=== PATIENT | male | born 1950 | race Caucasian/White ===

== ENCOUNTER 2016-07-18 16:32 | Emergency (ER) | payer OTHER ==
[2016-07-18 16:37] VITALS: TEMP 97.9; BMI 30.8
--- NOTE | 2016-07-18 18:26 | PDOC ---
History of Present Illness - General History Source: Patient Exam Limitations: No Limitations - History of Present Illness Initial Comments: 07/18/16 18:30 The patient is a 66 year old male with a significant PMHx of hypertension, paroxysmal a-fib, hypothyroidism, and anxiety who presents to the ED with intermittent, vague shaky sensation and lightheadedness today. He states that he experienced these symptoms when he was in crowded places, such as the [employer]und[employer] and [employer]. He reports associated feeling of a stuffy head. He reports that while driving to the ED, symptoms resolved and he calmed down. He denies having similar symptoms before. He denies chest pain, palpitations, SOB, URI symptoms, nausea, vomiting, diarrhea. <Ivette Benson - Last Filed: 07/18/16 18:30> <Mario Alberto Salinas - Last Filed: 07/18/16 20:15> - General Chief Complaint: Blood Pressure Problem Stated Complaint: SHACKY/ BLOODPRESSURE Time Seen by Provider: 07/18/16 17:02 Past History <Ivette Benson - Last Filed: 07/18/16 18:30> - Past Medical History Cardiac Disorders: Yes (a-fib) HTN: Yes Kidney Stones: Yes Psychiatric Problems: Yes (ANXIETY.) Thyroid Disease: Yes (HYPO.) - Surgical History Abdominal Surgery: Yes (HERNIA REPAIR, LITHOTRIPSY X5) - Immunization History Immunization Up to Date: Yes - Psycho/Social/Smoking Cessation Hx Anxiety: Yes Suicidal Ideation: No Smoking Status: Yes Smoking History: Never smoked Have you smoked in the past 12 months: No Number of Cigarettes Smoked Daily: 0 Cigars Per Day: 0 Hx Alcohol Use: No Drug/Substance Use Hx: No Substance Use Type: None Hx Substance Use Treatment: No <Mario Alberto Salinas - Last Filed: 07/18/16 20:15> - Past Medical History Allergies/Adverse Reactions: Allergies Allergy/AdvReac Type Severity Reaction Status Date / Time ampicillin Allergy Verified 07/18/16 16:34 Penicillins Allergy Verified 07/18/16 16:34 Home Medications: Ambulatory Orders Aspirin [Aspirin EC] 81 mg PO DAILY 06/05/15 Amlodipine Besylate [Norvasc -] 5 mg PO DAILY 04/19/16 Levothyroxine [Synthroid -] 100 mcg PO DAILY@0700 #60 tablet 04/19/16 Mirtazapine [Remeron -] 7.5 mg PO HS 04/19/16 Quinapril HCl [Accupril] 20 mg PO ONCE 05/06/16 Diltiazem [Cardizem -] 30 mg PO PRN 07/18/16 Review of Systems - Review of Systems Able to Perform ROS?: Yes Comments:: 07/18/16 18:30 CONSTITUTIONAL: Absent: Fever, Chills, Generalized Weakness, Malaise, Loss of Appetite HEENT: Absent: Rhinorrhea, Nasal Congestion, Throat Pain, Throat Swelling, Difficulty Swallowing, Mouth Swelling, Ear Pain, Eye Pain, Visual Changes CARDIOVASCULAR: Present: lightheadedness Absent: Chest Pain, Syncope, Palpitations, Irregular Heart Rate, Peripheral Edema RESPIRATORY: Absent: Cough, Shortness of Breath, SOB with Exertion, Orthopnea, Wheezing, Stridor, Hemoptysis GASTROINTESTINAL: Absent: Abdominal pain, Abdominal Distension, Nausea, Vomiting, Diarrhea, Constipation, Melena, Hematochezia GENITOURINARY: Absent: Dysuria, Frequency, Urgency, Hesitancy, Flank Pain, Genital Pain MUSCULOSKELETAL: Absent: Myalgia, Arthralgia, Joint Swelling, Back pain, Neck Pain SKIN: Absent: Rash, Itching, Pallor HEMATOLOGIC/IMMUNOLOGIC: Absent: Easy Bleeding, Easy Bruising, Lymphadenopathy, Frequent infections ENDOCRINE: Present: change in thyroid dose from 88 mcg to 100 mcg 2 months ago, states repeat labs were good Absent: Unexplained Weight Gain, Unexplained Weight Loss, Heat Intolerance, Cold Intolerance NEUROLOGIC: Present: shaky sensation, lightheadedness Absent: Headache, Focal Weakness, Paresthesias, Vertigo, Unsteady Gait, Seizure, Mental Status Changes, Incontinence PSYCHIATRIC: Present: nervous Absent: Depression <Ivette Benson - Last Filed: 07/18/16 18:30> *Physical Exam - Vital Signs Last Vital Signs Temp Pulse Resp BP Pulse Ox 97.9 F 85 22 136/87 96 07/18/16 16:34 07/18/16 17:17 07/18/16 17:17 07/18/16 17:17 07/18/16 17:17 - Physical Exam Comments: 07/18/16 18:30 GENERAL: The patient is awake, alert, and fully oriented, in no acute distress. Anxious, but overall looks well. HEAD: Normal with no signs of trauma. EYES: Pupils equal, round and reactive to light, extraocular movements intact, sclera anicteric, conjunctiva clear. ENT: Ears normal, nares patent, oropharynx clear without exudates. Moist mucous membranes. NECK: Normal range of motion, supple without lymphadenopathy, JVD, or masses. LUNGS: Breath sounds equal, clear to auscultation bilaterally. No wheezes, and no crackles. HEART: Regular rate and rhythm, normal S1 and S2 without murmur, rub or gallop. ABDOMEN: Soft, appears bloated, normoactive bowel sounds. No guarding, no rebound. No masses. BACK: no CVA tenderness EXTREMITIES: Normal range of motion, no edema. No clubbing or cyanosis. No cords , erythema, or tenderness. NEUROLOGICAL: Cranial nerves II through XII grossly intact. Normal speech, normal gait. Normal strength, normal sensation. PSYCH: Normal mood, normal affect. SKIN: Warm, Dry, normal turgor, no rashes or lesions noted. <Ivette Benson A - Last Filed: 07/18/16 18:30> - Vital Signs Last Vital Signs Temp Pulse Resp BP Pulse Ox 97.9 F 85 22 136/87 96 07/18/16 16:34 07/18/16 17:17 07/18/16 17:17 07/18/16 17:17 07/18/16 17:17 <Mario Alberto Salinas S - Last Filed: 07/18/16 20:15> ED Treatment Course - LABORATORY CBC & Chemistry Diagram: 07/18/16 18:16 07/18/16 18:23 <Ivette Benson - Last Filed: 07/18/16 18:30> - LABORATORY CBC & Chemistry Diagram: 07/18/16 18:16 07/18/16 18:23 <Mario Alberto Salinas - Last Filed: 07/18/16 20:15> Medical Decision Making - Medical Decision Making 07/18/16 20:12 Patient with history of thyroid disease, hypertension, paroxysmal atrial fibrillation complains of feeling a little shaky, little foggy, no palpitations , no chest pain. His 12-lead EKG shows normal sinus rhythm with no acute changes. The axis is normal. The intervals are normal. There are no acute ST or T-wave changes. His laboratory workup and examination are also normal. His TSH is normal, and the free T4 is pending. Advised to call his primary care physician to go over his ending thyroid results on Wednesday. Impression: No acute pathology identified. Patient is stable for discharge. Laboratory Results - last 24 hr 07/18/16 07/18/16 07/18/16 18:16 18:23 19:00 WBC 7.6 RBC 4.98 Hgb 16.0 Hct 46.6 MCV 93.7 MCHC 34.2 RDW 12.9 Plt Count 228 MPV 10.1 Neutrophils % 73.2 D Lymphocytes % 15.5 D Monocytes % 8.5 Eosinophils % 1.5 Basophils % 1.3 Sodium 141 Potassium 4.0 Chloride 103 Carbon Dioxide 28 Anion Gap 10 BUN 17 Creatinine 1.3 Creat Clearance w eGFR 54.90 Random Glucose 102 Calcium 9.3 Total Bilirubin 0.5 D AST 27 ALT 47 Alkaline Phosphatase 75 Total Protein 8.1 Albumin 4.4 TSH 1.68 D Urine Color Ltyellow Urine Appearance Clear Urine pH 7.0 Ur Specific [place] 1.017 Urine Protein Negative Urine Glucose (UA) Negative Urine Ketones Negative Urine Blood Negative Urine Nitrite Negative Urine Bilirubin Negative Urine Urobilinogen Negative Ur Leukocyte Esterase Negative <Mario Alberto Salinas - Last Filed: 07/18/16 20:15> *DC/Admit/Observation/Transfer - Attestations Scribe Attestion: 07/18/16 18:31 Documentation prepared by Ivette Benson, acting as medical service technician for Mario Alberto Salinas MD. <Ivette Benson - Last Filed: 07/18/16 18:30> - Discharge Dispostion Admit: No <Mario Alberto Salinas - Last Filed: 07/18/16 20:15> Diagnosis at time of Disposition: Weakness - Discharge Dispostion Disposition: HOME Condition at time of disposition: Stable - Referrals Referrals: Abraham Patel MD [Primary Care Provider] - 2 Days - Patient Instructions Additional Instructions: You were evaluated today for feeling a little bit shaky. The blood work and examination are normal. The thyroid stimulating hormone level is normal. The free thyroxine test for your thyroid is still pending. Follow-up with your doctor on Wednesday to review your thyroid results. Return to the emergency department for any severe or progressive symptoms.
[2016-07-18 18:37] LABS: MCH 32.1 pg (25.7-33.7)
[2016-07-18 18:40] LABS: BASOPHIL 1.3 % (0-2.0); EOSINOPHIL 1.5 % (0-4.5); MCHC 34.2 g/dl (32.0-35.9); MEAN CELL VOLUME 93.7 fl (80-96); MEAN PLT VOLUME 10.1 fl (7.5-11.1); NEUTROPHILS 73.2 % (42.8-82.8); PLATELET COUNT 228 K/MM3 (134-434); RDW 12.9 % (11.9-15.9); WHITE BLOOD COUNT 7.6 K/mm3 (4.0-10.0)
[2016-07-18 18:59] LABS: ALBUMIN 4.4 g/dl (3.4-5.0); BILIRUBIN,TOTAL 0.5 mg/dL (0.2-1.0); CALCIUM 9.3 mg/dL (8.5-10.1); CREATININE 1.3 mg/dL (0.7-1.3); TOT PROT 8.1 g/dl (6.4-8.2)
[2016-07-18 19:08] LABS: THYROID STIMULATING HORMONE 1.68 uIU/ml (0.358-3.74)
[2016-07-18 19:19] LABS: URINE APPEARANCE CLEAR; URINE BILIRUBIN NEGATIVE (NEGATIVE); URINE BLOOD NEGATIVE (NEGATIVE); URINE COLOR LTYELLOW; URINE GLUCOSE (UA) NEGATIVE (NEGATIVE); URINE KETONE NEGATIVE (NEGATIVE); URINE LEUK ESTERASE NEGATIVE (NEGATIVE); URINE NITRITE NEGATIVE (NEGATIVE); URINE PROTEIN NEGATIVE (NEGATIVE); URINE UROBILINOGEN NEGATIVE E.U./dl (0.2-1.0)
[2016-07-18 20:25] VITALS: BP 101/59; PULSE 78
--- NOTE | 2016-07-20 16:18 | EKG ---
Test Reason : Blood Pressure : / mmHG Vent. Rate : 099 BPM Atrial Rate : 099 BPM P-R Int : 144 ms QRS Dur : 082 ms QT Int : 342 ms P-R-T Axes : 061 050 068 degrees QTc Int : 438 ms NORMAL SINUS RHYTHM NORMAL ECG WHEN COMPARED WITH ECG OF 05-JUN-2016 03:24, SINUS RHYTHM HAS REPLACED ATRIAL FIBRILLATION VENT. RATE HAS DECREASED T WAVE VARIATION Confirmed by JAZLYN ALLRED MD ([id number]) on 07/20/2016 4:18:38 PM Referred By: Confirmed By:JAZLYN ALLRED MD
== END 2016-07-18 20:26 | disposition home or self-care (01) ==
LOC: SUPCPDRO 16:32 → JER 16:32
DX: R53.1 Weakness (principal); I48.0 Paroxysmal atrial fibrillation; I10 Essential (primary) hypertension; E03.9 Hypothyroidism, unspecified; F41.9 Anxiety disorder, unspecified
CPT/HCPCS: 36415; 80053; 81003; 84439; 84443; 85025; 93005; 93010; 99284-25

== ENCOUNTER 2017-01-15 00:46 | Inpatient (IN) | payer OTHER ==
--- NOTE | 2017-01-15 01:10 | PDOC ---
History of Present Illness - General Chief Complaint: Irregular Heart Beat Stated Complaint: IRREGULAR HEARTBEAT Time Seen by Provider: 01/15/17 01:08 History Source: Patient, Family - History of Present Illness Initial Comments: 01/15/17 01:09 Patient is a 66 year old male with history of hypertension, anxiety, hypothyroidism and paroxysmal atrial fibrillation presenting with an irregular heart beat for 1 hour. Patient had returned home from a concert when he started feeling like he was having gas that would not go away. Patient has a history of two previous incidents of paroxysmal atrial fibrillation that spontaneously converted while in the ED. He states that this time it felt different and he started feeling anxious and his heart started racing. Patient took diltiazem 30 mg 30 minutes before presenting to the ED and was irregularly regular at 143 BPM when presenting. Patient denies fever, chills, chest pain, shortness of breath, abdominal pain, nausea, vomiting, constipation and diarrhea. Past History - Past Medical History Allergies/Adverse Reactions: Allergies Allergy/AdvReac Type Severity Reaction Status Date / Time ampicillin Allergy Verified 01/15/17 00:59 Penicillins Allergy Verified 01/15/17 00:59 Home Medications: Ambulatory Orders Aspirin [Aspirin EC] 81 mg PO DAILY 06/05/15 Mirtazapine [Remeron -] 7.5 mg PO HS 04/19/16 Quinapril HCl [Accupril -] 30 mg PO ONCE 05/06/16 Diltiazem Cd [Cardizem Cd -] 120 mg PO DAILY #30 cap.cd.24h 01/15/17 Levothyroxine [Synthroid -] 88 mcg PO DAILY@0700 #30 tablet 01/15/17 Cardiac Disorders: Yes (A-fib) HTN: Yes Kidney Stones: Yes Psychiatric Problems: Yes (Anxiety) Thyroid Disease: Yes (Hypothyroid) - Surgical History Abdominal Surgery: Yes (Inguinal hernia repair, lithotripsy X 5) - Immunization History Immunization Up to Date: Yes - Psycho/Social/Smoking Cessation Hx Anxiety: Yes Suicidal Ideation: No Smoking Status: Yes Smoking History: Never smoked Have you smoked in the past 12 months: No Number of Cigarettes Smoked Daily: 0 Cigars Per Day: 0 Information on smoking cessation initiated: No Hx Alcohol Use: No Drug/Substance Use Hx: No Substance Use Type: None Hx Substance Use Treatment: No Review of Systems - Review of Systems Able to Perform ROS?: Yes Is the patient limited Telugu proficient: No Constitutional: No: Chills, Fever Respiratory: No: Shortness of Breath Cardiac (ROS): Yes: Irregular Heart Rate, Palpitations. No: Chest Pain, Lightheadedness ABD/GI: Yes: Indigestion. No: Constipated, Diarrhea, Nausea, Vomiting, Abdominal cramping Psychiatric: Yes: Anxiety *Physical Exam - Vital Signs Last Vital Signs Temp Pulse Resp BP Pulse Ox 98.2 F 143 H 20 167/123 98 01/15/17 00:59 01/15/17 00:59 01/15/17 00:59 01/15/17 00:59 01/15/17 00:59 - Physical Exam General Appearance: Yes: Nourished, Appropriately Dressed, Mild Distress HEENT: positive: EOMI, Other (flushed face and diaphoretic) Respiratory/Chest: positive: Lungs Clear, Normal Breath Sounds. negative: Respiratory Distress Cardiovascular: positive: Tachycardia, Irregularly Irregular. negative: Regular Rhythm, Regular Rate, Edema, JVD Vascular Pulses: Carotid (L): 3+ Gastrointestinal/Abdominal: positive: Soft. negative: Tender, Distended, Guarding, Rebound Extremity: positive: Normal Capillary Refill. negative: Cyanosis, Pedal Edema Integumentary: positive: Diaphoresis. 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 negative: Normal Mood/Affect (Anxious) ED Treatment Course - LABORATORY CBC & Chemistry Diagram: 01/15/17 01:40 01/15/17 01:40 Medical Decision Making - Medical Decision Making 01/15/17 01:40 66 yo male with history of paroxysmal afib presenting in afib Ddx includes but is not limited to parox afib with RVR, ACS, infection, metabolic imbalance, elevated thyroid hormone, toxins Rate control with Diltiazem Monitor and reassess 01/15/17 02:48 Patient is very anxious and remains in afib 100 to 120. CBC WBC 6.2 K/mm3 (4.0-10.0) 01/15/17 01:40 RBC 4.95 M/mm3 (4.00-5.60) 01/15/17 01:40 Hgb 15.6 GM/dL (11.7-16.9) 01/15/17 01:40 Hct 46.2 % (35.4-49) 01/15/17 01:40 MCV 93.3 fl (80-96) 01/15/17 01:40 MCH 31.5 pg (25.7-33.7) 01/15/17 01:40 MCHC 33.7 g/dl (32.0-35.9) 01/15/17 01:40 RDW 12.8 % (11.9-15.9) 01/15/17 01:40 Plt Count 181 K/MM3 (134-434) D 01/15/17 01:40 MPV 8.8 fl (7.5-11.1) D 01/15/17 01:40 Neutrophils % 51.9 % (42.8-82.8) D 01/15/17 01:40 Lymphocytes % 31.5 % (8-40) D 01/15/17 01:40 Monocytes % 12.1 % (3.8-10.2) H 01/15/17 01:40 Eosinophils % 3.8 % (0-4.5) D 01/15/17 01:40 Basophils % 0.7 % (0-2.0) 01/15/17 01:40 CBC: within normal limits CMP Sodium 142 mmol/L (136-145) 01/15/17 01:40 Potassium 3.9 mmol/L (3.5-5.1) 01/15/17 01:40 Chloride 106 mmol/L (98-107) 01/15/17 01:40 Carbon Dioxide 26 mmol/L (21-32) 01/15/17 01:40 Anion Gap 10 (8-16) 01/15/17 01:40 BUN 20 mg/dL (7-18) H 01/15/17 01:40 Creatinine 1.2 mg/dL (0.7-1.3) 01/15/17 01:40 Creat Clearance w eGFR > 60 (>60) 01/15/17 01:40 Random Glucose 150 mg/dL (74-106) H D 01/15/17 01:40 Calcium 9.2 mg/dL (8.5-10.1) 01/15/17 01:40 Magnesium 2.4 mg/dL (1.8-2.4) 01/15/17 01:40 Total Bilirubin 0.4 mg/dL (0.2-1.0) 01/15/17 01:40 AST 21 U/L (15-37) D 01/15/17 01:40 ALT 38 U/L (12-78) 01/15/17 01:40 Alkaline Phosphatase 87 U/L (45-117) 01/15/17 01:40 Creatine Kinase 74 IU/L (39-308) 01/15/17 16:00 Troponin I < 0.02 ng/ml (0.00-0.05) 01/15/17 16:00 B-Natriuretic Peptide 15.81 pg/ml (5-125) 01/15/17 01:40 Total Protein 7.7 g/dl (6.4-8.2) 01/15/17 01:40 Albumin 4.1 g/dl (3.4-5.0) 01/15/17 01:40 TSH 3.38 01/15/17 01:40 Free T4 1.27 H 01/15/17 01:40 Metabolites, cardiac enzymes, BNP non concerning; mildly elevated free T4 Urine Test Results Urine Color Straw 01/15/17 01:46 Urine Appearance Clear 01/15/17 01:46 Urine pH 6.0 (5.0-8.0) 01/15/17 01:46 Ur Specific [place] 1.020 (1.005-1.025) 01/15/17 01:46 Urine Protein Negative (NEGATIVE) 01/15/17 01:46 Urine Glucose (UA) Negative (NEGATIVE) 01/15/17 01:46 Urine Ketones Negative (NEGATIVE) 01/15/17 01:46 Urine Blood Negative (NEGATIVE) 01/15/17 01:46 Urine Nitrite Negative (NEGATIVE) 01/15/17 01:46 Urine Bilirubin Negative (NEGATIVE) 01/15/17 01:46 Ur Leukocyte Esterase Negative (NEGATIVE) 01/15/17 01:46 UA and toxicology negative 01/15/17 03:47 Patient became tachycardic to the low 200s after standing up to urinate 20 diltiazem IV PUSH [id number] score of 2 (Age and HTN), Consider anticoagulation Patient was admitted to cardiac obs by Dr. Terry *DC/Admit/Observation/Transfer Diagnosis at time of Disposition: Palpitations, Atrial fibrillation with RVR - Discharge Dispostion Condition at time of disposition: Good - Prescriptions - Referrals - Attestations Physician Attestion: I, Dr. Angel Jameson, attest that this document has been prepared under my direction and personally reviewed by me in its entirety. I further attest, that it accurately reflects all work, treatment, procedures and medical decision -making performed by me.
--- NOTE | 2017-01-15 01:15 | PDOC ---
Attending Attestation - Resident Resident Name: Angel Jameson - ED Attending Attestation I have performed the following: I have examined & evaluated the patient, The case was reviewed & discussed with the resident, I agree w/resident's findings & plan, Exceptions are as noted - HPI HPI: The patient is a 66 yo M with a past medical history significant for HTN, AFIB, hypothyroidism and anxiety who presents today complaining of an irregular heartbeat. The patient states he was at a concert tonight and he began to feel the palpitations. He thought the discomfort was from gas but decided to come in to be safe. The patient denies chest pain and lightheadedness. The patient denies nausea, vomiting, diarrhea and abdominal pain. - Physicial Exam PE: GENERAL: Well developed, well nourished. Awake and alert. The patient appears anxious. Diaphoretic. HEENT: Normocephalic, atraumatic. PERRLA, EOMI. No conjunctival pallor. Sclera are non- icteric. Moist mucous membranes. Oropharynx is clear. NECK: Supple. Full ROM. No JVD. Carotid pulses 2+ and symmetric, without bruits. No thyromegaly. No lymphadenopathy. CARDIOVASCULAR: Irregularly irregular. No murmurs, rubs, or gallops. Distal pulses are 2+ and symmetric. PULMONARY: No evidence of respiratory distress. Lungs clear to auscultation bilaterally. No wheezing, rales or rhonchi. ABDOMINAL: Soft. Non-tender. Non-distended. No rebound or guarding. No organomegaly. Normoactive bowel sounds. MUSCULOSKELETAL Normal range of motion at all joints. No bony deformities or tenderness. No CVA tenderness. EXTREMITIES: No cyanosis. No clubbing. No edema. No calf tenderness. SKIN: Warm and dry. Normal capillary refill. No rashes. No jaundice. NEUROLOGICAL: No gross focal neurological deficits. PSYCHIATRIC: Cooperative. Good eye contact. Appropriate mood and affect. - Medical Decision Making Dr. Mary paged @ 3:11. Awaiting call back. Dr. Mary paged @ 3:43. Awaiting call back. Dr. Mary was connected @3:45 and case was discussed. Documentation prepared by Cheryl Cole, acting as durable medical equipment technician for Cali Terry MD/. <Cheryl Cole - Last Filed: 01/15/17 03:45> - Resident Resident Name: Angel Jameson - ED Attending Attestation I have performed the following: I have examined & evaluated the patient, The case was reviewed & discussed with the resident, I agree w/resident's findings & plan, Exceptions are as noted - Physicial Exam PE: 01/15/17 04:04 *Physical Exam General Appearance: Yes: Appropriately Dressed. No: Apparent Distress, Intoxicated HEENT: positive: EOMI, QUINTEN, Normal ENT Inspection, Normal Voice, TMs Normal, Pharynx Normal. negative: Pale Conjunctivae, Photophobia, Scleral Icterus (R), Scleral Icterus (L) Neck: positive: Trachea midline, Normal Thyroid, Supple. negative: Tender, Rigid, Carotid bruit, Stridor, Lymphadenopathy (R), Lymphadenopathy (L), Thyromegaly Respiratory/Chest: positive: Lungs Clear, Normal Breath Sounds. negative: Chest Tender, Respiratory Distress, Accessory Muscle Use, Labored Respiration, RES, Crackles, Rales, Rhonchi, Stridor, Wheezing, Dullness Cardiovascular: positive: irregularly irregular HR and rhythm S1, S2. negative : Edema, JVD, Murmur, Bradycardia, Tachycardia Vascular Pulses: Dorsalis-Pedis (R): 2+, Doralis-Pedis (L): 2+ Gastrointestinal/Abdominal: positive: Normal Bowel Sounds, Flat, Soft. negative : Tender, Organomegaly, Pulsatile Mass, Increased Bowel Sounds, Decreased BS, Distended, Guarding, Rebound, Hernia, Hepatomegaly, Spleenomegaly Lymphatic: negative: Adenopathy, Tenderness Musculoskeletal: positive: Normal Inspection. negative: CVA Tenderness, Decreased Range of Motion Extremity: positive: Normal Capillary Refill, Normal Inspection, Normal Range of Motion, Pelvis Stable. negative: Tender, Pedal Edema, Swelling, Erythema Integumentary: positive: Normal Color, Dry, Warm. 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 negative: EOM Palsy, Facial Droop, Sensory Deficit - Medical Decision Making 01/15/17 04:[address] Mary covering Dr. Patel. made aware of admission to Tele. Pt refused portable chest xray. <Cali Terry - Last Filed: 01/15/17 04:07> Discharge Disposition <Cheryl Cole - Last Filed: 01/15/17 03:45> - Discharge Dispostion Last Admission D/C Date: 04/19/16 Admit: Yes <Cali Terry - Last Filed: 01/15/17 04:07> - Diagnosis Palpitations, Atrial fibrillation with RVR - Referrals Heart Score/ECG Review #1 Atrial fibrillation with rapid ventricular response @ 130bpm. Nonspecific T wave abnormality. #2 Atrial fibrillation @87bpm. Nonspecific T wave abnormality. <KelseyCheryl - Last Filed: 01/15/17 03:45>
[2017-01-15] MEDS ORDERED: dilTIAZem HCL 50 MG/10 ML - 10 ML VIAL IVPUSH ONE ×2 (01:27→03:37)
[2017-01-15 01:45] LABS: BASOPHIL 0.7 % (0-2.0); EOSINOPHIL 3.8 % (0-4.5); MCH 31.5 pg (25.7-33.7); MCHC 33.7 g/dl (32.0-35.9); MEAN CELL VOLUME 93.3 fl (80-96); MEAN PLT VOLUME 8.8 fl (7.5-11.1); NEUTROPHILS 51.9 % (42.8-82.8); PLATELET COUNT 181 K/MM3 (134-434); RDW 12.8 % (11.9-15.9); WHITE BLOOD COUNT 6.2 K/mm3 (4.0-10.0)
[2017-01-15] MEDS ORDERED: dilTIAZem HCL 125 MG/25 ML - 25 ML VIAL ONE (01:49)
[2017-01-15 01:58] LABS: URINE APPEARANCE CLEAR; URINE BILIRUBIN NEGATIVE (NEGATIVE); URINE BLOOD NEGATIVE (NEGATIVE); URINE COLOR STRAW; URINE GLUCOSE (UA) NEGATIVE (NEGATIVE); URINE KETONE NEGATIVE (NEGATIVE); URINE LEUK ESTERASE NEGATIVE (NEGATIVE); URINE NITRITE NEGATIVE (NEGATIVE); URINE PROTEIN NEGATIVE (NEGATIVE); URINE UROBILINOGEN NEGATIVE mg/dL (0.2-1.0)
[2017-01-15 02:04] LABS: URINE MARIJUANA THC NEGATIVE ng/ml (CUTOFF=50)
[2017-01-15 02:11] LABS: INR 0.98 (0.82-1.09); PROTHROMBIN TIME (PATIENT) 10.8 SEC (9.98-11.88)
[2017-01-15 02:20] LABS: ALBUMIN 4.1 g/dl (3.4-5.0); ANION GAP 10 (8-16); BILIRUBIN,TOTAL 0.4 mg/dL (0.2-1.0); CALCIUM 9.2 mg/dL (8.5-10.1); CO2 26 mmol/L (21-32); CREATININE 1.2 mg/dL (0.7-1.3); GLUCOSE,RANDOM 150 mg/dL (74-106); MAGNESIUM 2.4 mg/dL (1.8-2.4); SGOT/AST 21 U/L (15-37); SGPT/ALT 38 U/L (12-78); TOT PROT 7.7 g/dl (6.4-8.2)
[2017-01-15 02:23] LABS: ALK PHOS 87 U/L (45-117); TROPONIN I < 0.02 ng/ml (0.00-0.05)
[2017-01-15] MEDS ORDERED: ENOXAPARIN NA (PORCINE) 100 MG/1 ML DISP.SYRIN SQ ONE ×2 (04:21→04:29)
[2017-01-15 07:08] VITALS: BMI 31.6
[2017-01-15] MEDS ORDERED: ASPIRIN COATED 81 MG TABLET.EC PO SCH (10:00)
[2017-01-15] MEDS ORDERED: dilTIAZem HCL 30 MG TABLET (FP) PO SCH (10:00)
--- NOTE | 2017-01-15 10:15 | EKG ---
Test Reason : Blood Pressure : / mmHG Vent. Rate : 087 BPM Atrial Rate : 075 BPM P-R Int : 000 ms QRS Dur : 092 ms QT Int : 336 ms P-R-T Axes : 000 031 063 degrees QTc Int : 404 ms ATRIAL FIBRILLATION NONSPECIFIC T WAVE ABNORMALITY ABNORMAL ECG WHEN COMPARED WITH ECG OF 15-JAN-2017 01:11, VENT. RATE HAS DECREASED BY 43 BPM Confirmed by MD ALLI, JOCE ([id number]) on 01/15/2017 10:15:22 AM Referred By: Confirmed By:JOCE CARSON MD
--- NOTE | 2017-01-15 10:16 | EKG ---
Test Reason : Blood Pressure : / mmHG Vent. Rate : 130 BPM Atrial Rate : 125 BPM P-R Int : 000 ms QRS Dur : 086 ms QT Int : 276 ms P-R-T Axes : 000 041 072 degrees QTc Int : 406 ms ATRIAL FIBRILLATION WITH RAPID VENTRICULAR RESPONSE NONSPECIFIC T WAVE ABNORMALITY ABNORMAL ECG WHEN COMPARED WITH ECG OF 18-JUL-2016 16:44, ATRIAL FIBRILLATION HAS REPLACED SINUS RHYTHM Confirmed by MD ALLI, JOCE ([id number]) on 01/15/2017 10:16:09 AM Referred By: Confirmed By:JOCE CARSON MD
[2017-01-15 10:21] LABS: FREE T4 1.27 ng/dl (0.76-1.16); THYROID STIMULATING HORMONE 3.38 uIU/ml (0.358-3.74)
--- NOTE | 2017-01-15 11:08 | HP ---
Admitting History and Physical - Primary Care Physician PCP: Abraham Patel - Admission Chief Complaint: I was having a fib History of Present Illness: Mr Hugo is a 66 year old man who comes in with an episode of atrial fibrillation. He says he was watching television last night around midnight when he began to feel discomfort. He says that he was having a heartburn like feeling that he attributed to eating pizza. He was also having palpitations but they were slight. He denies lightheadedness, dizziness, passing out, chest pressure, fluttering, shortness of breath, nausea, vomiting, diarrhea, constipation, or swelling. He came in to have it checked out and was found to have afib with rvr. Currently he is in sinus rhythm and is without complaint. History Source: Patient Limitations to Obtaining History: No Limitations - Past Medical History Cardiovascular: Yes: AFIB, HTN - Past Surgical History Past Surgical History: Yes: Hernia Repair - Smoking History Smoking history: Never smoked Have you smoked in the past 12 months: No Aproximately how many cigarettes per day: 0 - Alcohol/Substance Use Hx Alcohol Use: No History of Substance Use: reports: None - Social History Usual Living Arrangement: Yes: With Spouse ADL: Independent History of Recent Travel: No Home Medications - Allergies Allergies/Adverse Reactions: Allergies Allergy/AdvReac Type Severity Reaction Status Date / Time ampicillin Allergy Verified 01/15/17 00:59 Penicillins Allergy Verified 01/15/17 00:59 - Home Medications Home Medications: Ambulatory Orders Aspirin [Aspirin EC] 81 mg PO DAILY 06/05/15 Amlodipine Besylate [Norvasc -] 5 mg PO DAILY 04/19/16 Levothyroxine [Synthroid -] 100 mcg PO DAILY@0700 #60 tablet 04/19/16 Mirtazapine [Remeron -] 7.5 mg PO HS 04/19/16 Quinapril HCl [Accupril] 30 mg PO ONCE 05/06/16 Diltiazem [Cardizem -] 30 mg PO PRN 07/18/16 Family Disease History - Family Disease History Family Disease History: Heart Disease: Sister (a fib) Review of Systems Findings/Remarks: full review of systems obtained, as per HPI and otherwise negative. Physical Examination Vital Signs: Vital Signs Temperature 98 F 01/15/17 04:45 Pulse Rate 88 01/15/17 04:45 Respiratory Rate 18 01/15/17 04:45 Blood Pressure 128/87 01/15/17 04:45 O2 Sat by Pulse Oximetry (%) 96 01/15/17 04:02 Constitutional: Yes: Well Nourished, No Distress, Calm Eyes: Yes: Conjunctiva Clear, EOM Intact, PERRL HENT: Yes: Atraumatic, Normocephalic Cardiovascular: Yes: Regular Rate and Rhythm. No: Gallop, Murmur, Rub Respiratory: Yes: Regular, CTA Bilaterally. No: Rales, Rhonchi, Wheezes Gastrointestinal: Yes: Normal Bowel Sounds, Soft. No: Distention, Tenderness Extremities: Yes: WNL Edema: No Labs: Laboratory Results - last 24 hr 01/15/17 01/15/17 01/15/17 01:40 01:40 01:40 WBC 6.2 RBC 4.95 Hgb 15.6 Hct 46.2 MCV 93.3 MCH 31.5 MCHC 33.7 RDW 12.8 Plt Count 181 D MPV 8.8 D Neutrophils % 51.9 D Lymphocytes % 31.5 D Monocytes % 12.1 H Eosinophils % 3.8 D Basophils % 0.7 INR 0.98 Sodium 142 Potassium 3.9 Chloride 106 Carbon Dioxide 26 Anion Gap 10 BUN 20 H Creatinine 1.2 Creat Clearance w eGFR > 60 Random Glucose 150 H D Calcium 9.2 Magnesium 2.4 Total Bilirubin 0.4 AST 21 D ALT 38 Alkaline Phosphatase 87 Creatine Kinase 126 Troponin I < 0.02 B-Natriuretic Peptide 15.81 Total Protein 7.7 Albumin 4.1 TSH 3.38 D Free T4 1.27 H Urine Color Urine Appearance Urine pH Urine Protein Urine Glucose (UA) Urine Ketones Urine Blood Urine Nitrite Urine Bilirubin Urine Urobilinogen Ur Leukocyte Esterase Opiates Screen Methadone Screen Barbiturate Screen Phencyclidine Screen Ur Amphetamines Screen MDMA (Ecstasy) Screen Benzodiazepines Screen Cocaine Screen U Marijuana (THC) Screen 01/15/17 01/15/17 01/15/17 01:46 01:46 09:50 WBC RBC Hgb Hct MCV MCH MCHC RDW Plt Count MPV Neutrophils % Lymphocytes % Monocytes % Eosinophils % Basophils % INR Sodium Potassium Chloride Carbon Dioxide Anion Gap BUN Creatinine Creat Clearance w eGFR Random Glucose Calcium Magnesium Total Bilirubin AST ALT Alkaline Phosphatase Creatine Kinase Troponin I B-Natriuretic Peptide Total Protein Albumin TSH Cancelled Free T4 Cancelled Urine Color Straw Urine Appearance Clear Urine pH 6.0 Urine Protein Negative Urine Glucose (UA) Negative Urine Ketones Negative Urine Blood Negative Urine Nitrite Negative Urine Bilirubin Negative Urine Urobilinogen Negative Ur Leukocyte Esterase Negative Opiates Screen Negative Methadone Screen Negative Barbiturate Screen Negative Phencyclidine Screen Negative Ur Amphetamines Screen Negative MDMA (Ecstasy) Screen Negative Benzodiazepines Screen Negative Cocaine Screen Negative U Marijuana (THC) Screen Negative Imaging - Results EKG: Image Reviewed Problem List - Problems (1) Atrial fibrillation with RVR Assessment/Plan: -converted back to sinus rhythm -cardiology consulted and will see -possible discharge if ok with cardiology Code(s): I48.91 - UNSPECIFIED ATRIAL FIBRILLATION (2) Anxiety Assessment/Plan: -continue remeron Code(s): F41.9 - ANXIETY DISORDER, UNSPECIFIED (3) Hypertension Assessment/Plan: -holding amlodipine and quinapril currently -? if will need scheduled louis agents -will await cardiology recommendations Code(s): I10 - ESSENTIAL (PRIMARY) HYPERTENSION Qualifiers: Hypertension type: essential hypertension Qualified Code(s): I10 - Essential (primary) hypertension (4) Hypothyroidism Assessment/Plan: -normal TSH but elevated FT4 -may be cause of episode -will decrease to 88mcg daily -may benefit from outpatient endocrinology if does not see Code(s): E03.9 - HYPOTHYROIDISM, UNSPECIFIED
--- NOTE | 2017-01-15 15:52 | CON.CARD ---
Consult Consult Specialty:: cardio Referred by:: manohar Reason for Consultation:: afib - History of Present Illness Chief Complaint: palp, cp History of Present Illness: 66 year old man came in with an episode of atrial fibrillation. He says he was watching television last night around midnight when he began to feel discomfort. He says that he was having a heartburn like feeling that he attributed to eating pizza. He was also having palpitations but they were slight. describes the cp sx as gas/bloating discomfort +/- indigestion, not a new sx and he has had this exact sx off and on rarely over the years. no sob, presyncope converted to sinus in hospital. was hemodynamically stable per VSs in [facility], given mult doses IV and po diltiazem pt sees anthony in office for known PAF. says intolerant of metoprolol in past. so now taking diltiazem 30mg only as needed prn palpitations. says he had echo which was benign, as outpt. says he takes only ASA b/c refuses AC ("i couldn't tolerate it) PMH: HTN PAF anxiety no CAD/CHF - Past Medical History Cardio/Vascular: Yes: AFIB, HTN - Past Surgical History Past Surgical History: Yes: Hernia Repair - Alcohol/Substance Use Hx Alcohol Use: No History of Substance Use: reports: None - Smoking History Smoking history: Never smoked Have you smoked in the past 12 months: No Aproximately how many cigarettes per day: 0 - Social History ADL: Independent History of Recent Travel: No Home Medications - Allergies Allergies/Adverse Reactions: Allergies Allergy/AdvReac Type Severity Reaction Status Date / Time ampicillin Allergy Verified 01/15/17 00:59 Penicillins Allergy Verified 01/15/17 00:59 - Home Medications Home Medications: Ambulatory Orders Aspirin [Aspirin EC] 81 mg PO DAILY 06/05/15 Amlodipine Besylate [Norvasc -] 5 mg PO DAILY 04/19/16 Levothyroxine [Synthroid -] 100 mcg PO DAILY@0700 #60 tablet 04/19/16 Mirtazapine [Remeron -] 7.5 mg PO HS 04/19/16 Quinapril HCl [Accupril] 30 mg PO ONCE 05/06/16 Diltiazem [Cardizem -] 30 mg PO PRN 07/18/16 Family Disease History - Family Disease History Family Disease History: Heart Disease: Sister (a fib) Review of Systems - Review of Systems Constitutional: denies: Chills, Fever Eyes: denies: Eye Pain HENT: denies: Nasal Congestion Neck: denies: Stiffness Cardiovascular: denies: Palpitations Respiratory: denies: Orthopnea, PND Gastrointestinal: denies: Diarrhea, Rectal Bleeding Genitourinary: denies: Burning, Hematuria Musculoskeletal: denies: Muscle Pain Integumentary: denies: Rash Neurological: denies: Numbness, Seizure, Syncope Endocrine: denies: Excessive Sweating Hematology/Lymphatic: denies: Excessive Bleeding Vital Signs: Vital Signs Temperature 98.2 F 01/15/17 08:00 Pulse Rate 77 01/15/17 12:00 Respiratory Rate 14 01/15/17 12:00 Blood Pressure 111/74 01/15/17 12:00 O2 Sat by Pulse Oximetry (%) 96 01/15/17 04:02 Constitutional: Yes: Well Nourished, No Distress Eyes: No: Sclera Icterus HENT: No: Nasal Congestion Neck: No: Decreased ROM Respiratory: Yes: CTA Bilaterally. No: Accessory Muscle Use, Rales, Wheezes Gastrointestinal: Yes: Normal Bowel Sounds. No: Distention, Hepatomegaly, Palpable Mass, Tenderness Cardiovascular: Yes: Regular Rate and Rhythm JVD: No Carotid Bruit: No PMI: Non-Displaced Heart Sounds: Yes: S1, S2. No: Gallop Murmur: No: Systolic Murmur, Diastolic Murmur Musculoskeletal: Yes: Other (No kyphosis) Extremities: No: Cool, Cyanosis Edema: No Peripheral Pulses: 2+ Left Carotid, 2+ Right Carotid, 2+ Left Doralis Pedis, 2+ Right Dorsalis Pedis Integumentary: No: Jaundice Neurological: Yes: Alert, Oriented (x3) Psychiatric: No: Agitated - Other Data Labs, Other Data: INR, PTT INR 0.98 (0.82-1.09) 01/15/17 01:40 Laboratory Tests 01/15/17 01/15/17 01:40 01:40 WBC 6.2 Hgb 15.6 Plt Count 181 D Sodium 142 Potassium 3.9 BUN 20 H Creatinine 1.2 AST 21 D ALT 38 Creatine Kinase 126 Troponin I < 0.02 B-Natriuretic Peptide 15.81 TSH 3.38 D tele: NSR Assessment/Plan EKG #1: AF 130 bpm, normal axis/intervals. no path q's. nonsp ST-T inferolateral leads (no old) #2: AF 87bpm, no ST change vs prior rapid AF: -known h/o PAF (this is 3rd episode). -intolerant of BB, was using short-acting diltiazem 30mg at home prn basis only -HR controlled here with IV diltiazem pushes--converted overnight -TSH normal (isolated elevated T4 not etiologic in rapid AF--i.e. not "reversible" etiology) -CHADS VASC = 2--merits AC for stroke prevention but he declines--on ASA only at home (dr cruz has d/w'd him previously) -rec start cardizem CD 120mg qd -explained to pt and if he can't control PAF to acceptable frequency of hospitalizations for tachycardia, he will need escalation of therapy to anti- arrhythmics vs ablation -prior echo unremarkable in past per pt; no s/sx of isch or structural heart dz atyp CP: -pt reports gas/bloating and acid reflux sx identical to prior episodes he's had over the years -highly doubt ACS presentation in light of this history, plus no isch ecg changes and trop x 2 normal HTN: -on YOUSUF and amlodipine previously -starting cardizem here--rec d/c amlodipine but continue prior YOUSUF regimen OK FOR D/C HOME WITH OUTPT F/U DR CRUZ
[2017-01-15 17:09] LABS: TROPONIN I < 0.02 ng/ml (0.00-0.05)
[2017-01-15 17:46] VITALS: BP 140/85; PULSE 74; TEMP 98
--- NOTE | 2017-01-15 18:31 | DS ---
Physical Examination Vital Signs: Vital Signs Temperature 98 F 01/15/17 17:45 Pulse Rate 74 01/15/17 17:45 Respiratory Rate 18 01/15/17 17:45 Blood Pressure 140/85 01/15/17 17:45 O2 Sat by Pulse Oximetry (%) 96 01/15/17 04:02 Discharge Summary Reason For Visit: PALPITATIONS ATRIAL FABRILLATION Current Active Problems Atrial fibrillation with RVR (Acute) Palpitations (Acute) Hospital Course: Patient presented to the hospital in afib with rvr. He received IV diltiazem and spontaneously converted. He was admitted to telemetry. His TFTs were checked , his TSH was normal but his free T4 was elevated. Will decrease his levothyroxine to 88mcg, he should follow up with Dr Patel and have this rechecked. He was seen by Dr Guerrero and placed on diltiazem. His norvasc will be stopped. He is safe for discharge home, patient refuses AC so will be sent on aspirin Condition: Good - Instructions Diet, Activity, Other Instructions: resume previous diet and activity. Referrals: Abraham Patel MD [Primary Care Provider] - Lev Guerrero MD [Staff Physician] - Disposition: HOME - Home Medications Comprehensive Discharge Medication List: Ambulatory Orders Aspirin [Aspirin EC] 81 mg PO DAILY 06/05/15 Mirtazapine [Remeron -] 7.5 mg PO HS 04/19/16 Quinapril HCl [Accupril -] 30 mg PO ONCE 05/06/16 Diltiazem Cd [Cardizem Cd -] 120 mg PO DAILY #30 cap.cd.24h 01/15/17 Levothyroxine [Synthroid -] 88 mcg PO DAILY@0700 #30 tablet 01/15/17
[2017-01-15] MEDS ORDERED: MIRTAZAPINE 15 MG TABLET (FP) PO SCH (22:00)
[2017-01-16] MEDS ORDERED: LEVOTHYROXINE NA 100 MCG TABLET (FP) PO SCH (07:00)
[2017-01-16] MEDS ORDERED: LEVOTHYROXINE NA 88 MCG TABLET (FP) PO SCH (07:00)
== END 2017-01-15 19:11 | disposition home or self-care (01) | DRG 310 ==
LOC: JER 00:46 → JERBED 02:38 → UNDOADMIN 02:48 → JICU 07:25
PROVIDERS: ADMIT Internal Medicine; ATTEND Internal Medicine
DX: I48.91 Unspecified atrial fibrillation (principal); I10 Essential (primary) hypertension; E03.9 Hypothyroidism, unspecified; F41.8 Other specified anxiety disorders; N20.0 Calculus of kidney; R07.89 Other chest pain
CPT/HCPCS: 36415; 80053; 80307; 81003; 82550; 83735; 83880; 84439; 84443; 84484; 85025; 85610; 93005; 93010; 99283-25

== ENCOUNTER 2017-02-17 13:21 | Emergency (ER) | payer OTHER ==
[2017-02-17 13:25] VITALS: TEMP 98
--- NOTE | 2017-02-17 13:54 | PDOC ---
History of Present Illness - General Chief Complaint: Blood Pressure Problem Stated Complaint: ELEVATED BP Time Seen by Provider: 02/17/17 13:50 - History of Present Illness Initial Comments: 02/17/17 14:25 66 with pmh of afib presents to the ED after finding a difference in BP from one arm to the other "88/65 on the left, 195/100 on the right". General fatigue , vague, chronic. No headaches, chest/back pain, sob, edema. 02/17/17 15:41 Past History - Past Medical History Allergies/Adverse Reactions: Allergies Allergy/AdvReac Type Severity Reaction Status Date / Time ampicillin Allergy Verified 02/17/17 13:26 Penicillins Allergy Verified 02/17/17 13:26 Home Medications: Ambulatory Orders Mirtazapine [Remeron -] 7.5 mg PO HS 04/19/16 Quinapril HCl [Accupril -] 20 mg PO DAILY 05/06/16 Diltiazem Cd [Cardizem Cd -] 120 mg PO DAILY #30 cap.cd.24h 01/15/17 Levothyroxine [Synthroid -] 88 mcg PO DAILY@0700 #30 tablet 01/15/17 Aspirin [ASA -] 81 mg PO DAILY 02/17/17 Cardiac Disorders: Yes (a-fib) HTN: Yes Kidney Stones: Yes Psychiatric Problems: Yes (ANXIETY.) Thyroid Disease: Yes (HYPO.) - Surgical History Abdominal Surgery: Yes (HERNIA REPAIR, LITHOTRIPSY X5) - Immunization History Immunization Up to Date: Yes - Psycho/Social/Smoking Cessation Hx Anxiety: Yes Suicidal Ideation: No Smoking Status: Yes Smoking History: Never smoked Have you smoked in the past 12 months: No Number of Cigarettes Smoked Daily: 0 Cigars Per Day: 0 Hx Alcohol Use: No Drug/Substance Use Hx: No Substance Use Type: None Hx Substance Use Treatment: No Review of Systems - Review of Systems Constitutional: No: Symptoms Reported HEENTM: No: Symptoms Reported Respiratory: No: Symptoms reported Cardiac (ROS): No: Symptoms Reported ABD/GI: No: Symptoms Reported : No: Symptoms Reported Musculoskeletal: No: Symptoms Reported Integumentary: No: Symptoms Reported *Physical Exam - Vital Signs Last Vital Signs Temp Pulse Resp BP Pulse Ox 98.0 F 104 H 20 157/104 97 02/17/17 13:22 02/17/17 13:22 02/17/17 13:22 02/17/17 13:22 02/17/17 13:22 - Physical Exam General Appearance: Yes: Nourished, Appropriately Dressed. No: Apparent Distress HEENT: positive: EOMI, QUINTEN Neck: positive: Trachea midline. negative: Tender Respiratory/Chest: positive: Lungs Clear, Normal Breath Sounds. negative: Chest Tender Cardiovascular: positive: Regular Rhythm, Regular Rate, S1, S2 Gastrointestinal/Abdominal: positive: Normal Bowel Sounds, Protuberent. negative: Tender ED Treatment Course - LABORATORY CBC & Chemistry Diagram: 02/17/17 14:30 02/17/17 14:30 Medical Decision Making - Medical Decision Making 02/17/17 15:43 66M with h/o afib, htn and hypothyroidism presents after finding significant BP difference using home bp machine. in the Ed, Left arm: 139/88, right arm: 147/99. EKG: sinus rythm CXR: negative. labs: neg Repeat Blood Pressure: L: 138/70 R:140/75 D/c *DC/Admit/Observation/Transfer Diagnosis at time of Disposition: Hypertension - Discharge Dispostion Disposition: HOME Admit: No - Referrals Referrals: Abraham Patel MD [Primary Care Provider] - - Patient Instructions Printed Discharge Instructions: DI for High Blood Pressure
[2017-02-17 14:51] LABS: BASOPHIL 0.7 % (0-2.0); EOSINOPHIL 3.5 % (0-4.5); MCH 31.8 pg (25.7-33.7); MCHC 33.6 g/dl (32.0-35.9); MEAN CELL VOLUME 94.4 fl (80-96); MEAN PLT VOLUME 8.9 fl (7.5-11.1); NEUTROPHILS 67.1 % (42.8-82.8); PLATELET COUNT 184 K/MM3 (134-434); RDW 12.9 % (11.9-15.9); WHITE BLOOD COUNT 5.4 K/mm3 (4.0-10.0)
--- NOTE | 2017-02-17 15:03 | PDOC ---
Attending Attestation - Resident Resident Name: PatelBraden - ED Attending Attestation I have performed the following: I have examined & evaluated the patient, The case was reviewed & discussed with the resident, I agree w/resident's findings & plan, Exceptions are as noted - HPI HPI: 02/17/17 17:40 66y F hx of pafib on asa, htn, hypothyroidism presents with bp problem. Pt states he was feeling a bit fatigued this morning, he checked his BP in one arm , ntoticied it was low, and checked the other arm and was very elevated so came to the ED. The pt states he currently feels well w/o any weakness/fatigue. He denies any chest pain, back pain, numnbess/tingling/weakness, cough, back pain, abd pain, n/v, dizziness, palpitations. On exam the pt appears well, in no distress, symmetric BPs b/l, symmetric pulses in b/l upper/lowe extermities. no clinical signs of dissection, without any pain, highly unlikely Pts ekg is unremarkable cxr unremarkable labs normal repeat bp normal will dc with pMD fu return precautions were dsicussed I discussed the physical exam findings, ancillary test results and final diagnoses with the patient. I answered all of the patient's questions. The patient was satisfied with the care received and felt comfortable with the discharge plan and treatment plan. The patient will call their primary care physician within 24 hours to arrange follow-up and will return to the Emergency Department with any new, persistent or worsening symptoms. - Physicial Exam PE: 02/17/17 17:44 GENERAL: The patient is awake, alert, and fully oriented, Nontoxic - in no acute distress. HEAD: Normocephalic, atraumatic. EYES: extraocular movements intact, sclera anicteric, conjunctiva clear. ENT: Normal voice, Moist mucous membranes. NECK: Normal range of motion, supple, no bruits noted LUNGS: Breath sounds equal, clear to auscultation bilaterally. No wheezes, no rhonchi, no rales. HEART: Regular rate and rhythm, normal S1 and S2 without murmur, rub or gallop. ABDOMEN: Soft, nontender, normoactive bowel sounds. No guarding, no rebound. EXTREMITIES: Normal range of motion, no edema. pulses symmetric in radials bilaterally NEUROLOGICAL: No facial assymetry, Normal speech, PSYCH: Normal mood, normal affect. SKIN: Warm, Dry, normal turgor, - Medical Decision Making 02/17/17 17:45 see above Heart Score/ECG Review - ECG Impressions Comment:: 02/17/17 17:44 Twelve-lead EKG was performed and reviewed by me. There is normal sinus rhythm with a normal rate. Rate of 77 The axis is normal. The intervals are normal. There is normal R wave progression There are no ST or T wave abnormalities. Impression: Normal twelve-lead EKG
[2017-02-17 15:13] LABS: ALK PHOS 72 U/L (45-117); ANION GAP 3 (8-16); BILIRUBIN,TOTAL 0.4 mg/dL (0.2-1.0); CO2 32 mmol/L (21-32); CREATININE 1.2 mg/dL (0.7-1.3); GLUCOSE,RANDOM 110 mg/dL (74-106); SGOT/AST 19 U/L (15-37); SGPT/ALT 37 U/L (12-78); TOT PROT 7.5 g/dl (6.4-8.2)
[2017-02-17 17:55] VITALS: BP 132/85; PULSE 69
--- NOTE | 2017-02-18 10:54 | EKG ---
Test Reason : Blood Pressure : / mmHG Vent. Rate : 077 BPM Atrial Rate : 077 BPM P-R Int : 174 ms QRS Dur : 084 ms QT Int : 364 ms P-R-T Axes : 038 041 055 degrees QTc Int : 411 ms NORMAL SINUS RHYTHM WITH SINUS ARRHYTHMIA NORMAL ECG WHEN COMPARED WITH ECG OF 15-JAN-2017 02:33, SINUS RHYTHM HAS REPLACED ATRIAL FIBRILLATION Confirmed by SHAHID ROMANO MD ([id number]) on 02/18/2017 10:54:21 AM Referred By: Confirmed By:SHAHID ROMANO MD
== END 2017-02-17 17:55 | disposition home or self-care (01) ==
LOC: JER 13:21
DX: I10 Essential (primary) hypertension (principal); I48.91 Unspecified atrial fibrillation; Z79.82 Long term (current) use of aspirin; E03.9 Hypothyroidism, unspecified; F41.9 Anxiety disorder, unspecified
CPT/HCPCS: 36415; 71020-TC; 80053; 84443; 85025; 93005; 93010; 99283-25

== ENCOUNTER 2017-07-18 20:00 | Inpatient (IN) | payer OTHER ==
[2017-07-18] MEDS ORDERED: dilTIAZem HCL 125 MG/25 ML - 25 ML VIAL ONE ×2 (20:22→20:46)
--- NOTE | 2017-07-18 20:26 | PDOC ---
History of Present Illness - General Stated Complaint: CHEST PAIN Time Seen by Provider: 07/18/17 20:17 Past History - Past Medical History Allergies/Adverse Reactions: Allergies Allergy/AdvReac Type Severity Reaction Status Date / Time ampicillin Allergy Verified 07/18/17 20:10 Penicillins Allergy Verified 07/18/17 20:10 Home Medications: Ambulatory Orders Mirtazapine [Remeron -] 7.5 mg PO HS 04/19/16 Diltiazem Cd [Cardizem Cd -] 120 mg PO DAILY #30 cap.cd.24h 01/15/17 Levothyroxine [Synthroid -] 88 mcg PO DAILY@0700 #30 tablet 01/15/17 Aspirin [ASA -] 81 mg PO DAILY 02/17/17 Nebivolol [Bystolic -] 5 mg PO DAILY #30 tab 07/19/17 Cardiac Disorders: Yes (a-fib) COPD: No HTN: Yes Kidney Stones: Yes Psychiatric Problems: Yes (ANXIETY.) Thyroid Disease: Yes (HYPO.) - Surgical History Abdominal Surgery: Yes (HERNIA REPAIR, LITHOTRIPSY X5) - Immunization History Immunization Up to Date: Yes - Suicide/Smoking/Psychosocial Hx Smoking Status: Yes Smoking History: Unknown if ever smoked Have you smoked in the past 12 months: No Number of Cigarettes Smoked Daily: 0 Cigars Per Day: 0 Hx Alcohol Use: No Drug/Substance Use Hx: No Substance Use Type: None Hx Substance Use Treatment: No *Physical Exam - Vital Signs Last Vital Signs Temp Pulse Resp BP Pulse Ox 98.2 F 74 18 151/73 98 07/19/17 09:15 07/19/17 12:15 07/19/17 12:15 07/19/17 12:15 07/19/17 12:15 ED Treatment Course - LABORATORY CBC & Chemistry Diagram: 07/19/17 06:40 07/18/17 20:29 - ADDITIONAL ORDERS Additional order review: 07/18/17 20:29 Influenza Types A,B Antigen (GILBERT) - Final Nasopharyngeal Swab - Final 07/18/17 20:29 RBC 5.30 MCV 94.0 MCHC 33.6 RDW 13.1 MPV 9.8 D Neutrophils % 68.8 Lymphocytes % 20.1 Monocytes % 9.1 Eosinophils % 1.5 Basophils % 0.5 - RADIOLOGY Radiology Studies Ordered: Category Date Time Status CHEST X-RAY PORTABLE* [RAD] Stat Radiology 07/18/17 20:29 Completed - Medications Given in the ED: ED Medications Discontinued Medications Generic Name Dose Route Start Last Admin Trade Name Yan PRN Reason Stop Dose Admin Aspirin 81 mg 07/19/17 10:00 07/19/17 11:20 Asa - PO 81 mg DAILY CRISTHIAN Administration Diltiazem HCl 20 mg 07/18/17 20:35 07/18/17 20:36 Cardizem Injection - IVPUSH 07/18/17 20:36 20 mg ONCE ONE Administration Diltiazem HCl 20 mg 07/18/17 20:43 07/18/17 20:52 Cardizem Injection - IVPUSH 07/18/17 20:44 20 mg ONCE ONE Administration Diltiazem HCl 120 mg 07/19/17 10:00 07/19/17 11:20 Cardizem Cd - PO 120 mg DAILY CRISTHIAN Administration Enoxaparin Sodium 100 mg 07/18/17 23:33 07/19/17 00:40 Lovenox - SQ 07/18/17 23:34 100 mg ONCE ONE Administration Levothyroxine Sodium 88 mcg 07/19/17 07:00 07/19/17 11:20 Synthroid - PO 88 mcg DAILY@0700 CRISTHIAN Administration Lorazepam 0.5 mg 07/18/17 21:44 07/18/17 21:53 Ativan Injection - IVPUSH 07/18/17 21:45 0.5 mg ONCE ONE Administration Metoprolol Tartrate 5 mg 07/18/17 22:24 07/18/17 22:45 Lopressor Injection - IVPUSH 07/18/17 22:25 5 mg ONCE ONE Administration Quinapril HCl 20 mg 07/19/17 10:00 07/19/17 11:20 Accupril - PO 20 mg DAILY CRISTHIAN Administration *DC/Admit/Observation/Transfer Diagnosis at time of Disposition: Afib Qualifiers: Atrial fibrillation type: paroxysmal Qualified Code(s): I48.0 - Paroxysmal atrial fibrillation - Discharge Dispostion Condition at time of disposition: Stable - Prescriptions - Referrals - Patient Instructions - Post Discharge Activity
[2017-07-18] MEDS ORDERED: dilTIAZem HCL 50 MG/10 ML - 10 ML VIAL IVPUSH ONE ×2 (20:35→20:43)
[2017-07-18 20:46] LABS: BASO % 0.5 % (0-2.0); EOS % 1.5 % (0-4.5); HEMATOCRIT 49.8 % (35.4-49); HEMOGLOBIN 16.8 GM/dL (11.7-16.9); LYMPH % 20.1 % (8-40); MCH 31.6 pg (25.7-33.7); MCHC 33.6 g/dl (32.0-35.9); MEAN PLT VOLUME 9.8 fl (7.5-11.1); MONO % 9.1 % (3.8-10.2); NEUT % 68.8 % (42.8-82.8); PLATELET COUNT 218 K/MM3 (134-434); RDW 13.1 % (11.9-15.9); WHITE BLOOD COUNT 10.5 K/mm3 (4.0-10.0)
[2017-07-18 20:58] LABS: INR 1.04 (0.82-1.09); PROTHROMBIN TIME (PATIENT) 11.8 SEC (9.98-11.88)
--- NOTE | 2017-07-18 21:01 | PDOC ---
History of Present Illness - General Chief Complaint: Chest Pain Stated Complaint: CHEST PAIN Time Seen by Provider: 07/18/17 20:17 - History of Present Illness Initial Comments: 66y F with PMH of pafib on asa, htn, hypothyroidism BIBEMS with one day of cough and congestion with acute onset (30 minutes prior to arrival) of palpitations and anxiety. States that he has had one day of cough and was at home sitting in a chair when he all of a suddne experienced severe anxiety and palpitations. He has many visits for anxiety, afib with RVR, and other anxiety related complaints. He is not on AC because of questionable reaction to Coumadin in the past with inability to afford other AC regimens. His HR was in the 140s-150s with BP in the 190s on presentation to the ED. He had just taken his diltiazem prior to arrival of EMS to his home. Denies fevers, chills, nausea , vomiting, diarrhea, constipation, chest pain, or other symptoms. He did admit to "feeling funny". 07/18/17 21:20 Past History - Past Medical History Allergies/Adverse Reactions: Allergies Allergy/AdvReac Type Severity Reaction Status Date / Time ampicillin Allergy Verified 07/18/17 20:10 Penicillins Allergy Verified 07/18/17 20:10 Home Medications: Ambulatory Orders Mirtazapine [Remeron -] 7.5 mg PO HS 04/19/16 Quinapril HCl [Accupril -] 20 mg PO DAILY 05/06/16 Diltiazem Cd [Cardizem Cd -] 120 mg PO DAILY #30 cap.cd.24h 01/15/17 Levothyroxine [Synthroid -] 88 mcg PO DAILY@0700 #30 tablet 01/15/17 Aspirin [ASA -] 81 mg PO DAILY 02/17/17 Cardiac Disorders: Yes (a-fib) COPD: No HTN: Yes Kidney Stones: Yes Psychiatric Problems: Yes (ANXIETY.) Thyroid Disease: Yes (HYPO.) - Surgical History Abdominal Surgery: Yes (HERNIA REPAIR, LITHOTRIPSY X5) - Immunization History Immunization Up to Date: Yes - Suicide/Smoking/Psychosocial Hx Smoking Status: Yes Smoking History: Unknown if ever smoked Have you smoked in the past 12 months: No Number of Cigarettes Smoked Daily: 0 Cigars Per Day: 0 Hx Alcohol Use: No Drug/Substance Use Hx: No Substance Use Type: None Hx Substance Use Treatment: No Review of Systems - Review of Systems Is the patient limited Italian proficient: No Constitutional: No: Chills, Diaphoresis, Fever, Loss of Appetite, Night Sweats HEENTM: No: Blurred Vision, Recent change in vision Respiratory: No: Cough, Shortness of Breath, SOB at Rest, Stridor Cardiac (ROS): Yes: Irregular Heart Rate, Palpitations. No: Chest Pain, Lightheadedness, Syncope ABD/GI: No: Constipated, Diarrhea, Nausea : No: Burning, Dysuria, Discharge Integumentary: No: Pruritus, Sweating Neurological: No: Headache, Numbness, Paresthesia *Physical Exam - Vital Signs Last Vital Signs Temp Pulse Resp BP Pulse Ox 98.3 F 132 H 20 165/108 98 07/18/17 20:38 07/18/17 20:48 07/18/17 20:48 07/18/17 20:48 07/18/17 20:48 - Physical Exam General Appearance: Yes: Nourished, Appropriately Dressed, Apparent Distress, Mild Distress HEENT: positive: EOMI, QUINTEN, Normal ENT Inspection Neck: positive: Trachea midline, Normal Thyroid, Supple. negative: Tender, Rigid Respiratory/Chest: positive: Lungs Clear, Normal Breath Sounds. negative: Chest Tender, Respiratory Distress, Accessory Muscle Use Cardiovascular: positive: Tachycardia, Irregularly Irregular. negative: Regular Rhythm, Regular Rate Gastrointestinal/Abdominal: positive: Normal Bowel Sounds, Flat, Soft. negative : Tender Musculoskeletal: positive: Normal Inspection Extremity: positive: Normal Capillary Refill, Normal Inspection, Normal Range of Motion. 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 negative: Normal Mood/Affect (Extremely anxious and occasionally jumps for no apparent reason to one side of the bed. ), Normal Response (Very easily excitable. Admits he is very anxious at baseline but today moreso than usual.) ED Treatment Course - LABORATORY CBC & Chemistry Diagram: 07/18/17 20:29 07/18/17 20:29 - ADDITIONAL ORDERS Additional order review: Laboratory Results 07/18/17 20:29 PT with INR 11.80 INR 1.04 07/18/17 20:29 RBC 5.30 MCV 94.0 MCHC 33.6 RDW 13.1 MPV 9.8 D Neutrophils % 68.8 Lymphocytes % 20.1 Monocytes % 9.1 Eosinophils % 1.5 Basophils % 0.5 - Medications Given in the ED: ED Medications Discontinued Medications Generic Name Dose Route Start Last Admin Trade Name Yan PRN Reason Stop Dose Admin Diltiazem HCl 20 mg 07/18/17 20:35 07/18/17 20:36 Cardizem Injection - IVPUSH 07/18/17 20:36 20 mg ONCE ONE Administration Diltiazem HCl 20 mg 07/18/17 20:43 07/18/17 20:52 Cardizem Injection - IVPUSH 07/18/17 20:44 20 mg ONCE ONE Administration Medical Decision Making - Medical Decision Making Patient presented in afib with RVR after taking his morning 120 diltiazem ad an additional 30 directly prior to presentation. He was given 20 x 2 while in the ED and 0.5 ativan for apparent anxiety with minimal response. Case was discussed with cardiology, (covering for [facility]) and he recommended admission. We decided to try lopressor 5 IV given patient's rates and pressures were both elevated. 07/18/17 21:45 Lopresser 5 IV brought him down to HR of 80s and EKG demonstrated rate controlled Afib. Given Lovenox 100 sq for acute AC given base rate is afib.. Will admit to Dr. Greenberg for medsurg tele and cards follow up tomorrow. 07/18/17 23:35 Dr. Greenberg will accept care of the patient and will admit under medsurg tele. Patient flu negative and labs evdiencing slightly elevated WBC with CKD. 07/18/17 23:53 *DC/Admit/Observation/Transfer Diagnosis at time of Disposition: Afib Qualifiers: Atrial fibrillation type: paroxysmal Qualified Code(s): I48.0 - Paroxysmal atrial fibrillation - Discharge Dispostion Condition at time of disposition: Stable Admit: Yes - Referrals Referrals: Abraham Patel MD [Primary Care Provider] - - Patient Instructions - Post Discharge Activity
[2017-07-18 21:20] LABS: ALBUMIN 4.6 g/dl (3.4-5.0); ALK PHOS 87 U/L (45-117); ANION GAP 11 (8-16); BILIRUBIN,TOTAL 0.7 mg/dL (0.2-1.0); BLOOD UREA NITROGEN 13 mg/dL (7-18); CHLORIDE 103 mmol/L (98-107); CO2 26 mmol/L (21-32); CREATININE 1.3 mg/dL (0.7-1.3); GLUCOSE,RANDOM 156 mg/dL (74-106); SGOT/AST 24 U/L (15-37); SGPT/ALT 38 U/L (12-78); SODIUM 140 mmol/L (136-145); TOT PROT 8.5 g/dl (6.4-8.2)
[2017-07-18] MEDS ORDERED: LORazepam 2 MG/ML SDV VIAL ONE (21:48)
--- NOTE | 2017-07-18 22:04 | PDOC ---
Attending Attestation - Resident Resident Name: Mary AnneEvertrick - ED Attending Attestation I have performed the following: I have examined & evaluated the patient, The case was reviewed & discussed with the resident, I agree w/resident's findings & plan, Exceptions are as noted - HPI HPI: 07/18/17 22:02 67 yo male BIBA for paraosymal afib @ 144 bpm. Pt has history of the same. He does not take anticoagulation PCP Dr Patel director of home care hospice Dr Mckeon - Physicial Exam PE: 07/18/17 22:04 very anxious 67 yo male with tachycardia in 140's head ncat eyes eomi throat no exudates neck supple lungs cta b/l cvs ireg irreg tachycardia abd protuberant,soft ext no edema neuro axox3,no gross focal deficits psych anxious 07/18/17 22:07 - Medical Decision Making 07/18/17 22:07 cse discussed w DrGinelli pt will be placed omn comfort brower ,anticoag, admit to tele
[2017-07-18] MEDS ORDERED: LABETALOL HCL 5 MG/1 ML (100MG/20 ML VIAL) IVPUSH ONE (22:23)
[2017-07-18] MEDS ORDERED: METOPROLOL TARTRATE 5 MG/5 ML VIAL IVPUSH ONE (22:24)
[2017-07-18] MEDS ORDERED: METOPROLOL TARTRATE 5 MG/5 ML VIAL ONE (22:26)
[2017-07-18] MEDS ORDERED: ENOXAPARIN NA (PORCINE) 100 MG/1 ML DISP.SYRIN SQ ONE (23:33)
[2017-07-19] MEDS ORDERED: ENOXAPARIN NA (PORCINE) 100 MG/1 ML DISP.SYRIN SQ ONE (00:30)
[2017-07-19] MEDS ORDERED: LEVOTHYROXINE NA 88 MCG TABLET (FP) PO SCH (07:00)
[2017-07-19 07:32] LABS: BASO % 0.5 % (0-2.0); HEMATOCRIT 46.5 % (35.4-49); HEMOGLOBIN 15.7 GM/dL (11.7-16.9); LYMPH % 30.5 % (8-40); MCH 31.8 pg (25.7-33.7); MCHC 33.7 g/dl (32.0-35.9); MEAN CELL VOLUME 94.2 fl (80-96); MEAN PLT VOLUME 9.8 fl (7.5-11.1); MONO % 12.7 % (3.8-10.2); NEUT % 52.3 % (42.8-82.8); PLATELET COUNT 186 K/MM3 (134-434); RBC 4.94 M/mm3 (4.00-5.60); WHITE BLOOD COUNT 7.1 K/mm3 (4.0-10.0)
--- NOTE | 2017-07-19 08:48 | EKG ---
Test Reason : Blood Pressure : / mmHG Vent. Rate : 077 BPM Atrial Rate : 133 BPM P-R Int : 000 ms QRS Dur : 088 ms QT Int : 368 ms P-R-T Axes : 000 044 057 degrees QTc Int : 416 ms ATRIAL FIBRILLATION ABNORMAL ECG WHEN COMPARED WITH ECG OF 18-JUL-2017 22:05, ATRIAL FIBRILLATION HAS REPLACED SINUS RHYTHM Confirmed by Satish Briseno ([id number]) on 07/19/2017 8:47:35 AM Referred By: Confirmed By:Satish Briseno
--- NOTE | 2017-07-19 08:49 | EKG ---
Test Reason : Blood Pressure : / mmHG Vent. Rate : 112 BPM Atrial Rate : 112 BPM P-R Int : 194 ms QRS Dur : 082 ms QT Int : 328 ms P-R-T Axes : 038 019 054 degrees QTc Int : 447 ms SINUS TACHYCARDIA WITH PREMATURE ATRIAL COMPLEXES WITH ABERRANT CONDUCTION NONSPECIFIC ST ABNORMALITY ABNORMAL ECG WHEN COMPARED WITH ECG OF 17-FEB-2017 14:10, ABERRANT CONDUCTION IS NOW PRESENT Confirmed by Satish Briseno ([id number]) on 07/19/2017 8:48:39 AM Referred By: Confirmed By:Satish Briseno
[2017-07-19 09:26] LABS: MAGNESIUM 2.1 mg/dL (1.8-2.4)
--- NOTE | 2017-07-19 09:56 | CON.CARD ---
Consult Consult Specialty:: cardio Referred by:: hospitalist Reason for Consultation:: afib - History of Present Illness Chief Complaint: palpitations History of Present Illness: 67 yo male admitted for palpitations and anxiety feeling. pt reportes one day of cough and congestion, then on DOA noted acute onset of palpitations and anxiety. took his home diltiazem dose shortly prior to coming to ER. noted to be in rapid AF in ER, HR to 150s, stable (high) bp. extra prn diltiazem IV did not slow him down, given labetalol with good effect. feeling much better now. still a bit anxious, ? mild palpitations. no cp, sob PMH: PAFib HTN hypothyroid anxiety - Past Medical History Cardio/Vascular: Yes: AFIB, HTN - Past Surgical History Past Surgical History: Yes: Hernia Repair - Alcohol/Substance Use Hx Alcohol Use: No History of Substance Use: reports: None - Smoking History Smoking history: Unknown if ever smoked Have you smoked in the past 12 months: No Aproximately how many cigarettes per day: 0 - Social History ADL: Independent History of Recent Travel: No Home Medications - Allergies Allergies/Adverse Reactions: Allergies Allergy/AdvReac Type Severity Reaction Status Date / Time ampicillin Allergy Verified 07/18/17 20:10 Penicillins Allergy Verified 07/18/17 20:10 - Home Medications Home Medications: Ambulatory Orders Mirtazapine [Remeron -] 7.5 mg PO HS 04/19/16 Diltiazem Cd [Cardizem Cd -] 120 mg PO DAILY #30 cap.cd.24h 01/15/17 Levothyroxine [Synthroid -] 88 mcg PO DAILY@0700 #30 tablet 01/15/17 Aspirin [ASA -] 81 mg PO DAILY 02/17/17 Nebivolol [Bystolic -] 5 mg PO DAILY #30 tab 07/19/17 Family Disease History - Family Disease History Family Disease History: Heart Disease: Sister (a fib) Review of Systems - Review of Systems Constitutional: denies: Chills, Fever Eyes: denies: Eye Pain HENT: denies: Nasal Congestion Neck: denies: Stiffness Cardiovascular: denies: Edema Respiratory: denies: Orthopnea, PND Gastrointestinal: denies: Diarrhea, Rectal Bleeding Genitourinary: denies: Burning, Hematuria Musculoskeletal: denies: Muscle Pain Integumentary: denies: Rash Neurological: denies: Numbness, Seizure, Syncope Endocrine: denies: Excessive Sweating Hematology/Lymphatic: denies: Excessive Bleeding Vital Signs: Vital Signs Temperature 98.3 F 07/18/17 20:38 Pulse Rate 75 07/19/17 06:31 Respiratory Rate 18 07/19/17 06:31 Blood Pressure 147/98 07/19/17 06:31 O2 Sat by Pulse Oximetry (%) 95 07/19/17 06:31 Constitutional: Yes: Well Nourished, No Distress Eyes: No: Sclera Icterus HENT: No: Nasal Congestion Neck: No: Decreased ROM Respiratory: Yes: CTA Bilaterally. No: Accessory Muscle Use, Rales, Wheezes Gastrointestinal: Yes: Normal Bowel Sounds. No: Distention, Hepatomegaly, Palpable Mass, Tenderness Cardiovascular: Yes: Regular Rate and Rhythm JVD: No Carotid Bruit: No PMI: Non-Displaced Heart Sounds: Yes: S1, S2. No: Gallop Murmur: No: Systolic Murmur, Diastolic Murmur Musculoskeletal: Yes: Other (No kyphosis) Extremities: No: Cold, Cyanosis Edema: No Peripheral Pulses: 2+ Left Carotid, 2+ Right Carotid, 2+ Left Doralis Pedis, 2+ Right Dorsalis Pedis Integumentary: No: Jaundice Neurological: Yes: Alert, Oriented (x3) Psychiatric: No: Agitated - Other Data Labs, Other Data: CBC, BMP 07/19/17 06:40 07/18/17 20:29 INR, PTT INR 1.04 (0.82-1.09) 07/18/17 20:29 Troponin, BNP 07/18/17 20:29 Troponin I < 0.02 Troponin, BNP 07/18/17 20:29 Troponin I < 0.02 Laboratory Tests 07/18/17 07/18/17 07/19/17 20:29 20:29 06:40 WBC 7.1 D Hgb 15.7 Plt Count 186 Sodium 140 Potassium 4.0 Carbon Dioxide 26 BUN 13 Creatinine 1.3 Hemoglobin A1c % AST 24 D ALT 38 Creatine Kinase 149 Troponin I < 0.02 Albumin 4.6 TSH 07/19/17 07/19/17 06:40 06:40 WBC Hgb Plt Count Sodium Potassium Carbon Dioxide BUN Creatinine Hemoglobin A1c % 6.1 H D AST ALT Creatine Kinase Troponin I Albumin TSH 2.95 D Assessment/Plan CXR: clear lungs/pleura ECG #1: AFL variable conduction. normal axis/intervals. no path q's. no ST-T abn #2: NSR with APCs/PVCs #3: Afib, HR controlled, no ST-T changes tele: presently NSR with HR 80s Echo 2015: nl LV/RV; valves WNL ETT 2016: 3:02 min, 93% MPHR. no chest pain. no ST changes. paroxysmal Afib and atrial flutter: -ECGs here showing both flutter and fib -on diltiazem at home, did not respond to IVP's of dilt in ER. HR responded to iv lopressor. -however pt intolerant of BB in past, per dr cruz notes. -will try alternate bb (bystolic) to try minimize fatigue s.e.; continue diltiazem in case helping maintain sinus somewhat, though unlikely (standing daily dilt 120 started after 01/11 afib episode--this is first time of recurrent sx's). -if sx's breakthru or he cannot tolerate this regimen, will need EP consult for anti-arrhythmic (flecainide) vs ablation -pt and advised to make f/u with dr cruz in 2 wks to assess bp and hr on above regimen, ok for d/c home todoay -CHADS VASC 2 (vs 3, given borderline DM). per dr cruz notes he had side effects to xarelto and eliquis, subsequently repeatedly declined trial of alternate NOAC or coumadin, only agreeable to aspirin. -disc'd with pt and again today who reiterate above preferences--cont ASA 81 -1st trop negative, rpt second HTN: -bp currently controlled -rec stop quinapril, cont diltiazem and bystolic alone (for afib) IFG: -A1c 6.1, not on meds. -routine pmd f/u as outpt
[2017-07-19] MEDS ORDERED: ASPIRIN 81 MG CHEWABLE TABLETS PO SCH (10:00)
[2017-07-19] MEDS ORDERED: QUINAPRIL HCL 20 MG TABLET (FP) PO SCH (10:00)
--- NOTE | 2017-07-19 10:24 | HP ---
Admitting History and Physical - Primary Care Physician PCP: Abraham Patel - Admission Chief Complaint: I had palpitations History of Present Illness: Mr Hugo is a 67 year old male who comes in with complaint of palpitations. He says he has a cold and has been sneezing a lot. Yesterday he ate late in the day and developed heartburn, after this he noticed palpitations. He checked his heart rate and noted it was elevated. He has a history of anxiety and felt anxious with this. Aside from this he was without complaints. He denies fevers, chills, lightheadedness, dizziness, passing out, chest pain or pressure, shortness of breath, nausea, vomiting, diarrhea, constipation, difficulty or pain on urination, or swelling. He came in and received IV diltiazem with no effect, then given IV labetalol and converted to sinus rhythm. He is currently feeling well and is without complaint. History Source: Patient Limitations to Obtaining History: No Limitations - Past Medical History Cardiovascular: Yes: AFIB, HTN - Past Surgical History Past Surgical History: Yes: Hernia Repair - Smoking History Smoking history: Unknown if ever smoked Have you smoked in the past 12 months: No Aproximately how many cigarettes per day: 0 - Alcohol/Substance Use Hx Alcohol Use: No History of Substance Use: reports: None - Social History Usual Living Arrangement: Yes: With Spouse ADL: Independent History of Recent Travel: No Home Medications - Allergies Allergies/Adverse Reactions: Allergies Allergy/AdvReac Type Severity Reaction Status Date / Time ampicillin Allergy Verified 07/18/17 20:10 Penicillins Allergy Verified 07/18/17 20:10 - Home Medications Home Medications: Ambulatory Orders Mirtazapine [Remeron -] 7.5 mg PO HS 04/19/16 Diltiazem Cd [Cardizem Cd -] 120 mg PO DAILY #30 cap.cd.24h 01/15/17 Levothyroxine [Synthroid -] 88 mcg PO DAILY@0700 #30 tablet 01/15/17 Aspirin [ASA -] 81 mg PO DAILY 02/17/17 Nebivolol [Bystolic -] 5 mg PO DAILY #30 tab 07/19/17 Family Disease History - Family Disease History Family Disease History: Heart Disease: Sister (a fib) Review of Systems Findings/Remarks: Full review of systems obtained, as per HPI and otherwise negative. Physical Examination Vital Signs: Vital Signs Temperature 36.8 C 07/18/17 20:38 Pulse Rate 75 07/19/17 06:31 Respiratory Rate 18 07/19/17 06:31 Blood Pressure 147/98 07/19/17 06:31 O2 Sat by Pulse Oximetry (%) 95 07/19/17 06:31 Constitutional: Yes: Well Nourished, No Distress, Calm Eyes: Yes: Conjunctiva Clear, EOM Intact HENT: Yes: Atraumatic, Normocephalic Cardiovascular: Yes: Regular Rate and Rhythm. No: Gallop, Murmur, Rub Respiratory: Yes: Regular, CTA Bilaterally. No: Rales, Rhonchi, Wheezes Gastrointestinal: Yes: Normal Bowel Sounds, Soft. No: Distention, Tenderness Extremities: Yes: WNL Edema: No Labs: CBC, BMP 07/19/17 06:40 07/18/17 20:29 Imaging - Results Chest X-ray: Report Reviewed, Image Reviewed EKG: Report Reviewed, Image Reviewed Problem List - Problems (1) Atrial fibrillation with RVR Assessment/Plan: -now in sinus rhythm -patient evaluated in tandem with Dr Guerrero -continue cardizem -add bystolic 5mg daily -anticoagulation again addressed, patient desires only aspirin -safe for discharge Code(s): I48.91 - UNSPECIFIED ATRIAL FIBRILLATION (2) Hypertension Assessment/Plan: -stop quinapril since starting bystolic Code(s): I10 - ESSENTIAL (PRIMARY) HYPERTENSION (3) Hypothyroidism Assessment/Plan: -TSH reviewed -continue synthroid at current dose Code(s): E03.9 - HYPOTHYROIDISM, UNSPECIFIED (4) Anxiety disorder Assessment/Plan: -continue remeron Code(s): F41.9 - ANXIETY DISORDER, UNSPECIFIED Qualifiers: Anxiety disorder type: unspecified anxiety disorder Qualified Code(s): F41.9 - Anxiety disorder, unspecified
--- NOTE | 2017-07-19 10:56 | DS ---
Physical Examination Vital Signs: Vital Signs Temperature 36.8 C 07/18/17 20:38 Pulse Rate 75 07/19/17 06:31 Respiratory Rate 18 07/19/17 06:31 Blood Pressure 147/98 07/19/17 06:31 O2 Sat by Pulse Oximetry (%) 95 07/19/17 06:31 Labs: CBC, BMP 07/19/17 06:40 07/18/17 20:29 Discharge Summary Reason For Visit: ATRIAL FIBRILATION WITH RAPID VENTRICULAR RESPONSE Current Active Problems Afib (Acute) Hospital Course: Please refer to H&P from today. Patient admitted under observation for atrial fibrillation with RVR. Given IV diltiazem with minimal effect, given IV lopressor and RVR resolved. Cardiology evaluated and recommended starting bystolic 5mg daily and continuing diltiazem. Will stop quinapril secondary to starting bystolic. Anticoagulation addressed, patient continues to want only aspirin. Two sets of cardiac enzymes checked and negative. Safe for discharge home. Condition: Stable - Instructions Diet, Activity, Other Instructions: resume previous diet and activity Referrals: Abraham Patel MD [Primary Care Provider] - Luis Mckeon MD [Staff Physician] - Disposition: HOME - Home Medications Comprehensive Discharge Medication List: Ambulatory Orders Mirtazapine [Remeron -] 7.5 mg PO HS 04/19/16 Diltiazem Cd [Cardizem Cd -] 120 mg PO DAILY #30 cap.cd.24h 01/15/17 Levothyroxine [Synthroid -] 88 mcg PO DAILY@0700 #30 tablet 01/15/17 Aspirin [ASA -] 81 mg PO DAILY 02/17/17 Nebivolol [Bystolic -] 5 mg PO DAILY #30 tab 07/19/17
[2017-07-19 12:38] VITALS: BMI 31.1
[2017-07-19 13:23] VITALS: TEMP 98.2
[2017-07-19 13:24] VITALS: BP 151/73; PULSE 74
--- NOTE | 2017-07-19 15:11 | EKG ---
Test Reason : Blood Pressure : / mmHG Vent. Rate : 144 BPM Atrial Rate : 144 BPM P-R Int : 160 ms QRS Dur : 082 ms QT Int : 280 ms P-R-T Axes : 056 052 086 degrees QTc Int : 433 ms SINUS TACHYCARDIA WITH PREMATURE SUPRAVENTRICULAR COMPLEXES NONSPECIFIC ST AND T WAVE ABNORMALITY ABNORMAL ECG WHEN COMPARED WITH ECG OF 17-FEB-2017 14:10, PREMATURE SUPRAVENTRICULAR COMPLEXES ARE NOW PRESENT VENT. RATE HAS INCREASED BY 67 BPM NON-SPECIFIC CHANGE IN ST SEGMENT IN LATERAL LEADS NONSPECIFIC T WAVE ABNORMALITY NOW EVIDENT IN INFERIOR LEADS NONSPECIFIC T WAVE ABNORMALITY NOW EVIDENT IN LATERAL LEADS Confirmed by Satish Briseno ([id number]) on 07/19/2017 3:10:35 PM Referred By: Confirmed By:Satish Briseno
[2017-07-19] MEDS ORDERED: MIRTAZAPINE 15 MG TABLET (FP) PO SCH (22:00)
== END 2017-07-19 12:40 | disposition home or self-care (01) | DRG 310 ==
LOC: JER 20:00 → JERBED 23:54
PROVIDERS: ADMIT Internal Medicine; ATTEND Internal Medicine
DX: I48.91 Unspecified atrial fibrillation (principal); I10 Essential (primary) hypertension; E03.9 Hypothyroidism, unspecified; F41.9 Anxiety disorder, unspecified
CPT/HCPCS: 36415; 71045-TC; 80053; 80061; 82550; 83036; 83721; 83735; 84443; 84484; 85025; 85610; 87804; 93005; 93010; 99284-25

== ENCOUNTER 2017-12-09 20:50 | Observation (INO) | payer OTHER ==
--- NOTE | 2017-12-09 21:01 | PDOC ---
Rapid Medical Evaluation Chief Complaint: Irregular Heart Beat Time Seen by Provider: 12/09/17 20:54 Medical Evaluation: Allergies Allergy/AdvReac Type Severity Reaction Status Date / Time ampicillin Allergy Severe Hives Verified 12/09/17 20:54 Penicillins Allergy Severe Hives Verified 12/09/17 20:54 12/09/17 20:55 You I have performed a brief in-person evaluation of this patient. The patient presents with a chief complaint of: epigastric "burning", palpitations and thinks may be in AFib again over past 30mins. Pertinent physical exam findings: mild diaphiretic and appears anxious I have ordered the following: EKG- + tachycardic/ AFIB rates ~ 125-135 The patient will proceed to the ED for further evaluation.Room 9B 12/09/17 20:57
[2017-12-09 21:30] LABS: BASO % 0.9 % (0-2.0); EOS % 1.9 % (0-4.5); HEMATOCRIT 50.3 % (35.4-49); HEMOGLOBIN 17.1 GM/dL (11.7-16.9); LYMPH % 19.7 % (8-40); MCH 31.9 pg (25.7-33.7); MCHC 34.1 g/dl (32.0-35.9); MEAN CELL VOLUME 93.6 fl (80-96); MEAN PLT VOLUME 9.8 fl (7.5-11.1); MONO % 9.1 % (3.8-10.2); NEUT % 68.4 % (42.8-82.8); PLATELET COUNT 200 K/MM3 (134-434); RBC 5.37 M/mm3 (4.00-5.60); WHITE BLOOD COUNT 8.7 K/mm3 (4.0-10.0)
--- NOTE | 2017-12-09 21:51 | PDOC ---
Attending Attestation - HPI HPI: 12/09/17 23:02 Patient is a 67 year old male with a significant past medical history of HTN, AFIB, who presents to the ED with complaints of chest palpitation that began just prior to ED arrival. Patient reports initially experiencing epigastric pain that he states felt like it was gas related. He reports beginning to experiencing atrial fibrillation shortly after, stating he knows when he is going into Afib because he begins to experience chest palpitations. Patient reports not being on anticoagulants, stating he initially prescribed eliquis but became unable to afford them and was told he could take aspirin as an alternative. Denies chest pain, Sob. Denies nausea, vomiting. Denies contact with sick individuals, out of state traveling. Denies fevers, chills. Denies diarrhea, constipation, hematuria, dysuria. Denies any other symptoms. Allergies: Ampicillin, Penicillin. Social history: No smoking. No illicit drugs. No alcohol. Surgical history: Hernia Repair PMD: Dr. Patel Steel Pickler: Dr. Mckeon <Kevan Holland - Last Filed: 12/09/17 23:02> - Resident Resident Name: Anant Hayward - ED Attending Attestation I have performed the following: I have examined & evaluated the patient, The case was reviewed & discussed with the resident, I agree w/resident's findings & plan, Exceptions are as noted - Physicial Exam PE: 12/13/17 19:57 *Physical Exam General Appearance: Yes: Appropriately Dressed. No: Apparent Distress, Intoxicated HEENT: positive: EOMI, QUINTEN, Normal ENT Inspection, Normal Voice, TMs Normal, Pharynx Normal. negative: Pale Conjunctivae, Photophobia, Scleral Icterus (R), Scleral Icterus (L) Neck: positive: Trachea midline, Normal Thyroid, Supple. negative: Tender, Rigid, Carotid bruit, Stridor, Lymphadenopathy (R), Lymphadenopathy (L), Thyromegaly Respiratory/Chest: positive: Lungs Clear, Normal Breath Sounds. negative: Chest Tender, Respiratory Distress, Accessory Muscle Use, Labored Respiration, RES, Crackles, Rales, Rhonchi, Stridor, Wheezing, Dullness Cardiovascular: positive: Tachy IR IR rate negative: Edema, JVD, Murmur, Bradycardia, Vascular Pulses: Dorsalis-Pedis (R): 2+, Doralis-Pedis (L): 2+ Gastrointestinal/Abdominal: positive: Normal Bowel Sounds, Flat, Soft. negative : Tender, Organomegaly, Pulsatile Mass, Increased Bowel Sounds, Decreased BS, Distended, Guarding, Rebound, Hernia, Hepatomegaly, Spleenomegaly Lymphatic: negative: Adenopathy, Tenderness Musculoskeletal: positive: Normal Inspection. negative: CVA Tenderness, Decreased Range of Motion Extremity: positive: Normal Capillary Refill, Normal Inspection, Normal Range of Motion, Pelvis Stable. negative: Tender, Pedal Edema, Swelling, Erythema Integumentary: positive: Normal Color, Dry, Warm. 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 negative: EOM Palsy, Facial Droop, Sensory Deficit - Medical Decision Making 12/13/17 19:58 Pt treated and released. <Cali Terry - Last Filed: 12/13/17 19:59>
[2017-12-09 21:55] LABS: INR 1.04 (0.82-1.09); PROTHROMBIN TIME (PATIENT) 11.7 SEC (9.7-13.0)
[2017-12-09] MEDS ORDERED: LABETALOL HCL 5 MG/1 ML (100MG/20 ML VIAL) IVPUSH ONE (21:56)
[2017-12-09] MEDS ORDERED: DIGOXIN 0.5 MG/2 ML AMPUL IVPUSH ONE (22:11)
--- NOTE | 2017-12-09 22:11 | PDOC ---
History of Present Illness - General Chief Complaint: Blood Pressure Problem Stated Complaint: IRREGULAR HEART BEAT Time Seen by Provider: 12/09/17 20:54 - History of Present Illness Initial Comments: 12/09/17 22:09 67 year old male with a hx of atrial fibrillation (on aspirin), HTN, hypothyroidism and anxiety presents for 1 hour hx of epigastric pain and palpitations. He reports that he ate a veggie sub that may have had too much vinegar. He reports that he knows when the atrial fibrillation comes on. He states that he took one bystolic this morning and one before he came to the hospital. Denies shortness of breath, fevers, chills, nausea, vomiting, diarrhea. Denies recent travel or sick contacts. Allergies: penicillins (rash) Smoking: none Alcohol: none PCP: Dr. Patel Past History - Past Medical History Allergies/Adverse Reactions: Allergies Allergy/AdvReac Type Severity Reaction Status Date / Time ampicillin Allergy Severe Hives Verified 12/09/17 20:54 Penicillins Allergy Severe Hives Verified 12/09/17 20:54 Home Medications: Ambulatory Orders Mirtazapine [Remeron -] 7.5 mg PO HS 04/19/16 Levothyroxine [Synthroid -] 88 mcg PO DAILY@0700 #30 tablet 01/15/17 Aspirin [ASA -] 81 mg PO DAILY 02/17/17 Nebivolol [Bystolic -] 5 mg PO DAILY #30 tab 07/19/17 Quinapril HCl [Accupril] 20 mg PO DAILY 12/09/17 Cardiac Disorders: Yes (a-fib) COPD: No HTN: Yes Kidney Stones: Yes Psychiatric Problems: Yes (ANXIETY.) Thyroid Disease: Yes (HYPO.) - Surgical History Abdominal Surgery: Yes (HERNIA REPAIR, LITHOTRIPSY X5) - Immunization History Immunization Up to Date: Yes - Suicide/Smoking/Psychosocial Hx Smoking Status: Yes Smoking History: Unknown if ever smoked Have you smoked in the past 12 months: No Number of Cigarettes Smoked Daily: 0 If you are a former smoker, when did you quit?: 12 YEARS AGO Cigars Per Day: 0 Information on smoking cessation initiated: No Hx Alcohol Use: No Drug/Substance Use Hx: No Substance Use Type: None Hx Substance Use Treatment: No Review of Systems - Review of Systems Constitutional: No: Chills, Fever Respiratory: No: Cough, Shortness of Breath Cardiac (ROS): Yes: Palpitations. No: Chest Pain ABD/GI: No: Diarrhea, Nausea Musculoskeletal: No: Joint Swelling, Muscle Weakness Neurological: No: Headache *Physical Exam - Vital Signs Last Vital Signs Temp Pulse Resp BP Pulse Ox 98.1 F 113 H 16 129/91 98 12/09/17 20:54 12/09/17 22:06 12/09/17 22:06 12/09/17 22:06 12/09/17 20:54 - Physical Exam Comments: 12/09/17 22:16 GENERAL: A&Ox3, mild distress EYES: PERRLA, EOMI ENT: Moist mucus membranes NECK: No JVD LUNGS: CTA, no wheezes HEART: tachycardic, no murmurs appreciated ABDOMEN: Soft, nontender, BS present MUSCULOSKELETAL: No CVA Tenderness EXTREMITIES: 2+ pulses, no edema. NEUROLOGICAL: Cranial nerves II-XII intact. ED Treatment Course - LABORATORY CBC & Chemistry Diagram: 12/09/17 21:15 12/09/17 21:15 - ADDITIONAL ORDERS Additional order review: 12/09/17 21:15 RBC 5.37 MCV 93.6 MCHC 34.1 RDW 13.0 MPV 9.8 Neutrophils % 68.4 D Lymphocytes % 19.7 D Monocytes % 9.1 Eosinophils % 1.9 Basophils % 0.9 - Medications Given in the ED: ED Medications Discontinued Medications Generic Name Dose Route Start Last Admin Trade Name Freq PRN Reason Stop Dose Admin Labetalol HCl 10 mg 12/09/17 21:56 12/09/17 21:56 Normodyne Injection - IVPUSH 12/09/17 21:57 10 mg NOW ONE Administration Medical Decision Making - Medical Decision Making 12/09/17 22:18 67 year old male with a hx of Afib (on ASA), HTN, hypothyroidism, anxiety is seen in the ED for hypertension and afib with RVR -CBC -CMP -Troponin -TSH -Chest xray -labetalol 10mg given, BP came down to 173/130 --> 127/91 -rate still elevated 130-171 -digoxin 0.5mg IV push given -will re-evaluate 12/09/17 22:24 -will admit tele-obs -call placed to Dr. Mckeon service -D/w Dr. Guerrero *DC/Admit/Observation/Transfer Diagnosis at time of Disposition: Atrial fibrillation with rapid ventricular response - Referrals - Patient Instructions - Post Discharge Activity
[2017-12-09] MEDS ORDERED: DIGOXIN 0.5 MG/2 ML AMPUL ONE (22:12)
[2017-12-09 22:52] LABS: ALBUMIN 4.5 g/dl (3.4-5.0); ANION GAP 11 (8-16); BLOOD UREA NITROGEN 15 mg/dL (7-18); CALCIUM 9.2 mg/dL (8.5-10.1); CHLORIDE 103 mmol/L (98-107); CO2 27 mmol/L (21-32); CREATININE 1.3 mg/dL (0.7-1.3); GLUCOSE,RANDOM 194 mg/dL (74-106); POTASSIUM 4.1 mmol/L (3.5-5.1); SGOT/AST 29 U/L (15-37); SGPT/ALT 40 U/L (12-78); SODIUM 141 mmol/L (136-145)
--- NOTE | 2017-12-09 22:52 | HP ---
Admitting History and Physical - Primary Care Physician PCP: Abraham Patel - Admission Chief Complaint: Palpitations History of Present Illness: This is a 67 y/o man with a PMHx of: Paroxysmal Afib ( no AC, patient declined) , Hypertension, Hypothyroidism, Anxiety. Who presents to the ED with his for palpitations x 1hr ago. Patient reports the palpitations and heart fluttering began soon after eating a vegetable wrap. Patient reports feeling anxious, Patient denies having chest pain or SOB. Patient denies fever, chills, cough, dizziness, AP, N/V/D, constipation, dysuria. History Source: Patient Limitations to Obtaining History: No Limitations - Past Medical History Cardiovascular: Yes: AFIB, HTN Psych: Yes: Anxiety Endocrine: Yes: Hypothyroidism - Past Surgical History Past Surgical History: Yes: Hernia Repair - Smoking History Smoking history: Former smoker Have you smoked in the past 12 months: No Aproximately how many cigarettes per day: 0 If you are a former smoker, when did you quit?: 12 YEARS AGO - Alcohol/Substance Use Hx Alcohol Use: No History of Substance Use: reports: None - Social History Usual Living Arrangement: Yes: With Spouse ADL: Independent History of Recent Travel: No Home Medications - Allergies Allergies/Adverse Reactions: Allergies Allergy/AdvReac Type Severity Reaction Status Date / Time ampicillin Allergy Severe Hives Verified 12/09/17 20:54 Penicillins Allergy Severe Hives Verified 12/09/17 20:54 - Home Medications Home Medications: Ambulatory Orders Mirtazapine [Remeron -] 7.5 mg PO HS 04/19/16 Levothyroxine [Synthroid -] 88 mcg PO DAILY@0700 #30 tablet 01/15/17 Aspirin [ASA -] 81 mg PO DAILY 02/17/17 Nebivolol [Bystolic -] 5 mg PO DAILY #30 tab 07/19/17 Quinapril HCl [Accupril] 20 mg PO DAILY 12/09/17 Family Disease History - Family Disease History Family Disease History: Heart Disease: Mother, Sister (a fib), CA: Grandparent ( Colon and Prostate), Father (Leukemia) Review of Systems - Review of Systems Constitutional: reports: No Symptoms Eyes: reports: No Symptoms HENT: reports: No Symptoms Neck: reports: No Symptoms Cardiovascular: reports: Palpitations Respiratory: reports: No Symptoms Gastrointestinal: reports: No Symptoms Genitourinary: reports: No Symptoms Breasts: reports: No Symptoms Reported Musculoskeletal: reports: No Symptoms Integumentary: reports: No Symptoms Neurological: reports: No Symptoms Endocrine: reports: No Symptoms Hematology/Lymphatic: reports: No Symptoms Psychiatric: reports: Anxiety Physical Examination Vital Signs: Vital Signs Temperature 98.1 F 12/09/17 20:54 Pulse Rate 115 H 12/09/17 22:27 Respiratory Rate 17 12/09/17 22:27 Blood Pressure 170/80 12/09/17 22:27 O2 Sat by Pulse Oximetry (%) 98 12/09/17 20:54 Constitutional: Yes: Well Nourished, Anxious, Obese Eyes: Yes: WNL, Conjunctiva Clear, EOM Intact, PERRL HENT: Yes: WNL, Atraumatic, Normocephalic Neck: Yes: WNL, Supple, Trachea Midline Cardiovascular: Yes: Pulse Irregular, S1, S2. No: JVD, Gallop, Murmur, Rub Respiratory: Yes: WNL, Regular, CTA Bilaterally Gastrointestinal: Yes: Normal Bowel Sounds, Soft, Abdomen, Obese. No: Tenderness, Tenderness, Epigastrium ...Rectal Exam: Yes: Deferred Renal/: Yes: WNL Breast(s): Yes: WNL Musculoskeletal: Yes: WNL Extremities: Yes: WNL Edema: No Peripheral Pulses WNL: Yes Neurological: Yes: WNL, Alert, Oriented, Cran Nerves II-XII Intact ...Motor Strength: WNL Psychiatric: Yes: WNL, Alert, Oriented, Other (Very Anxious) Labs: CBC, BMP 12/09/17 21:15 Troponin, BNP 12/09/17 21:15 Troponin I < 0.02 Laboratory Results - last 24 hr 12/09/17 12/09/17 12/09/17 21:15 21:15 21:15 WBC 8.7 RBC 5.37 Hgb 17.1 H Hct 50.3 H MCV 93.6 MCH 31.9 MCHC 34.1 RDW 13.0 Plt Count 200 MPV 9.8 Absolute Neuts (auto) 6.0 Neutrophils % 68.4 D Lymphocytes % 19.7 D Monocytes % 9.1 Eosinophils % 1.9 Basophils % 0.9 Nucleated RBC % 0 PT with INR 11.70 INR 1.04 Sodium 141 Potassium 4.1 Chloride 103 Carbon Dioxide 27 Anion Gap 11 BUN 15 Creatinine 1.3 Creat Clearance w eGFR 54.73 Random Glucose 194 H D Calcium 9.2 Phosphorus Magnesium Total Bilirubin 0.8 AST 29 D ALT 40 Alkaline Phosphatase 87 Creatine Kinase 152 Creatine Kinase Index 2.2 CK-MB (CK-2) 3.48 Troponin I < 0.02 Total Protein 8.4 H Albumin 4.5 Triglycerides Cholesterol Total LDL Cholesterol HDL Cholesterol TSH 4.46 H D Imaging - Results Chest X-ray: Image Reviewed EKG: Image Reviewed Assessment/Plan This is a 67 y/o man with a PMHx of Paroxysmal Afib (no AC), HTN, Hypothyroidism , Anxiety. Placed on Tele Observation for Afib with RVR. Plan: 1. Afib with RVR - Cardiac Monitoring - Serial Enzymes - ordered Q6h, patient refused 3am draw, agrees to 6am, 12noon instead - Given Labetolol, Digoxin in ED with some improvement - [id number] 2/3 (borderline DM), no AC patient adamantly declines, patient aware of risks and dangers - Appreciate Cardiology consult - Continue home meds - Asa 2. Hypertension - stable - Continue home meds - Monitor renal function 3. Hypothyroidism - TSH 4.46 - Will adjust Synthroid dosing accordingly 4. Anxiety - not controlled - no home meds - Ativan prn 5. FEN - Po fluids as tolerated - Replete lytes prn - Low NA, Carb Controlled Diet 6. DVT ppx - OOB - Heparin SQ Code Status: Full Code Dispo: Tele Observation Visit type - Emergency Visit Emergency Visit: Yes ED Registration Date: 12/09/17 Care time: The patient presented to the Emergency Department on the above date and was hospitalized for further evaluation of their emergent condition. - New Patient This patient is new to me today: Yes Date on this admission: 12/09/17 - Critical Care Critical Care patient: No Hospitalist Screening - Colonoscopy Questionnaire Colonoscopy Questionnaire: Colonoscopy Questionnaire - Patient: 50 - 75 years old and never had a screening colonoscopy: No History of colon or rectal polyps, or CA: No History of IBD, Crohn's disease or UC: No History of abdominal radiation therapy as a child: No - Relative: 1 with colon or rectal CA, or polyps at age 60 or younger: Yes Colon or rectal CA diagnosed at age 45 or younger: No Multiple relatives with colon or rectal CA: No - Outcome: Screening Result: Positive Screen
[2017-12-09 23:03] LABS: ALK PHOS 87 U/L (45-117); BILIRUBIN,TOTAL 0.8 mg/dL (0.2-1.0); TOT PROT 8.4 g/dl (6.4-8.2)
[2017-12-10 00:05] VITALS: BMI 29.2
[2017-12-10] MEDS ORDERED: MIRTAZAPINE 15 MG TABLET (FP) PO SCH (00:30)
[2017-12-10] MEDS ORDERED: LEVOTHYROXINE NA 100 MCG TABLET (FP) PO SCH (07:00)
[2017-12-10] MEDS ORDERED: LEVOTHYROXINE NA 88 MCG TABLET (FP) PO SCH (07:00)
[2017-12-10 07:44] LABS: BASO % 0.7 % (0-2.0); EOS % 2.1 % (0-4.5); HEMATOCRIT 45.3 % (35.4-49); HEMOGLOBIN 15.8 GM/dL (11.7-16.9); LYMPH % 24.7 % (8-40); MCH 32.7 pg (25.7-33.7); MCHC 34.8 g/dl (32.0-35.9); MEAN CELL VOLUME 94.1 fl (80-96); MEAN PLT VOLUME 10.3 fl (7.5-11.1); MONO % 11.9 % (3.8-10.2); NEUT % 60.6 % (42.8-82.8); PLATELET COUNT 172 K/MM3 (134-434); RBC 4.82 M/mm3 (4.00-5.60); RDW 12.9 % (11.9-15.9); WHITE BLOOD COUNT 7.4 K/mm3 (4.0-10.0)
[2017-12-10 08:08] LABS: CHLORIDE 108 mmol/L (98-107); POTASSIUM 3.7 mmol/L (3.5-5.1); SODIUM 145 mmol/L (136-145)
[2017-12-10 08:29] LABS: ANION GAP 10 (8-16); BLOOD UREA NITROGEN 13 mg/dL (7-18); CHOLESTEROL 156 mg/dL (50-200); CO2 27 mmol/L (21-32); CREATININE 1.2 mg/dL (0.7-1.3); GLUCOSE,RANDOM 87 mg/dL (74-106); HDL CHOLESTEROL 39 mg/dL (40-60); MAGNESIUM 2.2 mg/dL (1.8-2.4); PHOSPHOROUS 4.6 mg/dL (2.5-4.9); TRIGLYCERIDES 105 mg/dL (35-160)
[2017-12-10 09:22] VITALS: BP 132/74; PULSE 64; TEMP 98.2
--- NOTE | 2017-12-10 09:41 | EKG ---
Test Reason : Blood Pressure : / mmHG Vent. Rate : 104 BPM Atrial Rate : 104 BPM P-R Int : 000 ms QRS Dur : 080 ms QT Int : 352 ms P-R-T Axes : 000 022 045 degrees QTc Int : 462 ms NORMAL SINUS RHYTHM WITH FREQUENT PREMATURE ATRIAL COMPLEXES ABNORMAL ECG Confirmed by RENA LACEY MD ([id number]) on 12/10/2017 9:41:34 AM Referred By: Confirmed By:RENA LACEY MD
--- NOTE | 2017-12-10 09:43 | EKG ---
Test Reason : Blood Pressure : / mmHG Vent. Rate : 131 BPM Atrial Rate : 111 BPM P-R Int : 000 ms QRS Dur : 090 ms QT Int : 328 ms P-R-T Axes : 000 049 079 degrees QTc Int : 484 ms ATRIAL FIBRILLATION WITH RAPID VENTRICULAR RESPONSE NONSPECIFIC ST AND T WAVE ABNORMALITY ABNORMAL ECG Confirmed by RENA LACEY MD ([id number]) on 12/10/2017 9:42:50 AM Referred By: Confirmed By:RENA LACEY MD
[2017-12-10] MEDS ORDERED: ASPIRIN 81 MG CHEWABLE TABLETS PO SCH (10:00)
[2017-12-10] MEDS ORDERED: QUINAPRIL HCL 20 MG TABLET (FP) PO SCH (10:00)
[2017-12-10] MEDS ORDERED: HEPARIN NA (PORCINE) 5,000 UNITS/ML 1ML VIAL SQ SCH (10:00)
[2017-12-10] MEDS ORDERED: NEBIVOLOL 5 MG TABLET (FP) PO SCH (10:00)
--- NOTE | 2017-12-10 11:52 | CON.CARD ---
Cardiology Consult (text) - Consultation Consultation Note: Chief Complaint: palpitations History of Present Illness: 67 yo male admitted for palpitations. Had been feeling well until yesterday when he ate wrap with strong vinegar/onion flavor that made his stomach upset, then noticed palps so came to er. No cp, sob, dizzy, loc, pnd,orthopnea, le edema. In er found afib with rvr, given iv bb/dig and then converted to sr overnight. Feels well now. PMH: PAFib HTN hypothyroid anxiety - Past Medical History Cardio/Vascular: Yes: AFIB, HTN - Past Surgical History Past Surgical History: Yes: Hernia Repair - Alcohol/Substance Use Hx Alcohol Use: No History of Substance Use: reports: None - Smoking History Smoking history: Unknown if ever smoked Have you smoked in the past 12 months: No Aproximately how many cigarettes per day: 0 - Social History ADL: Independent History of Recent Travel: No Home Medications - Allergies Allergies/Adverse Reactions: Allergies Allergy/AdvReac Type Severity Reaction Status Date / Time ampicillin Allergy Severe Hives Verified 12/09/17 20:54 Penicillins Allergy Severe Hives Verified 12/09/17 20:54 - Home Medications Home Medications Medication Instructions Recorded Mirtazapine [Remeron -] 7.5 mg PO HS 04/19/16 Levothyroxine [Synthroid -] 88 mcg PO DAILY@0700 #30 tablet 01/15/17 Aspirin [ASA -] 81 mg PO DAILY 02/17/17 Nebivolol [Bystolic -] 5 mg PO DAILY #30 tab 07/19/17 Quinapril HCl [Accupril] 20 mg PO DAILY 12/09/17 Family Disease History - Family Disease History Family Disease History: Heart Disease: Sister (a fib) Review of Systems - Review of Systems Constitutional: denies: Chills, Fever Eyes: denies: Eye Pain HENT: denies: Nasal Congestion Neck: denies: Stiffness Cardiovascular: denies: Edema Respiratory: denies: Orthopnea, PND Gastrointestinal: denies: Diarrhea, Rectal Bleeding Genitourinary: denies: Burning, Hematuria Musculoskeletal: denies: Muscle Pain Integumentary: denies: Rash Neurological: denies: Numbness, Seizure, Syncope Endocrine: denies: Excessive Sweating Hematology/Lymphatic: denies: Excessive Bleeding Vital Signs: Vital Signs Period Temp Pulse Resp BP Sys/Ferrera Pulse Ox Last 24 Hr 97.3 F-98.2 F 63-138 14-28 117-206/73-115 97-98 Constitutional: Yes: Well Nourished, No Distress Eyes: No: Sclera Icterus HENT: No: Nasal Congestion Neck: No: Decreased ROM Respiratory: Yes: CTA Bilaterally. No: Accessory Muscle Use, Rales, Wheezes Gastrointestinal: Yes: Normal Bowel Sounds. No: Distention, Hepatomegaly, Palpable Mass, Tenderness Cardiovascular: Yes: Regular Rate and Rhythm JVD: No Carotid Bruit: No PMI: Non-Displaced Heart Sounds: Yes: S1, S2. No: Gallop Murmur: No: Systolic Murmur, Diastolic Murmur Musculoskeletal: Yes: Other (No kyphosis) Extremities: No: Cold, Cyanosis Edema: No Peripheral Pulses: 2+ Left Carotid, 2+ Right Carotid, 2+ Left Doralis Pedis, 2+ Right Dorsalis Pedis Integumentary: No: Jaundice Neurological: Yes: Alert, Oriented (x3) Psychiatric: No: Agitated - Other Data Labs, Other Data: Laboratory Last Values WBC 7.4 K/mm3 (4.0-10.0) 12/10/17 06:00 RBC 4.82 M/mm3 (4.00-5.60) 12/10/17 06:00 Hgb 15.8 GM/dL (11.7-16.9) 12/10/17 06:00 Hct 45.3 % (35.4-49) 12/10/17 06:00 MCV 94.1 fl (80-96) 12/10/17 06:00 MCH 32.7 pg (25.7-33.7) 12/10/17 06:00 MCHC 34.8 g/dl (32.0-35.9) 12/10/17 06:00 RDW 12.9 % (11.9-15.9) 12/10/17 06:00 Plt Count 172 K/MM3 (134-434) 12/10/17 06:00 MPV 10.3 fl (7.5-11.1) 12/10/17 06:00 Absolute Neuts (auto) 4.5 # 12/10/17 06:00 Neutrophils % 60.6 % (42.8-82.8) 12/10/17 06:00 Lymphocytes % 24.7 % (8-40) D 12/10/17 06:00 Monocytes % 11.9 % (3.8-10.2) H 12/10/17 06:00 Eosinophils % 2.1 % (0-4.5) 12/10/17 06:00 Basophils % 0.7 % (0-2.0) 12/10/17 06:00 Nucleated RBC % 0 % (0-0) 12/10/17 06:00 PT with INR 11.70 SEC (9.7-13.0) 12/09/17 21:15 INR 1.04 (0.82-1.09) 12/09/17 21:15 Sodium 145 mmol/L (136-145) 12/10/17 06:00 Potassium 3.7 mmol/L (3.5-5.1) 12/10/17 06:00 Chloride 108 mmol/L (98-107) H 12/10/17 06:00 Carbon Dioxide 27 mmol/L (21-32) 12/10/17 06:00 Anion Gap 10 (8-16) 12/10/17 06:00 BUN 13 mg/dL (7-18) 12/10/17 06:00 Creatinine 1.2 mg/dL (0.7-1.3) 12/10/17 06:00 Creat Clearance w eGFR 54.73 (>60) 12/09/17 21:15 Random Glucose 87 mg/dL (74-106) D 12/10/17 06:00 Calcium 9.0 mg/dL (8.5-10.1) 12/10/17 06:00 Phosphorus 4.6 mg/dL (2.5-4.9) 12/10/17 06:00 Magnesium 2.2 mg/dL (1.8-2.4) 12/10/17 06:00 Total Bilirubin 0.8 mg/dL (0.2-1.0) 12/09/17 21:15 AST 29 U/L (15-37) D 12/09/17 21:15 ALT 40 U/L (12-78) 12/09/17 21:15 Alkaline Phosphatase 87 U/L (45-117) 12/09/17 21:15 Creatine Kinase 152 IU/L (39-308) 12/09/17 21:15 Creatine Kinase Index 2.2 % (0.0-5.0) 12/09/17 21:15 CK-MB (CK-2) 3.48 ng/mL (0.5-3.6) 12/09/17 21:15 Troponin I 0.02 ng/ml (0.00-0.05) 12/10/17 06:00 Total Protein 8.4 g/dl (6.4-8.2) H 12/09/17 21:15 Albumin 4.5 g/dl (3.4-5.0) 12/09/17 21:15 Triglycerides 105 mg/dL (35-160) 12/10/17 06:00 Cholesterol 156 mg/dL (50-200) 12/10/17 06:00 Total LDL Cholesterol 107 mg/dL (5-100) H 12/10/17 06:00 HDL Cholesterol 39 mg/dL (40-60) L 12/10/17 06:00 TSH 4.46 uIU/ml (0.358-3.74) H D 12/09/17 21:15 CXR: clear lungs ECG: AFib with rvr, no ischemic changes tele: presently NSR, had afib with rvr last night Echo 2015: nl LV/RV; valves WNL ETT 2016: 3:02 min, 93% MPHR. no chest pain. no ST changes. a/p: paroxysmal Afib and atrial flutter, palps: -has remained w/o sxs for about 6 mos while taking bystolic, now p/w palps and afib with rvr. Back in SR now and feeling well. Cont bystolic. Discussed possible EP eval as outpt for ablation or anti arrhythmics but pt not interested. -has indication for ac but again declines, cont asa. -echo pending HTN: -bp currently controlled if echo benign then ok for dc from cardiac pov
--- NOTE | 2017-12-10 12:38 | DS ---
Physical Examination Vital Signs: Vital Signs Temperature 36.8 C 12/10/17 09:22 Pulse Rate 64 12/10/17 09:22 Respiratory Rate 14 12/10/17 10:00 Blood Pressure 132/74 12/10/17 09:22 O2 Sat by Pulse Oximetry (%) 98 12/10/17 10:00 Constitutional: Yes: Well Nourished, No Distress, Calm Cardiovascular: Yes: Regular Rate and Rhythm. No: Gallop, Murmur, Rub Respiratory: Yes: Regular, CTA Bilaterally. No: Rales, Rhonchi, Wheezes Gastrointestinal: Yes: Normal Bowel Sounds, Soft. No: Distention, Tenderness Extremities: Yes: WNL Edema: No Labs: CBC, BMP 12/10/17 06:00 12/10/17 06:00 Discharge Summary Reason For Visit: AFIB Current Active Problems Atrial fibrillation with RVR (Acute) Hospital Course: Mr Hugo is a 67 year old male who had palpitations from afib with rvr. He was seen in the ED and received IV labetalol which decreased his BP but not his HR. He was given IV digoxin which decreased the heart rate. He then went back into sinus rhythm. An ECHO was ordered and it is normal. He was seen by cardiology and cleared. He is currently in sinus rhythm. His synthroid was increased for elevated TSH, however this will need to be closely monitored secondary to his afib. He is safe for discharge home. Condition: Good - Instructions Diet, Activity, Other Instructions: resume previous diet and activity Referrals: Abraham Patel MD [Primary Care Provider] - Luis Mckeon MD [Staff Physician] - Disposition: HOME - Home Medications Comprehensive Discharge Medication List: Ambulatory Orders Mirtazapine [Remeron -] 7.5 mg PO HS 04/19/16 Aspirin [ASA -] 81 mg PO DAILY 02/17/17 Nebivolol [Bystolic -] 5 mg PO DAILY #30 tab 07/19/17 Quinapril HCl [Accupril -] 20 mg PO DAILY 12/09/17 Levothyroxine [Synthroid -] 100 mcg PO DAILY@0700 #30 tablet 12/10/17
== END 2017-12-10 14:31 | disposition home or self-care (01) ==
LOC: JER 20:50 → JERBED 22:29 → UNDOADMOB 23:12 → JERBED 23:12 → J4W 23:45
PROVIDERS: ADMIT Internal Medicine; ATTEND Internal Medicine
PROC: 3E033GC Introduction of Other Therapeutic Substance into Peripheral Vein, Percutaneous Approach (ICD-10-PCS; principal; 2017-12-09)
PROC: 3E013GC Introduction of Other Therapeutic Substance into Subcutaneous Tissue, Percutaneous Approach (ICD-10-PCS; 2017-12-09)
DX: I48.0 Paroxysmal atrial fibrillation (principal); I10 Essential (primary) hypertension; E03.9 Hypothyroidism, unspecified; F41.9 Anxiety disorder, unspecified; Z87.442 Personal history of urinary calculi; Z79.82 Long term (current) use of aspirin; Z88.0 Allergy status to penicillin
CPT/HCPCS: 36415; 71045-TC-FY; 80048; 80053; 80061; 82550; 82553; 83036; 83721; 83735; 84100; 84443; 84484; 85025; 85610; 93005; 93010; 93306-TC; 96372; 96374; 96375; 99285-25; G0378; J1644

== ENCOUNTER 2018-01-13 00:40 | Observation (INO) | payer OTHER ==
[2018-01-13 00:57] VITALS: BMI 29.1
[2018-01-13] MEDS ORDERED: METOPROLOL TARTRATE 5 MG/5 ML VIAL IVPUSH ONE ×2 (01:09→03:12)
[2018-01-13] MEDS ORDERED: METOPROLOL TARTRATE 5 MG/5 ML VIAL ONE ×2 (01:11→03:24)
--- NOTE | 2018-01-13 01:19 | PDOC ---
History of Present Illness - General Chief Complaint: Irregular Heart Beat Stated Complaint: IRREGULAR HEARTBEAT Time Seen by Provider: 01/13/18 00:49 - History of Present Illness Initial Comments: 01/13/18 01:14 67 yo man with h/o Paroxysmal Afib ( no AC, patient declined), Hypertension, Hypothyroidism, Anxiety who p/w with abdominal discomfort. Patient states that he was in car drivign with his prior to arrival witrh acute onset of "bloating or gas" consitent with prioor episodes of A-fib W/RvR. Patient without chest pain or SOB. at bedside to assist in report. Patient compliant with Bystolic 5 mg QD. Patient took an extra dose (total 10 mg) of bystolic today and ASA x 2. Patient last seen in ED 12/09/17 for A-fib with RvR given labetalol and Digoxin ED with improvement. Diltiazem has bot been effective for pt. in past. Prior Echo (12/10/17) EF 55.3. Pt. not interested in ablation, anti arrhythmics, or AC. Patient denies N/V, palpitations, orthopnea, PND, leg pain/swelling, F,C, CP, SOB, urinary complaints, abdominal pain, diarrhea, constipation, lightheadedness , weakness, sensory changes. PMHx: as noted above ROS: as noted SHx: Denies tobacco, IVDA Allergies: N Photo Tech Luis Mckeon Past History - Past Medical History Allergies/Adverse Reactions: Allergies Allergy/AdvReac Type Severity Reaction Status Date / Time ampicillin Allergy Severe Hives Verified 01/13/18 00:45 Penicillins Allergy Severe Hives Verified 01/13/18 00:45 Home Medications: Ambulatory Orders Mirtazapine [Remeron -] 7.5 mg PO HS 04/19/16 Aspirin [ASA -] 81 mg PO DAILY 02/17/17 Nebivolol [Bystolic -] 5 mg PO DAILY #30 tab 07/19/17 Quinapril HCl [Accupril -] 20 mg PO DAILY 12/09/17 Levothyroxine [Synthroid -] 100 mcg PO DAILY@0700 #30 tablet 12/10/17 Anemia: No Asthma: No Cancer: No Cardiac Disorders: Yes (a-fib) CVA: No COPD: No CHF: No Dementia: No GI Disorders: No Disorders: No HTN: Yes Hypercholesterolemia: No Kidney Stones: Yes Liver Disease: No Psychiatric Problems: Yes (ANXIETY.) Seizures: No Thyroid Disease: Yes (HYPO.) - Surgical History Abdominal Surgery: Yes (HERNIA REPAIR, LITHOTRIPSY X5) Appendectomy: No Cardiac Surgery: No Cholecystectomy: No Lung Surgery: No Neurologic Surgery: No Orthopedic Surgery: No - Immunization History Immunization Up to Date: Yes - Suicide/Smoking/Psychosocial Hx Smoking Status: Yes Smoking History: Never smoked Have you smoked in the past 12 months: No Number of Cigarettes Smoked Daily: 0 If you are a former smoker, when did you quit?: 12 YEARS AGO Cigars Per Day: 0 Information on smoking cessation initiated: No Hx Alcohol Use: No Drug/Substance Use Hx: No Substance Use Type: None Hx Substance Use Treatment: No Review of Systems - Review of Systems Comments:: 01/13/18 01:22 GENERAL/CONSTITUTIONAL: No fever or chills. No weakness. HEAD, EYES, EARS, NOSE AND THROAT: No change in vision. No ear pain or discharge. No sore throat. CARDIOVASCULAR: No chest pain or shortness of breath RESPIRATORY: No cough, wheezing, or hemoptysis. GASTROINTESTINAL: No nausea, vomiting, diarrhea or constipation. GENITOURINARY: No dysuria, frequency, or change in urination. MUSCULOSKELETAL: No joint or muscle swelling or pain. No neck or back pain. SKIN: No rash NEUROLOGIC: No headache, vertigo, loss of consciousness, or change in strength/ sensation. ENDOCRINE: No increased thirst. No abnormal weight change HEMATOLOGIC/LYMPHATIC: No anemia, easy bleeding, or history of blood clots. ALLERGIC/IMMUNOLOGIC: No hives or skin allergy. *Physical Exam - Vital Signs Last Vital Signs Temp Pulse Resp BP Pulse Ox 98.6 F 138 H 22 190/133 97 01/13/18 00:43 01/13/18 00:43 01/13/18 00:43 01/13/18 01:10 01/13/18 00:43 - Physical Exam Comments: 01/13/18 01:22 GENERAL: Awake, alert, and fully oriented, in no acute distress HEAD: No signs of trauma, normocephalic, atraumatic EYES: PERRLA, EOMI, sclera anicteric, conjunctiva clear ENT: Hearing grossly normal, nares patent, oropharynx clear without exudates. Moist mucosa NECK: Normal ROM, supple, no lymphadenopathy, JVD, or masses LUNGS: No distress, speaks full sentences, clear to auscultation bilaterally HEART: Irregular rate and rhythm, normal S1 and S2, no murmurs, rubs or gallops , peripheral pulses normal and equal bilaterally. ABDOMEN: Soft, nontender, normoactive bowel sounds. No guarding, no rebound. No masses EXTREMITIES : Normal inspection, Normal range of motion, no edema. No clubbing or cyanosis. SKIN: Warm, Dry, normal turgor, no rashes or lesions noted ED Treatment Course - LABORATORY CBC & Chemistry Diagram: 01/13/18 01:24 01/13/18 01:24 - RADIOLOGY Radiology Studies Ordered: Category Date Time Status CXRPORT [CHEST X-RAY PORTABLE*] [RAD] Stat Radiology 01/13/18 01:11 Ordered - Medications Given in the ED: ED Medications Discontinued Medications Generic Name Dose Route Start Last Admin Trade Name Freq PRN Reason Stop Dose Admin Metoprolol Tartrate 5 mg 01/13/18 01:09 01/13/18 01:10 Lopressor Injection - IVPUSH 01/13/18 01:10 5 mg ONCE ONE Administration Medical Decision Making - Medical Decision Making 01/13/18 01:23 67 yo man with h/o Paroxysmal Afib ( no AC, patient declined), Hypertension, Hypothyroidism, Anxiety who p/w with abdominal discomfort. HR 138, BP 184/106, vitals otherwise wnl. Evaluate for A-fib w/RVR. ACS/RI r/o. PERC +, Low-mod risk based on Wells criteria. R/o PNA. Ed Course: CBC, CMP, Cardiac Pr. BNP, Pt/INR, UA EKG, CXR 01/13/18 01:28 chadsvasc2 risk 3. Candidate for AC 01/13/18 02:36 Trop: Neg CBC,CMP: Unremarkable BNP: Neg 01/13/18 03:00 Patient admitted to tele/obs. 01/13/18 03:03 HR improved 85-90's *DC/Admit/Observation/Transfer Diagnosis at time of Disposition: Atrial fibrillation with RVR - Discharge Dispostion Condition at time of disposition: Stable Decision to Admit order: Yes - Referrals Referrals: Abraham Patel MD [Primary Care Provider] - - Patient Instructions - Post Discharge Activity
[2018-01-13 01:40] LABS: INR 0.96 (0.82-1.09); PROTHROMBIN TIME (PATIENT) 10.9 SEC (9.7-13.0)
[2018-01-13 01:41] LABS: BASO % 0.7 % (0-2.0); EOS % 3.7 % (0-4.5); HEMATOCRIT 49.8 % (35.4-49); LYMPH % 25.2 % (8-40); MCH 32.2 pg (25.7-33.7); MCHC 34.1 g/dl (32.0-35.9); MEAN CELL VOLUME 94.3 fl (80-96); MEAN PLT VOLUME 9.8 fl (7.5-11.1); MONO % 10.9 % (3.8-10.2); NEUT % 59.5 % (42.8-82.8); PLATELET COUNT 200 K/MM3 (134-434); RBC 5.28 M/mm3 (4.00-5.60); RDW 12.9 % (11.9-15.9); WHITE BLOOD COUNT 6.9 K/mm3 (4.0-10.0)
--- NOTE | 2018-01-13 01:45 | PDOC ---
Attending Attestation - Resident Resident Name: ThomasKane - ED Attending Attestation I have performed the following: I have examined & evaluated the patient, The case was reviewed & discussed with the resident, I agree w/resident's findings & plan, Exceptions are as noted - HPI HPI: 01/13/18 01:42 "The patient is a 67 year old male, with a significant past medical history of Paroxysmal Afib ( no AC, patient declined), Hypertension, Hypothyroidism, Anxiety, who presents to the ED complaining of palpitations. The patient notes that he first had a bloating sensation in his upper abdomen that he thought was heartburn. This subsequently turned into palpitations. He notes that this is consistent with prior episodes of AFIB with RVR. He denies chest pain or shortness of breath. Pt states he takes Bystolic and took an extra dose after onset of his symptoms with no improvement. The patient denies chest pain, shortness of breath, headache and dizziness. Denies fever, chills, nausea, vomiting, diarrhea or constipation. Denies dysuria , frequency, urgency and hematuria. Allergies: Ampicillin, Penicillin Past surgical history: HERNIA REPAIR, LITHOTRIPSY X5 Social History: No alcohol, tobacco or drug use reported " - Physicial Exam PE: 01/13/18 01:44 "GENERAL: Awake, alert, and fully oriented, in no acute distress. HEAD: No signs of trauma EYES: PERRLA, EOMI, sclera anicteric, conjunctiva clear ENT: Auricles normal inspection, hearing grossly normal, nares patent, oropharynx clear without exudates. Moist mucosa NECK: Nontender, no stepoffs, Normal ROM, supple, no lymphadenopathy, JVD, or masses LUNGS: Breath sounds equal, clear to auscultation bilaterally. No wheezes, and no crackles HEART: irregularly irregular, normal S1 and S2, no murmurs, rubs or gallops ABDOMEN: Soft, nontender, normoactive bowel sounds. No guarding, no rebound. No masses EXTREMITIES: Normal range of motion, no edema. No clubbing or cyanosis. No cords, erythema, or tenderness NEUROLOGICAL: Cranial nerves II through XII intact. 5/5 strength and sensation in all extremities, Normal speech, normal gait, normal cerebellar function SKIN: Warm, Dry, normal turgor, no rashes or lesions noted. " - Medical Decision Making 01/13/18 01:44 67 M with palpitations, found to be in afib with RVR. Pt with no CP/SOB. Pt has been compliant with his meds. - Labs, trop, BNP - CXR - Rate control with metoprolol - Admit tele - Cards consult
[2018-01-13 01:48] LABS: URINE APPEARANCE CLEAR; URINE BILIRUBIN NEGATIVE (<2.0 mg/dL); URINE COLOR COLORLESS; URINE GLUCOSE (UA) NEGATIVE (NEGATIVE); URINE KETONE NEGATIVE (NEGATIVE); URINE LEUK ESTERASE NEGATIVE (NEGATIVE); URINE NITRITE NEGATIVE (NEGATIVE); URINE PROTEIN NEGATIVE (NEGATIVE); URINE UROBILINOGEN NEGATIVE mg/dL (0.2-1.0)
[2018-01-13 01:50] LABS: URINE BACTERIA FEW /hpf (NONE SEEN)
[2018-01-13 01:51] LABS: ALBUMIN 4.3 g/dl (3.4-5.0); ANION GAP 9 (8-16); BILIRUBIN,TOTAL 0.4 mg/dL (0.2-1.0); BLOOD UREA NITROGEN 17 mg/dL (7-18); CALCIUM 9.5 mg/dL (8.5-10.1); CHLORIDE 105 mmol/L (98-107); CO2 27 mmol/L (21-32); CREATININE 1.4 mg/dL (0.7-1.3); GLUCOSE,RANDOM 159 mg/dL (74-106); POTASSIUM 3.6 mmol/L (3.5-5.1); SGOT/AST 28 U/L (15-37); SGPT/ALT 42 U/L (12-78); SODIUM 141 mmol/L (136-145)
[2018-01-13 01:53] LABS: ALK PHOS 91 U/L (45-117)
[2018-01-13] MEDS ORDERED: MAG HYDROX/AL HYDROX/SIMETH 30 ML UNIT-DOSE CUP PO ONE (03:13)
--- NOTE | 2018-01-13 03:17 | HP ---
CHIEF COMPLAINT: palpitations, gas, abd bloating PCP: Amanda HISTORY OF PRESENT ILLNESS: This is a 67 year old male with a significant past medical history of pAfib, HTN , anxiety who presented to the ED with abdominal bloating, gas and palpitations similar to his previous Afib episodes. Pt denies chest pain or SOB. ER course was notable for: (1) Afib with RVR on ECG, given metoprolol 5mg x 1 (2) troponin neg x 1 Recent Travel: pt denies PAST MEDICAL HISTORY: pAfib, not on AC, pt refused; HTN, hypothyroid, anxiety, kidney stones PAST SURGICAL HISTORY: hernia repair lithotripsy x5 Social History: lives with Smoking: quit approx 12 years ago, previous 1 PPD x 25-30 years Alcohol: pt denies Drugs: pt denies Family History: mother age 85, ?HF, h/o DM father age 53, leukemia sister with Afib sister s/p cholecystectomy no children Allergies ampicillin Allergy (Severe, Verified 01/13/18 00:45) Hives Penicillins Allergy (Severe, Verified 01/13/18 00:45) Hives HOME MEDICATIONS: 3 Medication Instructions Recorded Mirtazapine [Remeron -] 7.5 mg PO HS 04/19/16 Aspirin [ASA -] 81 mg PO DAILY 02/17/17 Nebivolol [Bystolic -] 5 mg PO DAILY #30 tab 07/19/17 Quinapril HCl [Accupril -] 20 mg PO DAILY 12/09/17 Levothyroxine [Synthroid -] 100 mcg PO DAILY@0700 #30 tablet 12/10/17 REVIEW OF SYSTEMS CONSTITUTIONAL: Absent: fever, chills, diaphoresis, generalized weakness, malaise, loss of appetite, weight change HEENT: Absent: rhinorrhea, nasal congestion, throat pain, throat swelling, difficulty swallowing, mouth swelling, ear pain, eye pain, visual changes CARDIOVASCULAR: Present: palpitations Absent: chest pain, syncope, irregular heart rate, lightheadedness, peripheral edema RESPIRATORY: Absent: cough, shortness of breath, dyspnea with exertion, orthopnea, wheezing, stridor, hemoptysis GASTROINTESTINAL: Present: abdominal bloating, gas Absent: abdominal pain, abdominal distension, nausea, vomiting, diarrhea, constipation, melena, hematochezia GENITOURINARY: Absent: dysuria, frequency, urgency, hesitancy, hematuria, flank pain, genital pain MUSCULOSKELETAL: Absent: myalgia, arthralgia, joint swelling, back pain, neck pain SKIN: Absent: rash, itching, pallor HEMATOLOGIC/IMMUNOLOGIC: Absent: easy bleeding, easy bruising, lymphadenopathy, frequent infections ENDOCRINE: Absent: unexplained weight gain, unexplained weight loss, heat intolerance, cold intolerance NEUROLOGIC: Absent: headache, focal weakness or paresthesias, dizziness, unsteady gait, seizure, mental status changes, bladder or bowel incontinence PSYCHIATRIC: Absent: anxiety, depression, suicidal or homicidal ideation, hallucinations. PHYSICAL EXAMINATION Vital Signs - 24 hr 3 01/13/18 01/13/18 00:43 01:10 Temperature 98.6 F Pulse Rate 138 H Respiratory 22 Rate Blood Pressure 184/106 190/133 O2 Sat by Pulse 97 Oximetry (%) GENERAL: Awake, alert, and fully oriented, in no acute distress. HEAD: Normal with no signs of trauma. EYES: Pupils equal, round and reactive to light, extraocular movements intact, sclera anicteric, conjunctiva clear. No lid lag. EARS, NOSE, THROAT: Ears normal, nares patent, oropharynx clear without exudates. Moist mucous membranes. NECK: Normal range of motion, supple without lymphadenopathy, JVD, or masses. LUNGS: Breath sounds equal, clear to auscultation bilaterally. No wheezes, and no crackles. No accessory muscle use. HEART: Irregular rate and rhythm, normal S1 and S2 without murmur, rub or gallop. ABDOMEN: Soft, nontender, not distended, normoactive bowel sounds, no guarding, no rebound, no masses. No hepatomegaly or splenomegaly. MUSCULOSKELETAL: Normal range of motion at all joints. No bony deformities or tenderness. No CVA tenderness. UPPER EXTREMITIES: 2+ pulses, warm, well-perfused. No cyanosis. No clubbing. No peripheral edema. LOWER EXTREMITIES: 2+ pulses, warm, well-perfused. No calf tenderness. No peripheral edema. NEUROLOGICAL: Cranial nerves II-XII intact. Normal speech. Normal gait. PSYCHIATRIC: Cooperative. Good eye contact. Appropriate mood and affect. SKIN: Warm, dry, normal turgor, no rashes or lesions noted, normal capillary refill. Laboratory Results - last 24 hr 3 01/13/18 01/13/18 01/13/18 01:09 01:24 01:24 WBC 6.9 RBC 5.28 Hgb 17.0 H Hct 49.8 H MCV 94.3 MCH 32.2 MCHC 34.1 RDW 12.9 Plt Count 200 MPV 9.8 Absolute Neuts (auto) 4.1 Neutrophils % 59.5 Lymphocytes % 25.2 Monocytes % 10.9 H Eosinophils % 3.7 Basophils % 0.7 Nucleated RBC % 0 PT with INR 10.90 INR 0.96 Sodium 141 Potassium 3.6 Chloride 105 Carbon Dioxide 27 Anion Gap 9 BUN 17 Creatinine 1.4 H Creat Clearance w eGFR 50.25 Random Glucose 159 H D Calcium 9.5 Total Bilirubin 0.4 AST 28 ALT 42 Alkaline Phosphatase 91 Creatine Kinase 228 Creatine Kinase Index 1.5 CK-MB (CK-2) 3.43 Troponin I < 0.02 B-Natriuretic Peptide 99.70 Total Protein 8.0 Albumin 4.3 Urine Color Urine Appearance Urine pH Ur Specific [place] Urine Protein Urine Glucose (UA) Urine Ketones Urine Blood Urine Nitrite Urine Bilirubin Urine Urobilinogen Ur Leukocyte Esterase Urine WBC (Auto) Urine RBC (Auto) Urine Bacteria 3 Urine Color Colorless 01/13/18 01:24 Urine Appearance Clear 01/13/18 01:24 Urine pH 7.0 (5.0-8.0) 01/13/18 01:24 Ur Specific [place] 1.003 (1.001-1.035) 01/13/18 01:24 Urine Protein Negative (NEGATIVE) 01/13/18 01:24 Urine Glucose (UA) Negative (NEGATIVE) 01/13/18 01:24 Urine Ketones Negative (NEGATIVE) 01/13/18 01:24 Urine Blood 1+ (NEGATIVE) H 01/13/18 01:24 Urine Nitrite Negative (NEGATIVE) 01/13/18 01:24 Urine Bilirubin Negative (<2.0 mg/dL) 01/13/18 01:24 Ur Leukocyte Esterase Negative (NEGATIVE) 01/13/18 01:24 Urine WBC (Auto) <1 01/13/18 01:24 Urine RBC (Auto) <1 01/13/18 01:24 Urine Bacteria Few /hpf (NONE SEEN) 01/13/18 01:24 ECG Atrial fibrillation with RVR vent rate 127, QTC [address]/T wave changes ASSESSMENT/PLAN: 67yM with PMH pAfib, not on AC, pt refused; HTN, hypothyroid, anxiety, kidney stones presented to the ED with palpitations, sensation of abdominal bloating and gas. Afib with RVR - still in afib on monitor with HR in 80s-120s - will give metoprolol 5mg IVP x 1 more - cardiology consult - trend troponin x 2 more, 1st neg - telemetry monitoring HTN - BP elevated, down to 168/88 now - will give metoprolol x 1 more dose - would increase home bystolic to 10mg but will defer to cardiology Hypothyroid - tSH 4.46 on 12/09, dose increased as per pt - will check TSH with next troponin anxiety - cont remeron HS DVT PPX - heparin deferred, anticipated LOS <48h FEN - tolerating po - BMP in am - low sodium diet as tolerated Dispo: pt requires further observation. Addendum 03:50 pt converted to NSR. ECG 01/13/18 03:48 Normal sinus rhythm vent rate 62, QTC [address]/T changes Visit type - Emergency Visit Emergency Visit: Yes ED Registration Date: 01/13/18 Care time: The patient presented to the Emergency Department on the above date and was hospitalized for further evaluation of their emergent condition. - New Patient This patient is new to me today: Yes Date on this admission: 01/13/18 - Critical Care Critical Care patient: No Hospitalist Screening - Colonoscopy Questionnaire Colonoscopy Questionnaire: Colonoscopy Questionnaire - Patient: 50 - 75 years old and never had a screening colonoscopy: No History of colon or rectal polyps, or CA: No History of IBD, Crohn's disease or UC: No History of abdominal radiation therapy as a child: No - Relative: 1 with colon or rectal CA, or polyps at age 60 or younger: No Colon or rectal CA diagnosed at age 45 or younger: No Multiple relatives with colon or rectal CA: No - Outcome: Screening Result: Negative Screen
[2018-01-13] MEDS ORDERED: MAG HYDROX/AL HYDROX/SIMETH 30 ML UNIT-DOSE CUP ONE (03:24)
[2018-01-13 08:38] LABS: BASO % 1.3 % (0-2.0); EOS % 2.9 % (0-4.5); HEMATOCRIT 45.8 % (35.4-49); HEMOGLOBIN 15.9 GM/dL (11.7-16.9); LYMPH % 26.3 % (8-40); MCH 32.7 pg (25.7-33.7); MCHC 34.6 g/dl (32.0-35.9); MEAN CELL VOLUME 94.5 fl (80-96); MEAN PLT VOLUME 8.8 fl (7.5-11.1); MONO % 10.4 % (3.8-10.2); NEUT % 59.1 % (42.8-82.8); PLATELET COUNT 176 K/MM3 (134-434); RBC 4.85 M/mm3 (4.00-5.60); RDW 12.8 % (11.9-15.9); WHITE BLOOD COUNT 6.5 K/mm3 (4.0-10.0)
[2018-01-13 09:00] LABS: ANION GAP 7 (8-16); BLOOD UREA NITROGEN 16 mg/dL (7-18); CALCIUM 8.9 mg/dL (8.5-10.1); CHLORIDE 107 mmol/L (98-107); CO2 30 mmol/L (21-32); CREATININE 1.2 mg/dL (0.7-1.3); GLUCOSE,RANDOM 118 mg/dL (74-106); MAGNESIUM 2.3 mg/dL (1.8-2.4); POTASSIUM 4.1 mmol/L (3.5-5.1); SODIUM 144 mmol/L (136-145)
--- NOTE | 2018-01-13 11:36 | CON.CARD ---
Cardiology Consult (text) - Consultation Consultation Note: Chief Complaint: palpitations History of Present Illness: 67 yo male admitted for palpitations. Had been feeling well until yesterday when he was driving in car and felt abdominal gas/bloating and palps and came to ER and found afib with rvr. Went into sr overnight after iv lopressor. Feels well now. No cp, sob, dizzy, loc, pnd,orthopnea, le edema. Sees me for cardiology. PMH: PAFib HTN hypothyroid anxiety - Past Medical History Cardio/Vascular: Yes: AFIB, HTN - Past Surgical History Past Surgical History: Yes: Hernia Repair - Alcohol/Substance Use Hx Alcohol Use: No History of Substance Use: reports: None - Smoking History Smoking history: Unknown if ever smoked Have you smoked in the past 12 months: No Aproximately how many cigarettes per day: 0 - Social History ADL: Independent History of Recent Travel: No Home Medications - Allergies Allergies/Adverse Reactions: Allergies Allergy/AdvReac Type Severity Reaction Status Date / Time ampicillin Allergy Severe Hives Verified 01/13/18 00:45 Penicillins Allergy Severe Hives Verified 01/13/18 00:45 - Home Medications Home Medications Medication Instructions Recorded Mirtazapine [Remeron -] 7.5 mg PO HS 04/19/16 Aspirin [ASA -] 81 mg PO DAILY 02/17/17 Nebivolol [Bystolic -] 5 mg PO DAILY #30 tab 07/19/17 Quinapril HCl [Accupril -] 20 mg PO DAILY 12/09/17 Levothyroxine [Synthroid -] 100 mcg PO DAILY@0700 #30 tablet 12/10/17 Family Disease History - Family Disease History Family Disease History: Heart Disease: Sister (a fib) Review of Systems - Review of Systems Constitutional: denies: Chills, Fever Eyes: denies: Eye Pain HENT: denies: Nasal Congestion Neck: denies: Stiffness Cardiovascular: denies: Edema Respiratory: denies: Orthopnea, PND Gastrointestinal: denies: Diarrhea, Rectal Bleeding Genitourinary: denies: Burning, Hematuria Musculoskeletal: denies: Muscle Pain Integumentary: denies: Rash Neurological: denies: Numbness, Seizure, Syncope Endocrine: denies: Excessive Sweating Hematology/Lymphatic: denies: Excessive Bleeding Vital Signs: Vital Signs Period Temp Pulse Resp BP Sys/Ferrera Pulse Ox Last 24 Hr 98.1 F-98.6 F 54-138 18-22 128-190/79-133 96-97 Constitutional: Yes: Well Nourished, No Distress Eyes: No: Sclera Icterus HENT: No: Nasal Congestion Neck: No: Decreased ROM Respiratory: Yes: CTA Bilaterally. No: Accessory Muscle Use, Rales, Wheezes Gastrointestinal: Yes: Normal Bowel Sounds. No: Distention, Hepatomegaly, Palpable Mass, Tenderness Cardiovascular: Yes: Regular Rate and Rhythm JVD: No Carotid Bruit: No PMI: Non-Displaced Heart Sounds: Yes: S1, S2. No: Gallop Murmur: No: Systolic Murmur, Diastolic Murmur Musculoskeletal: Yes: Other (No kyphosis) Extremities: No: Cold, Cyanosis Edema: No Peripheral Pulses: 2+ Left Carotid, 2+ Right Carotid, 2+ Left Doralis Pedis, 2+ Right Dorsalis Pedis Integumentary: No: Jaundice Neurological: Yes: Alert, Oriented (x3) Psychiatric: No: Agitated - Other Data Labs, Other Data: Laboratory Last Values WBC 6.5 K/mm3 (4.0-10.0) 01/13/18 08:28 RBC 4.85 M/mm3 (4.00-5.60) 01/13/18 08:28 Hgb 15.9 GM/dL (11.7-16.9) 01/13/18 08:28 Hct 45.8 % (35.4-49) 01/13/18 08:28 MCV 94.5 fl (80-96) 01/13/18 08:28 MCH 32.7 pg (25.7-33.7) 01/13/18 08:28 MCHC 34.6 g/dl (32.0-35.9) 01/13/18 08:28 RDW 12.8 % (11.9-15.9) 01/13/18 08:28 Plt Count 176 K/MM3 (134-434) 01/13/18 08:28 MPV 8.8 fl (7.5-11.1) D 01/13/18 08:28 Absolute Neuts (auto) 3.8 # 01/13/18 08:28 Neutrophils % 59.1 % (42.8-82.8) 01/13/18 08:28 Lymphocytes % 26.3 % (8-40) 01/13/18 08:28 Monocytes % 10.4 % (3.8-10.2) H 01/13/18 08:28 Eosinophils % 2.9 % (0-4.5) 01/13/18 08:28 Basophils % 1.3 % (0-2.0) 01/13/18 08:28 Nucleated RBC % 0 % (0-0) 01/13/18 08:28 PT with INR 10.90 SEC (9.7-13.0) 01/13/18 01:09 INR 0.96 (0.82-1.09) 01/13/18 01:09 Sodium 144 mmol/L (136-145) 01/13/18 08:28 Potassium 4.1 mmol/L (3.5-5.1) 01/13/18 08:28 Chloride 107 mmol/L (98-107) 01/13/18 08:28 Carbon Dioxide 30 mmol/L (21-32) 01/13/18 08:28 Anion Gap 7 (8-16) L 01/13/18 08:28 BUN 16 mg/dL (7-18) 01/13/18 08:28 Creatinine 1.2 mg/dL (0.7-1.3) 01/13/18 08:28 Creat Clearance w eGFR > 60 (>60) 01/13/18 08:28 Random Glucose 118 mg/dL (74-106) H D 01/13/18 08:28 Calcium 8.9 mg/dL (8.5-10.1) 01/13/18 08:28 Phosphorus 4.0 mg/dL (2.5-4.9) 01/13/18 08:28 Magnesium 2.3 mg/dL (1.8-2.4) 01/13/18 08:28 Total Bilirubin 0.4 mg/dL (0.2-1.0) 01/13/18 01:24 AST 28 U/L (15-37) 01/13/18 01:24 ALT 42 U/L (12-78) 01/13/18 01:24 Alkaline Phosphatase 91 U/L (45-117) 01/13/18 01:24 Creatine Kinase 172 IU/L (39-308) 01/13/18 08:28 Creatine Kinase Index 1.7 % (0.0-5.0) 01/13/18 08:28 CK-MB (CK-2) 2.94 ng/mL (0.5-3.6) 01/13/18 08:28 Troponin I < 0.02 ng/ml (0.00-0.05) 01/13/18 08:28 B-Natriuretic Peptide 99.70 pg/ml (5-125) 01/13/18 01:24 Total Protein 8.0 g/dl (6.4-8.2) 01/13/18 01:24 Albumin 4.3 g/dl (3.4-5.0) 01/13/18 01:24 TSH 3.25 uIU/ml (0.358-3.74) D 01/13/18 08:28 Urine Color Colorless 01/13/18 01:24 Urine Appearance Clear 01/13/18 01:24 Urine pH 7.0 (5.0-8.0) 01/13/18 01:24 Ur Specific [place] 1.003 (1.001-1.035) 01/13/18 01:24 Urine Protein Negative (NEGATIVE) 01/13/18 01:24 Urine Glucose (UA) Negative (NEGATIVE) 01/13/18 01:24 Urine Ketones Negative (NEGATIVE) 01/13/18 01:24 Urine Blood 1+ (NEGATIVE) H 01/13/18 01:24 Urine Nitrite Negative (NEGATIVE) 01/13/18 01:24 Urine Bilirubin Negative (<2.0 mg/dL) 01/13/18 01:24 Urine Urobilinogen Negative mg/dL (0.2-1.0) 01/13/18 01:24 Ur Leukocyte Esterase Negative (NEGATIVE) 01/13/18 01:24 Urine WBC (Auto) <1 /hpf (3-5) 01/13/18 01:24 Urine RBC (Auto) <1 /hpf (0-3) 01/13/18 01:24 Urine Bacteria Few /hpf (NONE SEEN) 01/13/18 01:24 ECG: AFib with rvr, no ischemic changes-->repeat ecg sr, unremarkable tele: presently NSR, had afib with rvr last night Echo 2014: nl LV/RV; valves WNL echo 11/2017: nl lv/rv, mild lae, no sig valve path ETT 2016: 3:02 min, 93% MPHR. no chest pain. no ST changes. a/p: paroxysmal Afib and atrial flutter, palps: -recurrent pafib with rvr. Again discussed option of having EP eval as outpt for ablation or anti arrhythmics but pt not interested. -he wants to continue bystolic for now. If sxs return soon he may consider EP or retrial of dilt at higher dose of 180 qd instead of bystolic. -has indication for ac but again declines, cont asa. -recent echo unremarkable HTN: -bp currently controlled ok for dc from cardiac pov
--- NOTE | 2018-01-13 12:38 | DS ---
Physical Examination Vital Signs: Vital Signs Temperature 36.7 C 01/13/18 07:32 Pulse Rate 54 L 01/13/18 07:32 Respiratory Rate 18 01/13/18 07:32 Blood Pressure 128/79 01/13/18 07:32 O2 Sat by Pulse Oximetry (%) 96 01/13/18 07:32 Constitutional: Yes: Well Nourished, No Distress, Calm Cardiovascular: Yes: Regular Rate and Rhythm. No: Gallop, Murmur, Rub Respiratory: Yes: Regular, CTA Bilaterally. No: Rales, Rhonchi, Wheezes Gastrointestinal: Yes: Normal Bowel Sounds, Soft. No: Distention, Tenderness Extremities: Yes: WNL Edema: No Labs: CBC, BMP 01/13/18 08:28 01/13/18 08:28 Discharge Summary Reason For Visit: A-FIB WITH RAPID VENTRICULAR RESPONSE Current Active Problems Atrial fibrillation with RVR (Acute) Hospital Course: Mr Hugo is a 67 year old male who comes in with palpitations and was found to be in RVR. He was admitted to the hospital and received one dose of IV metoprolol. He converted back to sinus rhythm. Patient was seen by cardiology and currently no change in medications. He is currently stable for discharge home. Condition: Stable - Instructions Diet, Activity, Other Instructions: resume previous diet and activity Referrals: Abraham Patel MD [Primary Care Provider] - Luis Mckeon MD [Staff Physician] - Disposition: HOME - Home Medications Comprehensive Discharge Medication List: Ambulatory Orders Mirtazapine [Remeron -] 7.5 mg PO HS 04/19/16 Aspirin [ASA -] 81 mg PO DAILY 02/17/17 Nebivolol [Bystolic -] 5 mg PO DAILY #30 tab 07/19/17 Quinapril HCl [Accupril -] 20 mg PO DAILY 12/09/17 Levothyroxine [Synthroid -] 100 mcg PO DAILY@0700 #30 tablet 12/10/17
[2018-01-13 12:55] VITALS: BP 125/78; PULSE 65; TEMP 97.8
--- NOTE | 2018-01-13 14:21 | EKG ---
Test Reason : Blood Pressure : / mmHG Vent. Rate : 062 BPM Atrial Rate : 062 BPM P-R Int : 186 ms QRS Dur : 076 ms QT Int : 404 ms P-R-T Axes : 044 016 052 degrees QTc Int : 410 ms NORMAL SINUS RHYTHM NORMAL ECG WHEN COMPARED WITH ECG OF 13-JAN-2018 00:57, SINUS RHYTHM HAS REPLACED ATRIAL FIBRILLATION VENT. RATE HAS DECREASED BY [address] ELEVATION NOW PRESENT IN LATERAL LEADS Confirmed by SHAHID ROMANO MD ([id number]) on 01/13/2018 2:21:08 PM Referred By: Confirmed By:SHAHID ROMANO MD
--- NOTE | 2018-01-13 14:21 | EKG ---
Test Reason : Blood Pressure : / mmHG Vent. Rate : 127 BPM Atrial Rate : 108 BPM P-R Int : 000 ms QRS Dur : 088 ms QT Int : 338 ms P-R-T Axes : 000 047 083 degrees QTc Int : 491 ms ATRIAL FIBRILLATION WITH RAPID VENTRICULAR RESPONSE ABNORMAL ECG WHEN COMPARED WITH ECG OF 09-DEC-2017 22:45, ATRIAL FIBRILLATION HAS REPLACED JUNCTIONAL RHYTHM Confirmed by SHAHID ROMANO MD ([id number]) on 01/13/2018 2:21:16 PM Referred By: Confirmed By:SHAHID ROMANO MD
== END 2018-01-13 12:54 | disposition home or self-care (01) ==
LOC: JER 00:40 → JERBED 03:00 → UNDOADMOB 03:05 → JERBED 03:05
PROVIDERS: ADMIT Internal Medicine; ATTEND Internal Medicine
PROC: 3E033GC Introduction of Other Therapeutic Substance into Peripheral Vein, Percutaneous Approach (ICD-10-PCS; principal; 2018-01-13)
DX: I48.0 Paroxysmal atrial fibrillation (principal); I48.92 Unspecified atrial flutter; R00.2 Palpitations; I10 Essential (primary) hypertension; E03.9 Hypothyroidism, unspecified; F41.9 Anxiety disorder, unspecified; Z88.0 Allergy status to penicillin; Z79.82 Long term (current) use of aspirin; Z87.442 Personal history of urinary calculi
CPT/HCPCS: 36415; 80048; 80053; 81003; 81015; 82550; 82553; 83735; 83880; 84100; 84443; 84484; 85025; 85610; 87086; 93005; 93010; 96374; 96376; 99284-25; G0378

== ENCOUNTER 2018-02-11 23:56 | Observation (INO) | payer OTHER ==
[2018-02-12 00:30] VITALS: BMI 28.7
--- NOTE | 2018-02-12 01:00 | PDOC ---
History of Present Illness - General Chief Complaint: Palpitations Stated Complaint: IRREGULAR HEART RATE Time Seen by Provider: 02/12/18 00:43 - History of Present Illness Initial Comments: The patient is a 67M with a history of HTN, hypothyroidism, and a-fib (only ASA ) who presents with palpitations and gas pressure since 2300 tonight. The patient reports that he was switched to Bystolic 3 months ago by his Director Of Knowledge Management (Dr. Mckeon). Since that time, he reports that he has had episodes of a-fib approximately monthly. He was last seen here 1 month ago, converted with Metoprolol x2 and discharged. He denies fevers/chills, chest pain, SOB, recent illness, N/V/C/D. 02/12/18 01:56 Past History - Past Medical History Allergies/Adverse Reactions: Allergies Allergy/AdvReac Type Severity Reaction Status Date / Time ampicillin Allergy Severe Hives Verified 02/12/18 00:30 Penicillins Allergy Severe Hives Verified 02/12/18 00:30 Home Medications: Ambulatory Orders Mirtazapine [Remeron -] 7.5 mg PO HS 04/19/16 Aspirin [ASA -] 81 mg PO DAILY 02/17/17 Nebivolol [Bystolic -] 5 mg PO DAILY #30 tab 07/19/17 Quinapril HCl [Accupril -] 20 mg PO DAILY 12/09/17 Levothyroxine [Synthroid -] 100 mcg PO DAILY@0700 #30 tablet 12/10/17 Anemia: No Asthma: No Cancer: No Cardiac Disorders: Yes (a-fib) CVA: No COPD: No CHF: No Dementia: No GI Disorders: No Disorders: No HTN: Yes Hypercholesterolemia: No Kidney Stones: Yes Liver Disease: No Psychiatric Problems: Yes (ANXIETY.) Seizures: No Thyroid Disease: Yes (HYPO.) - Surgical History Abdominal Surgery: Yes (HERNIA REPAIR, LITHOTRIPSY X5) Appendectomy: No Cardiac Surgery: No Cholecystectomy: No Lung Surgery: No Neurologic Surgery: No Orthopedic Surgery: No - Immunization History Immunization Up to Date: Yes - Suicide/Smoking/Psychosocial Hx Smoking Status: Yes Smoking History: Never smoked Have you smoked in the past 12 months: No Number of Cigarettes Smoked Daily: 0 If you are a former smoker, when did you quit?: 12 YEARS AGO Cigars Per Day: 0 Information on smoking cessation initiated: No Hx Alcohol Use: No Drug/Substance Use Hx: No Substance Use Type: None Hx Substance Use Treatment: No Review of Systems - Review of Systems Able to Perform ROS?: Yes Comments:: GENERAL/CONSTITUTIONAL: No fever or chills. No weakness HEAD, EYES, EARS, NOSE AND THROAT: No change in vision. No ear pain or discharge. No sore throat CARDIOVASCULAR: +chest pain and palp; no shortness of breath RESPIRATORY: No cough, wheezing, or hemoptysis GASTROINTESTINAL: No nausea, vomiting, diarrhea or constipation GENITOURINARY: +reflux/bloating; No dysuria, frequency, or change in urination MUSCULOSKELETAL: No joint or muscle swelling or pain. No neck or back pain SKIN: No rash NEUROLOGIC: No headache, vertigo, loss of consciousness, or change in strength/ sensation ENDOCRINE: No increased thirst. No abnormal weight change HEMATOLOGIC/LYMPHATIC: No anemia, easy bleeding, or history of blood clots ALLERGIC/IMMUNOLOGIC: No hives or skin allergy 02/12/18 01:29 Is the patient limited Faroese proficient: No *Physical Exam - Vital Signs Last Vital Signs Temp Pulse Resp BP Pulse Ox 98.8 F 130 H 27 H 180/110 97 02/12/18 00:00 02/12/18 00:00 02/12/18 00:00 02/12/18 00:00 02/12/18 00:00 - Physical Exam Comments: GENERAL: Awake, alert, and fully oriented, in no acute distress HEAD: No signs of trauma, normocephalic, atraumatic EYES: PERRL, EOMI, sclera anicteric, conjunctiva clear ENT: Hearing grossly normal, nares patent, oropharynx clear without exudates. Moist mucosa NECK: Normal ROM, supple, no lymphadenopathy LUNGS: No distress, speaks full sentences, clear to auscultation bilaterally HEART: Tachycardic, irregularly irregular, no murmurs appreciated, peripheral pulses normal and equal bilaterally ABDOMEN: Soft, diffusely mildly TTP (reportedly chronic) normoactive bowel sounds. EXTREMITIES : Normal inspection, Normal range of motion, no edema. No clubbing or cyanosis NEUROLOGICAL: Cranial nerves II through XII grossly intact. Normal speech, normal gait, no focal sensorimotor deficits SKIN: Warm, Dry, normal turgor, no rashes or lesions noted 02/12/18 01:30 ED Treatment Course - LABORATORY CBC & Chemistry Diagram: 02/12/18 01:55 02/12/18 00:55 - RADIOLOGY Radiology Studies Ordered: Category Date Time Status CHEST PA & LAT [RAD] Stat Radiology 02/12/18 00:44 Ordered Medical Decision Making - Medical Decision Making The patient is a 67M with a history of HTN, hypothyroidism, and paroxysmal a- fib who presents with palpitations since 2300 with associated bloating in a-fib w/ RVR Ddx: ACS, r/o PNA, UTI, PNX ED Course CMP, CBC, UA, cardiac enzymes ECG, CXR Metoprolol 5mg IV once 02/12/18 02:04 Initial Trop I negative UA without evidence of UTI Patient with continued a-fib w/ RVR Will give another Metoprolol 5mg IV once Plan for admission to obs under Hospitalist in tele 02/12/18 02:09 *DC/Admit/Observation/Transfer Diagnosis at time of Disposition: Atrial fibrillation with RVR - Discharge Dispostion Condition at time of disposition: Fair Decision to Admit order: Yes - Referrals Referrals: Abraham Patel MD [Primary Care Provider] - - Patient Instructions - Post Discharge Activity
[2018-02-12] MEDS ORDERED: METOPROLOL TARTRATE 5 MG/5 ML VIAL IVPUSH ONE ×2 (01:12→02:08)
[2018-02-12 01:23] LABS: URINE APPEARANCE CLEAR; URINE BILIRUBIN NEGATIVE (<2.0 mg/dL); URINE COLOR LTYELLOW; URINE GLUCOSE (UA) NEGATIVE (NEGATIVE); URINE KETONE NEGATIVE (NEGATIVE); URINE LEUK ESTERASE NEGATIVE (NEGATIVE); URINE NITRITE NEGATIVE (NEGATIVE); URINE PROTEIN NEGATIVE (NEGATIVE); URINE UROBILINOGEN NEGATIVE mg/dL (0.2-1.0)
[2018-02-12 01:24] LABS: INR 0.95 (0.83-1.09); PROTHROMBIN TIME (PATIENT) 10.7 SEC (9.7-13.0)
[2018-02-12 01:26] LABS: ACTIVATED PTT 32.5 SECONDS (25.2-36.5)
[2018-02-12] MEDS ORDERED: METOPROLOL TARTRATE 5 MG/5 ML VIAL ONE ×2 (01:30→02:18)
[2018-02-12 01:33] LABS: ALBUMIN 4.4 g/dl (3.4-5.0); ANION GAP 10 (8-16); BILIRUBIN,TOTAL 0.5 mg/dL (0.2-1.0); BLOOD UREA NITROGEN 18 mg/dL (7-18); CALCIUM 9.3 mg/dL (8.5-10.1); CHLORIDE 105 mmol/L (98-107); CO2 27 mmol/L (21-32); CREATININE 1.4 mg/dL (0.7-1.3); GLUCOSE,RANDOM 201 mg/dL (74-106); SGPT/ALT 43 U/L (12-78); SODIUM 142 mmol/L (136-145); TOT PROT 8.4 g/dl (6.4-8.2)
[2018-02-12 01:35] LABS: ALK PHOS 98 U/L (45-117)
[2018-02-12 01:38] LABS: SGOT/AST 33 U/L (15-37)
[2018-02-12 01:39] LABS: POTASSIUM 4.3 mmol/L (3.5-5.1)
[2018-02-12] MEDS ORDERED: MAG HYDROX/AL HYDROX/SIMETH 30 ML UNIT-DOSE CUP PO ONE (01:42)
[2018-02-12] MEDS ORDERED: MAG HYDROX/AL HYDROX/SIMETH 30 ML UNIT-DOSE CUP ONE (01:46)
--- NOTE | 2018-02-12 02:04 | PDOC ---
Attending Attestation - Resident Resident Name: Geoffrey Rodriguez - ED Attending Attestation I have performed the following: I have examined & evaluated the patient, The case was reviewed & discussed with the resident, I agree w/resident's findings & plan, Exceptions are as noted - HPI HPI: 02/12/18 02:01 67 yo M h/o paroxysmal afib, hypothyroid, htn here with c/o palpitations and racing heart beat. c/o abd bloating. no f/c no n/v no urinary complaint.s no sob. found to be in afib with rvr on arrival. - Physicial Exam PE: 02/12/18 02:02 awake alert lungs clear bilaterally. heart irreg tachy. skin warm and dry abd soft nt nd. ext wwp no edema. - Medical Decision Making 02/12/18 02:03 r/o electrolyte abnoramlity anemia. acs. plan rate control with metoprolol which has worked in the past. cxr r/o pneumonia, ua. tele yoselyn admit obs for rate control.
[2018-02-12 02:09] LABS: HEMATOCRIT 47.5 % (35.4-49); HEMOGLOBIN 16.4 GM/dL (11.7-16.9); MCH 32.4 pg (25.7-33.7); MCHC 34.5 g/dl (32.0-35.9); MEAN CELL VOLUME 93.8 fl (80-96); PLATELET COUNT 211 K/MM3 (134-434); RBC 5.06 M/mm3 (4.00-5.60); WHITE BLOOD COUNT 7.5 K/mm3 (4.0-10.0)
--- NOTE | 2018-02-12 02:36 | PDOC ---
*Physical Exam - Vital Signs Last Vital Signs Temp Pulse Resp BP Pulse Ox 98.8 F 101 H 22 133/60 97 02/12/18 00:00 02/12/18 02:09 02/12/18 02:09 02/12/18 02:09 02/12/18 00:00 - Physical Exam Comments: 02/12/18 02:34 Sign out received from Dr. Rodriguez 67M with A fib presents with palpitations. Remains in and out of A fib. Metoprolol 5mg IV just given for rate control. Pending admission ED Treatment Course - LABORATORY CBC & Chemistry Diagram: 02/12/18 01:55 02/12/18 00:55 - ADDITIONAL ORDERS Additional order review: Laboratory Results 02/12/18 02/12/18 02/12/18 01:15 00:55 00:55 PT with INR INR PTT (Actin FS) Sodium 142 Potassium 4.3 Chloride 105 Carbon Dioxide 27 Anion Gap 10 BUN 18 Creatinine 1.4 H Creat Clearance w eGFR 50.25 Random Glucose 201 H D Calcium 9.3 Total Bilirubin 0.5 AST 33 ALT 43 Alkaline Phosphatase 98 Creatine Kinase 147 Troponin I < 0.02 Total Protein 8.4 H Albumin 4.4 TSH 2.88 D Urine Color Ltyellow Urine Appearance Clear Urine pH 6.0 Ur Specific [place] 1.014 Urine Protein Negative Urine Glucose (UA) Negative Urine Ketones Negative Urine Blood Negative Urine Nitrite Negative Urine Bilirubin Negative Urine Urobilinogen Negative Ur Leukocyte Esterase Negative 02/12/18 00:55 PT with INR 10.70 INR 0.95 PTT (Actin FS) 32.5 Sodium Potassium Chloride Carbon Dioxide Anion Gap BUN Creatinine Creat Clearance w eGFR Random Glucose Calcium Total Bilirubin AST ALT Alkaline Phosphatase Creatine Kinase Troponin I Total Protein Albumin TSH Urine Color Urine Appearance Urine pH Ur Specific [place] Urine Protein Urine Glucose (UA) Urine Ketones Urine Blood Urine Nitrite Urine Bilirubin Urine Urobilinogen Ur Leukocyte Esterase 02/12/18 01:55 RBC 5.06 MCV 93.8 MCHC 34.5 RDW 13.0 MPV 9.0 - Medications Given in the ED: ED Medications Discontinued Medications Generic Name Dose Route Start Last Admin Trade Name Freq PRN Reason Stop Dose Admin Al Hydroxide/Mg Hydroxide 30 ml 02/12/18 01:42 02/12/18 01:47 Mylanta Oral Suspension - PO 02/12/18 01:43 30 ml ONCE ONE Administration Metoprolol Tartrate 5 mg 02/12/18 01:12 02/12/18 01:32 Lopressor Injection - IVPUSH 02/12/18 01:13 5 mg ONCE ONE Administration *DC/Admit/Observation/Transfer Diagnosis at time of Disposition: Atrial fibrillation with RVR - Discharge Dispostion Condition at time of disposition: Fair - Referrals Referrals: Abraham Patel MD [Primary Care Provider] - - Patient Instructions - Post Discharge Activity
--- NOTE | 2018-02-12 02:53 | HP ---
Admitting History and Physical - Primary Care Physician PCP: Abraham Patel - Admission Chief Complaint: Palpitations, Bloating History of Present Illness: This is a 67 y/o man with a PMHx of Paroxysmal Afib, HTN , hLD, Anxiety. Who presents to the ED with palpitations and bloating x last night. Patient reports recent change in medication to Bystolic and since the switch he reports having monthly episodes of Afib. He reports his last ED visit last month due to Afib with RVR, converted with 2 doses of Metoprolol. Patient denies SOB, CP or dizziness. Patient denies fever, chills, cough, AP, N/V/D, constipation, dysuria. History Source: Patient Limitations to Obtaining History: No Limitations - Past Medical History Cardiovascular: Yes: AFIB, HTN, Hyperlipdemia Psych: Yes: Anxiety Endocrine: Yes: Hypothyroidism - Past Surgical History Past Surgical History: Yes: Hernia Repair - Smoking History Smoking history: Former smoker Have you smoked in the past 12 months: No Aproximately how many cigarettes per day: 0 If you are a former smoker, when did you quit?: 12 YEARS AGO - Alcohol/Substance Use Hx Alcohol Use: No History of Substance Use: reports: None - Social History ADL: Independent History of Recent Travel: No Home Medications - Allergies Allergies/Adverse Reactions: Allergies Allergy/AdvReac Type Severity Reaction Status Date / Time ampicillin Allergy Severe Hives Verified 02/12/18 00:30 Penicillins Allergy Severe Hives Verified 02/12/18 00:30 - Home Medications Home Medications: Ambulatory Orders Mirtazapine [Remeron -] 7.5 mg PO HS 04/19/16 Aspirin [ASA -] 81 mg PO DAILY 02/17/17 Nebivolol [Bystolic -] 5 mg PO DAILY #30 tab 07/19/17 Quinapril HCl [Accupril -] 20 mg PO DAILY 12/09/17 Levothyroxine [Synthroid -] 100 mcg PO DAILY@0700 #30 tablet 12/10/17 Family Disease History - Family Disease History Family Disease History: Heart Disease: Mother, Sister (a fib), CA: Grandparent ( Colon and Prostate), Father (Leukemia) Physical Examination Vital Signs: Vital Signs Temperature 98.8 F 02/12/18 00:00 Pulse Rate 101 H 02/12/18 02:09 Respiratory Rate 22 02/12/18 02:09 Blood Pressure 133/60 02/12/18 02:09 O2 Sat by Pulse Oximetry (%) 97 02/12/18 00:00 Constitutional: Yes: Well Nourished, No Distress, Calm Eyes: Yes: WNL, Conjunctiva Clear, EOM Intact, PERRL HENT: Yes: WNL, Atraumatic, Normocephalic Neck: Yes: WNL, Supple, Trachea Midline Cardiovascular: Yes: Pulse Irregular, S1, S2 Respiratory: Yes: WNL, Regular, CTA Bilaterally Gastrointestinal: Yes: Normal Bowel Sounds, Soft, Abdomen, Obese ...Rectal Exam: Yes: Deferred Renal/: Yes: WNL Breast(s): Yes: WNL Musculoskeletal: Yes: WNL Extremities: Yes: WNL Edema: No Peripheral Pulses WNL: Yes Neurological: Yes: WNL, Alert, Oriented, Cran Nerves II-XII Intact ...Motor Strength: WNL Psychiatric: Yes: WNL, Alert, Oriented Labs: CBC, BMP 02/12/18 01:55 02/12/18 00:55 Laboratory Results - last 24 hr 02/12/18 02/12/18 02/12/18 00:55 00:55 00:55 WBC RBC Hgb Hct MCV MCH MCHC RDW Plt Count MPV PT with INR 10.70 INR 0.95 PTT (Actin FS) 32.5 Sodium 142 Potassium 4.3 Chloride 105 Carbon Dioxide 27 Anion Gap 10 BUN 18 Creatinine 1.4 H Creat Clearance w eGFR 50.25 Random Glucose 201 H D Calcium 9.3 Total Bilirubin 0.5 AST 33 ALT 43 Alkaline Phosphatase 98 Creatine Kinase 147 Troponin I < 0.02 Total Protein 8.4 H Albumin 4.4 TSH 2.88 D Urine Color Urine Appearance Urine pH Ur Specific Ralph Urine Protein Urine Glucose (UA) Urine Ketones Urine Blood Urine Nitrite Urine Bilirubin Urine Urobilinogen Ur Leukocyte Esterase 02/12/18 02/12/18 01:15 01:55 WBC 7.5 RBC 5.06 Hgb 16.4 Hct 47.5 MCV 93.8 MCH 32.4 MCHC 34.5 RDW 13.0 Plt Count 211 MPV 9.0 PT with INR INR PTT (Actin FS) Sodium Potassium Chloride Carbon Dioxide Anion Gap BUN Creatinine Creat Clearance w eGFR Random Glucose Calcium Total Bilirubin AST ALT Alkaline Phosphatase Creatine Kinase Troponin I Total Protein Albumin TSH Urine Color Ltyellow Urine Appearance Clear Urine pH 6.0 Ur Specific [place] 1.014 Urine Protein Negative Urine Glucose (UA) Negative Urine Ketones Negative Urine Blood Negative Urine Nitrite Negative Urine Bilirubin Negative Urine Urobilinogen Negative Ur Leukocyte Esterase Negative Intake & Output 02/09/18 02/10/18 02/11/18 02/12/18 23:59 23:59 23:59 23:59 Weight 90.718 kg Current Medications Generic Name Dose Route Start Last Admin Trade Name Yan PRN Reason Stop Dose Admin Aspirin 81 mg 02/12/18 10:00 Asa - PO DAILY CRISTHIAN Levothyroxine Sodium 100 mcg 02/12/18 07:00 Synthroid - PO DAILY@0700 CRISTHIAN Mirtazapine 7.5 mg 02/12/18 22:00 Remeron - PO HS CRISTHIAN Nebivolol 5 mg 02/12/18 10:00 Bystolic - PO DAILY CRISTHIAN Quinapril HCl 20 mg 02/12/18 10:00 Accupril - PO DAILY CRISTHIAN Imaging - Results X-ray: Report Reviewed (no acute pathology), Image Reviewed EKG: Image Reviewed (Afib with RVR) Problem List - Problems (1) Atrial fibrillation with RVR Assessment/Plan: - [id number] 2/3 - Patient advised of risks and dangers of not taking ACs for Afib - EKG- Afib with RVR - Appreciate Cardiology consult - Serial Enzymes - Last Echo 11/2017 showed-nl lv/rv, mild lae - Continue cardiac monitoring Code(s): I48.91 - UNSPECIFIED ATRIAL FIBRILLATION (2) Palpitations Assessment/Plan: - See above Code(s): R00.2 - PALPITATIONS (3) Hypertension Assessment/Plan: - stable - Monitor BP - Monitor renal function - Continue home meds Code(s): I10 - ESSENTIAL (PRIMARY) HYPERTENSION (4) HLD (hyperlipidemia) Assessment/Plan: - Continue home med Code(s): E78.5 - HYPERLIPIDEMIA, UNSPECIFIED (5) Anxiety disorder Assessment/Plan: - stable - Continue home med Code(s): F41.9 - ANXIETY DISORDER, UNSPECIFIED Qualifiers: Anxiety disorder type: unspecified anxiety disorder Qualified Code(s): F41.9 - Anxiety disorder, unspecified (6) RAMON (acute kidney injury) Assessment/Plan: - Cr 1.4, at baseline - Will continue to monitor, treat accordingly Code(s): N17.9 - ACUTE KIDNEY FAILURE, UNSPECIFIED (7) Hypothyroidism Assessment/Plan: - TSH 2.88 - Continue home med Code(s): E03.9 - HYPOTHYROIDISM, UNSPECIFIED Assessment/Plan 67 y/o man placed in Tele Observation for Afib with RVR for further evaluation of their emergent condition. Plan: FEN - PO fluids as tolerated - Replete lytes prn -Low Na Diet DVT ppx - OOB - SCDs - Consider AC if LOSA > 48hrs Code Status: Full Code Dispo- Observation Visit type - Emergency Visit Emergency Visit: Yes ED Registration Date: 02/12/18 Care time: The patient presented to the Emergency Department on the above date and was hospitalized for further evaluation of their emergent condition. - New Patient This patient is new to me today: Yes Date on this admission: 02/12/18 - Critical Care Critical Care patient: No Hospitalist Screening - Colonoscopy Questionnaire Colonoscopy Questionnaire: Colonoscopy Questionnaire - Patient: 50 - 75 years old and never had a screening colonoscopy: No History of colon or rectal polyps, or CA: No History of IBD, Crohn's disease or UC: No History of abdominal radiation therapy as a child: No - Relative: 1 with colon or rectal CA, or polyps at age 60 or younger: Yes Colon or rectal CA diagnosed at age 45 or younger: No Multiple relatives with colon or rectal CA: No - Outcome: Screening Result: Positive Screen
[2018-02-12] MEDS ORDERED: LEVOTHYROXINE NA 100 MCG TABLET (FP) PO SCH (07:00)
--- NOTE | 2018-02-12 09:31 | CON.CARD ---
Consult Consult Specialty:: cardio - History of Present Illness Chief Complaint: palpitations History of Present Illness: 67 yo male here with his typical AF sx's. found to be in afib with HR 125. given dose of metoprolol in ER--converted to sinus rhythm. feels well now. no cp, sob, presyncope intolerant of daily metopr in past (sad/depressed mood) tolerated diltiazem 120 qd in past--after a while had single AF episode and changed to bystolic. pt/ say many more AF episodes on bystolic. has now had 3 episodes in past 2 mo PMH: HTN depr/anxiety disorder - Past Medical History Cardio/Vascular: Yes: AFIB, HTN, Hyperlipdemia Psych: Yes: Anxiety Endocrine: Yes: Hypothyroidism - Past Surgical History Past Surgical History: Yes: Hernia Repair - Alcohol/Substance Use Hx Alcohol Use: No History of Substance Use: reports: None - Smoking History Smoking history: Former smoker Have you smoked in the past 12 months: No Aproximately how many cigarettes per day: 0 If you are a former smoker, when did you quit?: 12 YEARS AGO - Social History ADL: Independent History of Recent Travel: No Home Medications - Allergies Allergies/Adverse Reactions: Allergies Allergy/AdvReac Type Severity Reaction Status Date / Time ampicillin Allergy Severe Hives Verified 02/12/18 00:30 Penicillins Allergy Severe Hives Verified 02/12/18 00:30 - Home Medications Home Medications: Ambulatory Orders Mirtazapine [Remeron -] 7.5 mg PO HS 04/19/16 Aspirin [ASA -] 81 mg PO DAILY 02/17/17 Nebivolol [Bystolic -] 5 mg PO DAILY #30 tab 07/19/17 Quinapril HCl [Accupril -] 20 mg PO DAILY 12/09/17 Levothyroxine [Synthroid -] 100 mcg PO DAILY@0700 #30 tablet 12/10/17 Family Disease History - Family Disease History Family Disease History: Heart Disease: Mother, Sister (a fib), CA: Grandparent ( Colon and Prostate), Father (Leukemia) Review of Systems - Review of Systems Constitutional: denies: Chills, Fever Eyes: denies: Eye Pain HENT: denies: Nasal Congestion Neck: denies: Stiffness Cardiovascular: denies: Edema Respiratory: denies: Orthopnea, PND Gastrointestinal: denies: Diarrhea, Rectal Bleeding Genitourinary: denies: Burning, Hematuria Musculoskeletal: denies: Muscle Pain Integumentary: denies: Rash Neurological: denies: Numbness, Seizure, Syncope Endocrine: denies: Excessive Sweating Hematology/Lymphatic: denies: Excessive Bleeding Vital Signs: Vital Signs Temperature 98.8 F 02/12/18 00:00 Pulse Rate 63 02/12/18 07:26 Respiratory Rate 17 02/12/18 07:26 Blood Pressure 120/80 02/12/18 07:26 O2 Sat by Pulse Oximetry (%) 96 02/12/18 07:26 Constitutional: Yes: Well Nourished, No Distress Eyes: No: Sclera Icterus HENT: No: Nasal Congestion Neck: No: Decreased ROM Respiratory: Yes: CTA Bilaterally. No: Accessory Muscle Use, Rales, Wheezes Gastrointestinal: Yes: Normal Bowel Sounds. No: Distention, Hepatomegaly, Palpable Mass, Tenderness Cardiovascular: Yes: Regular Rate and Rhythm JVD: No Carotid Bruit: No PMI: Non-Displaced Heart Sounds: Yes: S1, S2. No: Gallop Murmur: No: Systolic Murmur, Diastolic Murmur Musculoskeletal: Yes: Other (No kyphosis) Extremities: No: Cool, Cyanosis Edema: No Peripheral Pulses: 2+ Left Carotid, 2+ Right Carotid, 2+ Left Doralis Pedis, 2+ Right Dorsalis Pedis Integumentary: No: Jaundice Neurological: Yes: Alert, Oriented (x3) Psychiatric: No: Agitated - Other Data Labs, Other Data: CBC, BMP 02/12/18 01:55 02/12/18 00:55 INR, PTT INR 0.95 (0.83-1.09) 02/12/18 00:55 Troponin, BNP 02/12/18 00:55 Troponin I < 0.02 Troponin, BNP 02/12/18 00:55 Troponin I < 0.02 Assessment/Plan ECG #1: afib, HR 125, no ST-T abnormalities ECG #2: NSR (HR 58), no acute changes CXR: clear lungs/pleura Echo 2014: nl LV/RV; valves WNL echo 11/2017: nl lv/rv, mild lae, no sig valve path ETT 2016: 3:02 min, 93% MPHR. no chest pain. no ST changes. a/p: paroxysmal Afib and atrial flutter, symptomatic (palpitations): -recurrent pafib with rvr. -due to pt's uncontrolled anxiety disorder, he repeatedly comes to ER every time he feels palpitations. similarly, due to his anxiety about medical interventions, he has repeatedly declined intensification of AVN harsh therapy , anti-arrhythmics, or EP eval for ablation. -here with same 01/12--pt declined diltiazem add-on to bystolic at that time. -CHADS VASC 2--repeatedly declines AC. on aspirin only--same plan -recent echo unremarkable -disc'd options with pt and . they are interested in trying diltiazem again , at higher dose (180 qd) per dr cruz plan at time of 01/12 ER visit. -rec prn metoprolol to use at home, given this has worked to abort AF episodes mult times per pt/ (lopressor 25mg prn, q15min for ongoing sx's up to max 4 doses (bp always very hi during AF he says) -pt/ report frequent apnea sx's at home--rec'd he d/w dr cruz outpt sleep apnea assessment (including oral appliance if cannot tolerate mask) HTN: -bp currently controlled -cont home ramipril, plus AVN blockers as doing
[2018-02-12] MEDS ORDERED: ASPIRIN 81 MG CHEWABLE TABLETS PO SCH (10:00)
[2018-02-12] MEDS ORDERED: QUINAPRIL HCL 20 MG TABLET (FP) PO SCH (10:00)
[2018-02-12] MEDS ORDERED: NEBIVOLOL 5 MG TABLET (FP) PO SCH (10:00)
--- NOTE | 2018-02-12 10:09 | HOSP ---
Physical Examination Vital Signs: Vital Signs Temperature 98.8 F 02/12/18 00:00 Pulse Rate 63 02/12/18 07:26 Respiratory Rate 17 02/12/18 07:26 Blood Pressure 120/80 02/12/18 07:26 O2 Sat by Pulse Oximetry (%) 96 02/12/18 07:26 Labs: CBC, BMP 02/12/18 01:55 02/12/18 00:55
[2018-02-12 10:45] VITALS: BP 117/73; PULSE 66; TEMP 98
[2018-02-12] MEDS ORDERED: METOPROLOL TARTRATE 25 MG TABLET (FP) PO PRN (10:49)
[2018-02-12 10:52] LABS: MAGNESIUM 2.5 mg/dL (1.8-2.4); PHOSPHOROUS 3.4 mg/dL (2.5-4.9)
--- NOTE | 2018-02-12 11:05 | DS ---
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 Who presents to the ED with palpitations and bloating x last night.Patient reports recent change in medication to Bystolic and since the switch he reports having monthly episodes of Afib. On arrival VR 125 lab shows mild dehydration, converted to NSR after 2 doses of Metoprolol at the time of examination in NSR at 66 BP 117/ 78, evaluated by Cardiology consult Dr. Guerrero recommended to Dc Bystolic switch to Diltizem CD 180 mg daily and metoprolol tartrate 25 mg PRN maximum 4 dose 1t 15 minutes interval if develops palliation with tachycardia HR > 100 /mt, lab shows mildly elevated Creat 1.4 recommonded PO Hydration and F/u PMD in a wk to rpt BMP. Condition: Fair - Instructions Referrals: Luis Mckeon MD [Staff Physician] - 3 Weeks Abraham Patel MD [Primary Care Provider] - 02/14/18 - Home Medications Comprehensive Discharge Medication List: Ambulatory Orders Mirtazapine [Remeron -] 7.5 mg PO HS 04/19/16 Aspirin [ASA -] 81 mg PO DAILY 02/17/17 Quinapril HCl [Accupril -] 20 mg PO DAILY 12/09/17 Levothyroxine [Synthroid -] 100 mcg PO DAILY@0700 #30 tablet 12/10/17 Diltiazem Cd [Cardizem Cd -] 180 mg PO DAILY #30 cap.cd.24h 02/12/18 Metoprolol Tartrate [Lopressor -] 25 mg PO PRN PRN 30 Days #20 tablet MDD 4 tabs 15 mintes Interval 02/12/18
[2018-02-12] MEDS ORDERED: PT OWN MED DRAWER 7, Y5N ONE ×2 (11:26→12:31)
--- NOTE | 2018-02-12 18:59 | EKG ---
Test Reason : Blood Pressure : / mmHG Vent. Rate : 058 BPM Atrial Rate : 058 BPM P-R Int : 178 ms QRS Dur : 080 ms QT Int : 414 ms P-R-T Axes : 049 018 050 degrees QTc Int : [address] ELEVATION, CONSIDER EARLY REPOLARIZATION BORDERLINE ECG WHEN COMPARED WITH ECG OF 12-FEB-2018 00:21, PREMATURE SUPRAVENTRICULAR COMPLEXES ARE NO LONGER PRESENT VENT. RATE HAS DECREASED BY 67 BPM Confirmed by MD ALLI, JOCE ([id number]) on 02/12/2018 6:59:30 PM Referred By: Confirmed By:JOCE CARSON MD
--- NOTE | 2018-02-12 19:00 | EKG ---
Test Reason : Blood Pressure : / mmHG Vent. Rate : 125 BPM Atrial Rate : 125 BPM P-R Int : 172 ms QRS Dur : 084 ms QT Int : 322 ms P-R-T Axes : 071 047 063 degrees QTc Int : 464 ms SINUS TACHYCARDIA WITH PREMATURE SUPRAVENTRICULAR COMPLEXES NONSPECIFIC ST ABNORMALITY ABNORMAL ECG WHEN COMPARED WITH ECG OF 13-JAN-2018 03:48, PREMATURE SUPRAVENTRICULAR COMPLEXES ARE NOW PRESENT VENT. RATE HAS INCREASED BY 63 BPM Confirmed by MD ALLI, JOCE ([id number]) on 02/12/2018 7:00:14 PM Referred By: Confirmed By:JOCE CARSON MD
[2018-02-12] MEDS ORDERED: MIRTAZAPINE 15 MG TABLET (FP) PO SCH (22:00)
== END 2018-02-12 11:45 | disposition home or self-care (01) ==
LOC: JER 23:56 → JERBED 02-12 02:15 → UNDOADMOB 02-12 02:47
PROVIDERS: ADMIT Internal Medicine; ATTEND Internal Medicine
PROC: 3E033GC Introduction of Other Therapeutic Substance into Peripheral Vein, Percutaneous Approach (ICD-10-PCS; principal; 2018-02-12)
DX: I48.0 Paroxysmal atrial fibrillation (principal); I48.92 Unspecified atrial flutter; R00.2 Palpitations; I10 Essential (primary) hypertension; E78.5 Hyperlipidemia, unspecified; E03.9 Hypothyroidism, unspecified; F41.9 Anxiety disorder, unspecified; N17.9 Acute kidney failure, unspecified; Z88.0 Allergy status to penicillin; Z88.1 Allergy status to other antibiotic agents; Z79.82 Long term (current) use of aspirin
CPT/HCPCS: 36415; 71046-TC-FY; 80053; 81003; 82550; 83735; 84100; 84443; 84484; 85027; 85610; 85730; 93005; 93010; 96374; 96375; 99283-25; G0378

== ENCOUNTER 2018-02-27 23:04 | Inpatient (IN) | payer OTHER ==
[2018-02-27 23:15] VITALS: BMI 28.7
--- NOTE | 2018-02-27 23:38 | PDOC ---
Attending Attestation - HPI HPI: 02/28/18 00:00 Patient is a 67 year old male with a significant past medical history of paroxysmal Afib, hypertension, hypothyroidism, and anxiety, who presents to the ED with complaints of chest palpitation that began x45 minutes prior to ED arrival. Patient reports experiencing sudden chest palpitations,that he states began shortly after returning home from active day. He reports taking extra dose of cortisone medication with no relief, prompting him to come into the ED for further evaluation. Patient reports experiencing multiple past episodes of Afib, stating he has come to the ED for these symptoms once per month since November 2017. He reports symptoms of afib are commonly trigger when his digestion is triggered through spicy food. Patient reports being given IV metoprolol in the past for Afib symptoms with relief. Denies chest pain, Sob. Denies nausea, vomiting. Denies contact with sick individuals, out of state travelling. Denies any other symptoms. Allergies: Ampicillin, Penicillin. Social history: Lives with mother. No smoking. No alcohol. No illicit drugs. Surgical history: Hernia Repair. PMD: Dr. cuadra - Physicial Exam PE: 02/28/18 00:00 GENERAL: +Anxious. Awake, alert, and appropriately interactive EYES: PERRLA, clear conjunctiva NOSE: Nose is clear without discharge EARS: EACs and TMs are normal THROAT: Moist mucosa, oropharynx is clear without erythema or exudates, NECK: Supple, no adenopathy, no meningismus CHEST: Lungs are clear without crackles, or wheezes HEART:+Irregularly irregular. +tachycardic. normal S1 and S2, no murmurs ABDOMEN: Soft and nontender with normal bowel sounds, no organomegaly, no mass, no rebound, no guarding EXTREMITIES: Normal NEURO: Behavior normal for age, normal cranial nerves, normal tone SKIN: Unremarkable, no rash, no swelling, no bruising, no signs of injury <Kevan Holland - Last Filed: 02/28/18 00:00> - Resident Resident Name: Mario Alberto Tena - ED Attending Attestation I have performed the following: I have examined & evaluated the patient, The case was reviewed & discussed with the resident, I agree w/resident's findings & plan - Medical Decision Making 02/28/18 01:06 Pt will be admitted to Dr. Mary who is covering for Amanda. 03/04/18 19:28 Pt's AFIB never broke and he was admitted for cardiac eval and tele monitoring. <Gillian Estrada - Last Filed: 03/04/18 19:28>
--- NOTE | 2018-02-27 23:42 | PDOC ---
History of Present Illness - History of Present Illness Initial Comments: 02/27/18 23:38 Pt is a 67 y/o gentleman w/ a significant past medical history of paroxysmal Afib, hypertension, hypothyroidism, and anxiety who presents to [facility] c/o palpitations that have been present for approximately 30 minutes. Pt states that he was in [place] all day today and the palpitations began shortly after he came back home. Pt endorses he is short of breath and anxious. States that he has experienced afib in the past and that it is usually preceded by "indigestion". Pt denies dizziness, teague, nausea, or vomiting. Allergies: Ampicillin, Penicillin. Social history: Lives with mother. No smoking. No alcohol. No illicit drugs. Surgical history: Hernia Repair. PMD: Dr. patel <Mario Alberto Tena - Last Filed: 02/28/18 02:30> <Gillian Estrada - Last Filed: 02/28/18 04:52> - General Chief Complaint: Irregular Heart Beat Stated Complaint: Irregular Heart Beat Time Seen by Provider: 02/27/18 23:08 Past History - Past Medical History Anemia: No Asthma: No Cancer: No Cardiac Disorders: Yes (a-fib) CVA: No COPD: No CHF: No Dementia: No GI Disorders: No Disorders: No HTN: Yes Hypercholesterolemia: No Kidney Stones: Yes Liver Disease: No Psychiatric Problems: Yes (ANXIETY.) Seizures: No Thyroid Disease: Yes (HYPO.) - Surgical History Abdominal Surgery: Yes (HERNIA REPAIR, LITHOTRIPSY X5) Appendectomy: No Cardiac Surgery: No Cholecystectomy: No Lung Surgery: No Neurologic Surgery: No Orthopedic Surgery: No - Immunization History Immunization Up to Date: Yes - Suicide/Smoking/Psychosocial Hx Smoking Status: Yes Smoking History: Never smoked Have you smoked in the past 12 months: No Number of Cigarettes Smoked Daily: 0 If you are a former smoker, when did you quit?: 12 YEARS AGO Cigars Per Day: 0 Information on smoking cessation initiated: No Hx Alcohol Use: No Drug/Substance Use Hx: No Substance Use Type: None Hx Substance Use Treatment: No <Mario Alberto Tena - Last Filed: 02/28/18 02:30> <Gillian Estrada - Last Filed: 02/28/18 04:52> - Past Medical History Allergies/Adverse Reactions: Allergies Allergy/AdvReac Type Severity Reaction Status Date / Time ampicillin Allergy Severe Hives Verified 02/28/18 00:31 Penicillins Allergy Severe Hives Verified 02/28/18 00:31 Home Medications: Ambulatory Orders Mirtazapine [Remeron -] 7.5 mg PO HS 04/19/16 Aspirin [ASA -] 81 mg PO DAILY 02/17/17 Quinapril HCl [Accupril -] 20 mg PO DAILY 12/09/17 Levothyroxine [Synthroid -] 100 mcg PO DAILY@0700 #30 tablet 12/10/17 Diltiazem Cd [Cardizem Cd -] 180 mg PO DAILY #30 cap.cd.24h 02/12/18 Metoprolol Tartrate [Lopressor -] 25 mg PO PRN PRN 30 Days #20 tablet MDD 4 tabs 15 mintes Interval 02/12/18 Famotidine [Pepcid] 40 mg PO DAILY 02/28/18 *Physical Exam - Vital Signs Last Vital Signs Temp Pulse Resp BP Pulse Ox 98 F 122 H 20 129/73 98 02/27/18 23:08 02/27/18 23:08 02/27/18 23:08 02/27/18 23:08 02/27/18 23:08 - Physical Exam Comments: 02/28/18 02:30 GEN- Anxious, AAOx3 Neuro- CN 2-12 intact. RS- CTA B/L CV- Irregularly Irregular ABD- NT, ND, No HSM EXT- No CCE <Mario Alberto Tena - Last Filed: 02/28/18 02:30> - Vital Signs Last Vital Signs Temp Pulse Resp BP Pulse Ox 98 F 71 22 124/85 99 02/27/18 23:08 02/28/18 02:27 02/28/18 02:27 02/28/18 02:27 02/28/18 02:27 <Gillian Estrada - Last Filed: 02/28/18 04:52> ED Treatment Course - LABORATORY CBC & Chemistry Diagram: 02/27/18 23:55 02/27/18 23:55 - Consult/PCP Case discussed with personal care physician: Luis Mckeon <Mario Alberto Tena - Last Filed: 02/28/18 02:30> - LABORATORY CBC & Chemistry Diagram: 02/27/18 23:55 02/27/18 23:55 - ADDITIONAL ORDERS Additional order review: Laboratory Results 02/27/18 02/27/18 02/27/18 23:55 23:55 23:55 PT with INR 11.20 INR 0.99 PTT (Actin FS) 24.7 L Sodium 143 Potassium 4.4 Chloride 108 H Carbon Dioxide 25 Anion Gap 10 BUN 22 H Creatinine 1.4 H Creat Clearance w eGFR 50.25 Random Glucose 153 H D Calcium 9.3 Total Bilirubin 0.3 AST 27 ALT 40 Alkaline Phosphatase 93 Creatine Kinase 108 Troponin I < 0.02 Total Protein 7.9 Albumin 4.2 02/27/18 23:55 RBC 5.03 MCV 95.5 MCHC 34.3 RDW 13.2 MPV 9.0 Neutrophils % 60.7 Lymphocytes % 24.3 Monocytes % 10.9 H Eosinophils % 3.3 Basophils % 0.8 - RADIOLOGY Radiology Studies Ordered: Category Date Time Status CHEST X-RAY PORTABLE* [RAD] Stat Radiology 02/28/18 02:17 Ordered - Medications Given in the ED: ED Medications Discontinued Medications Generic Name Dose Route Start Last Admin Trade Name Freq PRN Reason Stop Dose Admin Al Hydroxide/Mg Hydroxide 30 ml 02/28/18 00:45 02/28/18 01:03 Mylanta Oral Suspension - PO 02/28/18 00:46 30 ml ONCE ONE Administration Diltiazem HCl 5 mg 02/27/18 23:44 02/28/18 00:20 Cardizem Injection - IVPUSH 02/27/18 23:45 10 mg ONCE ONE Administration Diltiazem HCl 10 mg 02/28/18 00:15 02/28/18 00:43 Cardizem Injection - IVPUSH 02/28/18 00:16 Not Given ONCE ONE Diltiazem HCl 60 mg 02/28/18 00:35 02/28/18 00:47 Cardizem - PO 02/28/18 00:36 60 mg ONCE ONE Administration Diltiazem HCl 10 mg 02/28/18 00:59 02/28/18 01:04 Cardizem Injection - IVPUSH 02/28/18 01:00 10 mg ONCE ONE Administration Diltiazem HCl 10 mg 02/28/18 01:06 02/28/18 02:12 Cardizem Injection - IVPUSH 02/28/18 01:07 Not Given ONCE ONE Famotidine/Sodium Chloride 20 mg in 50 mls @ 100 mls/hr 02/28/18 00:17 00:21 Pepcid 20 Mg Premixed Ivpb - IVPB 02/28/18 00:46 100 mls/hr ONCE ONE Administration Lorazepam 1 mg 02/28/18 01:07 02/28/18 01:20 Ativan - PO 02/28/18 01:08 1 mg ONCE ONE Administration Metoprolol Tartrate 5 mg 02/27/18 23:48 02/28/18 00:19 Lopressor Injection - IVPUSH 02/27/18 23:49 5 mg ONCE ONE Administration Sodium Chloride 1,000 ml 02/27/18 23:43 02/28/18 00:19 Normal Saline - IV 02/27/18 23:44 1,000 ml ONCE ONE Administration Sodium Chloride 500 ml 02/28/18 03:34 02/28/18 04:00 Normal Saline - IV 02/28/18 03:35 500 ml ONCE ONE Administration <Gillian Estrada - Last Filed: 02/28/18 04:52> Medical Decision Making - Medical Decision Making 02/28/18 00:17 Pt given Lopressor 5 mg ivpush NS 1L Bolus Pepcid 20 mg IVPB 02/28/18 00:[address] Mckeon regarding pt, advised to give 120 mg Cardizem PO BID, BP permitting. Pt well known to Dr Mckeon. 02/28/18 01:36 Cardiac Enzymes all Negative Pt will be admitted to Dr. Mary who is covering for Amanda. <Mario Alberto Tena - Last Filed: 02/28/18 02:30> *DC/Admit/Observation/Transfer <Mario Alberto Tena - Last Filed: 02/28/18 02:30> - Discharge Dispostion Decision to Admit order: Yes <Gillian Estrada - Last Filed: 02/28/18 04:52> Diagnosis at time of Disposition: Afib - Discharge Dispostion Condition at time of disposition: Guarded - Referrals Referrals: Abraham Patel MD [Primary Care Provider] - - Patient Instructions - Post Discharge Activity
[2018-02-27] MEDS ORDERED: SODIUM CHLORIDE 0.9% 500 ML INFUS.BAG IV ONE (23:43)
[2018-02-27] MEDS ORDERED: dilTIAZem HCL 50 MG/10 ML - 10 ML VIAL IVPUSH ONE (23:44)
[2018-02-27] MEDS ORDERED: METOPROLOL TARTRATE 5 MG/5 ML VIAL IVPUSH ONE (23:48)
[2018-02-28 00:05] LABS: BASO % 0.8 % (0-2.0); EOS % 3.3 % (0-4.5); HEMATOCRIT 48.1 % (35.4-49); HEMOGLOBIN 16.5 GM/dL (11.7-16.9); LYMPH % 24.3 % (8-40); MCH 32.8 pg (25.7-33.7); MCHC 34.3 g/dl (32.0-35.9); MEAN CELL VOLUME 95.5 fl (80-96); MONO % 10.9 % (3.8-10.2); NEUT % 60.7 % (42.8-82.8); PLATELET COUNT 209 K/MM3 (134-434); RBC 5.03 M/mm3 (4.00-5.60); RDW 13.2 % (11.9-15.9); WHITE BLOOD COUNT 6.9 K/mm3 (4.0-10.0)
[2018-02-28] MEDS ORDERED: METOPROLOL TARTRATE 5 MG/5 ML VIAL ONE (00:05)
[2018-02-28] MEDS ORDERED: dilTIAZem HCL 125 MG/25 ML - 25 ML VIAL ONE (00:05)
[2018-02-28] MEDS ORDERED: dilTIAZem HCL 50 MG/10 ML - 10 ML VIAL IVPUSH ONE ×3 (00:15→01:06)
[2018-02-28] MEDS ORDERED: FAMOTIDINE 20 MG/50 ML IVPB 20 MG/50 ML MG IVPB ONE ×2 (00:17→00:22)
[2018-02-28 00:23] LABS: INR 0.99 (0.83-1.09); PROTHROMBIN TIME (PATIENT) 11.2 SEC (9.7-13.0)
[2018-02-28 00:35] LABS: ALBUMIN 4.2 g/dl (3.4-5.0); ALK PHOS 93 U/L (45-117); ANION GAP 10 MMOL/L (8-16); BILIRUBIN,TOTAL 0.3 mg/dL (0.2-1.0); BLOOD UREA NITROGEN 22 mg/dL (7-18); CALCIUM 9.3 mg/dL (8.5-10.1); CHLORIDE 108 mmol/L (98-107); CO2 25 mmol/L (21-32); CREATININE 1.4 mg/dL (0.7-1.3); GLUCOSE,RANDOM 153 mg/dL (74-106); POTASSIUM 4.4 mmol/L (3.5-5.1); SGOT/AST 27 U/L (15-37); SGPT/ALT 40 U/L (12-78); SODIUM 143 mmol/L (136-145); TOT PROT 7.9 g/dl (6.4-8.2)
[2018-02-28] MEDS ORDERED: dilTIAZem HCL 60 MG TABLET (FP) PO ONE (00:35)
[2018-02-28] MEDS ORDERED: MAG HYDROX/AL HYDROX/SIMETH 30 ML UNIT-DOSE CUP PO ONE (00:45)
[2018-02-28] MEDS ORDERED: dilTIAZem HCL 60 MG TABLET (FP) ONE (00:46)
[2018-02-28] MEDS ORDERED: MAG HYDROX/AL HYDROX/SIMETH 30 ML UNIT-DOSE CUP ONE (01:01)
[2018-02-28] MEDS ORDERED: LORazepam 1 MG TABLET PO ONE (01:07)
[2018-02-28] MEDS ORDERED: LORazepam 0.5 MG TABLET ONE (01:18)
[2018-02-28] MEDS ORDERED: SODIUM CHLORIDE 0.9% 500 ML INFUS.BAG IV ONE (03:34)
[2018-02-28] MEDS ORDERED: LEVOTHYROXINE NA 100 MCG TABLET (FP) PO ONE (07:20)
--- NOTE | 2018-02-28 11:27 | CON.CARD ---
Cardiology Consult (text) - Consultation Consultation Note: Chief Complaint: palpitations History of Present Illness: 67 yo male admitted for palpitations. Had been feeling well until yesterday when he was at rest and noticed palps. Took dilt but still with palps so came to ER. ER showed afib with mild rvr. Given iv bb/ccb and in sr now, feels better. No cp, sob, dizzy, loc, pnd,orthopnea, le edema. Sees me for cardiology. PMH: PAFib HTN hypothyroid anxiety - Past Medical History Cardio/Vascular: Yes: AFIB, HTN - Past Surgical History Past Surgical History: Yes: Hernia Repair - Alcohol/Substance Use Hx Alcohol Use: No History of Substance Use: reports: None - Smoking History Smoking history: Unknown if ever smoked Have you smoked in the past 12 months: No Aproximately how many cigarettes per day: 0 - Social History ADL: Independent History of Recent Travel: No Home Medications - Allergies Allergies/Adverse Reactions: Allergies Allergy/AdvReac Type Severity Reaction Status Date / Time ampicillin Allergy Severe Hives Verified 02/28/18 00:31 Penicillins Allergy Severe Hives Verified 02/28/18 00:31 - Home Medications Home Medications Medication Instructions Recorded Mirtazapine [Remeron -] 7.5 mg PO HS 04/19/16 Aspirin [ASA -] 81 mg PO DAILY 02/17/17 Quinapril HCl [Accupril -] 20 mg PO DAILY 12/09/17 Levothyroxine [Synthroid -] 100 mcg PO DAILY@0700 #30 tablet 12/10/17 Diltiazem Cd [Cardizem Cd -] 180 mg PO DAILY #30 cap.cd.24h 02/12/18 Metoprolol Tartrate [Lopressor -] 25 mg PO PRN PRN 30 Days #20 02/12/18 tablet MDD 4 tabs 15 mintes Interval Famotidine [Pepcid] 40 mg PO DAILY 02/28/18 Family Disease History - Family Disease History Family Disease History: Heart Disease: Sister (a fib) Review of Systems - Review of Systems Constitutional: denies: Chills, Fever Eyes: denies: Eye Pain HENT: denies: Nasal Congestion Neck: denies: Stiffness Cardiovascular: denies: Edema Respiratory: denies: Orthopnea, PND Gastrointestinal: denies: Diarrhea, Rectal Bleeding Genitourinary: denies: Burning, Hematuria Musculoskeletal: denies: Muscle Pain Integumentary: denies: Rash Neurological: denies: Numbness, Seizure, Syncope Endocrine: denies: Excessive Sweating Hematology/Lymphatic: denies: Excessive Bleeding Vital Signs: Vital Signs Period Temp Pulse Resp BP Sys/Ferrera Pulse Ox Last 24 Hr 98 F-98.3 F 49-122 17-24 83-180/48-103 97-100 Constitutional: Yes: Well Nourished, No Distress Eyes: No: Sclera Icterus HENT: No: Nasal Congestion Neck: No: Decreased ROM Respiratory: Yes: CTA Bilaterally. No: Accessory Muscle Use, Rales, Wheezes Gastrointestinal: Yes: Normal Bowel Sounds. No: Distention, Hepatomegaly, Palpable Mass, Tenderness Cardiovascular: Yes: Regular Rate and Rhythm JVD: No Carotid Bruit: No PMI: Non-Displaced Heart Sounds: Yes: S1, S2. No: Gallop Murmur: No: Systolic Murmur, Diastolic Murmur Musculoskeletal: Yes: Other (No kyphosis) Extremities: No: Cold, Cyanosis Edema: No Peripheral Pulses: 2+ Left Carotid, 2+ Right Carotid, 2+ Left Doralis Pedis, 2+ Right Dorsalis Pedis Integumentary: No: Jaundice Neurological: Yes: Alert, Oriented (x3) Psychiatric: No: Agitated - Other Data Labs, Other Data: Laboratory Last Values WBC 6.9 K/mm3 (4.0-10.0) 02/27/18 23:55 RBC 5.03 M/mm3 (4.00-5.60) 02/27/18 23:55 Hgb 16.5 GM/dL (11.7-16.9) 02/27/18 23:55 Hct 48.1 % (35.4-49) 02/27/18 23:55 MCV 95.5 fl (80-96) 02/27/18 23:55 MCH 32.8 pg (25.7-33.7) 02/27/18 23:55 MCHC 34.3 g/dl (32.0-35.9) 02/27/18 23:55 RDW 13.2 % (11.9-15.9) 02/27/18 23:55 Plt Count 209 K/MM3 (134-434) 02/27/18 23:55 MPV 9.0 fl (7.5-11.1) 02/27/18 23:55 Absolute Neuts (auto) 4.2 K/mm3 (1.5-8.0) 02/27/18 23:55 Neutrophils % 60.7 % (42.8-82.8) 02/27/18 23:55 Lymphocytes % 24.3 % (8-40) 02/27/18 23:55 Monocytes % 10.9 % (3.8-10.2) H 02/27/18 23:55 Eosinophils % 3.3 % (0-4.5) 02/27/18 23:55 Basophils % 0.8 % (0-2.0) 02/27/18 23:55 Nucleated RBC % 0 % (0-0) 02/27/18 23:55 PT with INR 11.20 SEC (9.7-13.0) 02/27/18 23:55 INR 0.99 (0.83-1.09) 02/27/18 23:55 PTT (Actin FS) 24.7 SECONDS (25.2-36.5) L 02/27/18 23:55 Sodium 143 mmol/L (136-145) 02/27/18 23:55 Potassium 4.4 mmol/L (3.5-5.1) 02/27/18 23:55 Chloride 108 mmol/L (98-107) H 02/27/18 23:55 Carbon Dioxide 25 mmol/L (21-32) 02/27/18 23:55 Anion Gap 10 MMOL/L (8-16) 02/27/18 23:55 BUN 22 mg/dL (7-18) H 02/27/18 23:55 Creatinine 1.4 mg/dL (0.7-1.3) H 02/27/18 23:55 Creat Clearance w eGFR 50.25 (>60) 02/27/18 23:55 Random Glucose 153 mg/dL (74-106) H D 02/27/18 23:55 Calcium 9.3 mg/dL (8.5-10.1) 02/27/18 23:55 Total Bilirubin 0.3 mg/dL (0.2-1.0) 02/27/18 23:55 AST 27 U/L (15-37) 02/27/18 23:55 ALT 40 U/L (12-78) 02/27/18 23:55 Alkaline Phosphatase 93 U/L (45-117) 02/27/18 23:55 Creatine Kinase 108 IU/L (39-308) 02/27/18 23:55 Troponin I < 0.02 ng/ml (0.00-0.05) 02/27/18 23:55 Total Protein 7.9 g/dl (6.4-8.2) 02/27/18 23:55 Albumin 4.2 g/dl (3.4-5.0) 02/27/18 23:55 ECG: AFib with rvr, no ischemic changes Echo 2014: nl LV/RV; valves WNL echo 11/2017: nl lv/rv, mild lae, no sig valve path ETT 2016: 3:02 min, 93% MPHR. no chest pain. no ST changes. a/p: paroxysmal Afib and atrial flutter, palps: -recurrent pafib with rvr. -was taking dilt 60 po bid with recurrence of palps. Was supposed to try prn lopressor 25 but didnt -will change to dilt long acting 120 qd with lopressor 25 qhs and see if manages his symptoms -he has not been interested in EP eval in past but today says he will consider. He was given EP contact info to make appt. -has indication for ac but again declines, cont asa. -recent echo unremarkable HTN: -bp currently controlled ok for dc from cardiac pov
--- NOTE | 2018-02-28 11:27 | HP ---
Admitting History and Physical - Primary Care Physician PCP: Abraham Patel - Admission Chief Complaint: Palpitation History of Present Illness: 67 yrs old man known since previous Hospitalization few was ago on 02/12/2018 H/ O anxiety, HTN,, Paroxysmal Afib recently recurrent Ed visit with Paroxysmal Afib during last visit patient was discharged home on Diltizem 180 mg CD daily but unable to tolerate so switched to 120 mg CD and subsequently 60 mg BID, yesterday night patient was in his USOH developed palpitation took his night dose of Diltizem 60 but remained symptomatic so came to Ed for evaluation on arrival EKG shows AFib with RVR 134 received multiple Diltizem converted to NSR with Bradycardia, denies any chest pain SOB or Palpitation, in the Ed all labs are at base line, evaluated by Cardiology consult Dr. Mckeon recommended Dc Home on PO Diltizem 120 mg CD in am and 5 mg bystolic at bed time, patient is asymptomatic HR 70 NSR BP 110/70 mm of Hg denies any chest pain SOB or palpiattion. History Source: Patient - Past Medical History Cardiovascular: Yes: AFIB, HTN, Hyperlipdemia Psych: Yes: Anxiety Endocrine: Yes: Hypothyroidism - Past Surgical History Past Surgical History: Yes: Hernia Repair - Smoking History Smoking history: Never smoked Have you smoked in the past 12 months: No Aproximately how many cigarettes per day: 0 If you are a former smoker, when did you quit?: 12 YEARS AGO - Alcohol/Substance Use Hx Alcohol Use: No History of Substance Use: reports: None - Social History ADL: Independent History of Recent Travel: No Home Medications - Allergies Allergies/Adverse Reactions: Allergies Allergy/AdvReac Type Severity Reaction Status Date / Time ampicillin Allergy Severe Hives Verified 02/28/18 00:31 Penicillins Allergy Severe Hives Verified 02/28/18 00:31 - Home Medications Home Medications: Ambulatory Orders Mirtazapine [Remeron -] 7.5 mg PO HS 04/19/16 Aspirin [ASA -] 81 mg PO DAILY 02/17/17 Quinapril HCl [Accupril -] 20 mg PO DAILY 12/09/17 Levothyroxine [Synthroid -] 100 mcg PO DAILY@0700 #30 tablet 12/10/17 Diltiazem Cd [Cardizem Cd -] 120 mg PO DAILY #30 cap.cd.24h 02/28/18 Famotidine [Pepcid] 40 mg PO DAILY 02/28/18 Nebivolol [Bystolic -] 5 mg PO HS tab 02/28/18 Family Disease History - Family Disease History Family Disease History: Heart Disease: Mother, Sister (a fib), CA: Grandparent ( Colon and Prostate), Father (Leukemia) Review of Systems - Review of Systems Constitutional: denies: Chills, Diaphoresis, Fever, Lethargy Eyes: denies: Blind Spots, Blurred Vision HENT: denies: Difficult Swallowing, Ear Discharge Neck: denies: Decreased ROM, Lumps, Pain on Movement Cardiovascular: reports: Palpitations Respiratory: denies: Cough, Exercise Intolerance, Hemoptysis, Orthopnea Gastrointestinal: denies: Abdominal Pain, Bloating, Constipation Genitourinary: denies: Burning, Discharge Musculoskeletal: denies: Back Pain, Crepitus, Decreased ROM Integumentary: denies: Blister, Bruising Endocrine: denies: Flushing Physical Examination Vital Signs: Vital Signs Temperature 98.3 F 02/28/18 05:10 Pulse Rate 57 L 02/28/18 06:21 Respiratory Rate 17 02/28/18 06:21 Blood Pressure 99/50 02/28/18 06:21 O2 Sat by Pulse Oximetry (%) 98 02/28/18 06:21 Findings/Remarks: Middle aged man comfortable not in distress HEENT: Mm moist, no anemia, PERRLA EOMI NECK; No JVd No Bruit CHEST: CTA B/L CVS: S1S2 R no m/g/r ABD: No distention, non tender Bs + EXT; No edema feet, no calf tenderness [employer]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; 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 non focal Labs: CBC, BMP 02/27/18 23:55 02/27/18 23:55 Laboratory Results - last 24 hr 02/27/18 02/27/18 02/27/18 23:55 23:55 23:55 WBC 6.9 RBC 5.03 Hgb 16.5 Hct 48.1 MCV 95.5 MCH 32.8 MCHC 34.3 RDW 13.2 Plt Count 209 MPV 9.0 Absolute Neuts (auto) 4.2 Neutrophils % 60.7 Lymphocytes % 24.3 Monocytes % 10.9 H Eosinophils % 3.3 Basophils % 0.8 Nucleated RBC % 0 PT with INR 11.20 INR 0.99 PTT (Actin FS) 24.7 L Sodium Potassium Chloride Carbon Dioxide Anion Gap BUN Creatinine Creat Clearance w eGFR Random Glucose Calcium Total Bilirubin AST ALT Alkaline Phosphatase Creatine Kinase Troponin I Total Protein Albumin 02/27/18 23:55 WBC RBC Hgb Hct MCV MCH MCHC RDW Plt Count MPV Absolute Neuts (auto) Neutrophils % Lymphocytes % Monocytes % Eosinophils % Basophils % Nucleated RBC % PT with INR INR PTT (Actin FS) Sodium 143 Potassium 4.4 Chloride 108 H Carbon Dioxide 25 Anion Gap 10 BUN 22 H Creatinine 1.4 H Creat Clearance w eGFR 50.25 Random Glucose 153 H D Calcium 9.3 Total Bilirubin 0.3 AST 27 ALT 40 Alkaline Phosphatase 93 Creatine Kinase 108 Troponin I < 0.02 Total Protein 7.9 Albumin 4.2 Imaging - Results EKG: Report Reviewed (Afib with RVR [address] T changes) Problem List - Problems (1) Atrial fibrillation with RVR Assessment/Plan: Converted to NSR after Diltizenm evaluated by Cardiology consult recommended Diltizem CD 120 mg Daily am and Bystolic 5 mg at bed time. Code(s): I48.91 - UNSPECIFIED ATRIAL FIBRILLATION (2) Anxiety Assessment/Plan: Cont home meds Code(s): F41.9 - ANXIETY DISORDER, UNSPECIFIED (3) Hypothyroidism Assessment/Plan: Cont Levothyroxine Code(s): E03.9 - HYPOTHYROIDISM, UNSPECIFIED (4) Hypertension Assessment/Plan: Well controlled cont home meds Code(s): I10 - ESSENTIAL (PRIMARY) HYPERTENSION
--- NOTE | 2018-02-28 11:36 | DS ---
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 focal Labs: CBC, BMP 02/27/18 23:55 02/27/18 23:55 Discharge Summary Reason For Visit: ATRIAL FIBRILLATION Current Active Problems Afib (Acute) Hospital Course: 67 yrs old man known since previous Hospitalization few was ago on 02/12/2018 H/ O anxiety, HTN,, Paroxysmal Afib recently recurrent Ed visit with Paroxysmal Afib during last visit patient was discharged home on Diltizem 180 mg CD daily but unable to tolerate so switched to 120 mg CD and subsequently 60 mg BID, yesterday night patient was in his USOH developed palpitation took his night dose of Diltizem 60 but remained symptomatic so came to Ed for evaluation on arrival EKG shows AFib with RVR 134 received multiple Diltizem converted to NSR with Bradycardia, denies any chest pain SOB or Palpitation, in the Ed all labs are at base line, evaluated by Cardiology consult Dr. Mckeon recommended Dc Home on PO Diltizem 120 mg CD in am and 5 mg bystolic at bed time, patient is asymptomatic HR 70 NSR BP 110/70 mm of Hg denies any chest pain SOB or palpitation. Condition: Improved - Instructions Referrals: Abraham Patel MD [Primary Care Provider] - 2 Weeks Disposition: HOME - Home Medications Comprehensive Discharge Medication List: Ambulatory Orders Mirtazapine [Remeron -] 7.5 mg PO HS 04/19/16 Aspirin [ASA -] 81 mg PO DAILY 02/17/17 Quinapril HCl [Accupril -] 20 mg PO DAILY 12/09/17 Levothyroxine [Synthroid -] 100 mcg PO DAILY@0700 #30 tablet 12/10/17 Diltiazem Cd [Cardizem Cd -] 120 mg PO DAILY #30 cap.cd.24h 02/28/18 Famotidine [Pepcid] 40 mg PO DAILY 02/28/18 Nebivolol [Bystolic -] 5 mg PO HS tab 02/28/18
[2018-02-28 11:39] VITALS: BP 132/72; PULSE 67; TEMP 97.6
--- NOTE | 2018-02-28 13:21 | EKG ---
Test Reason : Blood Pressure : / mmHG Vent. Rate : 101 BPM Atrial Rate : 141 BPM P-R Int : 000 ms QRS Dur : 076 ms QT Int : 340 ms P-R-T Axes : 000 034 048 degrees QTc Int : 440 ms POOR DATA QUALITY, INTERPRETATION MAY BE ADVERSELY AFFECTED ATRIAL FIBRILLATION WITH RAPID VENTRICULAR RESPONSE ABNORMAL ECG WHEN COMPARED WITH ECG OF 12-FEB-2018 06:42, ATRIAL FIBRILLATION HAS REPLACED SINUS RHYTHM VENT. RATE HAS INCREASED BY 43 BPM Confirmed by GALE OLIVERA MD ([id number]) on 02/28/2018 1:20:25 PM Referred By: Confirmed By:GALE OLIVERA MD
[2018-02-28] MEDS ORDERED: MIRTAZAPINE 15 MG TABLET (FP) PO SCH (22:00)
[2018-02-28] MEDS ORDERED: NEBIVOLOL 5 MG TABLET (FP) PO SCH (22:00)
[2018-03-01] MEDS ORDERED: LEVOTHYROXINE NA 100 MCG TABLET (FP) PO SCH (07:00)
[2018-03-01] MEDS ORDERED: RANITIDINE HCL 150 MG TABLET (FP) PO SCH (10:00)
[2018-03-01] MEDS ORDERED: QUINAPRIL HCL 20 MG TABLET (FP) PO SCH (10:00)
[2018-03-01] MEDS ORDERED: ASPIRIN 81 MG CHEWABLE TABLETS PO SCH (10:00)
== END 2018-02-28 11:30 | disposition home or self-care (01) | DRG 310 ==
LOC: JER 23:04 → JERBED 02-28 04:52
PROVIDERS: ADMIT Internal Medicine; ATTEND Internal Medicine
DX: I48.0 Paroxysmal atrial fibrillation (principal); I48.91 Unspecified atrial fibrillation; E03.9 Hypothyroidism, unspecified; F41.9 Anxiety disorder, unspecified; I48.92 Unspecified atrial flutter; I10 Essential (primary) hypertension; R00.1 Bradycardia, unspecified
CPT/HCPCS: 36415; 80053; 82550; 84484; 85025; 85610; 85730; 93005; 93010; 99283-25

== ENCOUNTER 2018-04-21 19:11 | Emergency (ER) | payer OTHER ==
--- NOTE | 2018-04-21 19:14 | PDOC ---
Rapid Medical Evaluation Chief Complaint: Chest Pain Time Seen by Provider: 04/21/18 19:12 Medical Evaluation: Allergies Allergy/AdvReac Type Severity Reaction Status Date / Time ampicillin Allergy Severe Hives Verified 02/28/18 00:31 Penicillins Allergy Severe Hives Verified 02/28/18 00:31 04/21/18 19:12 I have performed a brief in person evaluation of this patient. The patient present with a CC of: CP x 1.5 hours ago. Denies hx of OR or CV hx. Denies diaphoresis or nausea. Pertinent PE findings: Lungs Clear Heart RRR Abd: Soft, non distended. MS: Moves all extremities without difficulty. Neuro: Appropriate affect Psych: Appropriate affect I have ordered the following: CP protocol The patient will proceed to the ED for further evaluation: Discharge Disposition - Diagnosis Chest pain Qualifiers: Chest pain type: unspecified Qualified Code(s): R07.9 - Chest pain, unspecified - Referrals - Patient Instructions - Post Discharge Activity
[2018-04-21] MEDS ORDERED: ASPIRIN 81 MG CHEWABLE TABLETS PO ONE (19:15)
[2018-04-21 19:20] VITALS: BMI 28.7
[2018-04-21] MEDS ORDERED: ASPIRIN 81 MG CHEWABLE TABLETS ONE (19:34)
[2018-04-21 19:38] LABS: BASO % 0.8 % (0-2.0); EOS % 2.1 % (0-4.5); HEMATOCRIT 47.9 % (35.4-49); HEMOGLOBIN 16.4 GM/dL (11.7-16.9); LYMPH % 13.4 % (8-40); MCH 32.5 pg (25.7-33.7); MCHC 34.1 g/dl (32.0-35.9); MEAN CELL VOLUME 95.2 fl (80-96); MEAN PLT VOLUME 8.9 fl (7.5-11.1); MONO % 8.7 % (3.8-10.2); PLATELET COUNT 231 K/MM3 (134-434); RBC 5.04 M/mm3 (4.00-5.60); RDW 12.6 % (11.9-15.9)
[2018-04-21] MEDS ORDERED: METOPROLOL TARTRATE 5 MG/5 ML VIAL IVPUSH ONE (19:53)
--- NOTE | 2018-04-21 19:56 | PDOC ---
History of Present Illness - General History Source: Patient Exam Limitations: No Limitations <Christina Stauffer - Last Filed: 04/21/18 20:02> - General History Source: Patient Exam Limitations: No Limitations <Kay Bryan - Last Filed: 04/23/18 17:59> - General Chief Complaint: Chest Pain Stated Complaint: CHEST PAIN Time Seen by Provider: 04/21/18 19:12 - History of Present Illness Initial Comments: 04/21/18 20:03 The patient is a 68 year old male, with a significant PMH of afib, HTN, hernia repair, and hyperthyroidism who presents to the emergency department with chest pain two hours prior to arrival. Patient describes the chest pain as mild, 3/10 in severity, lasting approximately 30 minutes. Patient reports left arm pain and mild shortness of breath but denies palpitations, nausea, diaphoresis, or jaw pain. Patient believed this may have been indigestion and took Maalox with no relief. Patient notes the chest pain has now resolved. Patient denies similar chest pain in the past. Patient has an appointment scheduled with his refining equipment operator on May 03. Patient has not had a cath in the past. No recent illnesses. No recent travel. The patient denies headache and dizziness. Denies fever, chills, nausea, vomit, diarrhea and constipation. Denies dysuria, frequency, urgency and hematuria. Allergies: NKA Past surgical history: None reported. Social history: No reported alcohol, drug or cigarette use. Felt Strip Finisher: Dr. Mckeon (Christina Stauffer) Past History <Christina Stauffer - Last Filed: 04/21/18 20:02> - Past Medical History Anemia: No Asthma: No Cancer: No Cardiac Disorders: Yes (a-fib) CVA: No COPD: No CHF: No Dementia: No GI Disorders: No Disorders: No HTN: Yes Hypercholesterolemia: No Kidney Stones: Yes Liver Disease: No Psychiatric Problems: Yes (ANXIETY.) Seizures: No Thyroid Disease: Yes (HYPO.) - Surgical History Abdominal Surgery: Yes (HERNIA REPAIR, LITHOTRIPSY X5) Appendectomy: No Cardiac Surgery: No Cholecystectomy: No Lung Surgery: No Neurologic Surgery: No Orthopedic Surgery: No - Immunization History Immunization Up to Date: Yes - Suicide/Smoking/Psychosocial Hx Smoking Status: Yes Smoking History: Never smoked Have you smoked in the past 12 months: No Number of Cigarettes Smoked Daily: 0 If you are a former smoker, when did you quit?: 12 YEARS AGO Cigars Per Day: 0 Information on smoking cessation initiated: No Hx Alcohol Use: No Drug/Substance Use Hx: No Substance Use Type: None Hx Substance Use Treatment: No <Kay Bryan - Last Filed: 04/23/18 17:59> - Past Medical History Allergies/Adverse Reactions: Allergies Allergy/AdvReac Type Severity Reaction Status Date / Time ampicillin Allergy Severe Hives Verified 04/21/18 19:20 Penicillins Allergy Severe Hives Verified 04/21/18 19:20 Home Medications: Ambulatory Orders Mirtazapine [Remeron -] 7.5 mg PO HS 04/19/16 Aspirin [ASA -] 81 mg PO DAILY 02/17/17 Quinapril HCl [Accupril -] 20 mg PO DAILY 12/09/17 Levothyroxine [Synthroid -] 100 mcg PO DAILY@0700 #30 tablet 12/10/17 Diltiazem Cd [Cardizem Cd -] 120 mg PO DAILY #30 cap.cd.24h 02/28/18 Famotidine [Pepcid] 40 mg PO DAILY 02/28/18 Nebivolol [Bystolic -] 5 mg PO HS tab 02/28/18 Cardiac Specific PMH - Complaint Specific PMHX Pacemaker: No <Kay Bryan - Last Filed: 04/23/18 17:59> Review of Systems - Review of Systems Able to Perform ROS?: Yes <Christina Stauffer - Last Filed: 04/21/18 20:02> <Kay Bryan - Last Filed: 04/23/18 17:59> - Review of Systems Comments:: 04/21/18 19:57 ADULT ROS GENERAL/CONSTITUTIONAL: No fever or chills. No weakness. HEAD, EYES, EARS, NOSE AND THROAT: No change in vision. No ear pain or discharge. No sore throat. CARDIOVASCULAR: No chest pain or shortness of breath. RESPIRATORY: No cough, wheezing, or hemoptysis. (+) chest pain. GASTROINTESTINAL: No nausea, vomiting, diarrhea or constipation. GENITOURINARY: No dysuria, frequency, or change in urination. MUSCULOSKELETAL: No joint or muscle swelling or pain. No neck or back pain. SKIN: No rash NEUROLOGIC: No headache, vertigo, loss of consciousness, or change in strength/ sensation. ENDOCRINE: No increased thirst. No abnormal weight change. HEMATOLOGIC/LYMPHATIC: No anemia, easy bleeding, or history of blood clots. ALLERGIC/IMMUNOLOGIC: No hives or skin allergy. (Christina Stauffer) *Physical Exam <Christina Stauffer - Last Filed: 04/21/18 20:02> <Kay Bryan - Last Filed: 04/23/18 17:59> - Vital Signs Last Vital Signs Temp Pulse Resp BP Pulse Ox 98.6 F 81 19 160/90 99 04/21/18 23:39 04/21/18 23:39 04/21/18 23:39 04/21/18 23:39 04/21/18 21:59 - Physical Exam Comments: 04/21/18 19:57 ADULT EXAM GENERAL: Awake, alert, and fully oriented, in no acute distress HEAD: No signs of trauma EYES: PERRLA, EOMI, sclera anicteric, conjunctiva clear ENT: Auricles normal inspection, hearing grossly normal, nares patent, oropharynx clear without exudates. Moist mucosa NECK: Normal ROM, supple, no lymphadenopathy, JVD, or masses LUNGS: Breath sounds equal, clear to auscultation bilaterally. No wheezes, and no crackles HEART: Regular rate and rhythm, normal S1 and S2, no murmurs, rubs or gallops ABDOMEN: Soft, nontender, normoactive bowel sounds. No guarding, no rebound. No masses EXTREMITIES: Normal range of motion, no edema. No clubbing or cyanosis. No cords, erythema, or tenderness NEUROLOGICAL: Cranial nerves II through XII grossly intact. Normal speech, normal gait SKIN: Warm, Dry, normal turgor, no rashes or lesions noted. (Christina Stauffer) ED Treatment Course - LABORATORY CBC & Chemistry Diagram: 04/21/18 19:30 04/21/18 19:30 <Christina Stauffer - Last Filed: 04/21/18 20:02> - LABORATORY CBC & Chemistry Diagram: 04/21/18 19:30 04/21/18 19:30 <Kay Bryan - Last Filed: 04/23/18 17:59> - ADDITIONAL ORDERS Additional order review: 04/21/18 19:30 RBC 5.04 MCV 95.2 MCHC 34.1 RDW 12.6 MPV 8.9 Neutrophils % 75.0 D Lymphocytes % 13.4 D Monocytes % 8.7 Eosinophils % 2.1 Basophils % 0.8 - Medications Given in the ED: ED Medications Discontinued Medications Generic Name Dose Route Start Last Admin Trade Name Yan PRN Reason Stop Dose Admin Aspirin 162 mg 04/21/18 19:15 04/21/18 19:37 Asa - PO 04/21/18 19:16 162 mg ONCE ONE Administration Metoprolol Tartrate 5 mg 04/21/18 19:53 04/21/18 21:05 Lopressor Injection - IVPUSH 04/21/18 19:54 5 mg ONCE ONE Administration Medical Decision Making <Christina Stauffer - Last Filed: 04/21/18 20:02> - Critical Care Time Total Critical Care Time (minutes): 60 Critical Care Statement: The care of this patient involved high complexity decision making to prevent further life threatening deterioration of the patient 's condition and/or to evaluate & treat vital organ system(s) failure or risk of failure. <Kay Bryan - Last Filed: 04/23/18 17:59> - Medical Decision Making 04/21/18 19:54 Mr Hugo is a 68-year-old male with a history of hypertension, hypothyroidism , paroxysmal atrial fibrillation who presents emergency department with a complaint of chest pain which began approximately 2 hours prior to my evaluation. Patient states he was in his usual state of health, was out, doing no particular stressful activities. He developed midsternal/left-sided chest discomfort which she likens indigestion. Pain was mild, he rated at 3/10. He then felt some discomfort in the left arm. Mild shortness of breath. No nausea, vomiting, diaphoresis. No prior episodes like this. No palpitations. No recent travel, lower extremity edema. No recent upper respiratory infections. Currently patient's chest pain has largely resolved, discomfort is probably 1/ 10. He does continue to have belching. Pt examination is normal EKG: Sinus rhythm, rate of 60 bpm, axis is normal. ST segments are concerning in leads II, III, aVF CXR- nml Labs ordered. Patient placed on clinical research monitor. Patient already given aspirin 162 mg by mouth. Cardiology already paged Aspirin given 04/21/18 20:14 Laboratory Tests 04/21/18 04/21/18 19:30 19:30 WBC 8.0 Hgb 16.4 Hct 47.9 Plt Count 231 Sodium 144 Potassium 4.9 Chloride 104 Carbon Dioxide 30 BUN 18 Creatinine 1.3 Random Glucose 107 H Creatine Kinase 126 Troponin I 0.20 H Case reviewed with Dr Mckeon who is this patient's refining equipment operator I have sent him copies of this patient'e EKG He agrees, this patient should be sent to [facility] for further evaluation (cath tomorrow) We have discussed this with the patient He is quite anxious but is willing to be transferred Clinical impression: Acute Coronary Syndrome, initial presentation 04/23/18 17:59 (Kay Bryan) *DC/Admit/Observation/Transfer <Christina Stauffer - Last Filed: 04/21/18 20:02> - Discharge Dispostion Decision to Admit order: No - Transfer to Acute Care Facility Receiving Facility: [facility] Accepting Physician:: Dr. Houston Munroe <Kay Bryan - Last Filed: 04/23/18 17:59> Diagnosis at time of Disposition: Chest pain Qualifiers: Chest pain type: unspecified Qualified Code(s): R07.9 - Chest pain, unspecified - Discharge Dispostion Disposition: TRANSFER ACUTE CARE/OTHER HOSP Condition at time of disposition: Stable - Referrals Referrals: Abraham Patel MD [Primary Care Provider] -
[2018-04-21] MEDS ORDERED: METOPROLOL TARTRATE 5 MG/5 ML VIAL ONE ×2 (19:58→21:02)
[2018-04-21 20:13] LABS: ALBUMIN 4.1 g/dl (3.4-5.0); ALK PHOS 76 U/L (45-117); ANION GAP 10 MMOL/L (8-16); BILIRUBIN,TOTAL 0.3 mg/dL (0.2-1); BLOOD UREA NITROGEN 18 mg/dL (7-18); CALCIUM 9.2 mg/dL (8.5-10.1); CHLORIDE 104 mmol/L (98-107); CO2 30 mmol/L (21-32); CREATININE 1.3 mg/dL (0.55-1.3); GLUCOSE,RANDOM 107 mg/dL (74-106); MAGNESIUM 2.3 mg/dL (1.8-2.4); POTASSIUM 4.9 mmol/L (3.5-5.1); SGOT/AST 33 U/L (15-37); SGPT/ALT 44 U/L (13-61); SODIUM 144 mmol/L (136-145); TOT PROT 7.9 g/dl (6.4-8.2)
[2018-04-21 20:15] LABS: INR 0.99 (0.83-1.09); PROTHROMBIN TIME (PATIENT) 11.7 SEC (9.7-13.0)
[2018-04-21 23:41] VITALS: BP 160/90; PULSE 81; TEMP 98.6
--- NOTE | 2018-04-22 09:36 | EKG ---
Test Reason : Blood Pressure : / mmHG Vent. Rate : 068 BPM Atrial Rate : 068 BPM P-R Int : 170 ms QRS Dur : 082 ms QT Int : 400 ms P-R-T Axes : 040 036 066 degrees QTc Int : 425 ms NORMAL SINUS RHYTHM ST ELEVATION, CONSIDER EARLY REPOLARIZATION, PERICARDITIS, OR INJURY ABNORMAL ECG Confirmed by RENA LACEY MD ([id number]) on 04/22/2018 9:36:28 AM Referred By: Confirmed By:RENA LACEY MD
== END 2018-04-21 23:44 | disposition short-term general hospital (02) ==
LOC: JER 19:11
PROC: 3E033GC Introduction of Other Therapeutic Substance into Peripheral Vein, Percutaneous Approach (ICD-10-PCS; principal; 2018-04-21)
DX: R07.9 Chest pain, unspecified (principal); I48.0 Paroxysmal atrial fibrillation; Z79.01 Long term (current) use of anticoagulants; I10 Essential (primary) hypertension; E03.9 Hypothyroidism, unspecified; Z88.0 Allergy status to penicillin
CPT/HCPCS: 36415; 71046-TC-FY; 80053; 82550; 83735; 84484; 85025; 85610; 93005; 93010; 99285-25

== ENCOUNTER 2018-05-02 22:44 | Observation (INO) | payer OTHER ==
--- NOTE | 2018-05-02 23:07 | PDOC ---
History of Present Illness - General History Source: Patient Exam Limitations: No Limitations <Nubia Carrington - Last Filed: 05/03/18 01:13> <CarlosMichelle Quinn - Last Filed: 05/03/18 02:16> - General Chief Complaint: Chest Pain Stated Complaint: CHEST PAIN - History of Present Illness Initial Comments: 05/03/18 01:13 The patient is a 68 year old male, with a significant past medical history of AR (s/p stenting x1), Afib, HTN, hernia repair, and hyperthyroidism , who presents to the emergency department with, chest discomfort. Patient describes his chest discomfort as a muscle pulling with associated shortness of breath. Patient notes his symptoms are different from his AR but, he was notified to report to the ED with any new or worsening symptoms, prompting his visit to the ER. He denies any recent fevers, chills, headache or dizziness. He denies any recent nausea, vomit, diarrhea or constipation. He denies any recent dysuria, frequency, urgency or hematuria. Allergies: Penicillins. Ampicillin. Bactrim. Past surgical history: Proximal RCA stent 04/22/2018 Social History: Former smoker (Quit 20 years). Denies EtOH use and recreational drug use. Primary Care Physician: Dr. Patel Heat Treat Technician: Dr. Mckeon (Nubia Carrington) Past History <Nubia Carrington - Last Filed: 05/03/18 01:13> - Past Medical History Anemia: No Asthma: No Cancer: No Cardiac Disorders: Yes (a-fib, STENTS) CVA: No COPD: No CHF: No Dementia: No GI Disorders: No Disorders: No HTN: Yes Hypercholesterolemia: No Kidney Stones: Yes Liver Disease: No Psychiatric Problems: Yes (ANXIETY.) Seizures: No Thyroid Disease: Yes (HYPO.) - Surgical History Abdominal Surgery: Yes (HERNIA REPAIR, LITHOTRIPSY X5) Appendectomy: No Cardiac Surgery: Yes (STENTS) Cholecystectomy: No Lung Surgery: No Neurologic Surgery: No Orthopedic Surgery: No - Immunization History Immunization Up to Date: Yes - Suicide/Smoking/Psychosocial Hx Smoking Status: Yes Smoking History: Never smoked Have you smoked in the past 12 months: No Number of Cigarettes Smoked Daily: 0 If you are a former smoker, when did you quit?: 12 YEARS AGO Cigars Per Day: 0 Hx Alcohol Use: No Drug/Substance Use Hx: No Substance Use Type: None Hx Substance Use Treatment: No <Michelle Gonzalez - Last Filed: 05/03/18 02:16> - Past Medical History Allergies/Adverse Reactions: Allergies Allergy/AdvReac Type Severity Reaction Status Date / Time ampicillin Allergy Severe Hives Verified 05/02/18 22:51 Penicillins Allergy Severe Hives Verified 05/02/18 22:51 Home Medications: Ambulatory Orders Aspirin [ASA -] 81 mg PO DAILY 02/17/17 Quinapril HCl [Accupril -] 20 mg PO AM 12/09/17 Levothyroxine [Synthroid -] 100 mcg PO DAILY@0700 #30 tablet 12/10/17 Nebivolol [Bystolic -] 5 mg PO HS tab 02/28/18 Atorvastatin Ca [Lipitor] 80 mg PO HS 05/03/18 Nebivolol HCl [Bystolic] 10 mg PO AM 05/03/18 Quinapril HCl 10 mg PO HS 05/03/18 Ticagrelor [Brilinta] 90 mg PO BID 05/03/18 Cardiac Specific PMH - Complaint Specific PMHX Pacemaker: No <Michelle Gonzalez - Last Filed: 05/03/18 02:16> Review of Systems - Review of Systems Able to Perform ROS?: Yes All Other Systems: Reviewed and Negative <Nubia Carrington - Last Filed: 05/03/18 01:13> <Michelle Gonzalez - Last Filed: 05/03/18 02:16> - Review of Systems Comments:: 05/03/18 01:13 CONSTITUTIONAL: Absent: fever, no chills, no fatigue EYES: Absent: visual changes ENT: Absent: ear pain, no sore throat CARDIOVASCULAR: Present: Chest discomfort. SOB. Absent: no palpitations RESPIRATORY: Absent: cough GI: Absent: abdominal pain, no nausea, no vomiting, no constipation, no diarrhea GENITOURINARY: Absent: dysuria, no frequency, no hematuria MUSKULOSKELETAL: Absent: back pain, no arthralgia, no myalgia SKIN: Absent: rash NEURO: Absent: headache (Nubia Carrington) *Physical Exam <Nubia Carrington - Last Filed: 05/03/18 01:13> <Michelle Gonzalez - Last Filed: 05/03/18 02:16> - Vital Signs Last Vital Signs Temp Pulse Resp BP Pulse Ox 98.4 F 62 19 145/93 100 05/02/18 22:49 05/03/18 02:11 05/03/18 02:11 05/03/18 02:11 05/03/18 02:11 - Physical Exam Comments: 05/03/18 01:14 GENERAL: Well developed, well nourished. Awake and alert. No acute distress. HEENT: Normocephalic, atraumatic. PERRLA, EOMI. No conjunctival pallor. Sclera are non- icteric. Moist mucous membranes. Oropharynx is clear. NECK: Supple. Full ROM. No JVD. Carotid pulses 2+ and symmetric, without bruits. No thyromegaly. No lymphadenopathy. CARDIOVASCULAR: Regular rate and rhythm. No murmurs, rubs, or gallops. Distal pulses are 2+ and symmetric. PULMONARY: No evidence of respiratory distress. Lungs clear to auscultation bilaterally. No wheezing, rales or rhonchi. ABDOMINAL: Soft. Non-tender. Non-distended. No rebound or guarding. No organomegaly. Normoactive bowel sounds. MUSCULOSKELETAL Normal range of motion at all joints. No bony deformities or tenderness. No CVA tenderness. EXTREMITIES: No cyanosis. No clubbing. No edema. No calf tenderness. SKIN: Warm and dry. Normal capillary refill. No rashes. No jaundice. NEUROLOGICAL: Alert, awake, appropriate. Cranial nerves 2-12 intact. No deficits to light touch and temperature in face, upper extremities and lower extremities. No motor deficits in the in face, upper extremities and lower extremities. Normoreflexic in the upper and lower extremities. Normal speech. Toes are down- going bilaterally. Gait is normal without ataxia. PSYCHIATRIC: Cooperative. Good eye contact. Appropriate mood and affect. (Nubia Carrington) Heart Score/ECG Review - History History: Slightly suspicious - Electrocardiogram EKG: Non specific repolarization disturbance - Age Age: >/= 65 - Risk Factors Risk Factors Heart Score: Yes Hx Hypertension Based on the list above the patient has:: 1-2 risk factors - Troponin Troponin: </= normal limit - Score Heart Score - Total: 4 - ECG Intrepretation Rhythm: Regular Rhythm - P and WI Delta Wave(s) Present: No WPW: No - QRS Q Wave Present: Yes - ECG Impressions Bradycardia: No Torsades fouzia Pointes: No WPW: No <Michelle Gonzalez - Last Filed: 05/03/18 02:16> ED Treatment Course - LABORATORY CBC & Chemistry Diagram: 05/02/18 23:45 05/02/18 23:45 <Nubia Carrington - Last Filed: 05/03/18 01:13> - LABORATORY CBC & Chemistry Diagram: 05/02/18 23:45 05/02/18 23:45 <Michelle Gonzalez - Last Filed: 05/03/18 02:16> - ADDITIONAL ORDERS Additional order review: Laboratory Results 05/02/18 05/02/18 23:45 23:45 PT with INR 12.30 INR 1.04 Sodium 140 Potassium 4.4 Chloride 104 Carbon Dioxide 29 Anion Gap 7 L BUN 13 Creatinine 1.4 H Creat Clearance w eGFR 50.10 Random Glucose 129 H Calcium 9.1 Magnesium 2.4 Total Bilirubin 0.5 AST 41 H ALT 45 Alkaline Phosphatase 90 Creatine Kinase 109 Troponin I 0.03 B-Natriuretic Peptide 191.2 H Total Protein 8.0 Albumin 4.2 Triglycerides 65 Cholesterol 83 Total LDL Cholesterol 38 HDL Cholesterol 44 05/02/18 23:45 RBC 4.83 MCV 95.5 MCHC 34.8 RDW 12.9 MPV 9.3 Neutrophils % 69.1 Lymphocytes % 15.3 Monocytes % 11.5 H Eosinophils % 3.3 Basophils % 0.8 - RADIOLOGY Radiology Studies Ordered: Category Date Time Status CHEST X-RAY PORTABLE* [RAD] Stat Radiology 05/02/18 23:40 Completed - Medications Given in the ED: ED Medications Discontinued Medications Generic Name Dose Route Start Last Admin Trade Name Freq PRN Reason Stop Dose Admin Aspirin 162 mg 05/02/18 23:40 05/03/18 00:28 Asa - PO 05/02/18 23:41 Not Given ONCE ONE Medical Decision Making <Nubia Carrington - Last Filed: 05/03/18 01:13> <Michelle Gonzalez - Last Filed: 05/03/18 02:16> - Medical Decision Making 05/03/18 01:27 68-year-old male presented this evening with left-sided chest discomfort. He recently had a RCA stent placed at [facility] and April [address] Guerrero covering for Dr. Spear who requested telemetry OBS 05/03/18 01:30 Today's EKG is normal sinus rhythm at 77 bpm, it does show and an inferior infarct with Q's in II, III, and F aVF Chest x-ray shows cardiomegaly First troponin is negative. telemetry observation/ r/o AR (Michelle Gonzalez) *DC/Admit/Observation/Transfer <Nubia Carrington - Last Filed: 05/03/18 01:13> - Discharge Dispostion Decision to Admit order: Yes <Michelle Gonzalez - Last Filed: 05/03/18 02:16> Diagnosis at time of Disposition: Chest pain Qualifiers: Chest pain type: unspecified Qualified Code(s): R07.9 - Chest pain, unspecified Hypertension Qualifiers: Hypertension type: essential hypertension Qualified Code(s): I10 - Essential ( primary) hypertension Hypothyroidism Qualifiers: Hypothyroidism type: unspecified Qualified Code(s): E03.9 - Hypothyroidism, unspecified - Referrals Referrals: Abraham Patel MD [Primary Care Provider] - - Patient Instructions - Post Discharge Activity - Attestations Scribe Attestion: 05/03/18 01:14 Documentation prepared by Nubia Carrington, acting as medical review coordinator for Michelle Gonzalez MD. (Nubia Carrington)
[2018-05-02] MEDS ORDERED: ASPIRIN 81 MG CHEWABLE TABLETS PO ONE (23:40)
[2018-05-02 23:51] LABS: BASO % 0.8 % (0-2.0); EOS % 3.3 % (0-4.5); HEMATOCRIT 46.1 % (35.4-49); HEMOGLOBIN 16.1 GM/dL (11.7-16.9); LYMPH % 15.3 % (8-40); MCH 33.2 pg (25.7-33.7); MCHC 34.8 g/dl (32.0-35.9); MEAN CELL VOLUME 95.5 fl (80-96); MEAN PLT VOLUME 9.3 fl (7.5-11.1); MONO % 11.5 % (3.8-10.2); NEUT % 69.1 % (42.8-82.8); PLATELET COUNT 240 K/MM3 (134-434); RBC 4.83 M/mm3 (4.00-5.60); RDW 12.9 % (11.9-15.9); WHITE BLOOD COUNT 6.7 K/mm3 (4.0-10.0)
[2018-05-03] MEDS ORDERED: ASPIRIN 81 MG CHEWABLE TABLETS ONE (00:07)
[2018-05-03 00:15] LABS: INR 1.04 (0.83-1.09); PROTHROMBIN TIME (PATIENT) 12.3 SEC (9.7-13.0)
[2018-05-03 00:29] LABS: ALBUMIN 4.2 g/dl (3.4-5.0); ALK PHOS 90 U/L (45-117); ANION GAP 7 MMOL/L (8-16); BILIRUBIN,TOTAL 0.5 mg/dL (0.2-1); BLOOD UREA NITROGEN 13 mg/dL (7-18); CALCIUM 9.1 mg/dL (8.5-10.1); CHLORIDE 104 mmol/L (98-107); CHOLESTEROL 83 mg/dL (50-200); CO2 29 mmol/L (21-32); CREATININE 1.4 mg/dL (0.55-1.3); GLUCOSE,RANDOM 129 mg/dL (74-106); HDL CHOLESTEROL 44 mg/dL (40-60); MAGNESIUM 2.4 mg/dL (1.8-2.4); N-TERMINAL BNP 191.2 pg/ml (5-125); POTASSIUM 4.4 mmol/L (3.5-5.1); SGOT/AST 41 U/L (15-37); SGPT/ALT 45 U/L (13-61); SODIUM 140 mmol/L (136-145); TRIGLYCERIDES 65 mg/dL (0-150)
--- NOTE | 2018-05-03 02:12 | PN ---
Teaching Attending Note Name of Resident: Dann Borges ATTENDING PHYSICIAN STATEMENT I saw and evaluated the patient. I reviewed the resident's note and discussed the case with the resident. I agree with the resident's findings and plan as documented. SUBJECTIVE: Patient is a 68 year old man with a PMH of [place] (s/p Proximal RCA stent on 2017), penicillin allergy, kidney stones, Afib, HTN, hernia repair, and hypothyroidism, who presents to the ER with chest discomfort. Patient describes his chest discomfort as a muscle pulling with associated shortness of breath. Patient notes his symptoms are different from his [place] but, he was notified to report to the ER with any new or worsening symptoms, prompting his visit to the ER. He denies any recent fevers, chills, headache, dizziness, vomiting, diarrhea or dysuria. OBJECTIVE: Alert Vital Signs Period Temp Pulse Resp BP Sys/Ferrera Pulse Ox Last 24 Hr 98.4 F 62-80 18-19 145-156/88-93 96-100 HEENT: No Jaundice, eye redness or discharge, PERRLA, EOMI. Normocephalic, atraumatic. External ears are normal and hearing is grossly intact. No nasal discharge. Neck: Supple, nontender. No palpable adenopathy or thyromegaly. No JVD Chest: Good effort. No point tenderness. Clear to auscultation and percussion. Heart: Regular. No S3, rub or murmur Abdomen: Not distended, soft, nontender and no HSM. No rebound or guarding. Normoactive bowel sounds. Ext: Peripheral pulses intact. No leg edema. Skin: Warm and dry. No petechiae, rash or ecchymosis. Neuro: Alert. Oriented x3. CN 2-12 grossly intact. Sensation grossly intact in all four extremities and DTR are symmetric. Home Medications Medication Instructions Recorded Aspirin [ASA -] 81 mg PO DAILY 02/17/17 Quinapril HCl [Accupril -] 20 mg PO AM 12/09/17 Levothyroxine [Synthroid -] 100 mcg PO DAILY@0700 #30 tablet 12/10/17 Nebivolol [Bystolic -] 5 mg PO HS tab 02/28/18 Atorvastatin Ca [Lipitor] 80 mg PO HS 05/03/18 Nebivolol HCl [Bystolic] 10 mg PO AM 05/03/18 Quinapril HCl 10 mg PO HS 05/03/18 Ticagrelor [Brilinta] 90 mg PO BID 05/03/18 Abnormal Lab Results 05/02/18 05/02/18 23:45 23:45 Monocytes % 11.5 H Anion Gap 7 L Creatinine 1.4 H Random Glucose 129 H AST 41 H B-Natriuretic Peptide 191.2 H ASSESSMENT AND PLAN: 1. Chest pain - No acute ST-T wave changes on EKG and initial troponin is negative. CXR shows increased interstitial markings with blunted CP angles. Has been painfree in the ER and got 162 mg of Aspirin PO. Admit to telemetry to rule out ACS, get ECHO and consult cardiology. 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 2. DVT prophylaxis - Lovenox 40 mg SQ q 24 hours. 3. Advance directives - Full code
--- NOTE | 2018-05-03 04:17 | HP ---
CHIEF COMPLAINT: chest discomfort PCP: Dr. Patel Putty Glazer: Dr. Mckeon HISTORY OF PRESENT ILLNESS: Patient is a 68 year old male with history of [place] s/p BETITO in proximal RCA at [facility] 04/22/2018, Afib not on chemical anticoagulaiton, HTN, hyperthyroidism, presents with complaint of chest discomfort. Began at 9PM after eating dinner, and was watching TV. Describes discomfort as "muscle pulling" localized to left chest, non radiating. Discomfort is intermittent and improved with deep breathing. Not changed with movement. No provocative features noted. Rated at 1/ 10 intensity currently. Patient endorses compliance with DAPT of Brilanta and Aspirin. Denies trauma, fall, loss of conciousness, fevers, chills, diaphoresis , palpitations, abdominal pain, nausea, vomiting, diarrhea, constipation, dysuria, hematuria, urinary urgency/ frequency, melena, hematochezia. ER course was notable for: (1) EKG: normal sinus rhythm [id number], with q waves in II, III, AVF (upon my reading) (2) Troponin 0.03 (3) Aspirin 162mg PAST MEDICAL HISTORY: [place] s/p BETITO in proximal RCA at Mr[facility] 04/22/2018, Afib not on chemical anticoagulaiton, HTN, hyperthyroidism, nephrolithiasis s/p lithotripsy X3 PAST SURGICAL HISTORY: lithotripsy, hernia repair Social History: Smoking: former smoker, quit 18 years ago. Smoked 1 pack per day for approx. 20 years. Alcohol: denies Drugs: denies Family History: Mother: DM, unknown heart disease. a 85 y/o Father: Leukemia. at 53 y/o Allergies ampicillin Allergy (Severe, Verified 05/02/18 22:51) Hives Penicillins Allergy (Severe, Verified 05/02/18 22:51) Hives HOME MEDICATIONS: Home Medications Medication Instructions Recorded Aspirin [ASA -] 81 mg PO DAILY 02/17/17 Quinapril HCl [Accupril -] 20 mg PO AM 12/09/17 Levothyroxine [Synthroid -] 100 mcg PO DAILY@0700 #30 tablet 12/10/17 Nebivolol [Bystolic -] 5 mg PO HS tab 02/28/18 Atorvastatin Ca [Lipitor] 80 mg PO HS 05/03/18 Nebivolol HCl [Bystolic] 10 mg PO AM 05/03/18 Quinapril HCl 10 mg PO HS 05/03/18 Ticagrelor [Brilinta] 90 mg PO BID 05/03/18 REVIEW OF SYSTEMS CONSTITUTIONAL: Absent: fever, chills, diaphoresis, generalized weakness, malaise, loss of appetite, weight change HEENT: Absent: rhinorrhea, nasal congestion, throat pain, throat swelling, difficulty swallowing, mouth swelling, ear pain, eye pain, visual changes CARDIOVASCULAR: Admits: chest discomfort. Absent: syncope, palpitations, irregular heart rate, lightheadedness, peripheral edema RESPIRATORY: Absent: cough, shortness of breath, dyspnea with exertion, orthopnea, wheezing, stridor, hemoptysis GASTROINTESTINAL: Absent: abdominal pain, abdominal distension, nausea, vomiting, diarrhea, constipation, melena, hematochezia GENITOURINARY: Absent: dysuria, frequency, urgency, hesitancy, hematuria, flank pain, genital pain MUSCULOSKELETAL: Absent: myalgia, arthralgia, joint swelling, back pain, neck pain SKIN: Absent: rash, itching, pallor HEMATOLOGIC/IMMUNOLOGIC: Absent: easy bleeding, easy bruising, lymphadenopathy, frequent infections ENDOCRINE: Absent: unexplained weight gain, unexplained weight loss, heat intolerance, cold intolerance NEUROLOGIC: Absent: headache, focal weakness or paresthesias, dizziness, unsteady gait, seizure, mental status changes, bladder or bowel incontinence PSYCHIATRIC: Absent: anxiety, depression, suicidal or homicidal ideation, hallucinations. PHYSICAL EXAMINATION Vital Signs - 24 hr 05/02/18 05/03/18 22:49 02:11 Temperature 98.4 F Pulse Rate 80 Pulse Rate [ 62 Left Radial] Respiratory 18 19 Rate Blood Pressure 156/88 Blood Pressure 145/93 [Right Arm] O2 Sat by Pulse 96 100 Oximetry (%) GENERAL: Awake, alert, and fully oriented, in no acute distress. HEAD: Normal with no signs of trauma. EYES: Pupils equal, round and reactive to light, extraocular movements intact, sclera anicteric, conjunctiva clear. EARS, NOSE, THROAT: Ears normal, nares patent, oropharynx clear without exudates. Moist mucous membranes. NECK: Normal range of motion, supple without lymphadenopathy, JVD, or masses. LUNGS: Breath sounds equal, clear to auscultation bilaterally. No wheezes, and no crackles. No accessory muscle use. HEART: Regular rate and rhythm. Distant heart sounds, normal S1 and S2 auscultated without murmur, rub or gallop. ABDOMEN: Obese. Soft, nontender, not distended. Normoactive bowel sounds X4 quadrants, no guarding, no rebound, no masses. No hepatomegaly or splenomegaly palpated or percussed. MUSCULOSKELETAL: Normal range of motion at all joints. No bony deformities or tenderness. No CVA tenderness. UPPER EXTREMITIES: 2+ radial pulses b/l, warm, well-perfused. Strength 5/5 b/l upper extremities. LOWER EXTREMITIES: 2+ dorsalis pedis pulses b/l, warm, well-perfused. No calf tenderness. No peripheral edema b/l. Strength 5/5 b/l lower extremities. NEUROLOGICAL: Cranial nerves II-XII intact. Normal speech. Normal gait. PSYCHIATRIC: Cooperative. Good eye contact. Appropriate mood and affect upon my encounter today. SKIN: Warm, dry. Laboratory Results - last 24 hr 05/02/18 05/02/18 05/02/18 23:45 23:45 23:45 WBC 6.7 RBC 4.83 Hgb 16.1 Hct 46.1 MCV 95.5 MCH 33.2 MCHC 34.8 RDW 12.9 Plt Count 240 MPV 9.3 Absolute Neuts (auto) 4.6 Neutrophils % 69.1 Lymphocytes % 15.3 Monocytes % 11.5 H Eosinophils % 3.3 Basophils % 0.8 Nucleated RBC % 0 PT with INR 12.30 INR 1.04 Sodium 140 Potassium 4.4 Chloride 104 Carbon Dioxide 29 Anion Gap 7 L BUN 13 Creatinine 1.4 H Creat Clearance w eGFR 50.10 Random Glucose 129 H Calcium 9.1 Magnesium 2.4 Total Bilirubin 0.5 AST 41 H ALT 45 Alkaline Phosphatase 90 Creatine Kinase 109 Troponin I 0.03 B-Natriuretic Peptide 191.2 H Total Protein 8.0 Albumin 4.2 Triglycerides 65 Cholesterol 83 Total LDL Cholesterol 38 HDL Cholesterol 44 ASSESSMENT/PLAN: Patient is a 68 year old male with history of TN s/p BETITO in proximal RCA at Mr. [facility] 04/22/2018, Afib not on chemical anticoagulaiton, HTN, hyperthyroidism, presents with complaint of chest discomfort. Chest discomfort -Unclear if etiology is cardiac in nature, vs. anxiety vs. GERD -Patient received aspiring 162mg in ED -EKG shows normal sinus rhythm [id number], with q waves in II, III, AVF (upon my reading) -Troponin 0.03. Will follow -Cardiac monitoring -F/U cardiac ECHO -F/U cardiology consult (Dr. Mckeon) CAD s/p 1X RCA drug eluting stent -Continue Dual antiplatelet therapy -Brilanta 90mg PO BID -Aspirin 81mg PO daily Afib -CHADSVASC =3 (age, HTN, vascular disease) -Patient is currently rate controlled on Bystolic -Unclear why patient is not on chemical anticoagulaiton (cardiology consult from 11/2017 discusses that patient declines anticoagulation?). Will need to discuss further with cardiology. -Cardiac monitoring RAMON -Cr 1.4, eleveated from baseline at 1.2 -Encourage judicious oral hydration. -Follow CMP closely HTN -Continue Quinapril 20mg PO AM, 10mg PO HS -Continue Bystolic 10mg PO AM, 5mg PO HS HLD -Continue Atorvastatin 80mg PO daily Hypothyroidism -Continue Synthroid 100mcg daily Anxiety -Patient states he takes Mirtazapine 7.5mg daily. Will need to reconcile medication with his pharmacy. FEN -No IV fluids. Encourage judicious oral hydration -Follow CMP -Sodium controlled diet Prophylaxis -Lovenox 40mg subq daily Disposition -Telemetry observation. Visit type - Emergency Visit Emergency Visit: Yes ED Registration Date: 05/03/18 Care time: The patient presented to the Emergency Department on the above date and was hospitalized for further evaluation of their emergent condition. - New Patient This patient is new to me today: Yes Date on this admission: 05/03/18 - Critical Care Critical Care patient: No
[2018-05-03 06:02] LABS: HEMATOCRIT 44.8 % (35.4-49); HEMOGLOBIN 15.8 GM/dL (11.7-16.9); MCH 33.4 pg (25.7-33.7); MCHC 35.3 g/dl (32.0-35.9); MEAN CELL VOLUME 94.4 fl (80-96); MEAN PLT VOLUME 9.6 fl (7.5-11.1); PLATELET COUNT 228 K/MM3 (134-434); RBC 4.74 M/mm3 (4.00-5.60); RDW 12.9 % (11.9-15.9); WHITE BLOOD COUNT 7.9 K/mm3 (4.0-10.0)
[2018-05-03 06:42] LABS: ALBUMIN 3.9 g/dl (3.4-5.0); ALK PHOS 79 U/L (45-117); ANION GAP 7 MMOL/L (8-16); BILIRUBIN,TOTAL 0.6 mg/dL (0.2-1); BLOOD UREA NITROGEN 12 mg/dL (7-18); CHLORIDE 105 mmol/L (98-107); CO2 30 mmol/L (21-32); CREATININE 1.1 mg/dL (0.55-1.3); GLUCOSE,RANDOM 95 mg/dL (74-106); MAGNESIUM 2.3 mg/dL (1.8-2.4); POTASSIUM 4.7 mmol/L (3.5-5.1); SGOT/AST 31 U/L (15-37); SGPT/ALT 42 U/L (13-61); SODIUM 142 mmol/L (136-145); TOT PROT 7.3 g/dl (6.4-8.2)
[2018-05-03] MEDS ORDERED: LEVOTHYROXINE NA 100 MCG TABLET (FP) PO SCH (07:00)
[2018-05-03 08:48] VITALS: BMI 28.7
--- NOTE | 2018-05-03 09:26 | CON.CARD ---
Cardiology Consult (text) - Consultation Consultation Note: - Consultation Consultation Note: Chief Complaint: chest discomfort History of Present Illness: 67M h/o afib, HTN, hypothyroidism, anxiety, CAD, [place] s/p BETITO to prox RCA 2017 admitted for chest pain. [place] like muscles pulling in his chest, associated with dyspnea. Not similar to how he felt with [place]. Received aspirin in ER. Trop neg x 2. Chest pain resolved on coming to the ER. He is not sure how long it lasted, was on and off. Was sitting watching TV when it started, no exertional symptoms although he is not very active. Sees Dr. Mckeon for cardio. PMH: PAFib HTN hypothyroid anxiety CAD, s/p [place] BETITO to prox RCA 04/22/18 - Past Medical History Cardio/Vascular: Yes: AFIB, HTN, CAD - Past Surgical History Past Surgical History: Yes: Hernia Repair - Alcohol/Substance Use Hx Alcohol Use: No History of Substance Use: reports: None - Smoking History Smoking history: Unknown if ever smoked Have you smoked in the past 12 months: No Aproximately how many cigarettes per day: 0 - Social History ADL: Independent History of Recent Travel: No Home Medications - Allergies Allergies/Adverse Reactions: Allergies Allergy/AdvReac Type Severity Reaction Status Date / Time ampicillin Allergy Severe Hives Verified 05/02/18 22:51 Penicillins Allergy Severe Hives Verified 05/02/18 22:51 - Home Medications Home Medications Medication Instructions Recorded Aspirin [ASA -] 81 mg PO DAILY 02/17/17 Quinapril HCl [Accupril -] 20 mg PO AM 12/09/17 Levothyroxine [Synthroid -] 100 mcg PO DAILY@0700 #30 tablet 12/10/17 Nebivolol [Bystolic -] 5 mg PO HS tab 02/28/18 Atorvastatin Ca [Lipitor] 80 mg PO HS 05/03/18 Nebivolol HCl [Bystolic] 10 mg PO AM 05/03/18 Quinapril HCl 10 mg PO HS 05/03/18 Ticagrelor [Brilinta] 90 mg PO BID 05/03/18 Family Disease History - Family Disease History Family Disease History: Heart Disease: Sister (a fib) Review of Systems - Review of Systems Constitutional: denies: Chills, Fever Eyes: denies: Eye Pain HENT: denies: Nasal Congestion Neck: denies: Stiffness Cardiovascular: denies: Edema Respiratory: denies: Orthopnea, PND Gastrointestinal: denies: Diarrhea, Rectal Bleeding Genitourinary: denies: Burning, Hematuria Musculoskeletal: denies: Muscle Pain Integumentary: denies: Rash Neurological: denies: Numbness, Seizure, Syncope Endocrine: denies: Excessive Sweating Hematology/Lymphatic: denies: Excessive Bleeding Vital Signs: Vital Signs Period Temp Pulse Resp BP Sys/Ferrera Pulse Ox Last 24 Hr 98.1 F-98.4 F 55-80 16-19 122-156/84-93 94-100 Constitutional: Yes: Well Nourished, No Distress Eyes: No: Sclera Icterus HENT: No: Nasal Congestion Neck: No: Decreased ROM Respiratory: Yes: CTA Bilaterally. No: Accessory Muscle Use, Rales, Wheezes Gastrointestinal: Yes: Normal Bowel Sounds. No: Distention, Hepatomegaly, Palpable Mass, Tenderness Cardiovascular: Yes: Regular Rate and Rhythm JVD: No Carotid Bruit: No PMI: Non-Displaced Heart Sounds: Yes: S1, S2. No: Gallop Murmur: No: Systolic Murmur, Diastolic Murmur Musculoskeletal: Yes: Other (No kyphosis) Extremities: No: Cold, Cyanosis Edema: No Peripheral Pulses: 2+ Left Carotid, 2+ Right Carotid, 2+ Left Doralis Pedis, 2+ Right Dorsalis Pedis Integumentary: No: Jaundice Neurological: Yes: Alert, Oriented (x3) Psychiatric: No: Agitated - Other Data Labs, Other Data: Laboratory Results - last 24 hr 05/02/18 05/02/18 05/02/18 23:45 23:45 23:45 WBC 6.7 RBC 4.83 Hgb 16.1 Hct 46.1 MCV 95.5 MCH 33.2 MCHC 34.8 RDW 12.9 Plt Count 240 MPV 9.3 Absolute Neuts (auto) 4.6 Neutrophils % 69.1 Lymphocytes % 15.3 Monocytes % 11.5 H Eosinophils % 3.3 Basophils % 0.8 Nucleated RBC % 0 PT with INR 12.30 INR 1.04 Sodium 140 Potassium 4.4 Chloride 104 Carbon Dioxide 29 Anion Gap 7 L BUN 13 Creatinine 1.4 H Creat Clearance w eGFR 50.10 Random Glucose 129 H Calcium 9.1 Phosphorus Magnesium 2.4 Total Bilirubin 0.5 AST 41 H ALT 45 Alkaline Phosphatase 90 Creatine Kinase 109 Troponin I 0.03 B-Natriuretic Peptide 191.2 H Total Protein 8.0 Albumin 4.2 Triglycerides 65 Cholesterol 83 Total LDL Cholesterol 38 HDL Cholesterol 44 05/03/18 05/03/18 05/03/18 05:15 05:15 05:15 WBC 7.9 RBC 4.74 Hgb 15.8 Hct 44.8 MCV 94.4 MCH 33.4 MCHC 35.3 RDW 12.9 Plt Count 228 MPV 9.6 Absolute Neuts (auto) Neutrophils % Lymphocytes % Monocytes % Eosinophils % Basophils % Nucleated RBC % PT with INR INR Sodium 142 Potassium 4.7 Chloride 105 Carbon Dioxide 30 Anion Gap 7 L BUN 12 Creatinine 1.1 Creat Clearance w eGFR > 60 Random Glucose 95 Calcium 9.0 Phosphorus 4.0 Magnesium 2.3 Total Bilirubin 0.6 AST 31 ALT 42 Alkaline Phosphatase 79 Creatine Kinase Troponin I Cancelled 0.03 B-Natriuretic Peptide Total Protein 7.3 Albumin 3.9 Triglycerides Cholesterol Total LDL Cholesterol HDL Cholesterol ECG: sinus, old inf infarct, nonspecific ST changes Echo 2014: nl LV/RV; valves WNL echo 11/2017: nl lv/rv, mild lae, no sig valve path ETT 2016: 3:02 min, 93% MPHR. no chest pain. no ST changes. tele: sinus a/p: chest pain, CAD s/p [place] - chest pain atypical, likely MSK - trop neg x 2, EKG no acute changes, no events on tele - echo was done this AM, if benign findings stable for discharge - continue aspirin, statin, brillinta, beta harsh, ACEI paroxysmal Afib and atrial flutter - in sinus - continue diltiazem, lopressor -has indication for ac but declines, cont asa, brillinta HTN: -bp currently controlled
[2018-05-03] MEDS ORDERED: ASPIRIN 81 MG CHEWABLE TABLETS PO SCH (10:00)
[2018-05-03] MEDS ORDERED: QUINAPRIL HCL 20 MG TABLET (FP) PO SCH (10:00)
[2018-05-03] MEDS ORDERED: TICAGRELOR 90 MG TABLET PO SCH (10:00)
[2018-05-03] MEDS ORDERED: ENOXAPARIN NA (PORCINE) 40 MG/0.4 ML DISP.SYRIN SQ SCH (10:00)
[2018-05-03] MEDS ORDERED: NEBIVOLOL 10 MG TABLET (FP) PO SCH (10:00)
[2018-05-03] MEDS ORDERED: PANTOPRAZOLE 40 MG TABLET (FP) PO ONE (10:15)
--- NOTE | 2018-05-03 11:31 | ECHO ---
Name: ZELDAPARISELMAAVERY Exam:Adult Echocardiogram Study Date: 05/03/2018 08:46 AM Age: 68 yrs Reason For Study: Chest Discomfort Height: 70 in Weight: 203 lb BSA: 2.1 m2 MMode/2D Measurements & Calculations IVSd: 0.88 cm EDV(Teich): 43.6 ml LVIDd: 3.3 cm ESV(Teich): 17.7 ml LVIDs: 2.3 cm LVPWd: 1.8 cm LVOT diam: 1.9 cm RV S Willy: 10.0 cm/sec Doppler Measurements & Calculations TR max willy: 211.4 cm/sec Med Peak E' Willy: 8.4 cm/sec TR max P.9 mmHg Lat Peak E' Willy: 8.7 cm/sec Procedure A two-dimensional transthoracic echocardiogram with color flow and Doppler was performed. The study w as technically difficult with many images being suboptimal in quality. The patient was in normal sinus r hythm during the exam. Left Ventricle The left ventricle is not well visualized. The left ventricle is grossly normal size. Left ventricula r systolic function is grossly normal. Ejection Fraction = 60. E/A reversal consistent with but not mercedez gnostic of poor LV compliance. Right Ventricle The right ventricle is not well visualized. The right ventricle is mildly dilated. The right ventricu lar systolic function is grossly normal. Atria The left atrial size is normal. Right atrium not well visualized. Mitral Valve The mitral valve is not well visualized. The mitral valve is grossly normal. There is no mitral regur gitation noted. Tricuspid Valve The tricuspid valve is not well visualized. The tricuspid valve is not well visualized, but is grossl y normal. No tricuspid regurgitation. Aortic Valve The aortic valve is not well visualized. The aortic valve opens well. There is mild aortic sclerosis. ;. No hemodynamically significant valvular aortic stenosis. Trace aortic regurgitation. Pulmonic Valve The pulmonic valve is not well visualized. The pulmonic valve is not well seen, but is grossly normal . There is no pulmonic valvular regurgitation. Great Vessels The aortic root is not well visualized. Pericardium/Pleura There is no pericardial effusion. Interpretation Summary The study was technically difficult with many images being suboptimal in quality. Left ventricular systolic function is grossly normal. E/A reversal consistent with but not diagnostic of poor LV compliance The right ventricle is not well visualized. The right ventricle is mildly dilated. The right ventricular systolic function is grossly normal. There is mild aortic sclerosis.; The aortic valve opens well. Trace aortic regurgitation. There is no pericardial effusion. MD Isac Baird 05/03/2018 11:31 AM
--- NOTE | 2018-05-03 12:07 | EKG ---
Test Reason : Blood Pressure : / mmHG Vent. Rate : 077 BPM Atrial Rate : 077 BPM P-R Int : 168 ms QRS Dur : 086 ms QT Int : 382 ms P-R-T Axes : 055 -14 -36 degrees QTc Int : 432 ms NORMAL SINUS RHYTHM INFERIOR INFARCT , AGE UNDETERMINED ABNORMAL ECG Confirmed by MD ALLI, JOCE ([id number]) on 05/03/2018 12:06:57 PM Referred By: Confirmed By:JOCE CARSON MD
--- NOTE | 2018-05-03 12:20 | DS ---
Physical Examination Vital Signs: Vital Signs Temperature 98.1 F 05/03/18 08:44 Pulse Rate 56 L 05/03/18 08:44 Respiratory Rate 18 05/03/18 08:53 Blood Pressure 122/84 05/03/18 08:44 O2 Sat by Pulse Oximetry (%) 94 L 05/03/18 08:53 Constitutional: Yes: Well Nourished, No Distress, Anxious Cardiovascular: Yes: WNL, Regular Rate and Rhythm, Other (mild +ttp anterior mid sternum) Respiratory: Yes: WNL, Regular, CTA Bilaterally. No: Accessory Muscle Use, SOB , Tachypnea, Wheezes Gastrointestinal: Yes: WNL, Normal Bowel Sounds, Soft. No: Distention, Tenderness Renal/: Yes: WNL Extremities: Yes: WNL Edema: No Neurological: Yes: WNL, Alert, Oriented Psychiatric: Yes: WNL, Alert, Oriented Labs: CBC, BMP 05/03/18 05:15 05/03/18 05:15 Discharge Summary Reason For Visit: CHEST PAIN,HYPERTENSION Hospital Course: 68 year old male admitted for evaluation of chest pain. all cardiac work up neg. pain appears musculoskeletal as it is reproducible. pt evaluated by cardiology. Pt cleared for discharge. Pt is medically stable for discharge home , f/u as directed. 32 minutes spent in discharge planning Condition: Good - Instructions Diet, Activity, Other Instructions: resume activity/diet as before follow up as recommended may take tylenol/motrin for pain , take with food, inform PCP Referrals: Abraham Patel MD [Primary Care Provider] - 1 Week Luis Mckeon MD [Staff Physician] - 1 Week Disposition: HOME - Home Medications Comprehensive Discharge Medication List: Ambulatory Orders Aspirin [ASA -] 81 mg PO DAILY 02/17/17 Quinapril HCl [Accupril -] 20 mg PO AM 12/09/17 Levothyroxine [Synthroid -] 100 mcg PO DAILY@0700 #30 tablet 12/10/17 Nebivolol [Bystolic -] 5 mg PO HS tab 02/28/18 Atorvastatin Ca [Lipitor] 80 mg PO HS 05/03/18 Nebivolol HCl [Bystolic] 10 mg PO AM 05/03/18 Quinapril HCl 10 mg PO HS 05/03/18 Ticagrelor [Brilinta -] 90 mg PO BID 05/03/18
[2018-05-03 12:54] VITALS: BP 128/80; PULSE 62; TEMP 97.7
[2018-05-03] MEDS ORDERED: NEBIVOLOL 5 MG TABLET (FP) PO SCH (22:00)
[2018-05-03] MEDS ORDERED: QUINAPRIL HCL 10 MG TABLET (FP) PO SCH (22:00)
[2018-05-03] MEDS ORDERED: ATORVASTATIN CA 80 MG TABLET (FP) PO SCH (22:00)
== END 2018-05-03 14:10 | disposition home or self-care (01) ==
LOC: JER 22:44 → JERBED 05-03 02:16 → J4S 05-03 08:18
PROVIDERS: ADMIT Internal Medicine; ATTEND Internal Medicine
PROC: 3E013GC Introduction of Other Therapeutic Substance into Subcutaneous Tissue, Percutaneous Approach (ICD-10-PCS; principal; 2018-05-03)
DX: R07.89 Other chest pain (principal); I10 Essential (primary) hypertension; E03.9 Hypothyroidism, unspecified; I25.2 Old myocardial infarction; I48.0 Paroxysmal atrial fibrillation; I25.10 Atherosclerotic heart disease of native coronary artery without angina pectoris; E78.5 Hyperlipidemia, unspecified; N17.9 Acute kidney failure, unspecified
CPT/HCPCS: 36415; 71045-TC-FY; 80053; 80061; 82550; 83721; 83735; 83880; 84100; 84484; 85025; 85027; 85610; 93005; 93010; 93306-TC; 96372; 99285-25; G0378

== ENCOUNTER 2018-07-11 15:32 | Emergency (ER) | payer OTHER ==
[2018-07-11 15:58] VITALS: TEMP 98.4; BMI 29.1
--- NOTE | 2018-07-11 17:05 | PDOC ---
History of Present Illness - General Chief Complaint: Pain Stated Complaint: ACID REFLUX Time Seen by Provider: 07/11/18 17:04 History Source: Patient Exam Limitations: No Limitations - History of Present Illness Initial Comments: Pt is a 68 yo M, with PMH of ID (stent x1 in March - on Plavix), A-fib, HTN, HLD, hernia repair, and hyperthyroidism, who is presenting with complaints of "indigestion" and mild SOB since 11 am this morning. He states the discomfort occurred mostly in his epigastric area with mild bloating, and it was not associated with any diaphoresis, nausea, or vomiting. The discomfort did not radiate and he did NOT have any chest pain today. Pt did not take any OTC medication for indigestion before arrival, because he "was worried it might be another heart attack". Pt denies any fevers/chills, headache, vision changes, syncope, chest pain, palpitations, nausea/vomiting, urinary symptoms, diarrhea/ constipation, or leg swelling. Pt does have a cardiac history, with recent ID and stenting done in March. Pt had echo in April 2018 which was grossly normal, preserved EF. Social: Pt denies any cigarette, alcohol, or drug use. Pt denies any recent travel or sick contacts. Surgical: cardiac stenting (Mar 2018) Family: Mother - DM, CAD; Father - leukemia; Sister- A-fib 07/11/18 18:02 Past History - Travel Traveled outside of the country in the last 30 days: No Close contact w/someone who was outside of country & ill: No - Past Medical History Allergies/Adverse Reactions: Allergies Allergy/AdvReac Type Severity Reaction Status Date / Time ampicillin Allergy Severe Hives Verified 07/11/18 15:58 Penicillins Allergy Severe Hives Verified 07/11/18 15:58 Home Medications: Ambulatory Orders Aspirin [ASA -] 81 mg PO DAILY 02/17/17 Quinapril HCl [Accupril -] 20 mg PO AM 12/09/17 Levothyroxine [Synthroid -] 100 mcg PO DAILY@0700 #30 tablet 12/10/17 Nebivolol [Bystolic -] 5 mg PO HS tab 02/28/18 Atorvastatin Ca [Lipitor] 80 mg PO HS 05/03/18 Nebivolol HCl [Bystolic] 10 mg PO AM 05/03/18 Quinapril HCl 10 mg PO HS 05/03/18 Ticagrelor [Brilinta -] 90 mg PO BID 05/03/18 Anemia: No Asthma: No Cancer: No Cardiac Disorders: Yes (a-fib, STENTS, mi 04/14) CVA: No COPD: No CHF: No Dementia: No GI Disorders: No Disorders: No HTN: Yes Hypercholesterolemia: No Kidney Stones: Yes Liver Disease: No Psychiatric Problems: Yes (ANXIETY.) Seizures: No Thyroid Disease: Yes (HYPO.) - Surgical History Abdominal Surgery: Yes (HERNIA REPAIR, LITHOTRIPSY X5) Appendectomy: No Cardiac Surgery: Yes (STENTS) Cholecystectomy: No Lung Surgery: No Neurologic Surgery: No Orthopedic Surgery: No - Immunization History Immunization Up to Date: Yes - Suicide/Smoking/Psychosocial Hx Smoking Status: Yes Smoking History: Never smoked Have you smoked in the past 12 months: No Number of Cigarettes Smoked Daily: 0 If you are a former smoker, when did you quit?: 12 YEARS AGO Cigars Per Day: 0 Information on smoking cessation initiated: No Hx Alcohol Use: No Drug/Substance Use Hx: No Substance Use Type: None Hx Substance Use Treatment: No Review of Systems - Review of Systems Able to Perform ROS?: Yes Is the patient limited Turkish proficient: No Constitutional: Yes: Weight Stable. No: Chills, Diaphoresis, Fever, Loss of Appetite HEENTM: No: Blurred Vision, Recent change in vision, Nose Congestion, Throat Pain, Throat Swelling Respiratory: Yes: Shortness of Breath, SOB at Rest. No: Cough, Orthopnea, SOB with Exertion, Wheezing, Productive cough, Hemoptysis Cardiac (ROS): No: Chest Pain, Edema, Irregular Heart Rate, Lightheadedness, Palpitations, Syncope, Chest Tightness ABD/GI: Yes: See HPI, Indigestion. No: Blood Streaked Bowels, Constipated, Diarrhea, Nausea, Poor Appetite, Poor Fluid Intake, Vomiting, Abdominal cramping , Tarry Stools : No: Burning, Dysuria, Frequency, Pain, Urgency Musculoskeletal: No: Back Pain, Joint Pain Integumentary: No: Rash Neurological: No: Headache, Numbness, Paresthesia, Weakness, Unsteady Gait, Ataxia, Dizziness Psychiatric: No: Sleep Pattern Change, Change in Appetite Endocrine: No: Increased Urine, Change in Weight Hematologic/Lymphatic: No: Anemia, Blood Clots, Easy Bleeding, Easy Bruising All Other Systems: Reviewed and Negative *Physical Exam - Vital Signs Last Vital Signs Temp Pulse Resp BP Pulse Ox 98.4 F 60 16 153/81 100 07/11/18 15:55 07/11/18 15:55 07/11/18 15:55 07/11/18 15:55 07/11/18 15:55 - Physical Exam General Appearance: Yes: Nourished, Appropriately Dressed. No: Apparent Distress HEENT: positive: EOMI, QUINTEN, Normal ENT Inspection, Normal Voice, Symmetrical, Pharynx Normal, Hearing Grossly Normal. negative: Scleral Icterus (R), Scleral Icterus (L), Pharyngeal Erythema, Tonsillar Exudate, Tonsillar Erythema, Rhinorrhea Neck: positive: Trachea midline, Normal Thyroid, Supple. negative: Tender, Rigid, Lymphadenopathy (R), Lymphadenopathy (L) Respiratory/Chest: positive: Lungs Clear, Normal Breath Sounds. negative: Chest Tender, Respiratory Distress, Accessory Muscle Use, Crackles, Wheezing Cardiovascular: positive: Regular Rhythm, Regular Rate, S1, S2. negative: Edema , JVD, Murmur Vascular Pulses: Carotid (R): 4+, Carotid (L): 4+ Gastrointestinal/Abdominal: positive: Normal Bowel Sounds, Soft, Protuberent. negative: Tender, Flat, Organomegaly, Pulsatile Mass, Distended, Guarding, Rebound Rectal Exam: positive: deferred Lymphatic: negative: Adenopathy, Tenderness Musculoskeletal: positive: Normal Inspection. negative: CVA Tenderness Extremity: positive: Normal Capillary Refill, Normal Inspection, Normal Range of Motion, Pelvis Stable. negative: Tender, Pedal Edema Integumentary: positive: Normal Color, Dry, Warm. negative: Jaundice, Clammy, Diaphoresis, Rash Neurologic: positive: cardiovascular surgical tech II-XII NML intact, Fully Oriented, Alert, Normal Mood/ Affect, Normal Response, Motor Strength 5/5 Moderate Sedation - Procedure Monitoring Vital Signs: Procedure Monitoring Vital Signs Temperature 98.4 F 07/11/18 15:55 Pulse Rate 60 07/11/18 15:55 Respiratory Rate 16 07/11/18 15:55 Blood Pressure 153/81 07/11/18 15:55 O2 Sat by Pulse Oximetry (%) 100 07/11/18 15:55 ED Treatment Course - LABORATORY CBC & Chemistry Diagram: 07/11/18 16:45 07/11/18 16:54 Medical Decision Making - Medical Decision Making Pt was seen at bedside, also will be seen by attending Dr. Gonzalez. Pt presenting with complaints of "indigestion" and mild SOB since 11 am this morning. He states the discomfort occurred mostly in his epigastric area with mild bloating, and it was not associated with any diaphoresis, nausea, or vomiting. The discomfort did not radiate and he did NOT have any chest pain today. Pt did not take any OTC medication for indigestion before arrival, because he "was worried it might be another heart attack". Pt denies any fevers/ chills, headache, vision changes, syncope, chest pain, palpitations, nausea/ vomiting, urinary symptoms, diarrhea/constipation, or leg swelling. Pt does have a cardiac history, with recent ID and stenting done in March. Pt had echo in April 2018 which was grossly normal, preserved EF. Pt afebrile, mildly HTN (153/81), does not appear dyspneic, saturating 100% on RA. PE showed clear heart and lung sounds, no JVD, no b/l pedal edema, no murmur. No abdominal or CVA tenderness, no rebound, no guarding. Pt has protuberant abdomen which he says is normal for him. Exam generally benign. Considering indigestion/acid reflux/GERD vs ACS vs new peptic/duodenal ulcer vs pancreatitis. Unlikely acute GI or obstruction, abdominal exam benign, pt passing gas, no vomiting. Ordered work-up including CBC, CMP, cardiac profile (troponin x2), ECG, PT/INR. Provided 30 mg PO maalox for improvement of indigestion/discomfort. Will continue to reassess pt and monitor for symptomatic improvement. ECG: HR 59, intervals WNL. No significant ST segment depressions or elvations. T wave flattening in multiple leads. 07/11/18 17:37 CBC and coags WNL. Pending CMP and cardiac profile. 07/11/18 17:38 Trop <.02. BNP 89. 07/11/18 17:48 Will get second troponin ~7:45 pm and dispo. Pt still resting comfortably, no active pain. Repeat BP 133/80. 07/11/18 18:29 Second troponin test negative. Considering normal lab results, pt can be discharged to home with follow-up. Pt advised to follow-up with PCP and deer farmer in 1-2 days. Strict return precautions provided with pt understanding. 07/11/18 20:44 *DC/Admit/Observation/Transfer Diagnosis at time of Disposition: Atypical chest pain - Discharge Dispostion Disposition: HOME Condition at time of disposition: Improved Decision to Admit order: No - Referrals Referrals: Abraham Patel MD [Primary Care Provider] - Luis Mckeon MD [Staff Physician] - - Patient Instructions Printed Discharge Instructions: DI for Atypical Chest Pain Additional Instructions: You were seen in the ER today for indigestion. The results of your labs today were normal. Please follow-up with your primary care doctor and Dr. Mckeon ( cardiology) within 1-2 days to discuss your visit and make sure your symptoms have improved. Please return to the ER if you have any worsening pain or shortness of breath, development of fevers or chills, loss of consciousness, inability to tolerate food or fluids, or any other concerns. - Post Discharge Activity
[2018-07-11 17:08] LABS: BASO % 0.6 % (0-2.0); EOS % 2.5 % (0-4.5); HEMATOCRIT 43.6 % (35.4-49); HEMOGLOBIN 15.2 GM/dL (11.7-16.9); LYMPH % 9.6 % (8-40); MCH 32.8 pg (25.7-33.7); MCHC 34.9 g/dl (32.0-35.9); MEAN PLT VOLUME 9.1 fl (7.5-11.1); MONO % 8.1 % (3.8-10.2); NEUT % 79.2 % (42.8-82.8); PLATELET COUNT 174 K/MM3 (134-434); RBC 4.64 M/mm3 (4.00-5.60); RDW 13.3 % (11.9-15.9); WHITE BLOOD COUNT 6.3 K/mm3 (4.0-10.0)
[2018-07-11 17:29] LABS: INR 1.1 (0.83-1.09)
[2018-07-11 17:38] LABS: N-TERMINAL BNP 89.3 pg/ml (5-125)
[2018-07-11] MEDS ORDERED: MAG HYDROX/AL HYDROX/SIMETH 30 ML UNIT-DOSE CUP PO ONE (17:38)
[2018-07-11] MEDS ORDERED: MAG HYDROX/AL HYDROX/SIMETH 30 ML UNIT-DOSE CUP ONE (17:41)
[2018-07-11 18:01] LABS: ALBUMIN 3.7 g/dl (3.4-5.0); ALK PHOS 107 U/L (45-117); ANION GAP 6 MMOL/L (8-16); BILIRUBIN,TOTAL 0.5 mg/dL (0.2-1); BLOOD UREA NITROGEN 20 mg/dL (7-18); CALCIUM 9.1 mg/dL (8.5-10.1); CHLORIDE 106 mmol/L (98-107); CO2 28 mmol/L (21-32); CREATININE 1.3 mg/dL (0.55-1.3); GLUCOSE,RANDOM 105 mg/dL (74-106); POTASSIUM 4.5 mmol/L (3.5-5.1); SGOT/AST 39 U/L (15-37); SGPT/ALT 61 U/L (13-61); SODIUM 141 mmol/L (136-145); TOT PROT 7.3 g/dl (6.4-8.2)
--- NOTE | 2018-07-11 18:24 | PDOC ---
Attending Attestation - Resident Resident Name: KatieChiquita - ED Attending Attestation I have performed the following: I have examined & evaluated the patient, The case was reviewed & discussed with the resident, I agree w/resident's findings & plan, Exceptions are as noted - HPI HPI: 07/11/18 18:21 68 yo male dev "indigestion" this morning at 11 am Denies nausea,vomiting,dizziness,there is no radiation of pain <Michelle Gonzalez - Last Filed: 07/11/18 18:24> - HPI HPI: This patient is a 68 year old male with PMHx of MS (stent x1 in March 2018 ), A-fib, HTN, HLD, hernia repair, and hyperthyroidism, who presents with "indigestion" and mild SOB since 11am this morning. Patient states the abdominal discomfort occurs in epigastric area, does not radiate, with mild bloating. Patient denies taking any medications. Denies any chest pain, palpitations,LE edema, diaphoresis, nausea, or vomiting. Denies any, diarrhea, constipation, or urinary symptoms. Social: Pt denies any cigarette, alcohol, or drug use. Pt denies any recent travel or sick contacts. Surgical: cardiac stenting (Mar 2018) Family: Mother - DM, CAD; Father - leukemia; Sister- Afib 07/11/18 19:30 <Laura Han - Last Filed: 07/11/18 19:30>
[2018-07-11 20:39] VITALS: BP 132/73; PULSE 56
--- NOTE | 2018-07-12 18:15 | EKG ---
Test Reason : Blood Pressure : / mmHG Vent. Rate : 059 BPM Atrial Rate : 059 BPM P-R Int : 164 ms QRS Dur : 086 ms QT Int : 390 ms P-R-T Axes : 056 015 025 degrees QTc Int : 386 ms SINUS BRADYCARDIA INFERIOR INFARCT (CITED ON OR BEFORE 02-MAY-2018) ABNORMAL ECG Confirmed by MD ALLI, JOCE ([id number]) on 07/12/2018 6:15:25 PM Referred By: Confirmed By:JOCE CARSON MD
== END 2018-07-11 21:06 | disposition home or self-care (01) ==
LOC: JER 15:32
DX: R07.89 Other chest pain (principal); I25.10 Atherosclerotic heart disease of native coronary artery without angina pectoris; I25.83 Coronary atherosclerosis due to lipid rich plaque; I10 Essential (primary) hypertension; Z95.5 Presence of coronary angioplasty implant and graft; I25.2 Old myocardial infarction; I48.91 Unspecified atrial fibrillation; Z79.01 Long term (current) use of anticoagulants; E03.9 Hypothyroidism, unspecified; E78.5 Hyperlipidemia, unspecified; F41.9 Anxiety disorder, unspecified; Z87.442 Personal history of urinary calculi
CPT/HCPCS: 36415; 80053; 82550; 83880; 84484; 85025; 85610; 93005; 93010; 99283-25

== ENCOUNTER 2020-01-16 20:50 | Observation (INO) | payer OTHER ==
[2020-01-16] MEDS ORDERED: dilTIAZem HCL 50 MG/10 ML - 10 ML VIAL IVPUSH ONE ×2 (21:10→22:43)
[2020-01-16] MEDS ORDERED: ASPIRIN 81 MG CHEWABLE TABLETS PO ONE (21:11)
[2020-01-16] MEDS ORDERED: dilTIAZem HCL 125 MG/25 ML - 25 ML VIAL ONE ×2 (21:14→23:07)
[2020-01-16] MEDS ORDERED: ASPIRIN 81 MG CHEWABLE TABLETS ONE (21:16)
--- NOTE | 2020-01-16 21:37 | PDOC ---
Documentation entered by Aliyah Loza SCRIBE, acting as scribe for Michelle Gonzalez MD. Michelle Gonzalez MD: This documentation has been prepared by the Jim parker Xhesika, SCRIBE, under my direction and personally reviewed by me in its entirety. I confirm that the documentation accurately reflects all work, treatment, procedures, and medical decision making performed by me. Attending Attestation - Resident Resident Name: DebbieJaspal - ED Attending Attestation I have performed the following: I have examined & evaluated the patient, The case was reviewed & discussed with the resident, I agree w/resident's findings & plan, Exceptions are as noted - HPI HPI: 01/16/20 21:06 This patient is a 69 year old male with PMHx of SC (stent x1 in March 2018 ), A-fib, HTN, HLD, hernia repair, and hyperthyroidism, who presents to the ED with palpitations since 7:30PM. Pt notes he took his normal doze of diltiazem today and started developing palpitations and dizziness. 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 Pt notes he endorsed similar symptoms before. Allergies: Ampicillin, Penicillins PCP:Dr. Patel Cards: Dr. 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
--- NOTE | 2020-01-16 21:46 | PDOC ---
History of Present Illness - General Chief Complaint: Palpitations Stated Complaint: PALPITATIONS Time Seen by Provider: 01/16/20 21:01 - History of Present Illness Initial Comments: 01/16/20 21:41 69 yo male with PMH of Htn, stents, and Afib on plavix and diltiazem presents to ED for Afib that started 2.5 hours ago today. Pt explains he has had multiple episodes of afib since he changed from bisolic to diltiazem. His most recent occurrence was in November where in the hospital his diltiazem dosage was changed from 120 to 180. Today when having the event he explained that was continuous and getting worse so he called Dr. [place], who told him to take another 180mg of diltiazem, which he took at one hour prior (8pm) (first dose 12pm). Pt still had symptoms so came into ED. Pt currently experiencing lightheadedness, palpitati ons, and diaphoresis, but denies chest pain, SOB, AMS, or any LOC. PMH: HTN, Afib Meds: Diltiazem 180, Plavix 75mg, Levothyroxine 100 mcg, aspirin 81mg Remeron 7.5mg, Lipitor 40 mg PSH: Stent Social: No smoking drugs or alcohol PCP: Dr. Patel 01/16/20 22:16 Past History - Medical History Allergies/Adverse Reactions: Allergies Allergy/AdvReac Type Severity Reaction Status Date / Time ampicillin Allergy Severe Hives Verified 12/01/19 20:43 Penicillins Allergy Severe Hives Verified 12/01/19 20:43 Home Medications: Ambulatory Orders Aspirin [ASA -] 81 mg PO DAILY 02/17/17 Atorvastatin Ca [Lipitor] 40 mg PO HS 01/17/20 Clopidogrel Bisulfate [Plavix] 75 mg PO DAILY 01/17/20 Diltiazem HCl [Diltiazem 24Hr Cd] 180 mg PO AM 01/17/20 Levothyroxine [Synthroid -] 100 mcg PO AM 01/17/20 Anemia: No Asthma: No Cancer: No Cardiac Disorders: Yes (a-fib, STENTS, mi 04/14) CVA: No COPD: No CHF: No Dementia: No GI Disorders: No Disorders: No HTN: Yes Hypercholesterolemia: No Kidney Stones: Yes Liver Disease: No Psychiatric Problems: Yes (ANXIETY.) Seizures: No Thyroid Disease: Yes (HYPO.) - Surgical History Abdominal Surgery: Yes (HERNIA REPAIR, LITHOTRIPSY X5) Appendectomy: No Cardiac Surgery: Yes (STENTS) Cholecystectomy: No Lung Surgery: No Neurologic Surgery: No Orthopedic Surgery: No - Immunization History Immunization Up to Date: Yes - Psycho-Social/Smoking History Smoking Status: Yes Smoking History: Never smoked Have you smoked in the past 12 months: No Number of Cigarettes Smoked Daily: 0 If you are a former smoker, when did you quit?: 12 YEARS AGO Cigars Per Day: 0 - Substance Abuse Hx (Audit-C & DAST Scrn) How often the patient has a drink containing alcohol: Never Score: In Men: 4 or > Positive; In Women: 3 or > Positive: 0 Screen Result (Pos requires Nsg. Audit-10AR): Negative Review of Systems - Review of Systems Comments:: 01/16/20 21:46 GENERAL/CONSTITUTIONAL: No fever or chills. No weakness. HEAD, EYES, EARS, NOSE AND THROAT: No change in vision. No ear pain or discharge. No sore throat. CARDIOVASCULAR: No chest pain or shortness of breath. Palpitations RESPIRATORY: No cough, wheezing, or hemoptysis. GASTROINTESTINAL: No nausea, vomiting, diarrhea or constipation. GENITOURINARY: No dysuria, frequency, or change in urination. MUSCULOSKELETAL: No joint or muscle swelling or pain. No neck or back pain. SKIN: No rash NEUROLOGIC: No headache, vertigo, loss of consciousness, or change in strength/sensation. ENDOCRINE: No increased thirst. No abnormal weight change ALLERGIC/IMMUNOLOGIC: No hives or skin allergy. *Physical Exam - Vital Signs Last Vital Signs Temp Pulse Resp BP Pulse Ox 98.4 F 180 H 33 H 179/96 H 98 01/16/20 21:08 01/16/20 21:08 01/16/20 21:08 01/16/20 21:08 01/16/20 21:08 - Physical Exam 01/16/20 21:47 GENERAL: Awake, alert, and fully oriented, in severe distress HEAD: No signs of trauma, normocephalic, atraumatic EYES: PERRLA, EOMI, sclera anicteric, conjunctiva clear ENT: Auricles normal inspection, hearing grossly normal, nares patent, oropharynx clear without exudates. Moist mucosa NECK: Normal ROM, supple, no lymphadenopathy, JVD, or masses LUNGS: speaks full sentences, clear to auscultation bilaterally HEART: Irregular rate and rhythm ABDOMEN: Tenderness to palpation in all four quadrants (chronic) EXTREMITIES : Normal inspection, Normal range of motion, no edema. No clubbing or cyanosis. NEUROLOGICAL: Cranial nerves II through XII grossly intact. Normal speech, normal gait, no focal sensorimotor deficits SKIN: Warm, perspiration. Heart Score/ECG Review - ECG Impressions Comment:: 01/17/20 16:35 Irregular rhythm irregular rate tachycardic, normal axis, no p waves, no QRS prolongation, No ST changes ED Treatment Course - LABORATORY CBC & Chemistry Diagram: 01/17/20 06:32 01/17/20 06:32 - Medications Given in the ED: ED Medications Discontinued Medications Generic Name Dose Route Start Last Admin Trade Name Freq PRN Reason Stop Dose Admin Aspirin 162 mg 01/16/20 21:11 01/16/20 21:32 Asa - PO 01/16/20 21:12 Not Given ONCE ONE Diltiazem HCl 20 mg 01/16/20 21:10 01/16/20 21:32 Cardizem Injection - IVPUSH 01/16/20 21:11 20 mg ONCE ONE Administration Medical Decision Making - Medical Decision Making 01/16/20 22:03 69 yo male with Pmh Afib on plavix and htn presents to ED with palpitations starting today. Pt labs were drawn and EKG were done showing rapid afib. Pt was given 20 mg of IV diltiazem and pt stabilized. 01/16/20 22:05 Pt is getting repeat EKG will be admitted and signed out to night team. Discharge - Discharge Information Problems reviewed: Yes Clinical Impression/Diagnosis: Afib Condition: Stable - Admission Yes - Follow up/Referral - Patient Discharge Instructions - Post Discharge Activity
[2020-01-16] MEDS ORDERED: MAG HYDROX/AL HYDROX/SIMETH 30 ML UNIT-DOSE CUP ONE (21:51)
[2020-01-16 21:54] LABS: HEMATOCRIT 47.3 % (35.4-49); HEMOGLOBIN 16.4 GM/dL (11.7-16.9); MEAN PLT VOLUME 9.3 fl (7.5-11.1); RDW 12.8 % (11.9-15.9)
[2020-01-16 21:56] LABS: BASO % 0.7 % (0-2.0); EOS % 1.5 % (0-4.5); LYMPH % 16.7 % (8-40); MCH 33.2 pg (25.7-33.7); MCHC 34.6 g/dl (32.0-35.9); MEAN CELL VOLUME 95.8 fl (80-96); NEUT % 72.1 % (42.8-82.8); PLATELET COUNT 184 K/MM3 (134-434); RBC 4.94 M/mm3 (4.00-5.60); WHITE BLOOD COUNT 7.5 K/mm3 (4.0-10.0)
[2020-01-16] MEDS ORDERED: MAG HYDROX/AL HYDROX/SIMETH 30 ML UNIT-DOSE CUP PO ONE (21:57)
[2020-01-16 22:01] LABS: INR 0.97 (0.83-1.09); PROTHROMBIN TIME (PATIENT) 11.4 SEC (9.7-13.0)
[2020-01-16 22:03] LABS: ACTIVATED PTT 27.3 SECONDS (25.2-36.5)
--- NOTE | 2020-01-16 22:21 | PDOC ---
*Physical Exam - Vital Signs Last Vital Signs Temp Pulse Resp BP Pulse Ox 98.4 F 180 H 33 H 179/96 H 98 01/16/20 21:08 01/16/20 21:08 01/16/20 21:08 01/16/20 21:08 01/16/20 21:08 ED Treatment Course - LABORATORY CBC & Chemistry Diagram: 01/16/20 21:20 01/16/20 21:32 - ADDITIONAL ORDERS Additional order review: Laboratory Results 01/16/20 21:20 PT with INR 11.40 INR 0.97 PTT (Actin FS) 27.3 01/16/20 21:20 RBC 4.94 MCV 95.8 MCHC 34.6 RDW 12.8 MPV 9.3 Neutrophils % 72.1 Lymphocytes % 16.7 D Monocytes % 9.0 Eosinophils % 1.5 Basophils % 0.7 - Medications Given in the ED: ED Medications Discontinued Medications Generic Name Dose Route Start Last Admin Trade Name Yan PRN Reason Stop Dose Admin Al Hydroxide/Mg Hydroxide 30 ml 01/16/20 21:57 01/16/20 21:59 Mylanta Oral Suspension - PO 01/16/20 21:58 30 ml ONCE ONE Administration Aspirin 162 mg 01/16/20 21:11 01/16/20 21:32 Asa - PO 01/16/20 21:12 Not Given ONCE ONE Diltiazem HCl 20 mg 01/16/20 21:10 01/16/20 21:32 Cardizem Injection - IVPUSH 01/16/20 21:11 20 mg ONCE ONE Administration Medical Decision Making - Medical Decision Making 01/16/20 22:20 Received sign out form day team. 69 yo male with PMH of Htn, stents, and Afib on plavix and diltiazem presents to ED for Afib that started at 730pm, HR remained in 170s despite 180 dilt at noon and 180 dilt at 8pm. Pt out of Afib w/RVR s/p 20 dilt IV. HR 108, Afib. Spoke with Dr Mckeon - recommended d/c vs obs depending on how pt felt and if went to [facility]. 01/16/20 23:51 Pt remains in Afib 80s-100s despite 20 dilt followed by 10 dilt plus ativan. Pt feels okay but does not feel comfortable going home still in Afib. -Lovenox Will admit tele obs. Discharge - Discharge Information Problems reviewed: Yes Clinical Impression/Diagnosis: Afib Condition: Stable - Admission Yes - Follow up/Referral Referrals: Abraham Patel MD [Primary Care Provider] - - Patient Discharge Instructions - Post Discharge Activity
[2020-01-16 22:23] LABS: ALBUMIN 4.2 g/dl (3.4-5.0); ALK PHOS 85 U/L (45-117); ANION GAP 9 MMOL/L (8-16); CALCIUM 9.5 mg/dL (8.5-10.1); CHLORIDE 106 mmol/L (98-107); CO2 25 mmol/L (21-32); CREATININE 1.5 mg/dL (0.55-1.3); GLUCOSE,RANDOM 158 mg/dL (74-106); MAGNESIUM 2.4 mg/dL (1.8-2.4); SGOT/AST 32 U/L (15-37); SGPT/ALT 44 U/L (13-61); SODIUM 140 mmol/L (136-145); TOT PROT 7.6 g/dl (6.4-8.2)
[2020-01-16] MEDS ORDERED: LORazepam 0.5 MG TABLET PO ONE (22:34)
[2020-01-16] MEDS ORDERED: ENOXAPARIN NA (PORCINE) 100 MG/1 ML DISP.SYRIN SQ ONE ×2 (22:39→23:07)
[2020-01-16 23:05] LABS: BILIRUBIN,TOTAL 0.5 mg/dL (0.2-1)
[2020-01-16] MEDS ORDERED: LORazepam 0.5 MG TABLET ONE (23:06)
--- NOTE | 2020-01-17 01:48 | PN ---
Teaching Attending Note Name of Resident: Ernst Pathak ATTENDING PHYSICIAN STATEMENT I saw and evaluated the patient. I reviewed the resident's note and discussed the case with the resident. I agree with the resident's findings and plan as documented. SUBJECTIVE: Patient is a 69 year old man with a PMH of HTN, HLD, UT (s/p Stent - 03/2018), A fib (on Plavix + Cardiazem), Anxiety, Lithotripsy, Penicillin allergy, Hernia repair and Hypothyroidism presents to the ER with palpitations that started 2.5 hours prior to arrival. Patient reports he has had multiple episodes of Afib since he changed from Bystolic to Diltiazem. His most recent occurrence was in November where in the hospital his diltiazem dosage was changed from 120 to 180. Today when having the event he Dr. Hardin, who told him to take another 180mg of diltiazem, which he took at one hour prior (8pm) - (first dose 12pm). Patient still had symptoms so came into ER. Currently experiencing lightheadedness, palpitations, and diaphoresis, but denies chest pain, SOB, AMS or any LOC. Patient denies abdominal pain, headache, fever, chills, nausea, vomiting, diarrhea, constipation, dysuria, frequency, urgency, melena, hematochezia or hematuria. Denies alcohol, tobacco or illicit drug use. No sick contacts or recent travels. Family history is unremarkable. On arrival his rate was 171 and after 20 mg Cardiazem IV, the rate improved to 102. OBJECTIVE: Alert Vital Signs Period Temp Pulse Resp BP Sys/Ferrera Pulse Ox Last 24 Hr 98.4 F 97-180 20-33 110-179/66-96 95-98 HEENT: No Jaundice, eye redness or discharge, PERRLA, EOMI. Normocephalic, atraumatic. External ears are normal and hearing is grossly intact. No nasal discharge. Neck: Supple, nontender. No palpable adenopathy or thyromegaly. No JVD Chest: Good effort. Clear to auscultation and percussion. Heart: Irregularly irregular. No S3, rub or murmur Abdomen: Not distended, soft, nontender and no HSM. No rebound or guarding. Normal bowel sounds. Ext: Peripheral pulses intact. No leg edema. Skin: Warm and dry. No petechiae, rash or ecchymosis. Neuro: Alert. Oriented x3. CN 2-12 grossly intact. Sensation grossly intact in all four extremities and DTR are symmetric. Psych: Appropriate mood and affect. Good insight. Home Medications Medication Instructions Recorded Aspirin [ASA -] 81 mg PO DAILY 02/17/17 Levothyroxine [Synthroid -] 100 mcg PO DAILY@0700 #30 tablet 12/10/17 Atorvastatin Ca [Lipitor] 80 mg PO HS 05/03/18 Clopidogrel Bisulfate [Plavix] 75 mg PO DAILY 01/17/20 Diltiazem HCl [Diltiazem 24Hr Cd] 180 mg PO DAILY 01/17/20 Mirtazapine [Remeron -] 7.5 mg PO DAILY 01/17/20 Abnormal Lab Results 01/16/20 21:32 Creatinine 1.5 H Random Glucose 158 H Current Medications Generic Name Dose Route Start Last Admin Trade Name Freq PRN Reason Stop Dose Admin Diltiazem HCl 60 mg 01/17/20 03:45 Cardizem - PO 01/17/20 03:46 ONCE ONE Diltiazem HCl 60 mg 01/17/20 10:00 Cardizem - PO Q6HPO CRISTHIAN Enoxaparin Sodium 40 mg 01/17/20 20:00 Lovenox - SQ DAILY [facility] ASSESSMENT AND PLAN: 1. Afib with RVR - Will continue Cardiazem 60 mg q 6 hours. EKG shows Afib at 171/minute and QTc [address]-T wave changes. Initial troponin is negative. Will admit to telemetry, trend troponin, get ECHO, urinalysis, urine/protein creatinine ratio, fasting lipids, TSH, HbA1c and consult Cardiology. His [id number] score is 3 - unclear why he was not on anticoagulation. Got Lovenox 100 mg sq in the ER. Digital Account Coordinator will determine anticoagulant going forward. No acute abnormality on CXR. Viral testing for COVID-19 ordered and patient placed on airborne, droplet and contact isolation. Will continue comprehensive care for all of patients comorbid conditions. 2. Hypertension No ACEI/ARB on his medication list - will verify with his Pharmacy during the day. Will restart suitable outpatient antihypertensive drugs when clinically appropriate. Subsequently, will revise regimen to ensure [id number] excellent BP control. Patient counseled on the injurious effects of uncontrolled hypertension. Nonpharmacologic measures to control hypertension like weight loss, salt restriction and exercise stressed. Importance of adherence to treatment regimen and attainment of normotension emphasized. 3. DVT prophylaxis - Lovenox 40 mg SQ q 24 hours starting tomorrow if not started on DOAC by Digital Account Coordinator. 4. Advance directives - Full code
[2020-01-17] MEDS ORDERED: dilTIAZem HCL 60 MG TABLET PO ONE (03:45)
--- NOTE | 2020-01-17 04:53 | HP ---
CHIEF COMPLAINT: I had rapid heart beat PCP: HISTORY OF PRESENT ILLNESS: Hector Hugo is a 69 M with a PMH of ME(stent x 1, mar 2018), Afib(plavix, cardizem), HTN, HLD, and Hypothyroidism presents rapid abnormal heart beat since 7.30 pm. Patient reports that he has multiple previous episodes in the past, most recent admission to ER on 12/01/19. Today after he ate food, he was having a little indigestion and suddenly felt rapid, abnormal heart rate around 7.30 pm. He called his mail superintendent, Dr. Hardin who advised him to take another dose of his home meds (8.00pm) of 180 mg of diltiazem (11.30 am he also had his regular daily dose). Palpitations did not resolve with medications, which prompt him to ER. He reported lightheadedness with palpitations, but denies any chest pain, SOB, Headache, nausea, vomiting, fever, chills, or LOC/fall. Previous 12/01/19: patient presented with 2 hours of palpitations. Cardizem 20mg IV + Cardizem 60mg PO was given, Converted to sinus tachycardia at 107. Increased diltiazem dosage from 120 to 180mg. ER: EKG was significant for afib w/rvr @ 171. Pt received 20mg IV Cardizem. repeat EKG: afib @ 108. Pt received another 10mg IV Cardizem + Ativan. Pt remains persistent afib @ 80s-100. ER course was notable for: (1) BS 158 (2) Crea 1.5 (3) Recent Travel: denies PAST MEDICAL HISTORY: As above in HPI PAST SURGICAL HISTORY: hernia repair, Stent placement, Lithotripsy Social History: Smokin pack per day, quit 13 years ago Alcohol: denies Drugs: denies Allergies ampicillin Allergy (Severe, Verified 12/01/19 20:43) Hives Penicillins Allergy (Severe, Verified 12/01/19 20:43) Hives HOME MEDICATIONS: Home Medications Medication Instructions Recorded Aspirin [ASA -] 81 mg PO DAILY 02/17/17 Atorvastatin Ca [Lipitor] 40 mg PO HS 01/17/20 Clopidogrel Bisulfate [Plavix] 75 mg PO DAILY 01/17/20 Diltiazem HCl [Diltiazem 24Hr Cd] 180 mg PO AM 01/17/20 Levothyroxine [Synthroid -] 100 mcg PO AM 01/17/20 REVIEW OF SYSTEMS CONSTITUTIONAL: Absent: fever, chills, diaphoresis, generalized weakness, malaise, loss of appetite, HEENT: Absent: rhinorrhea, nasal congestion, throat swelling, difficulty swallowing, visual changes CARDIOVASCULAR: Present: palpitations, irregular heart rate Absent: chest pain, syncope lightheadedness, peripheral edema RESPIRATORY: Absent: cough, shortness of breath, dyspnea with exertion, orthopnea, wheezing GASTROINTESTINAL: Absent: abdominal pain, abdominal distension, nausea, vomiting, diarrhea, constipation GENITOURINARY: Absent: dysuria, frequency, urgency, hesitancy, hematuria, flank pain MUSCULOSKELETAL: Absent: myalgia, arthralgia, joint swelling, back pain, neck pain SKIN: Absent: rash, itching, pallor NEUROLOGIC: Absent: headache, focal weakness or paresthesias, dizziness, unsteady gait, seizure, mental status changes, bladder or bowel incontinence PHYSICAL EXAMINATION Vital Signs - 24 hr 01/16/20 01/16/20 01/16/20 21:06 21:08 21:25 Temperature 98.4 F Pulse Rate 180 H Pulse Rate [ 157 H 104 H Radial] Respiratory 33 H 25 H Rate Blood Pressure 179/96 H Blood Pressure 179/96 H 152/92 [Right Arm] O2 Sat by Pulse 98 98 98 Oximetry (%) 01/16/20 01/16/20 01/17/20 22:40 23:19 00:18 Temperature Pulse Rate Pulse Rate [ 110 H 97 H 106 H Radial] Respiratory 25 H 23 H 20 Rate Blood Pressure Blood Pressure 110/66 114/66 135/69 [Right Arm] O2 Sat by Pulse 95 97 97 Oximetry (%) GENERAL: Awake, alert, and fully oriented, in no acute distress. HEAD: Normal with no signs of trauma. EYES: Pupils equal, round and reactive to light, extraocular movements intact, sclera anicteric, conjunctiva clear. EARS, NOSE, THROAT: Ears normal, nares patent, oropharynx clear without exudates. Moist mucous membranes. NECK: Normal range of motion, supple without lymphadenopathy, JVD, or masses. LUNGS: Breath sounds equal, clear to auscultation bilaterally. No wheezes, and no crackles. No accessory muscle use. HEART: Irregular rate and rhythm, normal S1 and S2 without murmur, rub or gallop. ABDOMEN: Soft, nontender, not distended, normoactive bowel sounds, no guarding, no rebound, no masses. No hepatomegaly or splenomegaly. MUSCULOSKELETAL: Normal range of motion at all joints. No bony deformities or tenderness. No CVA tenderness. UPPER EXTREMITIES: 2+ pulses, warm, well-perfused. No cyanosis. No clubbing. No peripheral edema. LOWER EXTREMITIES: 2+ pulses, warm, well-perfused. No calf tenderness. No peripheral edema. NEUROLOGICAL: Cranial nerves II-XII intact. Normal speech. Normal gait. PSYCHIATRIC: Cooperative. Good eye contact. Appropriate mood and affect. SKIN: Warm, dry, normal turgor, no rashes or lesions noted, normal capillary refill. Laboratory Results - last 24 hr 01/16/20 01/16/20 01/16/20 21:20 21:20 21:32 WBC 7.5 RBC 4.94 Hgb 16.4 Hct 47.3 MCV 95.8 MCH 33.2 MCHC 34.6 RDW 12.8 Plt Count 184 MPV 9.3 Absolute Neuts (auto) 5.4 Neutrophils % 72.1 Lymphocytes % 16.7 D Monocytes % 9.0 Eosinophils % 1.5 Basophils % 0.7 Nucleated RBC % 0 PT with INR 11.40 INR 0.97 PTT (Actin FS) 27.3 Sodium 140 Potassium 4.0 Chloride 106 Carbon Dioxide 25 Anion Gap 9 BUN 18.0 Creatinine 1.5 H Est GFR (CKD-EPI)AfAm 53.52 Est GFR (CKD-EPI)NonAf 46.17 Random Glucose 158 H Calcium 9.5 Magnesium 2.4 Total Bilirubin 0.5 AST 32 ALT 44 Alkaline Phosphatase 85 Creatine Kinase 163 Creatine Kinase Index 1.9 CK-MB (CK-2) 3.1 Troponin I < 0.02 Total Protein 7.6 Albumin 4.2 ASSESSMENT/PLAN: 69 M with a PMH of ME (stent x 1, mar 2018), Afib(plavix, cardizem), HTN, HLD, and Hypothyroidism presents rapid abnormal heart beat. EKG was significant for afib w/rvr @ 171. Pt received 30mg IV Cardizem in ED. Patient is admitted to Tele-Obs for managemnt of his afib. #AFIB with RVR - EKG was significant for afib w/rvr @ 171. - patient is stable at this time with persistent afib @70-80s - Negative trops, will trend trops - Ordered Echo to evaluate for structural abnormalities - Cardiology is consulted, will f/u with recs - [id number] score: 3, patient is currently not on any AC. - f/u with TSH #HTN - continue to monitor v/s - patient is not currently on ACEI/ARBs, will f/u with Urine protein, Crea ratio, evaluate for kidney functions - f/u HbA1c #FEN - No Standing fluids - Continue to monitor electrolytes - Sodium controlled diet #DVT PPX - Lovenox 40 mg starting at 01/16 20:00, patient received Lovenox 100 mg sq in the ER #DISPO: - will continue to monitor on Tele-obs, pending Cardiology eval Visit type - Medication Review Med list reviewed for High Risk Meds patients 65 and older: Yes - Emergency Visit Emergency Visit: Yes ED Registration Date: 01/16/20 Care time: The patient presented to the Emergency Department on the above date and was hospitalized for further evaluation of their emergent condition. - New Patient This patient is new to me today: Yes Date on this admission: 01/17/20 - Critical Care Critical Care patient: No ATTENDING PHYSICIAN STATEMENT I saw and evaluated the patient. I reviewed the resident's note and discussed the case with the resident. I agree with the resident's findings and plan as documented. SUBJECTIVE: OBJECTIVE: ASSESSMENT AND PLAN:
[2020-01-17 05:05] LABS: URINE APPEARANCE CLEAR; URINE BILIRUBIN NEGATIVE (NEGATIVE); URINE COLOR YELLOW; URINE GLUCOSE (UA) NEGATIVE (NEGATIVE); URINE KETONE NEGATIVE (NEGATIVE); URINE LEUK ESTERASE NEGATIVE (NEGATIVE); URINE NITRITE NEGATIVE (NEGATIVE); URINE PROTEIN NEGATIVE (NEGATIVE); URINE UROBILINOGEN 0.2 mg/dL (0.2-1.0)
[2020-01-17] MEDS ORDERED: LEVOTHYROXINE NA 25 MCG TABLET (FP) ONE (06:37)
[2020-01-17 06:53] LABS: HEMATOCRIT 46.5 % (35.4-49); HEMOGLOBIN 15.7 GM/dL (11.7-16.9); LYMPH % 18.7 % (8-40); MCH 32.4 pg (25.7-33.7); MCHC 33.8 g/dl (32.0-35.9); MEAN CELL VOLUME 95.9 fl (80-96); MEAN PLT VOLUME 8.9 fl (7.5-11.1); MONO % 10.4 % (3.8-10.2); NEUT % 67.9 % (42.8-82.8); PLATELET COUNT 193 K/MM3 (134-434); RBC 4.85 M/mm3 (4.00-5.60); RDW 12.5 % (11.9-15.9); WHITE BLOOD COUNT 8.5 K/mm3 (4.0-10.0)
[2020-01-17] MEDS: LEVOTHYROXINE NA 100 MCG TABLET (FP) PO SCH (07:01)
[2020-01-17 07:20] LABS: ALBUMIN 3.8 g/dl (3.4-5.0); ALK PHOS 69 U/L (45-117); ANION GAP 4 MMOL/L (8-16); BILIRUBIN,TOTAL 0.7 mg/dL (0.2-1); BLOOD UREA NITROGEN 18.9 mg/dL (7-18); CALCIUM 9.3 mg/dL (8.5-10.1); CHLORIDE 107 mmol/L (98-107); CO2 30 mmol/L (21-32); CREATININE 1.2 mg/dL (0.55-1.3); GLUCOSE,RANDOM 113 mg/dL (74-106); MAGNESIUM 2.6 mg/dL (1.8-2.4); PHOSPHOROUS 4.1 mg/dL (2.5-4.9); POTASSIUM 4.3 mmol/L (3.5-5.1); SGOT/AST 23 U/L (15-37); SGPT/ALT 38 U/L (13-61); SODIUM 141 mmol/L (136-145)
[2020-01-17] MEDS ORDERED: dilTIAZem HCL 60 MG TABLET ONE (07:59)
[2020-01-17] MEDS: dilTIAZem HCL 60 MG TABLET PO SCH ×3 (08:00→17:48)
[2020-01-17 09:29] LABS: CHOLESTEROL 114 mg/dL (50-200); HDL CHOLESTEROL 44 mg/dL (40-60); LDL CHOLESTEROL (ONLY SJRH) 56 mg/dL (5-100); TRIGLYCERIDES 137 mg/dL (0-150)
[2020-01-17] MEDS ORDERED: ASPIRIN 81 MG CHEWABLE TABLETS ONE (09:47)
[2020-01-17] MEDS ORDERED: CLOPIDOGREL BISULFATE 75 MG TABLET (FP) ONE (09:48)
[2020-01-17] MEDS ORDERED: dilTIAZem HCL 60 MG TABLET PO SCH (10:00)
[2020-01-17] MEDS: CLOPIDOGREL BISULFATE 75 MG TABLET (FP) PO SCH (10:24)
[2020-01-17] MEDS: ASPIRIN 81 MG CHEWABLE TABLETS PO SCH (10:24)
--- NOTE | 2020-01-17 10:51 | PN ---
Physical Exam: SUBJECTIVE: Patient seen and examined in the ER accompanied by his , appears comfortable lying in stretcher, appears in no acute distress, denies chest pain, SOB, palpitations, pain, c/o mild abdominal discomfort but states he "always has abdominal discomfort" OBJECTIVE: 69 M with a PMH of ID(stent x 1, mar 2018), Afib( on plavix, cardizem), HTN, HLD, and Hypothyroidism presents w/ c/o palpitations and rapid heart rate since 7.30 pm. Patient reports that he has multiple previous episodes in the past, most recent admission to ER on 12/01/19. Pt states he developed rapid abnormal hear rate after eating dinner. He called his shoemaker custom, Dr. Hardin who advised him to take another dose of his home meds of 180 mg of diltiazem at 8pm (he also had his regular dose at noon). P states he did not feel better so he came to the ED. He reported lightheadedness with palpitations, but denied any chest pain, SOB, Headache, nausea, vomiting, fever, chills, or LOC/fall. EKG showed pt was in rapid Afib, was given 20mg IV cardizem, repeat EKG showed HR 108, additional 10mg IV cardizem and ativan, repeat HR in 80s Vital Signs Period Temp Pulse Resp BP Sys/Ferrera Pulse Ox Last 24 Hr 97.1 F-98.4 F 66-180 14-33 103-179/66-96 95-98 GENERAL: The patient is awake, alert, and fully oriented, in no acute distress. HEAD: Normal with no signs of trauma. EYES: PERRL, extraocular movements intact, sclera anicteric, conjunctiva clear. No ptosis. ENT: Ears normal, nares patent, oropharynx clear without exudates, moist mucous membranes. NECK: Trachea midline, full range of motion, supple. LUNGS: Breath sounds equal, clear to auscultation bilaterally, no wheezes, no crackles, no accessory muscle use. HEART: Regular rate and rhythm, S1, S2 without murmur, rub or gallop. ABDOMEN: Soft, nontender, distended, normoactive bowel sounds, no guarding, no rebound, no hepatosplenomegaly, no masses. EXTREMITIES: 2+ pulses, warm, well-perfused, no edema. NEUROLOGICAL: Cranial nerves II through XII grossly intact. Normal speech, gait not observed. PSYCH: Normal mood, normal affect. SKIN: Warm, dry, normal turgor, no rashes or lesions noted Laboratory Results - last 24 hr 01/16/20 01/16/20 01/16/20 21:20 21:20 21:32 WBC 7.5 RBC 4.94 Hgb 16.4 Hct 47.3 MCV 95.8 MCH 33.2 MCHC 34.6 RDW 12.8 Plt Count 184 MPV 9.3 Absolute Neuts (auto) 5.4 Neutrophils % 72.1 Lymphocytes % 16.7 D Monocytes % 9.0 Eosinophils % 1.5 Basophils % 0.7 Nucleated RBC % 0 PT with INR 11.40 INR 0.97 PTT (Actin FS) 27.3 Sodium 140 Potassium 4.0 Chloride 106 Carbon Dioxide 25 Anion Gap 9 BUN 18.0 Creatinine 1.5 H Est GFR (CKD-EPI)AfAm 53.52 Est GFR (CKD-EPI)NonAf 46.17 Random Glucose 158 H Hemoglobin A1c % Calcium 9.5 Phosphorus Magnesium 2.4 Total Bilirubin 0.5 AST 32 ALT 44 Alkaline Phosphatase 85 Creatine Kinase 163 Creatine Kinase Index 1.9 CK-MB (CK-2) 3.1 Troponin I < 0.02 Total Protein 7.6 Albumin 4.2 Triglycerides Cholesterol Total LDL Cholesterol HDL Cholesterol TSH Urine Color Urine Appearance Urine pH Ur Specific [place] Urine Protein Urine Glucose (UA) Urine Ketones Urine Blood Urine Nitrite Urine Bilirubin Urine Urobilinogen Ur Leukocyte Esterase Ur Random Creatinine U Random Total Protein Protein/Creatinin Ratio 01/17/20 01/17/20 01/17/20 04:32 04:32 06:32 WBC 8.5 RBC 4.85 Hgb 15.7 Hct 46.5 MCV 95.9 MCH 32.4 MCHC 33.8 RDW 12.5 Plt Count 193 MPV 8.9 Absolute Neuts (auto) 5.8 Neutrophils % 67.9 Lymphocytes % 18.7 Monocytes % 10.4 H Eosinophils % 2.0 Basophils % 1.0 Nucleated RBC % 0 PT with INR INR PTT (Actin FS) Sodium Potassium Chloride Carbon Dioxide Anion Gap BUN Creatinine Est GFR (CKD-EPI)AfAm Est GFR (CKD-EPI)NonAf Random Glucose Hemoglobin A1c % Calcium Phosphorus Magnesium Total Bilirubin AST ALT Alkaline Phosphatase Creatine Kinase Creatine Kinase Index CK-MB (CK-2) Troponin I Total Protein Albumin Triglycerides Cholesterol Total LDL Cholesterol HDL Cholesterol TSH Urine Color Yellow Urine Appearance Clear Urine pH 7.0 Ur Specific [place] 1.021 Urine Protein Negative Urine Glucose (UA) Negative Urine Ketones Negative Urine Blood Negative Urine Nitrite Negative Urine Bilirubin Negative Urine Urobilinogen 0.2 Ur Leukocyte Esterase Negative Ur Random Creatinine 194.0 H U Random Total Protein 7.2 Protein/Creatinin Ratio 0.0 01/17/20 01/17/20 01/17/20 06:32 06:32 09:30 WBC RBC Hgb Hct MCV MCH MCHC RDW Plt Count MPV Absolute Neuts (auto) Neutrophils % Lymphocytes % Monocytes % Eosinophils % Basophils % Nucleated RBC % PT with INR INR PTT (Actin FS) Sodium 141 Potassium 4.3 Chloride 107 Carbon Dioxide 30 Anion Gap 4 L BUN 18.9 H Creatinine 1.2 Est GFR (CKD-EPI)AfAm 70.09 Est GFR (CKD-EPI)NonAf 60.47 Random Glucose 113 H Hemoglobin A1c % 6.0 Calcium 9.3 Phosphorus 4.1 Magnesium 2.6 H Total Bilirubin 0.7 AST 23 ALT 38 Alkaline Phosphatase 69 Creatine Kinase Creatine Kinase Index CK-MB (CK-2) Troponin I < 0.02 < 0.02 Total Protein 7.0 Albumin 3.8 Triglycerides 137 Cholesterol 114 Total LDL Cholesterol 56 HDL Cholesterol 44 TSH 1.12 D Urine Color Urine Appearance Urine pH Ur Specific [place] Urine Protein Urine Glucose (UA) Urine Ketones Urine Blood Urine Nitrite Urine Bilirubin Urine Urobilinogen Ur Leukocyte Esterase Ur Random Creatinine U Random Total Protein Protein/Creatinin Ratio Active Medications Generic Name Dose Route Start Last Admin Trade Name Yan PRN Reason Stop Dose Admin Aspirin 81 mg 01/17/20 10:00 01/17/20 10:24 Asa - PO 81 mg DAILY [facility] Administration Atorvastatin Calcium 40 mg 01/17/20 22:00 Lipitor - PO HS CRISTHIAN Clopidogrel Bisulfate 75 mg 01/17/20 10:00 01/17/20 10:24 Plavix - PO 75 mg DAILY CRISTHIAN Administration Diltiazem HCl 60 mg 01/17/20 08:00 01/17/20 08:00 Cardizem - PO 60 mg Q6HPO CRISTHIAN Administration Enoxaparin Sodium 40 mg 01/17/20 20:00 Lovenox - SQ DAILY [facility] Levothyroxine Sodium 100 mcg 01/17/20 07:00 01/17/20 07:01 Synthroid - PO 100 mcg AM CRISTHIAN Administration ASSESSMENT/PLAN: Problem List - Problems (1) Atrial fibrillation with rapid ventricular response Assessment/Plan: IV cardizem given in ED pt now with HR in 60s trop negative cardiology consult pending continue ASA and Plavix continue cardizem 60mg PO q6h continue cardiac cath lab technologist admit to tele-obs Repeat EKG today Echo ordered for today 01/16 Code(s): I48.91 - UNSPECIFIED ATRIAL FIBRILLATION (2) HLD (hyperlipidemia) Assessment/Plan: continue lipitor 40mg Code(s): E78.5 - HYPERLIPIDEMIA, UNSPECIFIED (3) Hypothyroidism Assessment/Plan: continue levothyroxine 100mcg Code(s): E03.9 - HYPOTHYROIDISM, UNSPECIFIED (4) RAOMN (acute kidney injury) Assessment/Plan: creatinine 1.5 on admission now 1.2 repeat CMP in morning encourage PO water intake Code(s): N17.9 - ACUTE KIDNEY FAILURE, UNSPECIFIED (5) Hypertension Assessment/Plan: normotensive today continue cardizem PO vital signs q4h Code(s): I10 - ESSENTIAL (PRIMARY) HYPERTENSION (6) DVT prophylaxis Assessment/Plan: received lovenox 100mg x1 last night (01/15) start lovenox 40mg SQ daily Diet: sodium controlled diet Code(s): Z29.9 - ENCOUNTER FOR PROPHYLACTIC MEASURES, UNSPECIFIED Visit type - Emergency Visit Emergency Visit: Yes ED Registration Date: 01/16/20 Care time: The patient presented to the Emergency Department on the above date and was hospitalized for further evaluation of their emergent condition. - New Patient This patient is new to me today: Yes Date on this admission: 01/17/20 - Critical Care Critical Care patient: No - Discharge Referral Referred to [facility] Med P.C[facility] No - Medication Review Med list reviewed for High Risk Meds patients 65 and older: Yes
--- NOTE | 2020-01-17 12:45 | ECHO ---
Version: 1 Name: AVERY SALAZAR Exam: Adult Echocardiogram Study Date: 01/17/2020, 11:33 AM Age: 69 Years MMode/2D Measurements & Calculations IVSd: 1.22 cm LVIDs: 2.8 cm LVIDd: 4.6 cm LVPWd: 0.88 cm LAV (MOD-bp): 30.0 ml ACS: 2.23 cm Ao root diam: 3.3 cm LVOT diam: 2.06 cm LA dimension: 3.6 cm Doppler Measurements & Calculations MV E max willy: 80.0 cm/sec MVA(VTI): 3.7 cm MV A max willy: 77.0 cm/sec MV V2 max: 104.5 cm/sec MV mean P.78 mmHg MV max P.4 mmHg MV E/A: 1.04 Med E/e': 9.0 Lat E/e': 10.7 Med Peak E' Willy: 8.9 cm/sec Lat Peak E' Willy: 7.5 cm/sec Ao max P.3 mmHg JOSE EDUARDO(I,D): 2.9 cm Ao mean P.8 mmHg LV V1 mean: 86.3 cm/sec Ao V2 max: 143.9 cm/sec LV V1 mean P.4 mmHg TR max willy: 182.5 cm/sec TR max P.5 mmHg Procedure The study was technically difficult with many images being suboptimal in quality. Left Ventricle The left ventricle is grossly normal size. The left ventricle is hyperdynamic. Ejection Fraction = 7 0-75%. The transmitral spectral Doppler flow pattern is suggestive of impaired LV relaxation. Right Ventricle The right ventricle is grossly normal size. The right ventricular systolic function is normal. Atria Normal left and right atrial size and function. Mitral Valve There is mild to moderate mitral annular calcification. There is mild mitral regurgitation. Tricuspid Valve The tricuspid valve is not well visualized, but is grossly normal. There is trace tricuspid regurgit ation. There was insufficient TR detected to calculate RV systolic pressure. Aortic Valve There is moderate aortic sclerosis.;. No hemodynamically significant valvular aortic stenosis. Pulmonic Valve The pulmonic valve is not well visualized. Great Vessels The aortic root is normal size. Pericardium/Pleura There is no pericardial effusion. Tech Comments Technically difficult study due to patients body habitus. Summary Statements The study was technically difficult with many images being suboptimal in quality. The left ventricle is grossly normal size. The left ventricle is hyperdynamic. Ejection Fraction = 7 0-75%. The right ventricle is grossly normal size. The right ventricular systolic function is normal. Normal left and right atrial size and function. There is moderate aortic sclerosis.; No hemodynamically significant valvular aortic stenosis. There is mild to moderate mitral annular calcification. There is mild mitral regurgitation. MD Jania Pimentel01/17/2020, 12:44 PM Ordering Physician: Izaiah Isabel Performed By: JOHN GARRETT
--- NOTE | 2020-01-17 12:53 | EKG ---
Test Reason : Blood Pressure : / mmHG Vent. Rate : 102 BPM Atrial Rate : 086 BPM P-R Int : 000 ms QRS Dur : 080 ms QT Int : 346 ms P-R-T Axes : 000 027 062 degrees QTc Int : 450 ms ATRIAL FIBRILLATION WITH RAPID VENTRICULAR RESPONSE INFERIOR INFARCT (CITED ON OR BEFORE 02-MAY-2018) ABNORMAL ECG WHEN COMPARED WITH ECG OF 16-JAN-2020 21:01, PREVIOUS ECG HAS UNDETERMINED RHYTHM, NEEDS REVIEW Confirmed by MD MARY, HERO ([id number]) on 01/17/2020 12:53:20 PM Referred By: Confirmed By:HERO HERNANDEZ MD
--- NOTE | 2020-01-17 12:54 | EKG ---
Test Reason : Blood Pressure : / mmHG Vent. Rate : 171 BPM Atrial Rate : 166 BPM P-R Int : 208 ms QRS Dur : 080 ms QT Int : 258 ms P-R-T Axes : 049 033 053 degrees QTc Int : 435 ms ATRIAL FIBRILLATION WITH RAPID VENTRICULAR RESPONSE POSSIBLE INFERIOR INFARCT (CITED ON OR BEFORE 02-MAY-2018) ABNORMAL ECG Confirmed by MD MARY, HERO ([id number]) on 01/17/2020 12:54:14 PM Referred By: Confirmed By:HERO HERNANDEZ MD
--- NOTE | 2020-01-17 13:16 | CON.CARD ---
Cardiology Consult (text) - Consultation Consultation Note: Chief Complaint: palpitations History of Present Illness: 69M h/o afib, HTN, hypothyroidism, anxiety, CAD, MN s/p BETITO to prox RCA 04/22/2018 admitted for palpitations. Had an episode of indigestion then felt racing heart. Spoke with Dr Mckeon on the phone, recommended to take a second diltiazem CD 180 mg (takes once a day). He felt dizzy after especially after standing up and went to ER. No chest pain, dyspnea, orthopnea, edema PMH: PAFib HTN hypothyroid anxiety CAD, s/p MN BETITO to prox RCA 04/22/18 - Past Medical History Cardio/Vascular: Yes: AFIB, HTN, CAD - Past Surgical History Past Surgical History: Yes: Hernia Repair - Alcohol/Substance Use Hx Alcohol Use: No History of Substance Use: reports: None - Smoking History Smoking history: Unknown if ever smoked Have you smoked in the past 12 months: No Aproximately how many cigarettes per day: 0 - Social History ADL: Independent History of Recent Travel: No Home Medications - Allergies Allergies/Adverse Reactions: Allergies Allergy/AdvReac Type Severity Reaction Status Date / Time ampicillin Allergy Severe Hives Verified 12/01/19 20:43 Penicillins Allergy Severe Hives Verified 12/01/19 20:43 - Home Medications Home Medications Medication Instructions Recorded Aspirin [ASA -] 81 mg PO DAILY 02/17/17 Atorvastatin Ca [Lipitor] 40 mg PO HS 01/17/20 Clopidogrel Bisulfate [Plavix] 75 mg PO DAILY 01/17/20 Diltiazem HCl [Diltiazem 24Hr Cd] 180 mg PO AM 01/17/20 Levothyroxine [Synthroid -] 100 mcg PO AM 01/17/20 Family Disease History - Family Disease History Family Disease History: Heart Disease: Sister (a fib) Review of Systems - Review of Systems Constitutional: denies: Chills, Fever Eyes: denies: Eye Pain HENT: denies: Nasal Congestion Neck: denies: Stiffness Cardiovascular: denies: Edema Respiratory: denies: Orthopnea, PND Gastrointestinal: denies: Diarrhea, Rectal Bleeding Genitourinary: denies: Burning, Hematuria Musculoskeletal: denies: Muscle Pain Integumentary: denies: Rash Neurological: denies: Numbness, Seizure, Syncope Endocrine: denies: Excessive Sweating Hematology/Lymphatic: denies: Excessive Bleeding Vital Signs: Vital Signs Period Temp Pulse Resp BP Sys/Ferrera Pulse Ox Last 24 Hr 97.1 F-98.4 F 66-180 14-33 103-179/66-96 95-98 Constitutional: Yes: Well Nourished, No Distress Eyes: No: Sclera Icterus HENT: No: Nasal Congestion Neck: No: Decreased ROM Respiratory: Yes: CTA Bilaterally. No: Accessory Muscle Use, Rales, Wheezes Gastrointestinal: Yes: Normal Bowel Sounds. No: Distention, Hepatomegaly, Palpable Mass, Tenderness Cardiovascular: Yes: Regular Rate and Rhythm JVD: No Carotid Bruit: No PMI: Non-Displaced Heart Sounds: Yes: S1, S2. No: Gallop Murmur: No: Systolic Murmur, Diastolic Murmur Musculoskeletal: Yes: Other (No kyphosis) Extremities: No: Cold, Cyanosis Edema: No Peripheral Pulses: 2+ Left Carotid, 2+ Right Carotid, 2+ Left Doralis Pedis, 2+ Right Dorsalis Pedis Integumentary: No: Jaundice Neurological: Yes: Alert, Oriented (x3) Psychiatric: No: Agitated Laboratory Last Values WBC 8.5 K/mm3 (4.0-10.0) 01/17/20 06:32 RBC 4.85 M/mm3 (4.00-5.60) 01/17/20 06:32 Hgb 15.7 GM/dL (11.7-16.9) 01/17/20 06:32 Hct 46.5 % (35.4-49) 01/17/20 06:32 MCV 95.9 fl (80-96) 01/17/20 06:32 MCH 32.4 pg (25.7-33.7) 01/17/20 06:32 MCHC 33.8 g/dl (32.0-35.9) 01/17/20 06:32 RDW 12.5 % (11.9-15.9) 01/17/20 06:32 Plt Count 193 K/MM3 (134-434) 01/17/20 06:32 MPV 8.9 fl (7.5-11.1) 01/17/20 06:32 Absolute Neuts (auto) 5.8 K/mm3 (1.5-8.0) 01/17/20 06:32 Neutrophils % 67.9 % (42.8-82.8) 01/17/20 06:32 Lymphocytes % 18.7 % (8-40) 01/17/20 06:32 Monocytes % 10.4 % (3.8-10.2) H 01/17/20 06:32 Eosinophils % 2.0 % (0-4.5) 01/17/20 06:32 Basophils % 1.0 % (0-2.0) 01/17/20 06:32 Nucleated RBC % 0 % (0-0) 01/17/20 06:32 PT with INR 11.40 SEC (9.7-13.0) 01/16/20 21:20 INR 0.97 (0.83-1.09) 01/16/20 21:20 PTT (Actin FS) 27.3 SECONDS (25.2-36.5) 01/16/20 21:20 Sodium 141 mmol/L (136-145) 01/17/20 06:32 Potassium 4.3 mmol/L (3.5-5.1) 01/17/20 06:32 Chloride 107 mmol/L (98-107) 01/17/20 06:32 Carbon Dioxide 30 mmol/L (21-32) 01/17/20 06:32 Anion Gap 4 MMOL/L (8-16) L 01/17/20 06:32 BUN 18.9 mg/dL (7-18) H 01/17/20 06:32 Creatinine 1.2 mg/dL (0.55-1.3) 01/17/20 06:32 Est GFR (CKD-EPI)AfAm 70.09 01/17/20 06:32 Est GFR (CKD-EPI)NonAf 60.47 01/17/20 06:32 Random Glucose 113 mg/dL (74-106) H 01/17/20 06:32 Hemoglobin A1c % 6.0 % (4.2-6.3) 01/17/20 06:32 Calcium 9.3 mg/dL (8.5-10.1) 01/17/20 06:32 Phosphorus 4.1 mg/dL (2.5-4.9) 01/17/20 06:32 Magnesium 2.6 mg/dL (1.8-2.4) H 01/17/20 06:32 Total Bilirubin 0.7 mg/dL (0.2-1) 01/17/20 06:32 AST 23 U/L (15-37) 01/17/20 06:32 ALT 38 U/L (13-61) 01/17/20 06:32 Alkaline Phosphatase 69 U/L (45-117) 01/17/20 06:32 Creatine Kinase 163 U/L (26-308) 01/16/20 21:32 Creatine Kinase Index 1.9 % (0.0-5.0) 01/16/20 21:32 CK-MB (CK-2) 3.1 ng/mL (0.5-3.6) 01/16/20 21:32 Troponin I < 0.02 ng/ml (0.00-0.05) 01/17/20 09:30 Total Protein 7.0 g/dl (6.4-8.2) 01/17/20 06:32 Albumin 3.8 g/dl (3.4-5.0) 01/17/20 06:32 Triglycerides 137 mg/dL (0-150) 01/17/20 06:32 Cholesterol 114 mg/dL (50-200) 01/17/20 06:32 Total LDL Cholesterol 56 mg/dL (5-100) 01/17/20 06:32 HDL Cholesterol 44 mg/dL (40-60) 01/17/20 06:32 TSH 1.12 uIU/ml (0.358-3.74) D 01/17/20 06:32 Urine Color Yellow 01/17/20 04:32 Urine Appearance Clear 01/17/20 04:32 Urine pH 7.0 (5.0-8.0) 01/17/20 04:32 Ur Specific [place] 1.021 (1.010-1.035) 01/17/20 04:32 Urine Protein Negative (NEGATIVE) 01/17/20 04:32 Urine Glucose (UA) Negative (NEGATIVE) 01/17/20 04:32 Urine Ketones Negative (NEGATIVE) 01/17/20 04:32 Urine Blood Negative (NEGATIVE) 01/17/20 04:32 Urine Nitrite Negative (NEGATIVE) 01/17/20 04:32 Urine Bilirubin Negative (NEGATIVE) 01/17/20 04:32 Urine Urobilinogen 0.2 mg/dL (0.2-1.0) 01/17/20 04:32 Ur Leukocyte Esterase Negative (NEGATIVE) 01/17/20 04:32 Ur Random Creatinine 194.0 mg/dL (30-150) H 01/17/20 04:32 U Random Total Protein 7.2 mg/dL (0-11.9) 01/17/20 04:32 Protein/Creatinin Ratio 0.0 mg/dL 01/17/20 04:32 ECG: afib rvr 171 bpm Echo 2014: nl LV/RV; valves WNL echo 11/2017: nl lv/rv, mild lae, no sig valve path ETT 2016: 3:02 min, 93% MPHR. no chest pain. no ST changes. echo 12/2019 tds, hyperdynamic LV EF 70-75%, RV nl, nl LA/RA, mild to mod MAC, mild MR 69M h/o afib, HTN, hypothyroidism, anxiety, CAD, MN s/p BETITO to prox RCA 018 admitted for palpitations. paroxysmal Afib and atrial flutter - did not tolerate metoprolol in the past, tolerated bystolic but was stopped due to cost - diltiazem increased from 120 mg daily to 180 mg daily last month - on diltiazem 60 mg Q6H here - had refused doses as he attributed dizziness to this, however had poor PO intake in hot weather yesterday and echo shows hyperdynamic LV function, symptoms of dizziness on standing suggest orthostatic hypotension, agrees to try now - increased hydration recommended - continue PO dilt with plan to transition to diltiazem 120 mg BID if tolerates (he is afraid to take 240 mg at once) - monitor on tele -has indication for ac but declines, cont asa, plavix CAD s/p MN - trop neg x 2, EKG no acute changes - continue aspirin, statin, plavix, beta harsh, ACEI HTN: -bp currently controlled
[2020-01-17 16:28] VITALS: BMI 28.9
[2020-01-17] MEDS: ENOXAPARIN NA (PORCINE) 40 MG/0.4 ML DISP.SYRIN SQ SCH (21:20)
[2020-01-17] MEDS ORDERED: ATORVASTATIN CA 40 MG TABLET (FP) PO SCH (22:00)
[2020-01-18] MEDS: dilTIAZem HCL 60 MG TABLET PO SCH ×3 (00:06→12:08)
[2020-01-18] MEDS: LEVOTHYROXINE NA 100 MCG TABLET (FP) PO SCH (06:14)
[2020-01-18 07:11] LABS: BASO % 0.9 % (0-2.0); EOS % 4.5 % (0-4.5); HEMATOCRIT 45.8 % (35.4-49); HEMOGLOBIN 15.4 GM/dL (11.7-16.9); LYMPH % 20.4 % (8-40); MCH 32.5 pg (25.7-33.7); MCHC 33.6 g/dl (32.0-35.9); MEAN CELL VOLUME 96.7 fl (80-96); MEAN PLT VOLUME 8.8 fl (7.5-11.1); MONO % 10.6 % (3.8-10.2); NEUT % 63.6 % (42.8-82.8); PLATELET COUNT 179 K/MM3 (134-434); RBC 4.74 M/mm3 (4.00-5.60); RDW 12.9 % (11.9-15.9); WHITE BLOOD COUNT 6.9 K/mm3 (4.0-10.0)
[2020-01-18 07:32] LABS: ALBUMIN 3.7 g/dl (3.4-5.0); BILIRUBIN,TOTAL 0.7 mg/dL (0.2-1); BLOOD UREA NITROGEN 16.2 mg/dL (7-18); CALCIUM 8.9 mg/dL (8.5-10.1); CREATININE 1.2 mg/dL (0.55-1.3); MAGNESIUM 2.3 mg/dL (1.8-2.4); POTASSIUM 4.4 mmol/L (3.5-5.1); TOT PROT 6.7 g/dl (6.4-8.2)
[2020-01-18] MEDS: CLOPIDOGREL BISULFATE 75 MG TABLET (FP) PO SCH (10:43)
[2020-01-18] MEDS: ASPIRIN 81 MG CHEWABLE TABLETS PO SCH (10:43)
[2020-01-18] MEDS: ENOXAPARIN NA (PORCINE) 40 MG/0.4 ML DISP.SYRIN SQ SCH (10:44)
--- NOTE | 2020-01-18 11:05 | PN ---
Progress Note (short form) - Note Progress Note: s: no cp sob palps dizzy Vital Signs Period Temp Pulse Resp BP Sys/Ferrera Pulse Ox Last 24 Hr 78.9 F-98.5 F 66-76 14-20 105-134/67-86 95-97 Current Medications Generic Name Dose Route Start Last Admin Trade Name Yan PRN Reason Stop Dose Admin Aspirin 81 mg 01/17/20 10:00 01/18/20 10:43 Asa - PO 81 mg DAILY CRISTHIAN Administration Atorvastatin Calcium 40 mg 01/17/20 22:00 01/17/20 21:20 Lipitor - PO 40 mg HS CRISTHIAN Administration Clopidogrel Bisulfate 75 mg 01/17/20 10:00 01/18/20 10:43 Plavix - PO 75 mg DAILY CRISTHIAN Administration Diltiazem HCl 60 mg 01/17/20 08:00 01/18/20 06:14 Cardizem - PO 60 mg Q6HPO CRISTHIAN Administration Enoxaparin Sodium 40 mg 01/17/20 20:00 01/18/20 10:44 Lovenox - SQ 40 mg DAILY CRISTHIAN Administration Levothyroxine Sodium 100 mcg 01/17/20 07:00 01/18/20 06:14 Synthroid - PO 100 mcg AM CRISTHIAN Administration Constitutional: Yes: Well Nourished, No Distress Eyes: No: Sclera Icterus Respiratory: Yes: CTA Bilaterally. No: Accessory Muscle Use, Rales, Wheezes Gastrointestinal: Yes: Normal Bowel Sounds. No: Distention, Hepatomegaly, Palpable Mass, Tenderness Cardiovascular: Yes: Regular Rate and Rhythm JVD: No Heart Sounds: Yes: S1, S2. No: Gallop rrr Murmur: No: Systolic Murmur, Diastolic Murmur Musculoskeletal: Yes: Other (No kyphosis) Extremities: No: Cold, Cyanosis Edema: No Peripheral Pulses: 2+ Left Carotid, 2+ Right Carotid, 2+ Left Doralis Pedis, 2+ Right Dorsalis Pedis Integumentary: No: Jaundice Neurological: Yes: Alert, Oriented (x3) Psychiatric: No: Agitated CBC, BMP 01/18/20 06:56 01/18/20 06:56 tele: sr ECG: afib rvr 171 bpm Echo 2015: nl LV/RV; valves WNL echo 11/2017: nl lv/rv, mild lae, no sig valve path ETT 2016: 3:02 min, 93% MPHR. no chest pain. no ST changes. echo 12/2019 tds, hyperdynamic LV EF 70-75%, RV nl, nl LA/RA, mild to mod MAC, mild MR a/p: 69M h/o afib, HTN, hypothyroidism, anxiety, CAD, CT s/p BETITO to prox RCA 04/22/2018 admitted for palpitations. paroxysmal Afib and atrial flutter - did not tolerate metoprolol in the past, tolerated bystolic but was stopped due to cost - diltiazem increased from 120 mg daily to 180 mg daily last month - on diltiazem 60 mg Q6H here - had refused doses as he attributed dizziness to this, however had poor PO intake in hot weather yesterday and echo shows h yperdynamic LV function, symptoms of dizziness on standing suggest orthostatic hypotension, agrees to try now - increased hydration recommended -in sr now. continue PO dilt with plan to transition to diltiazem 120 mg BID upon dc -has indication for ac but declines, cont asa, plavix CAD s/p CT - trop neg x 2, EKG no acute changes - continue aspirin, statin, plavix, beta harsh, ACEI HTN: -bp currently controlled cardiac pearson stable for dc
--- NOTE | 2020-01-18 12:11 | EKG ---
Test Reason : Blood Pressure : / mmHG Vent. Rate : 062 BPM Atrial Rate : 062 BPM P-R Int : 192 ms QRS Dur : 082 ms QT Int : 416 ms P-R-T Axes : 049 029 052 degrees QTc Int : 422 ms NORMAL SINUS RHYTHM NORMAL ECG WHEN COMPARED WITH ECG OF 16-JAN-2020 22:20, SINUS RHYTHM HAS REPLACED ATRIAL FIBRILLATION VENT. RATE HAS DECREASED BY 40 BPM Confirmed by SHAHID ROMANO MD ([id number]) on 01/18/2020 12:11:33 PM Referred By: Kalyani BHANDARI Confirmed By:SHAHID ROMANO MD
--- NOTE | 2020-01-18 14:10 | DS ---
Physical Exam: SUBJECTIVE: Patient seen and examined. denies chest pain or discomfort. Patient agrees to outpatient follow up. OBJECTIVE: Patient is a 69 year old male with a past medical history of IL (stent x mar 2018), Afib (on plavix, cardizem), HTN, HLD, and hypothyroidism. He presents to the ED on 01/16/2020 with complaints of palpitations and rapid heart rate. Patient reports that he has multiple previous episodes in the past, most recent admission to ER on 12/01/19. Pt states he developed rapid abnormal heart rate aft er eating dinner. He called his malted milk mixer, Dr. Mckeon who advised him to take another dose of his home meds of 180 mg of diltiazem at 8pm (he also had his regular dose at noon). Patient states he did not feel better so he came to the ED. He reported lightheadedness with palpitations, but denied any chest pain, SOB, Headache, nausea, vomiting, fever, chills, or LOC/fall. EKG showed pt was in rapid Afib, was given 20mg IV cardizem, repeat EKG showed HR 108, additional 10mg IV cardizem and ativan, repeat HR in 80s. ECG: afib rvr 171 bpm SEE PROBLEM LIST BELOW: Vital Signs Period Temp Pulse Resp BP Sys/Ferrera Pulse Ox Last 24 Hr 78.9 F-98.5 F 66-76 18-20 105-134/67-80 95-97 PHYSICAL EXAM GENERAL: The patient is awake, alert, and fully oriented, in no acute distress. HEAD: Normal with no signs of trauma. EYES: PERRL, extraocular movements intact, sclera anicteric, conjunctiva clear. No ptosis. ENT: Ears normal, nares patent, oropharynx clear without exudates, moist mucous membranes. NECK: Trachea midline, full range of motion, supple. LUNGS: Breath sounds equal, clear to auscultation bilaterally, no wheezes, no crackles, no accessory muscle use. HEART: Regular rate and rhythm, S1, S2 without murmur, rub or gallop. ABDOMEN: Soft, nontender, distended, normoactive bowel sounds, no guarding, no rebound, no hepatosplenomegaly, no masses. EXTREMITIES: 2+ pulses, warm, well-perfused, no edema. NEUROLOGICAL: Cranial nerves II through XII grossly intact. Normal speech, gait not observed. PSYCH: Normal mood, normal affect. SKIN: Warm, dry, normal turgor, no rashes or lesions noted LABS Laboratory Results - last 24 hr 01/17/20 01/18/20 01/18/20 00:13 06:56 06:56 WBC 6.9 RBC 4.74 Hgb 15.4 Hct 45.8 MCV 96.7 H MCH 32.5 MCHC 33.6 RDW 12.9 Plt Count 179 MPV 8.8 Absolute Neuts (auto) 4.4 Neutrophils % 63.6 Lymphocytes % 20.4 Monocytes % 10.6 H Eosinophils % 4.5 D Basophils % 0.9 Nucleated RBC % 0 Sodium 142 Potassium 4.4 Chloride 108 H Carbon Dioxide 28 Anion Gap 6 L BUN 16.2 Creatinine 1.2 Est GFR (CKD-EPI)AfAm 70.09 Est GFR (CKD-EPI)NonAf 60.47 Random Glucose 97 Calcium 8.9 Magnesium 2.3 Total Bilirubin 0.7 AST 23 ALT 34 Alkaline Phosphatase 63 Total Protein 6.7 Albumin 3.7 COVID-19 ([facility]) Not detected HOSPITAL COURSE: Date of Admission:01/16/20 Date of Discharge: 01/18/20 Minutes to complete discharge: 60 Discharge Summary Problems reviewed: Yes Reason For Visit: ATRIAL FIBRILLATION Current Active Problems Afib (Acute) Atrial fibrillation with rapid ventricular response (Acute) DVT prophylaxis (Acute) Condition: Stable - Instructions Diet, Activity, Other Instructions: Mr. Hugo: You were admitted for rapid atrial fibrillation and palpitations. You were e valuated by cardiology and have been cleared for discharge home with outpatient follow up. Here are your discharge instructions: MEDICATIONS: START Diltiazem 120mg TWICE per day at 8am and 8pm CONTINUE taking Aspirin 81mg daily CONTINUE taking Plavix 75mg daily CONTINUE taking Lipitor 40mg daily FOLLOW UPS: Please follow up with Dr. Mckeon for further workup for calling their office for a follow up appointment. Thank you for allowing us to care for you. Referrals: Abraham Patel MD [Primary Care Provider] - Luis Mckeon MD [Staff Physician] - Disposition: HOME - Home Medications Comprehensive Discharge Medication List: Ambulatory Orders Aspirin [ASA -] 81 mg PO DAILY 02/17/17 Atorvastatin Ca [Lipitor] 40 mg PO HS 01/17/20 Clopidogrel Bisulfate [Plavix] 75 mg PO DAILY 01/17/20 Levothyroxine [Synthroid -] 100 mcg PO AM 01/17/20 Diltiazem Cd [Cardizem Cd -] 120 mg PO BID #90 cap.cd.24h 01/18/20 Problem List - Problems (1) Atrial fibrillation with rapid ventricular response Assessment/Plan: IV cardizem given in ED pt now with HR in 60s, negative troponins. seen by malted milk mixer who follows him outpatient, can d/c home with outpatient follow up and recommend cardizem 160mg BID, as patient does not want to take cardizem 240mg xl once daily. patient was on bystolic but unable to afford cost of it (co pay). not on eliquis as patient is refusing eliquis 2/2 to cost. also refusing xarelto due to cost. informed them of possible cost discounts on some eliquis programs but refused to look into these programs/or coupons. importance of eliquis discussed as pt risk for stroke, they will speak to their malted milk mixer and decide. on asa/plavix. Code(s): I48.91 - UNSPECIFIED ATRIAL FIBRILLATION (2) HLD (hyperlipidemia) Assessment/Plan: continue lipitor 40mg Code(s): E78.5 - HYPERLIPIDEMIA, UNSPECIFIED (3) Hypothyroidism Assessment/Plan: continue levothyroxine 100mcg Code(s): E03.9 - HYPOTHYROIDISM, UNSPECIFIED (4) RAMON (acute kidney injury) Assessment/Plan: creatinine 1.5 on admission now 1.2 repeat CMP in morning encourage PO water intake Code(s): N17.9 - ACUTE KIDNEY FAILURE, UNSPECIFIED (5) Hypertension Assessment/Plan: normotensive today Code(s): I10 - ESSENTIAL (PRIMARY) HYPERTENSION (6) DVT prophylaxis Assessment/Plan: Diet: sodium controlled diet Code(s): Z29.9 - ENCOUNTER FOR PROPHYLACTIC MEASURES, UNSPECIFIED This patient is new to me today: Yes Date on this admission: 01/18/20 Emergency Visit: No Critical Care patient: No - Discharge Referral Referred to [facility] No
[2020-01-18 14:23] VITALS: BP 117/59; PULSE 81; TEMP 97.6
== END 2020-01-18 15:44 | disposition home or self-care (01) ==
LOC: SUPCPDRO 20:50 → JER 20:50 → JERBED 23:52 → J4S 01-17 13:19
PROVIDERS: ADMIT Internal Medicine; ATTEND Nurse Practitioner Family
PROC: 3E033GC Introduction of Other Therapeutic Substance into Peripheral Vein, Percutaneous Approach (ICD-10-PCS; principal; 2020-01-16)
PROC: 3E023GC Introduction of Other Therapeutic Substance into Muscle, Percutaneous Approach (ICD-10-PCS; 2020-01-16)
DX: I48.91 Unspecified atrial fibrillation (principal); E78.5 Hyperlipidemia, unspecified; E03.9 Hypothyroidism, unspecified; N17.9 Acute kidney failure, unspecified; Z29.9 Encounter for prophylactic measures, unspecified; I12.9 Hypertensive chronic kidney disease with stage 1 through stage 4 chronic kidney disease, or unspecified chronic kidney disease; N18.9 Chronic kidney disease, unspecified; Z95.5 Presence of coronary angioplasty implant and graft; Z79.01 Long term (current) use of anticoagulants; I25.2 Old myocardial infarction; F41.9 Anxiety disorder, unspecified; E78.00 Pure hypercholesterolemia, unspecified; Z87.891 Personal history of nicotine dependence; Z88.0 Allergy status to penicillin; Z88.8 Allergy status to other drugs, medicaments and biological substances
CPT/HCPCS: 36415; 71045-TC-FY; 80053; 80061; 81003; 82550; 82553; 82565; 83036; 83721; 83735; 84100; 84156; 84443; 84484; 85025; 85610; 85730; 93005; 93010; 93306-TC; 96372; 96374; 96376; 99285-25; G0378; U0003

== ENCOUNTER 2020-02-01 03:21 | Emergency (ER) | payer OTHER ==
--- NOTE | 2020-02-01 03:33 | PDOC ---
Attending Attestation - Resident Resident Name: Kapil Chavez - ED Attending Attestation I have performed the following: I have examined & evaluated the patient, The case was reviewed & discussed with the resident, I agree w/resident's findings & plan - HPI HPI: 02/01/20 03:55 see resident hpi - Physicial Exam PE: 02/01/20 03:55 see resident exam - Critical Care Time Total Critical Care Time: 40 Critical Care Statement: The care of this patient involved high complexity decision making to prevent further life threatening deterioration of the patient's condition and/or to evaluate & treat vital organ system(s) failure or risk of failure. - Medical Decision Making 02/01/20 03:56 69-year-old male with history of atrial fibrillation with RVR now with palpitations that began abruptly at 2 AM with some associated anxiety Patient arrived in rapid A. fib with a ventricular rate in the 130s to 140s Cardizem 20 mg given IV push with positive response and decrease of ventricular rate to the 90-1 10 range Plan on Cardizem drip and admission for further evaluation and rate control Discharge - Discharge Information Problems reviewed: Yes Clinical Impression/Diagnosis: Atrial fibrillation with rapid ventricular response - Follow up/Referral Referrals: Abraham Patel MD [Primary Care Provider] - - Patient Discharge Instructions - Post Discharge Activity
[2020-02-01 03:36] VITALS: BMI 28.7
[2020-02-01] MEDS ORDERED: dilTIAZem HCL 50 MG/10 ML - 10 ML VIAL IVPUSH ONE (03:39)
[2020-02-01] MEDS ORDERED: dilTIAZem HCL 125 MG/25 ML - 25 ML VIAL ONE (03:42)
[2020-02-01] MEDS ORDERED: DILTIAZEM INJECTION 125 MG in SODIUM CHLORIDE 100 ML IVPB SCH (04:00)
[2020-02-01] MEDS ORDERED: MAG HYDROX/AL HYDROX/SIMETH -MYLANTA- ORAL SUSPENSION PO ONE (04:03)
[2020-02-01] MEDS ORDERED: LACTATED RINGERS SOLUTION 1000 ML INFUS.BAG IV ONE (04:03)
[2020-02-01 04:06] LABS: BASO % 1.4 % (0-2.0); EOS % 2.7 % (0-4.5); HEMATOCRIT 48.3 % (35.4-49); HEMOGLOBIN 16.4 GM/dL (11.7-16.9); MCH 32.8 pg (25.7-33.7); MCHC 33.9 g/dl (32.0-35.9); MEAN CELL VOLUME 96.6 fl (80-96); MEAN PLT VOLUME 8.6 fl (7.5-11.1); NEUT % 63.9 % (42.8-82.8); PLATELET COUNT 200 K/MM3 (134-434); RDW 13.3 % (11.9-15.9); WHITE BLOOD COUNT 7.8 K/mm3 (4.0-10.0)
[2020-02-01 04:17] LABS: INR 0.93 (0.83-1.09)
[2020-02-01] MEDS ORDERED: MAG HYDROX/AL HYDROX/SIMETH 30 ML UNIT-DOSE CUP ONE (04:17)
[2020-02-01 04:20] LABS: ACTIVATED PTT 29.4 SECONDS (25.2-36.5)
[2020-02-01] MEDS ORDERED: LORazepam 2 MG/ML SDV VIAL ONE (04:26)
[2020-02-01 04:31] LABS: ALBUMIN 4.3 g/dl (3.4-5.0); ANION GAP 8 MMOL/L (8-16); BILIRUBIN,TOTAL 0.5 mg/dL (0.2-1); BLOOD UREA NITROGEN 20.7 mg/dL (7-18); CALCIUM 9.6 mg/dL (8.5-10.1); CHLORIDE 106 mmol/L (98-107); CO2 29 mmol/L (21-32); CREATININE 1.5 mg/dL (0.55-1.3); GLUCOSE,RANDOM 110 mg/dL (74-106); POTASSIUM 4.5 mmol/L (3.5-5.1); SGOT/AST 26 U/L (15-37); SGPT/ALT 38 U/L (13-61); SODIUM 143 mmol/L (136-145); TOT PROT 7.7 g/dl (6.4-8.2)
[2020-02-01 04:39] LABS: ALK PHOS 99 U/L (45-117)
--- NOTE | 2020-02-01 05:05 | PDOC ---
History of Present Illness - General Chief Complaint: Irregular Heart Beat Stated Complaint: RAPID HEART RATE Time Seen by Provider: 02/01/20 03:27 - History of Present Illness Initial Comments: Hector Hugo is a 69 y/o male with PMH significant for CAD s/p stent x1 (on plavix and baby asa), HLD, a-fib presenting today with palpitations that started at 2:30am. Reports that he was just about to lay down and sleep when he noticed the heart palpitations. Recently seen here two weeks ago for similar complaints. No chest pain/shortness of breath/dizziness. No abd pain/leg swelling. No headache. No fever/chills/cough. No nausea/vomiting. Denies etoh/caffeine/drug use. Meds: Diltiazem 120 mg BID. Levothyroxine. Not on any anticoagulation. PCP: Dr. Patel Cards: Dr. Mckeon Past History - Medical History Allergies/Adverse Reactions: Allergies Allergy/AdvReac Type Severity Reaction Status Date / Time ampicillin Allergy Severe Hives Verified 02/01/20 03:34 Penicillins Allergy Severe Hives Verified 02/01/20 03:34 Home Medications: Ambulatory Orders Aspirin [ASA -] 81 mg PO DAILY 02/17/17 Atorvastatin Ca [Lipitor] 40 mg PO HS 01/17/20 Clopidogrel Bisulfate [Plavix] 75 mg PO DAILY 01/17/20 Levothyroxine [Synthroid -] 100 mcg PO AM 01/17/20 Diltiazem Cd [Cardizem Cd -] 120 mg PO BID #90 cap.cd.24h 01/18/20 Anemia: No Asthma: No Cancer: No Cardiac Disorders: Yes (a-fib, STENTS, mi 04/14) CVA: No COPD: No CHF: No Dementia: No Diabetes: No GI Disorders: No Disorders: No HTN: Yes Hypercholesterolemia: No Kidney Stones: Yes Liver Disease: No Psychiatric Problems: Yes (ANXIETY.) Seizures: No Thyroid Disease: Yes (HYPO.) - Surgical History Abdominal Surgery: Yes (HERNIA REPAIR, LITHOTRIPSY X5) Appendectomy: No Cardiac Surgery: Yes (STENTS) Cholecystectomy: No Lung Surgery: No Neurologic Surgery: No Orthopedic Surgery: No - Immunization History Immunization Up to Date: Yes - Psycho-Social/Smoking History Smoking Status: Yes Smoking History: Never smoked Have you smoked in the past 12 months: No Number of Cigarettes Smoked Daily: 0 If you are a former smoker, when did you quit?: 12 YEARS AGO Cigars Per Day: 0 Information on smoking cessation initiated: No - Substance Abuse Hx (Audit-C & DAST Scrn) How often the patient has a drink containing alcohol: Never Score: In Men: 4 or > Positive; In Women: 3 or > Positive: 0 Screen Result (Pos requires Nsg. Audit-10AR): Negative In the last yr the pt used illegal drug/Rx for NonMed reason: No Score: Yes response is considered Positive: 0 Screen Result (Positive result requires Nsg. DAST-10): Negative Cardiac Specific PMH - Complaint Specific PMHX Pacemaker: No Review of Systems - Review of Systems Comments:: GENERAL/CONSTITUTIONAL: No fever or chills. No weakness._ HEAD, EYES, EARS, NOSE AND THROAT: No change in vision. No change in hearing. No sore throat._ CARDIOVASCULAR: Reports heart palpitations and heart racing. No chest pain or shortness of breath_ RESPIRATORY: Denies cough, hemoptysis_ GASTROINTESTINAL: No nausea, vomiting, diarrhea or constipation._ GENITOURINARY: No dysuria, frequency, or change in urination._ MUSCULOSKELETAL: No joint or muscle swelling or pain. No neck or back pain._ SKIN: No rash_ NEUROLOGIC: No headache, vertigo, loss of consciousness, or change in strength/sensation._ ENDOCRINE: No increased thirst. No abnormal weight change_ HEMATOLOGIC/LYMPHATIC: No anemia or history of blood clots._ ALLERGIC/IMMUNOLOGIC: No hives or skin allergy._ *Physical Exam - Vital Signs Last Vital Signs Temp Pulse Resp BP Pulse Ox 97.6 F 62 15 109/82 100 02/01/20 12:16 02/01/20 12:16 02/01/20 12:16 02/01/20 12:16 02/01/20 12:16 - Physical Exam GENERAL: Awake, alert, and oriented to person/place/time, in no acute distress_ HEAD: No signs of trauma, normocephalic, atraumatic _ EYES: PERRLA, EOMI, sclera anicteric, conjunctiva clear_ ENT: Hearing grossly normal, nares patent, oropharynx clear without exudates. No uvular deviation. Moist mucosa_ NECK: Normal ROM, supple, no lymphadenopathy, JVD, or masses_ LUNGS: No distress, speaks in full sentences, clear to auscultation bilaterally _ HEART: Tachycardia, irregular, normal S1 and S2, no murmurs appreciated, peripheral pulses normal and equal bilaterally._ ABDOMEN: Soft, nontender, normoactive bowel sounds. No guarding, no rebound. No masses_ EXTREMITIES: Normal inspection, Normal range of motion, no edema bilaterally. No clubbing or cyanosis_ NEUROLOGICAL: Cranial nerves II through XII grossly intact. Normal speech, normal gait, no focal sensorimotor deficits _ SKIN: Warm, Dry, normal turgor, no rashes or lesions noted_ ED Treatment Course - LABORATORY CBC & Chemistry Diagram: 02/01/20 03:48 02/01/20 03:48 - ADDITIONAL ORDERS Additional order review: Laboratory Results 02/01/20 09:28 Urine Color Yellow Urine Appearance Clear Urine pH 6.5 Ur Specific [place] 1.014 Urine Protein Negative Urine Glucose (UA) Negative Urine Ketones Negative Urine Blood Negative Urine Nitrite Negative Urine Bilirubin Negative Urine Urobilinogen 0.2 Ur Leukocyte Esterase Negative 02/01/20 03:48 RBC 5.00 MCV 96.6 H MCHC 33.9 RDW 13.3 MPV 8.6 Neutrophils % 63.9 Lymphocytes % 21.0 Monocytes % 11.0 H Eosinophils % 2.7 Basophils % 1.4 - RADIOLOGY Radiology Studies Ordered: Category Date Time Status CHEST X-RAY PORTABLE* [RAD] Stat Radiology 02/01/20 03:40 Completed - Medications Given in the ED: ED Medications Discontinued Medications Generic Name Dose Route Start Last Admin Trade Name Freq PRN Reason Stop Dose Admin Al Hydroxide/Mg Hydroxide 30 ml 02/01/20 04:03 02/01/20 04:37 Mylanta Suspension - PO 02/01/20 04:04 30 ml ONCE ONE Administration Diltiazem HCl 20 mg 02/01/20 03:39 02/01/20 03:45 Cardizem Injection - IVPUSH 02/01/20 03:40 20 mg ONCE ONE Administration Diltiazem HCl 125 mg/ Sodium 125 mls @ 5 mls/hr 02/01/20 04:00 02/01/20 04:24 Chloride IVPB 5 mg/hr TITR CRISTHIAN 5 mls/hr Administration Protocol 5 MG/HR Lactated Ringer's 1,000 ml 02/01/20 04:03 02/01/20 04:23 Lactated Ringers Solution IV 02/01/20 04:04 1,000 ml ONCE ONE Administration Lorazepam 1 mg 02/01/20 04:20 02/01/20 04:29 Ativan Injection - IVPUSH 02/01/20 04:21 1 mg ONCE ONE Administration Medical Decision Making - Medical Decision Making 69M with hx of a-fib presenting today with heart palpitations for the past hour. CAD s/p stent. On diltiazem 120 mg BID at home, no anticoagulants. On baby asa/ plavix. Recently seen here 2 weeks ago for similar. BP 160s to 180s. -cbc,cmp -ekg -trop -cxr -tsh -coags -diltiazem 20 mg -diltiazem drip 5mg/hour 02/01/20 04:50 Labs reviewed. Laboratory Last Values WBC 7.8 K/mm3 (4.0-10.0) 02/01/20 03:48 RBC 5.00 M/mm3 (4.00-5.60) 02/01/20 03:48 Hgb 16.4 GM/dL (11.7-16.9) 02/01/20 03:48 Hct 48.3 % (35.4-49) 02/01/20 03:48 MCV 96.6 fl (80-96) H 02/01/20 03:48 MCH 32.8 pg (25.7-33.7) 02/01/20 03:48 MCHC 33.9 g/dl (32.0-35.9) 02/01/20 03:48 RDW 13.3 % (11.9-15.9) 02/01/20 03:48 Plt Count 200 K/MM3 (134-434) 02/01/20 03:48 MPV 8.6 fl (7.5-11.1) 02/01/20 03:48 Absolute Neuts (auto) 5.0 K/mm3 (1.5-8.0) 02/01/20 03:48 Neutrophils % 63.9 % (42.8-82.8) 02/01/20 03:48 Lymphocytes % 21.0 % (8-40) 02/01/20 03:48 Monocytes % 11.0 % (3.8-10.2) H 02/01/20 03:48 Eosinophils % 2.7 % (0-4.5) 02/01/20 03:48 Basophils % 1.4 % (0-2.0) 02/01/20 03:48 Nucleated RBC % 0 % (0-0) 02/01/20 03:48 PT with INR 11.00 SEC (9.7-13.0) 02/01/20 03:48 INR 0.93 (0.83-1.09) 02/01/20 03:48 PTT (Actin FS) 29.4 SECONDS (25.2-36.5) 02/01/20 03:48 Sodium 143 mmol/L (136-145) 02/01/20 03:48 Potassium 4.5 mmol/L (3.5-5.1) 02/01/20 03:48 Chloride 106 mmol/L (98-107) 02/01/20 03:48 Carbon Dioxide 29 mmol/L (21-32) 02/01/20 03:48 Anion Gap 8 MMOL/L (8-16) 02/01/20 03:48 BUN 20.7 mg/dL (7-18) H 02/01/20 03:48 Creatinine 1.5 mg/dL (0.55-1.3) H 02/01/20 03:48 Est GFR (CKD-EPI)AfAm 53.52 02/01/20 03:48 Est GFR (CKD-EPI)NonAf 46.17 02/01/20 03:48 Random Glucose 110 mg/dL (74-106) H 02/01/20 03:48 Calcium 9.6 mg/dL (8.5-10.1) 02/01/20 03:48 Total Bilirubin 0.5 mg/dL (0.2-1) 02/01/20 03:48 AST 26 U/L (15-37) 02/01/20 03:48 ALT 38 U/L (13-61) 02/01/20 03:48 Alkaline Phosphatase 99 U/L (45-117) 02/01/20 03:48 Creatine Kinase 105 U/L (26-308) 02/01/20 03:48 Troponin I < 0.02 ng/ml (0.00-0.05) 02/01/20 03:48 Total Protein 7.7 g/dl (6.4-8.2) 02/01/20 03:48 Albumin 4.3 g/dl (3.4-5.0) 02/01/20 03:48 TSH 3.25 uIU/ml (0.358-3.74) D 02/01/20 03:48 CXR negative for acute intrathoracic pathology. Pt reassessed after 20 mg diltiazem. Remains in a-fib with decreased heart rate. Will start on 5mg/hr diltiazem drip. EKG at 0340 shows 129 bpm, a-fib with RVR, no axis deviation, QTc 474m, no ST elevation/depression. EKG at 0346 post 20 cardizem shows 116 bpm, a-fib with RVR, no axis deviation, QTc 439, no ST elevation/depression. 02/01/20 06:49 Pt observed to be converted out of a-fib. HR 60s, NSR. Will obtain repeat EKG and wean off dilt drip. 02/01/20 07:20 EKG at 0656 shows 64 bpm, NSR, no signs of a-fib, DC 194, QTc 410, no ST elevation/depression. Pt s/o to Dr. Ramírez pending cardiology consultation and dispo. Discharge - Discharge Information Problems reviewed: Yes Clinical Impression/Diagnosis: Atrial fibrillation with rapid ventricular response, Palpitations Condition: Improved Disposition: HOME - Admission No - Follow up/Referral Referrals: Abraham Patel MD [Primary Care Provider] - - Patient Discharge Instructions Additional Instructions: You are here today for irregular heart beat. We converted your heart rhythm after the rapid Atrial fibrillation. You are hypodermically stable, and safe to go home. Dr. Mckeon came to assess you. He wants you to follow up with him in his office. No change in medication. Please stay hydrated and keep taking your home medication. If you have any heart palpitation, chest pain, Nausea, vomiting, dizziness, please come back to the ED. - Post Discharge Activity
--- NOTE | 2020-02-01 09:05 | PDOC ---
*Physical Exam - Vital Signs Last Vital Signs Temp Pulse Resp BP Pulse Ox 98.4 F 100 H 20 104/81 95 02/01/20 06:57 02/01/20 06:57 02/01/20 06:57 02/01/20 06:57 02/01/20 06:57 - Physical Exam 02/01/20 09:04 Sign out was given at 7 am by nightteam. Patient was reassessed, still hemodynamically stable. Last check, HR.100. Called Dr. Mckeon. He will come in and reassess him most likely will go home. Put in a formal consult. 02/01/20 11:26 Dr. Daniel came over, reassessed him. Plan to d/c him with follow up , no change in medication. ED Treatment Course - LABORATORY CBC & Chemistry Diagram: 02/01/20 03:48 02/01/20 03:48 - ADDITIONAL ORDERS Additional order review: Laboratory Results 02/01/20 02/01/20 03:48 03:48 PT with INR 11.00 INR 0.93 PTT (Actin FS) 29.4 Sodium 143 Potassium 4.5 Chloride 106 Carbon Dioxide 29 Anion Gap 8 BUN 20.7 H Creatinine 1.5 H Est GFR (CKD-EPI)AfAm 53.52 Est GFR (CKD-EPI)NonAf 46.17 Random Glucose 110 H Calcium 9.6 Total Bilirubin 0.5 AST 26 ALT 38 Alkaline Phosphatase 99 Creatine Kinase 105 Troponin I < 0.02 Total Protein 7.7 Albumin 4.3 TSH 3.25 D 02/01/20 03:48 RBC 5.00 MCV 96.6 H MCHC 33.9 RDW 13.3 MPV 8.6 Neutrophils % 63.9 Lymphocytes % 21.0 Monocytes % 11.0 H Eosinophils % 2.7 Basophils % 1.4 - Medications Given in the ED: ED Medications Discontinued Medications Generic Name Dose Route Start Last Admin Trade Name Freq PRN Reason Stop Dose Admin Al Hydroxide/Mg Hydroxide 30 ml 02/01/20 04:03 02/01/20 04:37 Mylanta Suspension - PO 02/01/20 04:04 30 ml ONCE ONE Administration Diltiazem HCl 20 mg 02/01/20 03:39 02/01/20 03:45 Cardizem Injection - IVPUSH 02/01/20 03:40 20 mg ONCE ONE Administration Lactated Ringer's 1,000 ml 02/01/20 04:03 02/01/20 04:23 Lactated Ringers Solution IV 02/01/20 04:04 1,000 ml ONCE ONE Administration Lorazepam 1 mg 02/01/20 04:20 02/01/20 04:29 Ativan Injection - IVPUSH 02/01/20 04:21 1 mg ONCE ONE Administration Discharge - Discharge Information Problems reviewed: Yes Clinical Impression/Diagnosis: Atrial fibrillation with rapid ventricular response, Palpitations Condition: Improved Disposition: HOME - Admission No - Follow up/Referral Referrals: Abraham Patel MD [Primary Care Provider] - - Patient Discharge Instructions Additional Instructions: You are here today for irregular heart beat. We converted your heart rhythm after the rapid Atrial fibrillation. You are hypodermically stable, and safe to go home. Dr. Mckeon came to assess you. He wants you to follow up with him in his office. No change in medication. Please stay hydrated and keep taking your home medication. If you have any heart palpitation, chest pain, Nausea, vomiting, dizziness, please come back to the ED. - Post Discharge Activity
--- NOTE | 2020-02-01 09:08 | HP ---
CHIEF COMPLAINT: AFib with RVR PCP: Dr. Patel HISTORY OF PRESENT ILLNESS: 69 y/o M PMHx CAD (s/p Stent x1 on ASA/Plavix), PAF and AFlutter (Not on AC), HTN, Hypothyroidism, HLD, Gout, Anxiety presents with chest palpitations. Patient recently visited [facility] with similar complaints. On 11/30, Patient visited the ED with palpitations, found to be in AFib, converted to NSR with Cardizem and was discharged home. On 01/15, Patient was admitted for similar complaints; During this hospitalization patients home dose CCB was adjusted and an Echo was done (LV is hyperdynamic, EF 70-75%, No significant Aortic Stenosis, Mild MR). This am at 0200, patient was preparing for bed when he felt sudden onset palpitations. Denies any associated Lightheadness, dizziness, chest pain or SOB. He attempted to reach his clinical tech however his symptoms presisted and [facility]. Patient says he has not had any similar episodes since his last discharge. During the ED course while on the Cardizem GTT, his symptoms improved and he converted to NSR. As per extensive discussion with patient and his , he is declining the use of NOAC and Bystolic as they are both costly. Denies any recent medication changes, travel, trauma. Denies any fevers, chills, Nausea, vomiting, diarrhea, constipation, dysuria, Hematuria, headache. 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 Ambulation: Without assistance Residence: With Allergies ampicillin Allergy (Severe, Verified 02/01/20 03:34) Hives Penicillins Allergy (Severe, Verified 02/01/20 03:34) Hives HOME MEDICATIONS: Home Medications Medication Instructions Recorded Aspirin [ASA -] 81 mg PO DAILY 02/17/17 Atorvastatin Ca [Lipitor] 40 mg PO HS 01/17/20 Clopidogrel Bisulfate [Plavix] 75 mg PO DAILY 01/17/20 Levothyroxine [Synthroid -] 100 mcg PO AM 01/17/20 Diltiazem Cd [Cardizem Cd -] 120 mg PO BID #90 cap.cd.24h 01/18/20 REVIEW OF SYSTEMS As per HPI PHYSICAL EXAMINATION Vital Signs - 24 hr 02/01/20 02/01/20 02/01/20 03:32 03:45 04:24 Temperature 98.3 F Pulse Rate 114 H 114 H Pulse Rate [ Right] Respiratory 20 Rate Blood Pressure 165/101 H 141/92 Blood Pressure [Left Arm] O2 Sat by Pulse 98 98 Oximetry (%) 02/01/20 02/01/20 06:20 06:57 Temperature 98.4 F Pulse Rate Pulse Rate [ 90 100 H Right] Respiratory 20 20 Rate Blood Pressure Blood Pressure 101/79 104/81 [Left Arm] O2 Sat by Pulse 99 95 Oximetry (%) GENERAL: A&Ox3, NAD HEAD: NCAT EYES: PERRL, EOMI ENT: Oropharynx clear without exudates. Moist mucous membranes. NECK: No JVD LUNGS: Diminished breath sounds at the bases, Otherwise CTAB, No wheezes, no crackles HEART: RRR, S1 S2 ABDOMEN: Soft, nontender, not distended, + bowel sounds, no guarding, no rebound MUSCULOSKELETAL: No CVA tenderness. EXTREMITIES: No peripheral edema. NEUROLOGICAL: Patient refuses to smile, otherwise Cranial nerves II-XII intact. Normal speech. Gross sensation intact throughout. 5/5 muscle strength throughout. PSYCHIATRIC: Cooperative. SKIN: Warm, dry Laboratory Results - last 24 hr 02/01/20 02/01/20 02/01/20 03:48 03:48 03:48 WBC 7.8 RBC 5.00 Hgb 16.4 Hct 48.3 MCV 96.6 H MCH 32.8 MCHC 33.9 RDW 13.3 Plt Count 200 MPV 8.6 Absolute Neuts (auto) 5.0 Neutrophils % 63.9 Lymphocytes % 21.0 Monocytes % 11.0 H Eosinophils % 2.7 Basophils % 1.4 Nucleated RBC % 0 PT with INR 11.00 INR 0.93 PTT (Actin FS) 29.4 Sodium 143 Potassium 4.5 Chloride 106 Carbon Dioxide 29 Anion Gap 8 BUN 20.7 H Creatinine 1.5 H Est GFR (CKD-EPI)AfAm 53.52 Est GFR (CKD-EPI)NonAf 46.17 Random Glucose 110 H Calcium 9.6 Total Bilirubin 0.5 AST 26 ALT 38 Alkaline Phosphatase 99 Creatine Kinase 105 Troponin I < 0.02 Total Protein 7.7 Albumin 4.3 TSH 3.25 D ASSESSMENT/PLAN: 69 y/o M PMHx CAD (s/p Stent x1 on ASA/Plavix), PAF and AFlutter (Not on AC), HTN, Hypothyroidism, HLD, Gout, Anxiety presents with chest palpitations. Recent hospitalizations for similar complaints. In the ED, patient was found to have RAMON and in AFib for which he was started on Cardizem GTT. #PAF with RVR -Unclear trigger, however patient endorses decreased hydration -EKG reveals AFib with RVR, VR 116, QTc 439 -As per EMR, Prior Metoprolol use was not tolerated and Bystolic dc'ed due to cost -Patient not on AC despite [id number] score 3; Declines DOAC use due to cost -Echo done last visit, TSH Noted above -Wean off Cardizem GTT -Continue Home dose Cardizem -Trend Troponin -Check Mag -Cardio consult -Tele #RAMON -Likely due to dehydration -Check UA, Kidney Renal US -Continue IV Hydration #FEN -NS @ 75 -Replete lytes -NPO for possible intervention #PPx -DVT: SQH Dispo: Tele-Obs ATTENDING PHYSICIAN STATEMENT I saw and evaluated the patient. I reviewed the resident's note and discussed the case with the resident. I agree with the resident's findings and plan as documented. SUBJECTIVE: OBJECTIVE: ASSESSMENT AND PLAN:
[2020-02-01 09:32] LABS: PH,URINE 6.5 (5.0-8.0); URINE APPEARANCE CLEAR; URINE BILIRUBIN NEGATIVE (NEGATIVE); URINE COLOR YELLOW; URINE GLUCOSE (UA) NEGATIVE (NEGATIVE); URINE KETONE NEGATIVE (NEGATIVE); URINE LEUK ESTERASE NEGATIVE (NEGATIVE); URINE NITRITE NEGATIVE (NEGATIVE); URINE PROTEIN NEGATIVE (NEGATIVE); URINE UROBILINOGEN 0.2 mg/dL (0.2-1.0)
--- NOTE | 2020-02-01 09:50 | EKG ---
Test Reason : Blood Pressure : / mmHG Vent. Rate : 116 BPM Atrial Rate : 102 BPM P-R Int : 000 ms QRS Dur : 090 ms QT Int : 316 ms P-R-T Axes : 000 037 067 degrees QTc Int : 439 ms ATRIAL FIBRILLATION WITH RAPID VENTRICULAR RESPONSE ABNORMAL ECG WHEN COMPARED WITH ECG OF 17-JAN-2020 15:13, ATRIAL FIBRILLATION HAS REPLACED SINUS RHYTHM VENT. RATE HAS INCREASED BY [address] NO LONGER ELEVATED IN LATERAL LEADS Confirmed by SHAHID ROMANO MD ([id number]) on 02/01/2020 9:49:43 AM Referred By: Confirmed By:SHAHID ROMANO MD
[2020-02-01 10:55] VITALS: PULSE 62; TEMP 97.6
[2020-02-01 12:17] VITALS: BP 109/82
--- NOTE | 2020-02-01 12:44 | CON.CARD ---
Cardiology Consult (text) - Consultation Consultation Note: Chief Complaint: palpitations History of Present Illness: 69M h/o afib, HTN, hypothyroidism, anxiety, CAD, RI s/p BETITO to prox RCA 04/22/2018 admitted for palpitations. Had his usual symptom of palps so came to ER and had afib with rvr. Got dilt iv and now in sr and feels well. No cp sob dizzy loc pnd orthopnea le edema. PMH: PAFib HTN hypothyroid anxiety CAD, s/p RI BETITO to prox RCA 04/22/18 - Past Medical History Cardio/Vascular: Yes: AFIB, HTN, CAD - Past Surgical History Past Surgical History: Yes: Hernia Repair - Alcohol/Substance Use Hx Alcohol Use: No History of Substance Use: reports: None - Smoking History Smoking history: Unknown if ever smoked Have you smoked in the past 12 months: No Aproximately how many cigarettes per day: 0 - Social History ADL: Independent History of Recent Travel: No Home Medications - Allergies Allergies/Adverse Reactions: Allergies Allergy/AdvReac Type Severity Reaction Status Date / Time ampicillin Allergy Severe Hives Verified 02/01/20 03:34 Penicillins Allergy Severe Hives Verified 02/01/20 03:34 Ambulatory Orders Aspirin [ASA -] 81 mg PO DAILY 02/17/17 Atorvastatin Ca [Lipitor] 40 mg PO HS 01/17/20 Clopidogrel Bisulfate [Plavix] 75 mg PO DAILY 01/17/20 Levothyroxine [Synthroid -] 100 mcg PO AM 01/17/20 Diltiazem Cd [Cardizem Cd -] 120 mg PO BID #90 cap.cd.24h 01/18/20 Family Disease History - Family Disease History Family Disease History: Heart Disease: Sister (a fib) Review of Systems - Review of Systems Constitutional: denies: Chills, Fever Eyes: denies: Eye Pain HENT: denies: Nasal Congestion Neck: denies: Stiffness Cardiovascular: denies: Edema Respiratory: denies: Orthopnea, PND Gastrointestinal: denies: Diarrhea, Rectal Bleeding Genitourinary: denies: Burning, Hematuria Musculoskeletal: denies: Muscle Pain Integumentary: denies: Rash Neurological: denies: Numbness, Seizure, Syncope Endocrine: denies: Excessive Sweating Hematology/Lymphatic: denies: Excessive Bleeding Vital Signs: Vital Signs Period Temp Pulse Resp BP Sys/Ferrera Pulse Ox Last 24 Hr 97.6 F-98.4 F 62-114 15-20 101-165/79-101 95-100 Constitutional: Yes: Well Nourished, No Distress Eyes: No: Sclera Icterus HENT: No: Nasal Congestion Neck: No: Decreased ROM Respiratory: Yes: CTA Bilaterally. No: Accessory Muscle Use, Rales, Wheezes Gastrointestinal: Yes: Normal Bowel Sounds. No: Distention, Hepatomegaly, Palpable Mass, Tenderness Cardiovascular: Yes: Regular Rate and Rhythm JVD: No Carotid Bruit: No PMI: Non-Displaced Heart Sounds: Yes: S1, S2. No: Gallop Murmur: No: Systolic Murmur, Diastolic Murmur Musculoskeletal: Yes: Other (No kyphosis) Extremities: No: Cold, Cyanosis Edema: No Peripheral Pulses: 2+ Left Carotid, 2+ Right Carotid, 2+ Left Doralis Pedis, 2+ Right Dorsalis Pedis Integumentary: No: Jaundice Neurological: Yes: Alert, Oriented (x3) Psychiatric: No: Agitated Laboratory Last Values WBC 7.8 K/mm3 (4.0-10.0) 02/01/20 03:48 RBC 5.00 M/mm3 (4.00-5.60) 02/01/20 03:48 Hgb 16.4 GM/dL (11.7-16.9) 02/01/20 03:48 Hct 48.3 % (35.4-49) 02/01/20 03:48 MCV 96.6 fl (80-96) H 02/01/20 03:48 MCH 32.8 pg (25.7-33.7) 02/01/20 03:48 MCHC 33.9 g/dl (32.0-35.9) 02/01/20 03:48 RDW 13.3 % (11.9-15.9) 02/01/20 03:48 Plt Count 200 K/MM3 (134-434) 02/01/20 03:48 MPV 8.6 fl (7.5-11.1) 02/01/20 03:48 Absolute Neuts (auto) 5.0 K/mm3 (1.5-8.0) 02/01/20 03:48 Neutrophils % 63.9 % (42.8-82.8) 02/01/20 03:48 Lymphocytes % 21.0 % (8-40) 02/01/20 03:48 Monocytes % 11.0 % (3.8-10.2) H 02/01/20 03:48 Eosinophils % 2.7 % (0-4.5) 02/01/20 03:48 Basophils % 1.4 % (0-2.0) 02/01/20 03:48 Nucleated RBC % 0 % (0-0) 02/01/20 03:48 PT with INR 11.00 SEC (9.7-13.0) 02/01/20 03:48 INR 0.93 (0.83-1.09) 02/01/20 03:48 PTT (Actin FS) 29.4 SECONDS (25.2-36.5) 02/01/20 03:48 Sodium 143 mmol/L (136-145) 02/01/20 03:48 Potassium 4.5 mmol/L (3.5-5.1) 02/01/20 03:48 Chloride 106 mmol/L (98-107) 02/01/20 03:48 Carbon Dioxide 29 mmol/L (21-32) 02/01/20 03:48 Anion Gap 8 MMOL/L (8-16) 02/01/20 03:48 BUN 20.7 mg/dL (7-18) H 02/01/20 03:48 Creatinine 1.5 mg/dL (0.55-1.3) H 02/01/20 03:48 Est GFR (CKD-EPI)AfAm 53.52 02/01/20 03:48 Est GFR (CKD-EPI)NonAf 46.17 02/01/20 03:48 Random Glucose 110 mg/dL (74-106) H 02/01/20 03:48 Calcium 9.6 mg/dL (8.5-10.1) 02/01/20 03:48 Total Bilirubin 0.5 mg/dL (0.2-1) 02/01/20 03:48 AST 26 U/L (15-37) 02/01/20 03:48 ALT 38 U/L (13-61) 02/01/20 03:48 Alkaline Phosphatase 99 U/L (45-117) 02/01/20 03:48 Creatine Kinase 105 U/L (26-308) 02/01/20 03:48 Troponin I < 0.02 ng/ml (0.00-0.05) 02/01/20 03:48 Total Protein 7.7 g/dl (6.4-8.2) 02/01/20 03:48 Albumin 4.3 g/dl (3.4-5.0) 02/01/20 03:48 TSH 3.25 uIU/ml (0.358-3.74) D 02/01/20 03:48 Urine Color Yellow 02/01/20 09:28 Urine Appearance Clear 02/01/20 09:28 Urine pH 6.5 (5.0-8.0) 02/01/20 09:28 Ur Specific Harlan 1.014 (1.010-1.035) 02/01/20 09:28 Urine Protein Negative (NEGATIVE) 02/01/20 09:28 Urine Glucose (UA) Negative (NEGATIVE) 02/01/20 09:28 Urine Ketones Negative (NEGATIVE) 02/01/20 09:28 Urine Blood Negative (NEGATIVE) 02/01/20 09:28 Urine Nitrite Negative (NEGATIVE) 02/01/20 09:28 Urine Bilirubin Negative (NEGATIVE) 02/01/20 09:28 Urine Urobilinogen 0.2 mg/dL (0.2-1.0) 02/01/20 09:28 Ur Leukocyte Esterase Negative (NEGATIVE) 02/01/20 09:28 tele: sr ECG: afib rvr, no ischemic changes Echo 2014: nl LV/RV; valves WNL echo 11/2017: nl lv/rv, mild lae, no sig valve path ETT 2016: 3:02 min, 93% MPHR. no chest pain. no ST changes. echo 12/2019 tds, hyperdynamic LV EF 70-75%, RV nl, nl LA/RA, mild to mod MAC, mild MR cxr: clear a/p: 69M h/o afib, HTN, hypothyroidism, anxiety, CAD, RI s/p BETITO to prox RCA 04/22/2018 admitted for palpitations. paroxysmal Afib and atrial flutter - here with episode of afib with rvr, now in sr after iv dilt - did not tolerate metoprolol in the past, tolerated bystolic but was stopped due to cost - recent admit for same, thought possibly to be related to dehydration then, he did not increase his fluid intake and is again vol down here. Rec;d increase water intake, d/w pt in detail. -in sr now. continue PO dilt 120 mg BID. -has indication for ac but declines, cont asa, plavix CAD s/p RI - stable, no signs acs - continue aspirin, statin, plavix, beta harsh, ACEI HTN: -bp currently controlled cardiac pearson stable for dc
--- NOTE | 2020-02-02 13:11 | EKG ---
Test Reason : Blood Pressure : / mmHG Vent. Rate : 064 BPM Atrial Rate : 064 BPM P-R Int : 194 ms QRS Dur : 090 ms QT Int : 398 ms P-R-T Axes : 045 019 048 degrees QTc Int : 410 ms NORMAL SINUS RHYTHM ST ELEVATION, CONSIDER EARLY REPOLARIZATION, PERICARDITIS, OR INJURY WHEN COMPARED WITH ECG OF 01-FEB-2020 03:46, SINUS RHYTHM HAS REPLACED ATRIAL FIBRILLATION Confirmed by RENA LACEY MD ([id number]) on 02/02/2020 1:11:20 PM Referred By: Confirmed By:RENA LACEY MD
== END 2020-02-01 12:01 | disposition home or self-care (01) ==
LOC: JER 03:21
PROC: 3E033NZ Introduction of Analgesics, Hypnotics, Sedatives into Peripheral Vein, Percutaneous Approach (ICD-10-PCS; principal; 2020-02-01)
PROC: 3E033GC Introduction of Other Therapeutic Substance into Peripheral Vein, Percutaneous Approach (ICD-10-PCS; 2020-02-01)
DX: I48.91 Unspecified atrial fibrillation (principal); R00.2 Palpitations
CPT/HCPCS: 36415; 71045-TC-FY; 80053; 81003; 82550; 84443; 84484; 85025; 85610; 85730; 93005; 93010; 99291; U0003

== ENCOUNTER 2020-03-05 18:54 | Emergency (ER) | payer OTHER ==
[2020-03-05 18:59] VITALS: BMI 27.9
[2020-03-05] MEDS ORDERED: ASPIRIN 81 MG CHEWABLE TABLETS PO ONE (19:15)
[2020-03-05] MEDS ORDERED: dilTIAZem HCL 50 MG/10 ML - 10 ML VIAL IVPUSH ONE ×2 (19:17→20:58)
[2020-03-05] MEDS ORDERED: ASPIRIN 81 MG CHEWABLE TABLETS ONE (19:19)
[2020-03-05] MEDS ORDERED: dilTIAZem HCL 125 MG/25 ML - 25 ML VIAL ONE ×2 (19:19→21:17)
[2020-03-05 19:25] LABS: BASO % 1.2 % (0-2.0); EOS % 3.9 % (0-4.5); HEMATOCRIT 48.7 % (35.4-49); HEMOGLOBIN 16.9 GM/dL (11.7-16.9); LYMPH % 19.7 % (8-40); MCH 33.3 pg (25.7-33.7); MCHC 34.7 g/dl (32.0-35.9); MEAN CELL VOLUME 96.1 fl (80-96); MEAN PLT VOLUME 8.7 fl (7.5-11.1); MONO % 10.5 % (3.8-10.2); NEUT % 64.7 % (42.8-82.8); PLATELET COUNT 200 K/MM3 (134-434); RBC 5.07 M/mm3 (4.00-5.60); RDW 13.1 % (11.9-15.9); WHITE BLOOD COUNT 6.9 K/mm3 (4.0-10.0)
--- NOTE | 2020-03-05 19:27 | PDOC ---
History of Present Illness - General Chief Complaint: Palpitations Stated Complaint: AFIB Time Seen by Provider: 03/05/20 19:11 History Source: Patient, Old Records Exam Limitations: No Limitations - History of Present Illness Initial Comments: 03/05/20 19:23 PCP: Amanda Cards: Linda HPI: 69 yo M pmh CAD s/p stent x1 (ASA, Plavix), afib (multiple ED visits for rapid afib, on diltiazem 120 BID), HTN, Anxiety presenting with rapid heart rate and discomfort c/w his prior episodes of rapid afib starting shortly after dinner this evening. Patient reports feeling he may be a little dehydrated, drinking a bottle of water in his stretcher. Reports compliance with his medicat ions, took only his 12 noon dose of dilt today, normally takes his second dose at midnight. No recent illnesses, felt in his usual state of health before dinner but felt bloated and then developed symptoms shortly thereafter. Endorses mild shortness of breath, palpitations. Denies chest pain, chest pressure, fevers, chills, nausea, vomiting, abdominal pain, back pain, weakness, numbness, tingling. Meds: Per chart All: NKDA PMH: As above PSH: Per chart Past History - Travel History Traveled outside of the country in the last 30 days: No Close contact w/someone who was outside of country & ill: No - Medical History Allergies/Adverse Reactions: Allergies Allergy/AdvReac Type Severity Reaction Status Date / Time ampicillin Allergy Severe Hives Verified 03/05/20 18:57 Penicillins Allergy Severe Hives Verified 03/05/20 18:57 Home Medications: Ambulatory Orders Aspirin [ASA -] 81 mg PO DAILY 02/17/17 Atorvastatin Ca [Lipitor] 40 mg PO HS 01/17/20 Clopidogrel Bisulfate [Plavix] 75 mg PO DAILY 01/17/20 Levothyroxine [Synthroid -] 100 mcg PO AM 01/17/20 Diltiazem Cd [Cardizem Cd -] 120 mg PO BID #90 cap.cd.24h 01/18/20 Anemia: No Asthma: No Cancer: No Cardiac Disorders: Yes (a-fib, STENTS, mi 04/14) CVA: No COPD: No CHF: No Dementia: No Diabetes: No GI Disorders: No Disorders: No HTN: Yes Hypercholesterolemia: No Kidney Stones: Yes Liver Disease: No Psychiatric Problems: Yes (ANXIETY.) Seizures: No Thyroid Disease: Yes (HYPO.) - Surgical History Abdominal Surgery: Yes (HERNIA REPAIR, LITHOTRIPSY X5) Appendectomy: No Cardiac Surgery: Yes (STENTS) Cholecystectomy: No Lung Surgery: No Neurologic Surgery: No Orthopedic Surgery: No - Immunization History Immunization Up to Date: Yes - Psycho-Social/Smoking History Smoking Status: Yes Smoking History: Never smoked Have you smoked in the past 12 months: No Number of Cigarettes Smoked Daily: 0 If you are a former smoker, when did you quit?: 12 YEARS AGO Cigars Per Day: 0 - Substance Abuse Hx (Audit-C & DAST Scrn) How often the patient has a drink containing alcohol: Never Score: In Men: 4 or > Positive; In Women: 3 or > Positive: 0 Screen Result (Pos requires Nsg. Audit-10AR): Negative In the last yr the pt used illegal drug/Rx for NonMed reason: No Score: Yes response is considered Positive: 0 Screen Result (Positive result requires Nsg. DAST-10): Negative Review of Systems - Review of Systems Able to Perform ROS?: Yes Is the patient limited Khmer proficient: Yes Constitutional: No: Chills, Fever, Night Sweats, Weakness HEENTM: No: Recent change in vision, Nose Congestion, Throat Pain Respiratory: No: Cough, Shortness of Breath, Wheezing Cardiac (ROS): Yes: Irregular Heart Rate, Palpitations. No: Chest Pain, Lightheadedness, Syncope, Chest Tightness ABD/GI: No: Constipated, Diarrhea, Nausea, Vomiting : No: Burning, Dysuria, Frequency Musculoskeletal: No: Back Pain, Muscle Pain, Muscle Weakness Integumentary: No: Bruising, Lesions, Lumps Neurological: No: Headache, Numbness, Tingling, Weakness Psychiatric: No: Stressors, Change in Appetite Endocrine: No: Increased Thirst, Increased Urine Hematologic/Lymphatic: No: Anemia, Blood Clots, Easy Bleeding All Other Systems: Reviewed and Negative *Physical Exam - Vital Signs Last Vital Signs Temp Pulse Resp BP Pulse Ox 98.0 F 132 H 20 171/101 H 100 03/05/20 18:57 03/05/20 18:57 03/05/20 18:57 03/05/20 18:57 03/05/20 18:57 - Physical Exam 03/05/20 19:44 Vitals reviewed, AF, rapid afib at 140s, mild tachypnea with normal WOB GEN: Appears stated age, mild distress, comfortable. AAOx3. HEENT: NCAT, EOMI, PERRL. Sclera anicteric, non-injected. No facial asymmetry. Moist mucous membranes. Normal voice. Trachea midline. CV: Afib on monitor, tachy to 140s, S1/S2, no murmurs / rubs / gallops apprec iated. LUNG: CTABL, normal work of breathing. No wheezes, rales, rhonchi. No cough. Speaking full sentences. GI: Soft, NTND, +BS, no guarding, no rebound. No masses. EXTREMITIES: 2+ distal pulses. No clubbing / cyanosis / edema. No gross deformity in any extremity. SKIN: Warm, dry, no rashes appreciated, non-jaundiced. PSYCH: Normal mood and affect. Cooperative and appropriate. NEURO: CN grossly intact. Moving all extremities well. Normal strength and sensa tion grossly. ED Treatment Course - LABORATORY CBC & Chemistry Diagram: 03/05/20 19:13 03/05/20 19:13 Medical Decision Making - Medical Decision Making 03/05/20 19:47 69 yo M pmh CAD s/p stent x1 (ASA, Plavix), afib (multiple ED visits for rapid afib, on diltiazem 120 BID), HTN, Anxiety presenting with rapid heart rate and discomfort c/w his prior episodes of rapid afib starting shortly after dinner this evening. - CBC, CMP, Cardiac Profile, Mg, BNP, Coags - EKG, CXR - Diltiazem 20 IV - ASA 162 chewable EKG at 19:04: 133bpm, afib with RVR, normal axis, QTc 431, no ST changes 03/05/20 20:19 Laboratory Tests 03/05/20 03/05/20 03/05/20 19:13 19:13 19:13 WBC 6.9 RBC 5.07 Hgb 16.9 Hct 48.7 MCV 96.1 H MCH 33.3 MCHC 34.7 RDW 13.1 Plt Count 200 MPV 8.7 Absolute Neuts (auto) 4.4 Neutrophils % 64.7 Lymphocytes % 19.7 Monocytes % 10.5 H Eosinophils % 3.9 Basophils % 1.2 Nucleated RBC % 0 PT with INR 11.50 INR 0.97 PTT (Actin FS) 26.9 Sodium 138 Potassium 4.5 Chloride 103 Carbon Dioxide 29 Anion Gap 7 L BUN 17.2 Creatinine 1.3 Est GFR (CKD-EPI)AfAm 63.62 Est GFR (CKD-EPI)NonAf 54.90 Random Glucose 170 H Calcium 9.2 Magnesium 2.1 Total Bilirubin 0.7 AST 33 ALT 36 Alkaline Phosphatase 108 Creatine Kinase 178 Creatine Kinase Index 1.6 CK-MB (CK-2) 3.0 Troponin I < 0.02 B-Natriuretic Peptide 22.5 Total Protein 8.2 Albumin 4.5 Initial troponin negative Call placed for Linda 03/05/20 20:[address] Mckeon, agrees with plan for Dilt IV, if unable to resolve rate, admit for obs Office working on getting patient authorized for [email or web address] which has worked for him previously 03/05/20 23:44 Patient revered to NSR, HR in 80s Repeat troponin drawn and sent Dispo: Home Discharge - Discharge Information Problems reviewed: Yes Clinical Impression/Diagnosis: Atrial fibrillation with rapid ventricular response Condition: Stable Disposition: HOME - Admission No - Follow up/Referral Referrals: Luis Mckeon MD [Staff Physician] - - Patient Discharge Instructions Patient Printed Discharge Instructions: DI for Arrhythmias, DI for Palpitations Additional Instructions: You were seen and evaluated at [facility] for an episode of rapid Afib. Continue your home medications as directed. Follow up with Dr. Mckeon in the next 2-3 days. Return to the ED for any new or concerning symptoms. - Post Discharge Activity
[2020-03-05 19:34] LABS: INR 0.97 (0.83-1.09); PROTHROMBIN TIME (PATIENT) 11.5 SEC (9.7-13.0)
[2020-03-05 19:37] LABS: ACTIVATED PTT 26.9 SECONDS (25.2-36.5)
--- NOTE | 2020-03-05 19:45 | PDOC ---
Documentation entered by Aliyah Loza SCRIBE, acting as scribe for Michelle Gonzalez MD. Michelle Gonzalez MD: This documentation has been prepared by the Jim parker Xhesika, SCRIBE, under my direction and personally reviewed by me in its entirety. I confirm that the documentation accurately reflects all work, treatment, procedures, and medical decision making performed by me. Attending Attestation - Resident Resident Name: Sang Faustin - ED Attending Attestation I have performed the following: I have examined & evaluated the patient, The case was reviewed & discussed with the resident, I agree w/resident's findings & plan, Exceptions are as noted - HPI HPI: 03/05/20 19:12 This patient is a 69 year old male with PMHx of PA (stent x1 in March 2018 ), A-fib, HTN, HLD, hernia repair, and hyperthyroidism, who presents to the ED with palpitations. Pt is in rapid Afib to 140's. Pt notes he endorsed similar symptoms before. Allergies: Ampicillin, Penicillins PCP:Dr. Patel Cards: Dr. Mckeon - Physicial Exam PE: 03/05/20 19:21 wnwd 69 yo p/w palpitaions that started after eating dinner head ncat neck supple lungs cta b/l cvs tachycardia abdomen protuberant skin warm and dry extremities no edema neuro axox3,motor strength 5/5 b/l 03/05/20 19:41 - Medical Decision Making 03/05/20 19:42 pt has h/o afib with RvR he states he is complaint with his diltiazem of which he takes 120 mg BID cards is Dr Luis Holland 03/05/20 19:46 he wasa seen for samr complaint in January this year he ECHO this year showed EF 70% 03/05/20 20:07 troponin is Negative, chemistries reviewed and electrolytes are unremarkable 03/06/20 00:33 pt 's heart rate was controlled by diltiazem and he reverted to normal sinus rhythm Dr Holland said the pt could be discharged if the troponins were negative , plan pt will follow up with cardiology as outpt Discharge - Discharge Information Problems reviewed: Yes Clinical Impression/Diagnosis: Atrial fibrillation with rapid ventricular response Condition: Stable Disposition: HOME - Follow up/Referral Referrals: Ginelli,Luis, MD [Staff Physician] - - Patient Discharge Instructions Patient Printed Discharge Instructions: DI for Arrhythmias, DI for Palpitations Additional Instructions: You were seen and evaluated at [place] for an episode of rapid Afib. Continue your home medications as directed. Follow up with Dr. Mckeon in the next 2-3 days. Return to the ED for any new or concerning symptoms. - Post Discharge Activity
[2020-03-05 19:54] LABS: ALBUMIN 4.5 g/dl (3.4-5.0); ALK PHOS 108 U/L (45-117); ANION GAP 7 MMOL/L (8-16); BILIRUBIN,TOTAL 0.7 mg/dL (0.2-1); BLOOD UREA NITROGEN 17.2 mg/dL (7-18); CALCIUM 9.2 mg/dL (8.5-10.1); CHLORIDE 103 mmol/L (98-107); CO2 29 mmol/L (21-32); CREATININE 1.3 mg/dL (0.55-1.3); GLUCOSE,RANDOM 170 mg/dL (74-106); MAGNESIUM 2.1 mg/dL (1.8-2.4); N-TERMINAL BNP 22.5 pg/ml (5-125); POTASSIUM 4.5 mmol/L (3.5-5.1); SGOT/AST 33 U/L (15-37); SGPT/ALT 36 U/L (13-61); SODIUM 138 mmol/L (136-145); TOT PROT 8.2 g/dl (6.4-8.2)
[2020-03-05] MEDS ORDERED: MAG HYDROX/AL HYDROX/SIMETH 30 ML UNIT-DOSE CUP PO ONE (20:59)
[2020-03-05] MEDS ORDERED: dilTIAZem HCL 60 MG TABLET PO ONE (21:00)
[2020-03-05] MEDS ORDERED: MAG HYDROX/AL HYDROX/SIMETH 30 ML UNIT-DOSE CUP ONE (21:17)
[2020-03-05] MEDS ORDERED: dilTIAZem HCL 60 MG TABLET ONE (21:17)
[2020-03-06] MEDS ORDERED: LORazepam 2 MG/ML SDV VIAL ONE
[2020-03-06 00:55] VITALS: BP 110/78; PULSE 84; TEMP 98.1
--- NOTE | 2020-03-06 13:29 | EKG ---
Test Reason : Blood Pressure : / mmHG Vent. Rate : 133 BPM Atrial Rate : 227 BPM P-R Int : 000 ms QRS Dur : 078 ms QT Int : 290 ms P-R-T Axes : 000 038 044 degrees QTc Int : 431 ms ATRIAL FIBRILLATION WITH RAPID VENTRICULAR RESPONSE ABNORMAL ECG WHEN COMPARED WITH ECG OF 01-FEB-2020 06:56, ATRIAL FIBRILLATION HAS REPLACED SINUS RHYTHM VENT. RATE HAS INCREASED BY 69 BPM Confirmed by MD ALLI, JOCE ([id number]) on 03/06/2020 1:28:55 PM Referred By: Confirmed By:JOCE CARSON MD
== END 2020-03-06 00:45 | disposition home or self-care (01) ==
LOC: JER 18:54
PROC: 3E033NZ Introduction of Analgesics, Hypnotics, Sedatives into Peripheral Vein, Percutaneous Approach (ICD-10-PCS; principal; 2020-03-05)
PROC: 3E033GC Introduction of Other Therapeutic Substance into Peripheral Vein, Percutaneous Approach (ICD-10-PCS; 2020-03-05)
DX: I48.92 Unspecified atrial flutter (principal)
CPT/HCPCS: 36415; 71045-TC-FY; 80053; 82550; 82553; 83735; 83880; 84484; 85025; 85610; 85730; 93005; 93010; 99285-25

== ENCOUNTER 2020-04-07 23:50 | Emergency (ER) | payer OTHER ==
--- OUTSIDE RECORDS SUMMARY | 2020-04-08 00:15 | XMS ---
:1950 Author Organization [facility] Support Name Relationship Address Phone RE, RETIRED Unavailable Unavailable Unavailable RE Unavailable Unavailable Unavailable JENNIFER SALAZAR [address] [place] [address] JENNIFER SALAZAR Spouse [address] [place] [address] Re-disclosure Warning The records that you are about to access may contain information from federally- assisted alcohol or drug abuse programs. If such information is present, then the following federally mandated warning applies: This information has been disclosed to you from records protected by federal confidentiality rules (42 CFR part 2). The federal rules prohibit you from making any further disclosure of this information unless further disclosure is expressly permitted by the written consent of the person to whom it pertains or as otherwise permitted by 42 CFR part 2. A general authorization for the release of medical or other information is NOT sufficient for this purpose. The Federal rules restrict any use of the information to criminally investigate or prosecute any alcohol or drug abuse patient.The records that you are about to access may contain highly sensitive health information, the redisclosure of which is protected by Article 27-F of the [facility] Public Health law. If you continue you may haveaccess to information: Regarding HIV / AIDS; Provided by facilities licensed or operated by the [facility] Office of Mental Health; or Provided by the [facility] Office for People With Developmental Disabilities. If such information is present, then the following [facility] mandated warning applies: This information has been disclosed to you from confidential records which are protected by state law. State law prohibits you from making any further disclosure of this information without the specific written consent of the person to whom it pertains, or as otherwise permitted by law. Any unauthorized further disclosure in violation of state law may result in a fine or group home sentence or both. A general authorization for the release of medical or other information is NOT sufficient authorization for further disclosure. Insurance Providers Payer name Policy type Policy ID Covered Covered constitution party's Policy P luz maria / Coverage constitution party ID relationship to [place] [employer] type [place] [employer] [id number] HEALTHCARE (MEDICARE) [place] MED[place] [id number] SP [id number] Results ID Date Data Source [id number] 02/01/2020 09:28:00 AM EDT [facility] Name Value Range Interpretation Description Data Sup porting Code Source(s) Document(s ) SARS [facility] coronavirus 2 RNA This lab was ordered by [facility] and reported by [facility]. ID Date Data Source [id number] 01/17/2020 12:13:00 AM EDT [facility] Name Value Range Interpretation Description Data Sup porting Code Source(s) Document(s ) SARS [facility] coronavirus 2 RNA This lab was ordered by [facility] and reported by [facility]. Procedure
[2020-04-08 00:23] VITALS: BMI 31.1
[2020-04-08] MEDS ORDERED: SODIUM CHLORIDE 500 ML IV STA ×2 (00:30→01:36)
[2020-04-08 00:57] LABS: BASO % 0.5 % (0-2.0); EOS % 2.8 % (0-4.5); HEMATOCRIT 48.1 % (35.4-49); HEMOGLOBIN 16.1 GM/dL (11.7-16.9); LYMPH % 13.2 % (8-40); MCH 32.1 pg (25.7-33.7); MCHC 33.3 g/dl (32.0-35.9); MEAN CELL VOLUME 96.2 fl (80-96); MEAN PLT VOLUME 9.1 fl (7.5-11.1); NEUT % 73.5 % (42.8-82.8); PLATELET COUNT 174 K/MM3 (134-434); RDW 12.9 % (11.9-15.9); WHITE BLOOD COUNT 7.2 K/mm3 (4.0-10.0)
[2020-04-08 01:06] VITALS: TEMP 97.6
[2020-04-08 01:26] LABS: ALBUMIN 3.9 g/dl (3.4-5.0); ALK PHOS 100 U/L (45-117); ANION GAP 4 MMOL/L (8-16); BILIRUBIN,TOTAL 0.4 mg/dL (0.2-1); CALCIUM 9.4 mg/dL (8.5-10.1); CHLORIDE 109 mmol/L (98-107); CO2 31 mmol/L (21-32); CREATININE 1.2 mg/dL (0.55-1.3); POTASSIUM 4.6 mmol/L (3.5-5.1); SGOT/AST 24 U/L (15-37); SGPT/ALT 37 U/L (13-61); SODIUM 144 mmol/L (136-145); TOT PROT 7.4 g/dl (6.4-8.2)
--- NOTE | 2020-04-08 01:36 | PDOC ---
History of Present Illness - General Chief Complaint: Palpitations Stated Complaint: PALPITATIONS Time Seen by Provider: 04/08/20 00:52 History Source: Patient Exam Limitations: No Limitations - History of Present Illness Initial Comments: 04/08/20 01:39 70y M with PMH of Afib, CAD, HTN, HLD, DM presenting to the ER for palpitations. Pt states he was eating onion rings, felt gassy and then felt palpitations. He states he gets palpitations when he eats anything upsetting. 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 Denies chest pain, sob, abdominal pain, n/v/d, dysuria, headaches, fever, cough, orthopnea, leg swelling. He took Maalox prior to arrival which helped alleviate some of his symptoms. PMD: Cards: Linda PMH: see hpi PSH: none Meds: see med rec Allergies: PCN, ampicillin Past History - Medical History Allergies/Adverse Reactions: Allergies Allergy/AdvReac Type Severity Reaction Status Date / Time ampicillin Allergy Severe Hives Verified 04/08/20 00:23 Penicillins Allergy Severe Hives Verified 04/08/20 00:23 Home Medications: Ambulatory Orders Aspirin [ASA -] 81 mg PO DAILY 02/17/17 Atorvastatin Ca [Lipitor] 40 mg PO HS 01/17/20 Clopidogrel Bisulfate [Plavix] 75 mg PO DAILY 01/17/20 Levothyroxine [Synthroid -] 100 mcg PO AM 01/17/20 Diltiazem Cd [Cardizem Cd -] 120 mg PO BID #90 cap.cd.24h 01/18/20 Apixaban [Eliquis] 5 mg PO BID #60 tablet 04/08/20 Anemia: No Asthma: No Cancer: No Cardiac Disorders: Yes (a-fib, STENTS, mi 04/14) CVA: No COPD: No CHF: No Dementia: No Diabetes: No GI Disorders: No Disorders: No HTN: Yes Hypercholesterolemia: No Kidney Stones: Yes Liver Disease: No Psychiatric Problems: Yes (ANXIETY.) Seizures: No Thyroid Disease: Yes (HYPO.) - Surgical History Abdominal Surgery: Yes (HERNIA REPAIR, LITHOTRIPSY X5) Appendectomy: No Cardiac Surgery: Yes (STENTS) Cholecystectomy: No Lung Surgery: No Neurologic Surgery: No Orthopedic Surgery: No - Immunization History Immunization Up to Date: Yes - Psycho-Social/Smoking History Smoking Status: Yes Smoking History: Never smoked Have you smoked in the past 12 months: No Number of Cigarettes Smoked Daily: 0 If you are a former smoker, when did you quit?: 12 YEARS AGO Cigars Per Day: 0 Information on smoking cessation initiated: No - Substance Abuse Hx (Audit-C & DAST Scrn) How often the patient has a drink containing alcohol: Never Score: In Men: 4 or > Positive; In Women: 3 or > Positive: 0 Screen Result (Pos requires Nsg. Audit-10AR): Negative In the last yr the pt used illegal drug/Rx for NonMed reason: No Score: Yes response is considered Positive: 0 Screen Result (Positive result requires Nsg. DAST-10): Negative Review of Systems - Review of Systems Constitutional: No: Chills, Fever, Weakness HEENTM: No: Symptoms Reported Respiratory: No: Symptoms reported Cardiac (ROS): Yes: Palpitations ABD/GI: Yes: See HPI : No: Symptoms Reported Musculoskeletal: No: Symptoms Reported Integumentary: No: Symptoms Reported Neurological: No: Symptoms reported *Physical Exam - Vital Signs Last Vital Signs Temp Pulse Resp BP Pulse Ox 97.6 F 103 H 20 125/88 98 04/08/20 01:04 04/08/20 01:04 04/08/20 01:04 04/08/20 01:04 04/08/20 01:04 - Physical Exam General Appearance: Yes: Nourished, Appropriately Dressed. No: Apparent Distress HEENT: positive: EOMI, QUINTEN, Normal ENT Inspection Neck: positive: Trachea midline, Supple Respiratory/Chest: positive: Lungs Clear, Normal Breath Sounds. negative: Crackles, Rales, Rhonchi, Stridor, Wheezing Cardiovascular: positive: S1, S2, Irregular. negative: Edema, JVD, Murmur Vascular Pulses: Dorsalis-Pedis (R): 2+, Doralis-Pedis (L): 2+ Gastrointestinal/Abdominal: positive: Normal Bowel Sounds, Soft, Protuberent. negative: Tender, Distended, Guarding, Rebound, Tenderness Musculoskeletal: negative: CVA Tenderness Extremity: positive: Normal Capillary Refill. negative: Pedal Edema, Swelling Integumentary: positive: Normal Color, Dry, Warm Neurologic: positive: medical microbiologist II-XII NML intact, Fully Oriented, Alert, Normal Mood/Affect, Normal Response, Motor Strength 10/30 ED Treatment Course - LABORATORY CBC & Chemistry Diagram: 04/08/20 00:00 04/08/20 00:00 - ADDITIONAL ORDERS Additional order review: Laboratory Results 04/08/20 00:00 Sodium 144 Potassium 4.6 Chloride 109 H Carbon Dioxide 31 Anion Gap 4 L BUN 17.0 Creatinine 1.2 Est GFR (CKD-EPI)AfAm 69.60 Est GFR (CKD-EPI)NonAf 60.05 Calcium 9.4 Total Bilirubin 0.4 AST 24 ALT 37 Alkaline Phosphatase 100 Creatine Kinase 147 Troponin I < 0.02 Total Protein 7.4 Albumin 3.9 04/08/20 00:00 RBC 5.00 MCV 96.2 H MCHC 33.3 RDW 12.9 MPV 9.1 Neutrophils % 73.5 Lymphocytes % 13.2 D Monocytes % 10.0 Eosinophils % 2.8 Basophils % 0.5 - RADIOLOGY Radiology Studies Ordered: Category Date Time Status CXRPORT [CHEST X-RAY PORTABLE*] [RAD] Stat Radiology 04/08/20 00:29 Ordered - Medications Given in the ED: ED Medications Discontinued Medications Generic Name Dose Route Start Last Admin Trade Name Freq PRN Reason Stop Dose Admin Sodium Chloride 500 mls @ 1,000 mls/hr 04/08/20 00:30 04/08/20 00:35 Normal Saline - IV 04/08/20 00:59 1,000 mls/hr ASDIR STA Administration Medical Decision Making - Medical Decision Making 70y M with pmh of afib, cad, htn, hld, dm presenting to the ER for palpitations. vitals: mildly tachycardic, afebrile, bp mildly elevated pe: well appearing. suspect afib 2/2 medication changes, paroxysmal afib which does not require imme diate intervention at this time given rate is <110, pt not having any symptoms. low suspicion for infection, acs. -labs, cardiac labs ekg: read as sinus with premature supraventricular complexes but monitor shows afib. -cxr: pt refused. will give fluids, likely dc home. 04/08/20 03:21 labs wnl. discussed diagnosis and results with pt. does not require admission at this time. Pt afraid because they "never went home with afib on the monitor". educated pt and about afib, why pts are admitted v. discharged. will speak to tennis professional. given diltiazem for hr [id number] Jacobson: agrees with plan to dc. advised to continue home meds, no diltiazem to take home and no AC at this time. f/u with tennis professional. 04/08/20 04:51 discussed conversation with pt and . agree to go home. return precautions provided. Discharge - Discharge Information Problems reviewed: Yes Clinical Impression/Diagnosis: Afib Qualifiers: Atrial fibrillation type: unspecified Qualified Code(s): I48.91 - Unspecified atrial fibrillation Condition: Fair Disposition: HOME - Admission No - Additional Discharge Information Prescriptions: Apixaban [Eliquis] 5 mg PO BID #60 tablet - Follow up/Referral Referrals: Abarham Patel MD [Primary Care Provider] - Luis Mckeon MD [Staff Physician] - - Patient Discharge Instructions Patient Printed Discharge Instructions: DI for Atrial Fibrillation Additional Instructions: You were seen in the ER for atrial fibrillation. The blood tests are normal. A copy of the results as well as the EKG have been provided with you. Take your medications as directed and stay well hydrated. Please call Dr. Mckeon in the morning. As discussed, it is not dangerous to have atrial fibrillation, your tennis professional is aware of this diagnosis. Come back to the ER if you have palpitations, feel lightheaded, have chest pain or if any new or concerning symptom develops. Thank you - Post Discharge Activity
--- NOTE | 2020-04-08 01:44 | PDOC ---
Attending Attestation - Resident Resident Name: Sharyn Begum - ED Attending Attestation I have performed the following: I have examined & evaluated the patient, The case was reviewed & discussed with the resident, I agree w/resident's findings & plan - HPI HPI: 04/08/20 03:05 Pt switched from dilt to bystolic because he felt constipated on the dilt. Now he comes with rapid afib after eating burger temo tonight. Pt is uncomfortable he will be evaluated. - Physicial Exam PE: 04/08/20 03:06 Pt has obese abdomen Heart irregularly irreg lungs CTA B abd obese no flank pain no rash no pitting edema of the legs. Normal neuro exam - Medical Decision Making 04/08/20 03:07 Pt will be admitted, as his heart is still in afib despite 1L of NSS and IV diltiazem 04/08/20 04:01 Labs and UA normal 04/08/20 04:45 Pt refusing admission. States that he doesn't take eliquis because it is too expensive; rather takes plavix and asa Pt understands that anticoag is needed for clot prevention to prevent stroke etc from afib. I spent hours on the phone with pharmacy and online looking for/applying for copay cards etc. Eliquis should cost under $30/mos given pt's [employer]. Once I explained this to pateint he told me that he was concerned about internal bleeding. Pt reassured and asked to follow with pharmacy to chicken picker eliquis. 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 Stable for d/c home Discharge - Discharge Information Problems reviewed: Yes Clinical Impression/Diagnosis: Afib Qualifiers: Atrial fibrillation type: unspecified Qualified Code(s): I48.91 - Unspecified atrial fibrillation Condition: Fair Disposition: HOME - Additional Discharge Information Prescriptions: Apixaban [Eliquis] 5 mg PO BID #60 tablet - Follow up/Referral Referrals: Abraham Patel MD [Primary Care Provider] - Luis Mckeon MD [Staff Physician] - - Patient Discharge Instructions Patient Printed Discharge Instructions: DI for Atrial Fibrillation Additional Instructions: You were seen in the ER for atrial fibrillation. The blood tests are normal. A copy of the results as well as the EKG have been provided with you. Take your medications as directed and stay well hydrated. Please call Dr. Mckeon in the morning. As discussed, it is not dangerous to have atrial fibrillation, your locker room manager is aware of this diagnosis. Come back to the ER if you have palpitations, feel lightheaded, have chest pain or if any new or concerning symptom develops. Thank you - Post Discharge Activity
[2020-04-08 01:46] LABS: GLUCOSE,RANDOM 172 mg/dL (74-106)
[2020-04-08 01:47] LABS: URINE APPEARANCE CLEAR; URINE BILIRUBIN NEGATIVE (NEGATIVE); URINE COLOR YELLOW; URINE GLUCOSE (UA) NEGATIVE (NEGATIVE); URINE KETONE NEGATIVE (NEGATIVE); URINE LEUK ESTERASE NEGATIVE (NEGATIVE); URINE NITRITE NEGATIVE (NEGATIVE); URINE PROTEIN NEGATIVE (NEGATIVE); URINE UROBILINOGEN 0.2 mg/dL (0.2-1.0)
[2020-04-08] MEDS ORDERED: dilTIAZem HCL 50 MG/10 ML - 10 ML VIAL IVPUSH ONE ×2 (01:49→02:58)
[2020-04-08] MEDS ORDERED: dilTIAZem HCL 50 MG/10 ML - 10 ML VIAL ONE (01:54)
[2020-04-08] MEDS ORDERED: MAG HYDROX/AL HYDROX/SIMETH 30 ML UNIT-DOSE CUP PO ONE (03:21)
[2020-04-08] MEDS ORDERED: MAG HYDROX/AL HYDROX/SIMETH 30 ML UNIT-DOSE CUP ONE (03:29)
[2020-04-08 03:46] VITALS: BP 115/70; PULSE 96
--- NOTE | 2020-04-08 11:47 | EKG ---
Test Reason : Blood Pressure : / mmHG Vent. Rate : 092 BPM Atrial Rate : 062 BPM P-R Int : 166 ms QRS Dur : 078 ms QT Int : 366 ms P-R-T Axes : 030 015 045 degrees QTc Int : 452 ms SINUS RHYTHM WITH PREMATURE SUPRAVENTRICULAR COMPLEXES POSSIBLE INFERIOR INFARCT , AGE UNDETERMINED ABNORMAL ECG WHEN COMPARED WITH ECG OF 05-MAR-2020 19:04, SINUS RHYTHM HAS REPLACED ATRIAL FIBRILLATION Confirmed by JAZLYN ALLRED MD ([id number]) on 04/08/2020 11:47:24 AM Referred By: Confirmed By:JAZLYN ALLRED MD
== END 2020-04-08 04:28 | disposition home or self-care (01) ==
LOC: JER 23:50
PROC: 3E033NZ Introduction of Analgesics, Hypnotics, Sedatives into Peripheral Vein, Percutaneous Approach (ICD-10-PCS; principal; 2020-04-07)
PROC: 3E033GC Introduction of Other Therapeutic Substance into Peripheral Vein, Percutaneous Approach (ICD-10-PCS; 2020-04-07)
PROC: 3E0337Z Introduction of Electrolytic and Water Balance Substance into Peripheral Vein, Percutaneous Approach (ICD-10-PCS; 2020-04-07)
DX: I48.91 Unspecified atrial fibrillation (principal)
CPT/HCPCS: 36415; 80053; 81003; 82550; 84484; 85025; 87086; 93005; 93010; 99285-25

== ENCOUNTER 2021-07-15 20:07 | Emergency (ER) | payer OTHER ==
[2021-07-15 20:12] VITALS: BP 155/82; PULSE 78; TEMP 98.1; BMI 34.4
[2021-07-15] MEDS ORDERED: ACETAMINOPHEN 500 MG TABLET (FP) PO ONE (21:40)
[2021-07-15] MEDS ORDERED: ACETAMINOPHEN 500 MG TABLET (FP) ONE (21:42)
[2021-07-16 00:54] LABS: EPI CELLS 1 /uL (0-25.1); HYALINE CASTS 0 /uL (0-3.1); URINE APPEARANCE CLEAR; URINE BACTERIA 7 /uL (0-1359); URINE BILIRUBIN NEGATIVE (NEGATIVE); URINE COLOR YELLOW; URINE GLUCOSE (UA) NEGATIVE (NEGATIVE); URINE KETONE NEGATIVE (NEGATIVE); URINE LEUK ESTERASE NEGATIVE (NEGATIVE); URINE NITRITE NEGATIVE (NEGATIVE); URINE PROTEIN NEGATIVE (NEGATIVE); URINE RBC 25 /uL (0-23.9); URINE UROBILINOGEN 0.2 mg/dL (0.2-1.0); URINE WBC 3 /uL (0-25.8)
== END 2021-07-16 02:32 | disposition home or self-care (01) ==
LOC: JERFT 20:07
DX: R31.9 Hematuria, unspecified (principal); N13.30 Unspecified hydronephrosis; R10.9 Unspecified abdominal pain
CPT/HCPCS: 76775-TC; 81003; 87086; 87186; 99284-25

== ENCOUNTER 2021-07-29 04:19 | Day surgery (SDC) | payer OTHER ==
[2021-07-25 13:09] VITALS: BMI 30.1
[2021-07-29] MEDS ORDERED: ACETAMINOPHEN 1000 MG/100 ML BAG IVPB ONE (13:41)
[2021-07-29] MEDS ORDERED: IBUPROFEN 800 MG/8 ML IJ IVPB SCH (13:45)
[2021-07-29] MEDS ORDERED: DEXTROSE 5%-0.45% SALINE 1,000 ML IV SCH (13:45)
[2021-07-29] MEDS ORDERED: PROPOFOL 20 ML ONE ×3 (13:51)
[2021-07-29] MEDS ORDERED: LIDOCAINE HCL/PF 2% SDV 5ML VIAL ONE (13:51)
[2021-07-29] MEDS ORDERED: MIDAZOLAM HCL 2 MG/2 ML SINGLE DOSE VIAL ONE (13:52)
[2021-07-29] MEDS ORDERED: SUCCINYLCHOLINE CHLORIDE 200 MG/10 ML SYRINGE ONE (13:52)
[2021-07-29] MEDS ORDERED: ceFAZolin SODIUM 1 GM VIAL IVPB ONE (14:15)
[2021-07-29] MEDS ORDERED: ACETAMINOPHEN INJECTION 100 ML IVPB ONE (15:06)
[2021-07-29] MEDS ORDERED: oxyCODONE HCL 5 MG TABLET PO PRN (17:01)
[2021-07-29] MEDS ORDERED: ONDANSETRON 4 MG/2 ML VIAL IVPUSH PRN (17:01)
[2021-07-29 18:02] VITALS: TEMP 97.4
[2021-07-29 18:08] VITALS: BP 120/72; PULSE 66
== END 2021-07-29 17:05 | disposition home or self-care (01) ==
LOC: JASU-SURG 04:19
PROVIDERS: ATTEND Urology
PROC: 0TC78ZZ Extirpation of Matter from Left Ureter, Via Natural or Artificial Opening Endoscopic (ICD-10-PCS; principal; 2021-07-29 14:00)
PROC: 0T778DZ Dilation of Left Ureter with Intraluminal Device, Via Natural or Artificial Opening Endoscopic (ICD-10-PCS; 2021-07-29 14:00)
DX: N20.1 Calculus of ureter (principal)
CPT/HCPCS: 76000-TC-FY; 94760; J0131

== ENCOUNTER 2021-08-14 19:01 | Emergency (ER) | payer OTHER ==
[2021-08-14 19:05] VITALS: TEMP 99.3; BMI 33.9
[2021-08-14 19:55] LABS: BASO % 0.6 % (0-2.0); EOS % 2.2 % (0-4.5); HEMATOCRIT 44.5 % (35.4-49); HEMOGLOBIN 14.7 GM/dL (11.7-16.9); LYMPH % 9.9 % (8-40); MCH 31.3 pg (25.7-33.7); MEAN CELL VOLUME 94.8 fl (80-96); MONO % 9.4 % (3.8-10.2); NEUT % 77.9 % (42.8-82.8); PLATELET COUNT 204 10^3/uL (134-434); RBC 4.69 M/mm3 (4.00-5.60); RDW 12.7 % (11.9-15.9); WHITE BLOOD COUNT 8.2 K/mm3 (4.0-10.0)
[2021-08-14 20:12] LABS: CALCIUM 9.4 mg/dL (8.5-10.1)
[2021-08-14 20:13] LABS: ALBUMIN 3.8 g/dl (3.4-5.0); BLOOD UREA NITROGEN 13.4 mg/dL (7-18); MAGNESIUM 2.1 mg/dL (1.8-2.4)
[2021-08-14 20:16] LABS: CREATININE 1.3 mg/dL (0.55-1.3)
[2021-08-14 20:18] LABS: BILIRUBIN,TOTAL 0.8 mg/dL (0.2-1); TOT PROT 7.3 g/dl (6.4-8.2)
[2021-08-14] MEDS ORDERED: MAG HYDROX/AL HYDROX/SIMETH 30 ML UNIT-DOSE CUP PO ONE (20:24)
[2021-08-14] MEDS ORDERED: MAG HYDROX/AL HYDROX/SIMETH 30 ML UNIT-DOSE CUP ONE (20:35)
[2021-08-14 20:49] LABS: EPI CELLS 2 /uL (0-25.1); HYALINE CASTS 0 /uL (0-3.1); PH,URINE 6.5 (5.0-8.0); URINE APPEARANCE CLEAR; URINE BACTERIA 0 /uL (0-1359); URINE BILIRUBIN NEGATIVE (NEGATIVE); URINE COLOR YELLOW; URINE GLUCOSE (UA) NEGATIVE (NEGATIVE); URINE KETONE NEGATIVE (NEGATIVE); URINE LEUK ESTERASE TRACE (NEGATIVE); URINE NITRITE NEGATIVE (NEGATIVE); URINE PROTEIN NEGATIVE (NEGATIVE); URINE RBC 3 /uL (0-23.9); URINE WBC 16 /uL (0-25.8)
[2021-08-14 22:43] VITALS: BP 137/78; PULSE 96
[2021-08-14 23:48] LABS: INR 1.06 (0.83-1.09); PROTHROMBIN TIME (PATIENT) 12.2 SEC (9.7-13.0)
[2021-08-14 23:51] LABS: ACTIVATED PTT 27.3 SECONDS (25.2-36.5)
== END 2021-08-14 22:50 | disposition home or self-care (01) ==
LOC: JER 19:01
DX: R00.2 Palpitations (principal)
CPT/HCPCS: 36415; 71045-TC-FY; 80053; 81003; 83735; 84443; 84484; 85025; 85610; 85730; 87086; 93005; 93010; 99285-25

== ENCOUNTER 2022-05-28 00:01 | Emergency (ER) | payer OTHER ==
[2022-05-28 00:22] VITALS: RESP 18; BMI 35.0
[2022-05-28 01:50] VITALS: BP 146/74; PULSE 60; TEMP 98.8
[2022-05-28 01:57] LABS: BASO % 0.9 % (0-2.0); EOS % 3.3 % (0-4.5); HEMOGLOBIN 16.4 GM/dL (11.7-16.9); LYMPH % 14.9 % (8-40); MCHC 33.4 g/dl (32.0-35.9); MEAN PLT VOLUME 9.2 fl (7.5-11.1); MONO % 10.3 % (3.8-10.2); NEUT % 70.6 % (42.8-82.8); PLATELET COUNT 178 10^3/uL (134-434); RBC 5.11 M/mm3 (4.00-5.60); RDW 13.1 % (11.9-15.9); WHITE BLOOD COUNT 5.3 K/mm3 (4.0-10.0)
[2022-05-28 02:12] LABS: INR 1.01 (0.83-1.09); PROTHROMBIN TIME (PATIENT) 11.6 SEC (9.7-13.0)
[2022-05-28 02:14] LABS: ACTIVATED PTT 27.7 SECONDS (25.2-36.5)
[2022-05-28 02:21] LABS: ALBUMIN 4.2 g/dl (3.4-5.0); BLOOD UREA NITROGEN 17.6 mg/dL (7-18); MAGNESIUM 2.2 mg/dL (1.8-2.4)
[2022-05-28 02:24] LABS: CREATININE 1.4 mg/dL (0.55-1.3)
[2022-05-28 02:26] LABS: BILIRUBIN,TOTAL 0.6 mg/dL (0.2-1); TOT PROT 7.4 g/dl (6.4-8.2)
== END 2022-05-28 05:20 | disposition home or self-care (01) ==
LOC: JER 00:01
DX: M79.671 Pain in right foot (principal); I99.8 Other disorder of circulatory system
CPT/HCPCS: 36415; 73706-TC-RT; 80053; 82550; 83605; 83735; 85025; 85610; 85730; 86850; 86900; 86901; 99285-25

== ENCOUNTER 2022-06-01 04:32 | Observation (INO) | payer OTHER ==
[2022-06-01 05:09] VITALS: BMI 33.9
[2022-06-01] MEDS ORDERED: SODIUM CHLORIDE 1,000 ML IV STA (05:34)
[2022-06-01 07:15] LABS: BASO % 0.2 % (0-2.0); CALCIUM 8.5 mg/dL (8.5-10.1); EOS % 0.2 % (0-4.5); HEMATOCRIT 49.7 % (35.4-49); HEMOGLOBIN 16.7 GM/dL (11.7-16.9); LYMPH % 7.9 % (8-40); MCHC 33.6 g/dl (32.0-35.9); MEAN CELL VOLUME 95.4 fl (80-96); MEAN PLT VOLUME 9.5 fl (7.5-11.1); MONO % 11.7 % (3.8-10.2); PLATELET COUNT 152 10^3/uL (134-434); RBC 5.21 M/mm3 (4.00-5.60); RDW 13.1 % (11.9-15.9); WHITE BLOOD COUNT 7.6 K/mm3 (4.0-10.0)
[2022-06-01 07:16] LABS: ALBUMIN 3.5 g/dl (3.4-5.0); BLOOD UREA NITROGEN 25.2 mg/dL (7-18); MAGNESIUM 1.7 mg/dL (1.8-2.4)
[2022-06-01 07:19] LABS: CREATININE 1.8 mg/dL (0.55-1.3)
[2022-06-01 07:20] LABS: BILIRUBIN,TOTAL 1.3 mg/dL (0.2-1); TOT PROT 6.4 g/dl (6.4-8.2)
[2022-06-01 07:23] LABS: INR 1.12 (0.83-1.09); PROTHROMBIN TIME (PATIENT) 12.9 SEC (9.7-13.0)
[2022-06-01 07:24] LABS: N-TERMINAL BNP 728.7 pg/ml (5-125)
[2022-06-01] MEDS ORDERED: NEBIVOLOL 10 MG TABLET (FP) PO ONE (07:57)
[2022-06-01] MEDS ORDERED: SODIUM CHLORIDE 0.9% 500 ML INFUS.BAG IV ONE (12:41)
[2022-06-01] MEDS ORDERED: LACTATED RINGERS SOLUTION 1,000 ML/1,000 ML INFUS.BAG IV SCH (12:45)
[2022-06-01] MEDS ORDERED: MAGNESIUM SULF 50% (8.12 MEQ/2 ML-1 GM VIAL) IVPB ONE (12:45)
[2022-06-01] MEDS: CLOPIDOGREL BISULFATE 75 MG TABLET (FP) PO SCH (14:05)
[2022-06-01] MEDS: ASPIRIN 81 MG CHEWABLE TABLETS PO SCH (14:05)
[2022-06-01] MEDS ORDERED: CLOPIDOGREL BISULFATE 75 MG TABLET (FP) ONE (15:21)
[2022-06-01] MEDS ORDERED: MAGNESIUM 1GM/D5W - 1 GM/100 ML IVPB IVPB ONE (15:22)
[2022-06-01] MEDS ORDERED: HEPARIN NA (PORCINE) 5,000 UNITS/ML 1ML VIAL ONE (15:22)
[2022-06-01] MEDS ORDERED: ASPIRIN 81 MG CHEWABLE TABLETS ONE (15:22)
[2022-06-01] MEDS: LEVOTHYROXINE NA 100 MCG TABLET (FP) PO SCH (16:00)
[2022-06-01] MEDS ORDERED: MAG HYDROX/AL HYDROX/SIMETH -MYLANTA- ORAL SUSPENSION PO ONE (18:54)
[2022-06-01] MEDS ORDERED: MAG HYDROX/AL HYDROX/SIMETH 30 ML UNIT-DOSE CUP ONE (18:56)
[2022-06-01] MEDS: HEPARIN NA (PORCINE) 5,000 UNITS/ML 1ML VIAL SQ SCH (18:59)
[2022-06-01] MEDS ORDERED: NEBIVOLOL 5 MG TABLET (FP) PO SCH (22:00)
[2022-06-01] MEDS ORDERED: ATORVASTATIN CA 40 MG TABLET (FP) PO SCH (22:00)
[2022-06-01] MEDS ORDERED: HEPARIN NA (PORCINE) 5,000 UNITS/ML 1ML VIAL SQ SCH (22:00)
[2022-06-01 23:13] LABS: URINE APPEARANCE CLEAR; URINE BILIRUBIN NEGATIVE (NEGATIVE); URINE COLOR YELLOW; URINE GLUCOSE (UA) NEGATIVE (NEGATIVE); URINE KETONE NEGATIVE (NEGATIVE); URINE LEUK ESTERASE NEGATIVE (NEGATIVE); URINE NITRITE NEGATIVE (NEGATIVE); URINE PROTEIN NEGATIVE (NEGATIVE); URINE UROBILINOGEN 0.2 mg/dL (0.2-1.0)
[2022-06-02] MEDS ORDERED: BENZOCAINE/MENTH/CETYLPYRD CL 1 EACH LOZENGE MM ONE (04:24)
[2022-06-02] MEDS ORDERED: ATORVASTATIN CA 40 MG TABLET (FP) ONE (04:40)
[2022-06-02] MEDS ORDERED: HEPARIN NA (PORCINE) 5,000 UNITS/ML 1ML VIAL ONE ×2 (04:41→10:05)
[2022-06-02] MEDS: HEPARIN NA (PORCINE) 5,000 UNITS/ML 1ML VIAL SQ SCH ×2 (04:47→10:00)
[2022-06-02] MEDS ORDERED: ACETAMINOPHEN INJECTION 100 ML IVPB ONE (04:59)
[2022-06-02] MEDS ORDERED: ONDANSETRON 4 MG/2 ML VIAL ONE (04:59)
[2022-06-02 07:03] VITALS: TEMP 98.7
[2022-06-02] MEDS ORDERED: NEBIVOLOL 10 MG TABLET (FP) PO SCH (10:00)
[2022-06-02] MEDS: LEVOTHYROXINE NA 100 MCG TABLET (FP) PO SCH (10:01)
[2022-06-02] MEDS: ASPIRIN 81 MG CHEWABLE TABLETS PO SCH (10:01)
[2022-06-02] MEDS: CLOPIDOGREL BISULFATE 75 MG TABLET (FP) PO SCH (10:01)
[2022-06-02] MEDS ORDERED: CLOPIDOGREL BISULFATE 75 MG TABLET (FP) ONE (10:04)
[2022-06-02] MEDS ORDERED: ASPIRIN 81 MG CHEWABLE TABLETS ONE (10:05)
[2022-06-02] MEDS ORDERED: LEVOTHYROXINE NA 50 MCG TABLET (FP) ONE (10:05)
[2022-06-02 10:18] LABS: BASO % 0.2 % (0-2.0); EOS % 3.3 % (0-4.5); HEMATOCRIT 41.8 % (35.4-49); HEMOGLOBIN 14.4 GM/dL (11.7-16.9); LYMPH % 13.3 % (8-40); MCH 32.6 pg (25.7-33.7); MCHC 34.3 g/dl (32.0-35.9); MONO % 13.5 % (3.8-10.2); NEUT % 69.7 % (42.8-82.8); PLATELET COUNT 106 10^3/uL (134-434); RDW 13.2 % (11.9-15.9)
[2022-06-02 10:44] VITALS: BP 125/76; PULSE 78; RESP 18
[2022-06-02 10:46] LABS: ANISOCYTOSIS 0; HELMET CELLS 0; HOWELL-JOLLY BODIES 0; MACROCYTOSIS 0; OVALOCYTE 0; ROULEAU 0; SICKELED CELLS 0; TARGET CELLS 0; TEAR DROP CELLS 0; TOXIC GRANULATION 0
[2022-06-02 11:15] LABS: ALBUMIN 3.2 g/dl (3.4-5.0); CALCIUM 8.3 mg/dL (8.5-10.1); MAGNESIUM 2.1 mg/dL (1.8-2.4)
[2022-06-02 11:18] LABS: BLOOD UREA NITROGEN 19.5 mg/dL (7-18); CREATININE 1.2 mg/dL (0.55-1.3)
[2022-06-02 11:19] LABS: BILIRUBIN,TOTAL 1.2 mg/dL (0.2-1)
[2022-06-02 11:23] LABS: TOT PROT 5.8 g/dl (6.4-8.2)
== END 2022-06-02 13:11 | disposition home or self-care (01) ==
LOC: JER 04:32 → JERBED 08:33 → UNDOADMOB 08:33 → INTOOBSV 11:59 → OBSVTOIN 11:59 → JERBED 12:32
PROVIDERS: ADMIT Internal Medicine
PROC: 3E023GC Introduction of Other Therapeutic Substance into Muscle, Percutaneous Approach (ICD-10-PCS; principal; 2022-06-01)
PROC: 3E0337Z Introduction of Electrolytic and Water Balance Substance into Peripheral Vein, Percutaneous Approach (ICD-10-PCS; 2022-06-01)
PROC: 3E033GC Introduction of Other Therapeutic Substance into Peripheral Vein, Percutaneous Approach (ICD-10-PCS; 2022-06-01)
DX: I25.10 Atherosclerotic heart disease of native coronary artery without angina pectoris (principal); R55 Syncope and collapse; E78.5 Hyperlipidemia, unspecified; I48.91 Unspecified atrial fibrillation; E03.9 Hypothyroidism, unspecified; I11.9 Hypertensive heart disease without heart failure; I48.92 Unspecified atrial flutter; Z68.33 Body mass index [BMI] 33.0-33.9, adult; E86.9 Volume depletion, unspecified; E66.8 Other obesity; Z88.8 Allergy status to other drugs, medicaments and biological substances; Z88.0 Allergy status to penicillin
CPT/HCPCS: 0241U-QW; 36415; 71045-TC-FY; 80053; 81003; 82962; 83735; 83880; 84100; 84443; 84484; 85025; 85610; 85730; 87324; 87449; 93005; 93010; 96361; 96372; 96374; 99285-25; G0378; J1644

== ENCOUNTER 2022-06-24 22:04 | Inpatient (IN) | payer OTHER ==
[2022-06-24] MEDS ORDERED: dilTIAZem HCL 50 MG/10 ML - 10 ML VIAL IVPUSH ONE ×2 (22:45→22:56)
[2022-06-24] MEDS ORDERED: dilTIAZem HCL 125 MG/25 ML - 25 ML VIAL ONE (22:48)
[2022-06-24] MEDS ORDERED: dilTIAZem HCL 60 MG TABLET PO ONE (22:56)
[2022-06-24] MEDS ORDERED: SODIUM CHLORIDE 0.9% 500 ML INFUS.BAG IV ONE (22:56)
[2022-06-24] MEDS ORDERED: dilTIAZem HCL 60 MG TABLET ONE (22:58)
[2022-06-24] MEDS ORDERED: MAG HYDROX/AL HYDROX/SIMETH -MYLANTA- ORAL SUSPENSION PO ONE (23:01)
[2022-06-24] MEDS ORDERED: MAG HYDROX/AL HYDROX/SIMETH 30 ML UNIT-DOSE CUP ONE (23:02)
[2022-06-24 23:16] LABS: BASO % 0.4 % (0-2.0); EOS % 4.4 % (0-4.5); HEMATOCRIT 49.6 % (35.4-49); HEMOGLOBIN 16.3 GM/dL (11.7-16.9); MCH 31.4 pg (25.7-33.7); MCHC 32.9 g/dl (32.0-35.9); MEAN CELL VOLUME 95.5 fl (80-96); MEAN PLT VOLUME 9.3 fl (7.5-11.1); MONO % 10.6 % (3.8-10.2); NEUT % 71.6 % (42.8-82.8); PLATELET COUNT 202 10^3/uL (134-434); RBC 5.19 M/mm3 (4.00-5.60); RDW 13.5 % (11.9-15.9); WHITE BLOOD COUNT 6.4 K/mm3 (4.0-10.0)
[2022-06-24 23:24] LABS: INR 1.02 (0.83-1.09); PROTHROMBIN TIME (PATIENT) 11.7 SEC (9.7-13.0)
[2022-06-24 23:38] LABS: ALBUMIN 3.9 g/dl (3.4-5.0); BLOOD UREA NITROGEN 13.3 mg/dL (7-18); CALCIUM 8.9 mg/dL (8.5-10.1)
[2022-06-24 23:40] LABS: CREATININE 1.1 mg/dL (0.55-1.3)
[2022-06-24 23:43] LABS: BILIRUBIN,TOTAL 0.5 mg/dL (0.2-1); TOT PROT 7.2 g/dl (6.4-8.2)
[2022-06-24 23:45] LABS: N-TERMINAL BNP 116.6 pg/ml (5-125)
[2022-06-25 00:12] LABS: ACTIVATED PTT 26.6 SECONDS (25.2-36.5)
[2022-06-25 06:02] VITALS: RESP 18
[2022-06-25] MEDS ORDERED: LEVOTHYROXINE NA 100 MCG TABLET (FP) PO SCH (07:00)
[2022-06-25 08:07] LABS: BASO % 0.6 % (0-2.0); EOS % 3.8 % (0-4.5); HEMATOCRIT 46.2 % (35.4-49); HEMOGLOBIN 15.3 GM/dL (11.7-16.9); LYMPH % 20.8 % (8-40); MCH 31.7 pg (25.7-33.7); MCHC 33.2 g/dl (32.0-35.9); MEAN CELL VOLUME 95.7 fl (80-96); MEAN PLT VOLUME 9.5 fl (7.5-11.1); MONO % 11.1 % (3.8-10.2); NEUT % 63.7 % (42.8-82.8); PLATELET COUNT 196 10^3/uL (134-434); RBC 4.83 M/mm3 (4.00-5.60); RDW 13.1 % (11.9-15.9); WHITE BLOOD COUNT 6.6 K/mm3 (4.0-10.0)
[2022-06-25] MEDS ORDERED: LEVOTHYROXINE NA 50 MCG TABLET (FP) ONE (08:09)
[2022-06-25 08:23] LABS: CALCIUM 8.6 mg/dL (8.5-10.1)
[2022-06-25 08:25] LABS: ALBUMIN 3.6 g/dl (3.4-5.0); BLOOD UREA NITROGEN 12.7 mg/dL (7-18); MAGNESIUM 2.3 mg/dL (1.8-2.4)
[2022-06-25 08:27] LABS: PHOSPHOROUS 3.5 mg/dL (2.5-4.9)
[2022-06-25 08:28] LABS: BILIRUBIN,TOTAL 0.7 mg/dL (0.2-1); TOT PROT 6.5 g/dl (6.4-8.2)
[2022-06-25] MEDS ORDERED: QUINAPRIL HCL 10 MG TABLET PO SCH (10:00)
[2022-06-25] MEDS ORDERED: ASPIRIN 81 MG CHEWABLE TABLETS PO SCH (10:00)
[2022-06-25] MEDS ORDERED: CLOPIDOGREL BISULFATE 75 MG TABLET (FP) PO SCH (10:00)
[2022-06-25] MEDS ORDERED: NEBIVOLOL 10 MG TABLET (FP) PO SCH (10:00)
[2022-06-25] MEDS ORDERED: ENOXAPARIN NA (PORCINE) 40 MG/0.4 ML DISP.SYRIN SQ SCH (10:00)
[2022-06-25] MEDS ORDERED: ASPIRIN 81 MG CHEWABLE TABLETS ONE (10:43)
[2022-06-25] MEDS ORDERED: CLOPIDOGREL BISULFATE 75 MG TABLET (FP) ONE (10:43)
[2022-06-25] MEDS ORDERED: ENOXAPARIN NA (PORCINE) 40 MG/0.4 ML DISP.SYRIN SQ ONE (10:44)
[2022-06-25] MEDS ORDERED: GABAPENTIN 100 MG CAPSULE ONE (13:09)
[2022-06-25] MEDS ORDERED: GABAPENTIN 100 MG CAPSULE PO SCH (14:00)
[2022-06-25 16:03] VITALS: BMI 30.2
[2022-06-25 17:14] VITALS: BP 129/72; PULSE 62; TEMP 98.7
[2022-06-25] MEDS ORDERED: NEBIVOLOL 5 MG TABLET (FP) PO SCH (22:00)
[2022-06-25] MEDS ORDERED: ATORVASTATIN CA 40 MG TABLET (FP) PO SCH (22:00)
== END 2022-06-25 18:45 | disposition home or self-care (01) | DRG 310 ==
LOC: JER 22:04 → JERBED 06-25 01:34 → OBSVTOIN 06-25 04:36 → J4W 06-25 13:52
PROVIDERS: ADMIT Family Medicine; ATTEND Internal Medicine
DX: I48.0 Paroxysmal atrial fibrillation (principal); E03.9 Hypothyroidism, unspecified; I10 Essential (primary) hypertension; E78.5 Hyperlipidemia, unspecified; I25.10 Atherosclerotic heart disease of native coronary artery without angina pectoris; I48.92 Unspecified atrial flutter; F41.9 Anxiety disorder, unspecified; Z95.5 Presence of coronary angioplasty implant and graft
CPT/HCPCS: 0241U-QW; 36415; 71045-TC-FY; 80053; 83735; 83880; 84100; 84443; 84484; 85025; 85610; 85730; 86850; 86900; 86901; 93005; 93010; 93925-TC; 93970-TC; 99285-25; G0378

== ENCOUNTER 2022-06-29 13:23 | Inpatient (IN) | payer OTHER ==
[~2022-06-29 13:23] MED LIST: REMDESIVIR 200 MG in SODIUM CHLORIDE 250 ML IVPB ONE
[2022-06-29 13:55] VITALS: BMI 31.3
[2022-06-29 16:54] LABS: HEMATOCRIT 48.3 % (35.4-49); HEMOGLOBIN 15.9 GM/dL (11.7-16.9); MCH 31.6 pg (25.7-33.7); MEAN CELL VOLUME 95.9 fl (80-96); MEAN PLT VOLUME 8.7 fl (7.5-11.1); PLATELET COUNT 150 10^3/uL (134-434); RBC 5.03 M/mm3 (4.00-5.60); RDW 13.6 % (11.9-15.9); WHITE BLOOD COUNT 6.1 K/mm3 (4.0-10.0)
[2022-06-29 17:01] LABS: INR 1.17 (0.83-1.09); PROTHROMBIN TIME (PATIENT) 13.5 SEC (9.7-13.0)
[2022-06-29 17:04] LABS: ACTIVATED PTT 29.6 SECONDS (25.2-36.5)
[2022-06-29 17:15] LABS: CALCIUM 9.1 mg/dL (8.5-10.1)
[2022-06-29 17:16] LABS: ALBUMIN 4.2 g/dl (3.4-5.0); BLOOD UREA NITROGEN 17.9 mg/dL (7-18)
[2022-06-29 17:19] LABS: CREATININE 1.8 mg/dL (0.55-1.3)
[2022-06-29 17:20] LABS: TOT PROT 7.4 g/dl (6.4-8.2)
[2022-06-29 17:21] LABS: BILIRUBIN,TOTAL 0.6 mg/dL (0.2-1)
[2022-06-29 18:18] LABS: ANISOCYTOSIS 1+; MACROCYTOSIS 0; PLATELET ESTIMATE NORMAL
[2022-06-29] MEDS ORDERED: DEXAMETHASONE SOD PHOSPHATE 10 MG/1 ML VIAL IVPUSH SCH (22:48)
[2022-06-29] MEDS ORDERED: ENOXAPARIN NA (PORCINE) 80 MG/0.8 ML DISP.SYRIN SQ ONE (23:14)
[2022-06-29] MEDS ORDERED: DEXAMETHASONE SOD PHOSPHATE 4 MG/1 ML VIAL ONE (23:14)
[2022-06-29] MEDS: ENOXAPARIN NA (PORCINE) 80 MG/0.8 ML DISP.SYRIN SQ SCH (23:28)
[2022-06-30] MEDS ORDERED: REMDESIVIR 200 MG in SODIUM CHLORIDE 250 ML IVPB ONE
[2022-06-30] MEDS: NEBIVOLOL 5 MG TABLET (FP) PO SCH (00:21)
[2022-06-30 00:43] LABS: EPI CELLS 2 /uL (0-25.1); HYALINE CASTS 1 /uL (0-3.1); PH,URINE 5.5 (5.0-8.0); URINE APPEARANCE CLEAR; URINE BACTERIA 2 /uL (0-1359); URINE BILIRUBIN NEGATIVE (NEGATIVE); URINE COLOR YELLOW; URINE GLUCOSE (UA) NEGATIVE (NEGATIVE); URINE KETONE TRACE (NEGATIVE); URINE LEUK ESTERASE NEGATIVE (NEGATIVE); URINE NITRITE NEGATIVE (NEGATIVE); URINE PROTEIN 1+ (NEGATIVE); URINE RBC 4 /uL (0-23.9); URINE UROBILINOGEN 0.2 mg/dL (0.2-1.0); URINE WBC 8 /uL (0-25.8)
[2022-06-30] MEDS: LEVOTHYROXINE NA 100 MCG TABLET (FP) PO SCH (06:20)
[2022-06-30] MEDS ORDERED: GABAPENTIN 100 MG CAPSULE ONE ×2 (06:20→12:45)
[2022-06-30] MEDS ORDERED: LEVOTHYROXINE NA 50 MCG TABLET (FP) ONE (06:20)
[2022-06-30] MEDS: GABAPENTIN 100 MG CAPSULE PO SCH ×2 (06:20→13:58)
[2022-06-30] MEDS ORDERED: ACETAMINOPHEN 1000 MG/100 ML BAG IVPB PRN (07:46)
[2022-06-30] MEDS ORDERED: guaiFENesin 200 MG/10 ML 10 ML UNIT-DOSE CUPS PO PRN (07:47)
[2022-06-30] MEDS ORDERED: BENZOCAINE/MENTH/CETYLPYRD CL 1 EACH LOZENGE MM PRN (07:47)
[2022-06-30 07:59] LABS: BASO % 0.3 % (0-2.0); HEMATOCRIT 46.9 % (35.4-49); HEMOGLOBIN 15.9 GM/dL (11.7-16.9); LYMPH % 13.8 % (8-40); MCH 32.3 pg (25.7-33.7); MCHC 33.9 g/dl (32.0-35.9); MEAN CELL VOLUME 95.3 fl (80-96); MEAN PLT VOLUME 9.7 fl (7.5-11.1); MONO % 4.5 % (3.8-10.2); NEUT % 81.4 % (42.8-82.8); PLATELET COUNT 136 10^3/uL (134-434); RBC 4.92 M/mm3 (4.00-5.60); RDW 13.5 % (11.9-15.9); WHITE BLOOD COUNT 3.4 K/mm3 (4.0-10.0)
[2022-06-30] MEDS ORDERED: DEXAMETHASONE SOD PHOSPHATE 10 MG/1 ML VIAL ONE (08:07)
[2022-06-30 08:16] LABS: ALBUMIN 3.8 g/dl (3.4-5.0); BLOOD UREA NITROGEN 21.4 mg/dL (7-18); CALCIUM 8.9 mg/dL (8.5-10.1); MAGNESIUM 2.1 mg/dL (1.8-2.4)
[2022-06-30 08:19] LABS: CREATININE 1.5 mg/dL (0.55-1.3); PHOSPHOROUS 4.2 mg/dL (2.5-4.9)
[2022-06-30 08:20] LABS: BILIRUBIN,TOTAL 0.6 mg/dL (0.2-1)
[2022-06-30 08:21] LABS: TOT PROT 7.1 g/dl (6.4-8.2)
[2022-06-30] MEDS ORDERED: CLOPIDOGREL BISULFATE 75 MG TABLET (FP) ONE (08:51)
[2022-06-30] MEDS ORDERED: ENOXAPARIN NA (PORCINE) 80 MG/0.8 ML DISP.SYRIN SQ ONE (08:52)
[2022-06-30] MEDS ORDERED: DEXAMETHASONE SOD PHOSPHATE 10 MG/1 ML VIAL PO SCH (09:00)
[2022-06-30] MEDS: NEBIVOLOL 10 MG TABLET (FP) PO SCH (09:02)
[2022-06-30] MEDS: CLOPIDOGREL BISULFATE 75 MG TABLET (FP) PO SCH (09:02)
[2022-06-30] MEDS: ENOXAPARIN NA (PORCINE) 80 MG/0.8 ML DISP.SYRIN SQ SCH (09:02)
[2022-06-30] MEDS: REMDESIVIR 100 MG in SODIUM CHLORIDE 250 ML IVPB SCH (09:51)
[2022-06-30] MEDS ORDERED: ENOXAPARIN NA (PORCINE) 40 MG/0.4 ML DISP.SYRIN SQ SCH (10:00)
[2022-06-30] MEDS ORDERED: DEXAMETHASONE SOD PHOSPHATE 10 MG/1 ML VIAL IVPUSH SCH (13:47)
[2022-06-30] MEDS ORDERED: ENOXAPARIN NA (PORCINE) 80 MG/0.8 ML DISP.SYRIN SQ SCH (16:28)
[2022-06-30] MEDS ORDERED: ATORVASTATIN CA 40 MG TABLET (FP) PO SCH (22:00)
[2022-07-01] MEDS ORDERED: ATORVASTATIN CA 40 MG TABLET (FP) ONE (00:19)
[2022-07-01] MEDS ORDERED: GABAPENTIN 100 MG CAPSULE ONE ×3 (00:20→14:00)
[2022-07-01] MEDS: NEBIVOLOL 5 MG TABLET (FP) PO SCH (00:23)
[2022-07-01] MEDS: GABAPENTIN 100 MG CAPSULE PO SCH ×3 (00:23→14:05)
[2022-07-01] MEDS ORDERED: LEVOTHYROXINE NA 50 MCG TABLET (FP) ONE (07:27)
[2022-07-01] MEDS: LEVOTHYROXINE NA 100 MCG TABLET (FP) PO SCH (07:41)
[2022-07-01 08:14] LABS: CALCIUM 9.1 mg/dL (8.5-10.1)
[2022-07-01 08:15] LABS: ALBUMIN 3.7 g/dl (3.4-5.0); BLOOD UREA NITROGEN 29.7 mg/dL (7-18)
[2022-07-01 08:18] LABS: CREATININE 1.3 mg/dL (0.55-1.3); HEMATOCRIT 47.7 % (35.4-49); HEMOGLOBIN 16.1 GM/dL (11.7-16.9); MCH 32.1 pg (25.7-33.7); MCHC 33.8 g/dl (32.0-35.9); MEAN CELL VOLUME 94.9 fl (80-96); MEAN PLT VOLUME 9.9 fl (7.5-11.1); PLATELET COUNT 162 10^3/uL (134-434); RBC 5.03 M/mm3 (4.00-5.60); RDW 13.4 % (11.9-15.9); WHITE BLOOD COUNT 6.1 K/mm3 (4.0-10.0)
[2022-07-01 08:19] LABS: BILIRUBIN,TOTAL 0.6 mg/dL (0.2-1); TOT PROT 6.9 g/dl (6.4-8.2)
[2022-07-01] MEDS ORDERED: ASPIRIN 81 MG CHEWABLE TABLETS ONE (08:58)
[2022-07-01] MEDS ORDERED: DEXAMETHASONE SOD PHOSPHATE 10 MG/1 ML VIAL ONE ×2 (08:58→14:42)
[2022-07-01] MEDS ORDERED: CLOPIDOGREL BISULFATE 75 MG TABLET (FP) ONE (08:58)
[2022-07-01] MEDS: CLOPIDOGREL BISULFATE 75 MG TABLET (FP) PO SCH (09:06)
[2022-07-01] MEDS: HEPARIN NA (PORCINE) 5,000 UNITS/ML 1ML VIAL SQ SCH ×2 (09:06→14:05)
[2022-07-01] MEDS: NEBIVOLOL 10 MG TABLET (FP) PO SCH (09:06)
[2022-07-01] MEDS: REMDESIVIR 100 MG in SODIUM CHLORIDE 250 ML IVPB SCH (09:32)
[2022-07-01] MEDS ORDERED: ASPIRIN 81 MG CHEWABLE TABLETS PO SCH (10:00)
[2022-07-01] MEDS ORDERED: HEPARIN NA (PORCINE) 5,000 UNITS/ML 1ML VIAL ONE (13:59)
[2022-07-01] MEDS ORDERED: DEXAMETHASONE SOD PHOSPHATE 10 MG/1 ML VIAL IVPUSH ONE (14:04)
[2022-07-01 15:23] VITALS: BP 127/78; PULSE 60; RESP 18; TEMP 98.6
== END 2022-07-01 16:34 | disposition home or self-care (01) | DRG 178 ==
LOC: JER 13:23 → JERBED 20:23
PROVIDERS: ADMIT Internal Medicine; ATTEND Internal Medicine
PROC: XW033E5 Introduction of Remdesivir Anti-infective into Peripheral Vein, Percutaneous Approach, New Technology Group 5 (ICD-10-PCS; principal; 2022-06-29)
DX: U07.1 COVID-19 (principal); N17.9 Acute kidney failure, unspecified; I25.10 Atherosclerotic heart disease of native coronary artery without angina pectoris; E78.5 Hyperlipidemia, unspecified; E03.9 Hypothyroidism, unspecified; I25.2 Old myocardial infarction; R74.01 Elevation of levels of liver transaminase levels; I48.0 Paroxysmal atrial fibrillation; R09.02 Hypoxemia; J44.9 Chronic obstructive pulmonary disease, unspecified
CPT/HCPCS: 0241U-QW; 36415; 71045-TC-FY; 80053; 81003; 82570; 82962; 83036; 83735; 84100; 84300; 84484; 85025; 85027; 85610; 85730; 86140; 87070; 87205; 93005; 93010; 94761; 99285-25; C9399; J1100; J1644

== ENCOUNTER 2022-08-04 21:15 | Observation (INO) | payer OTHER ==
[2022-08-04 21:24] VITALS: BMI 31.1
[2022-08-04] MEDS ORDERED: SODIUM CHLORIDE 0.9% 1000 ML INFUS.BAG IV ONE (21:54)
[2022-08-04 22:12] LABS: BASO % 0.6 % (0-2.0); EOS % 1.6 % (0-4.5); HEMATOCRIT 45.1 % (35.4-49); HEMOGLOBIN 15.6 GM/dL (11.7-16.9); LYMPH % 14.1 % (8-40); MCH 32.4 pg (25.7-33.7); MCHC 34.5 g/dl (32.0-35.9); MEAN CELL VOLUME 93.9 fl (80-96); MEAN PLT VOLUME 8.9 fl (7.5-11.1); MONO % 10.7 % (3.8-10.2); PLATELET COUNT 188 10^3/uL (134-434); RDW 13.7 % (11.9-15.9); WHITE BLOOD COUNT 8.1 K/mm3 (4.0-10.0)
[2022-08-04 22:20] LABS: INR 1.07 (0.83-1.09); PROTHROMBIN TIME (PATIENT) 12.4 SEC (9.7-13.0)
[2022-08-04 22:23] LABS: ACTIVATED PTT 26.7 SECONDS (25.2-36.5)
[2022-08-04 22:32] LABS: CALCIUM 9.3 mg/dL (8.5-10.1)
[2022-08-04 22:33] LABS: ALBUMIN 3.9 g/dl (3.4-5.0); BLOOD UREA NITROGEN 17.4 mg/dL (7-18); MAGNESIUM 2.1 mg/dL (1.8-2.4)
[2022-08-04 22:36] LABS: CREATININE 1.3 mg/dL (0.55-1.3)
[2022-08-04 22:37] LABS: BILIRUBIN,TOTAL 0.5 mg/dL (0.2-1); TOT PROT 7.1 g/dl (6.4-8.2)
[2022-08-04 22:41] LABS: N-TERMINAL BNP 76.2 pg/ml (5-125)
[2022-08-05] MEDS ORDERED: ACETAMINOPHEN 325 MG TABLET (FP) PO PRN (00:19)
[2022-08-05 00:56] LABS: URINE APPEARANCE CLEAR; URINE BILIRUBIN NEGATIVE (NEGATIVE); URINE COLOR YELLOW; URINE GLUCOSE (UA) NEGATIVE (NEGATIVE); URINE KETONE NEGATIVE (NEGATIVE); URINE LEUK ESTERASE NEGATIVE (NEGATIVE); URINE NITRITE NEGATIVE (NEGATIVE); URINE PROTEIN NEGATIVE (NEGATIVE); URINE UROBILINOGEN 0.2 mg/dL (0.2-1.0)
[2022-08-05] MEDS: dilTIAZem HCL 30 MG TABLET PO SCH ×2 (06:05→12:41)
[2022-08-05] MEDS: LEVOTHYROXINE NA 100 MCG TABLET (FP) PO SCH ×2 (06:06→09:30)
[2022-08-05] MEDS: NEBIVOLOL 10 MG TABLET (FP) PO SCH ×2 (06:06→09:50)
[2022-08-05] MEDS: QUINAPRIL HCL 10 MG TABLET PO SCH ×2 (06:13→09:50)
[2022-08-05] MEDS ORDERED: LEVOTHYROXINE NA 100 MCG TABLET (FP) PO SCH (07:00)
[2022-08-05 07:41] LABS: BASO % 0.9 % (0-2.0); EOS % 2.8 % (0-4.5); HEMATOCRIT 41.7 % (35.4-49); HEMOGLOBIN 14.1 GM/dL (11.7-16.9); MCHC 33.7 g/dl (32.0-35.9); MEAN CELL VOLUME 94.9 fl (80-96); MEAN PLT VOLUME 9.1 fl (7.5-11.1); MONO % 12.2 % (3.8-10.2); NEUT % 61.1 % (42.8-82.8); PLATELET COUNT 167 10^3/uL (134-434); RBC 4.39 M/mm3 (4.00-5.60); RDW 14.1 % (11.9-15.9)
[2022-08-05 08:05] LABS: CALCIUM 8.6 mg/dL (8.5-10.1)
[2022-08-05 08:06] LABS: ALBUMIN 3.4 g/dl (3.4-5.0); BLOOD UREA NITROGEN 16.7 mg/dL (7-18); MAGNESIUM 2.1 mg/dL (1.8-2.4)
[2022-08-05 08:08] LABS: PHOSPHOROUS 3.4 mg/dL (2.5-4.9)
[2022-08-05 08:10] LABS: BILIRUBIN,TOTAL 0.7 mg/dL (0.2-1); TOT PROT 6.3 g/dl (6.4-8.2)
[2022-08-05] MEDS ORDERED: ENOXAPARIN NA (PORCINE) 40 MG/0.4 ML DISP.SYRIN SQ SCH ×2 (10:00)
[2022-08-05] MEDS ORDERED: CLOPIDOGREL BISULFATE 75 MG TABLET (FP) PO SCH (10:00)
[2022-08-05] MEDS ORDERED: ASPIRIN 81 MG CHEWABLE TABLETS PO SCH (10:00)
[2022-08-05] MEDS ORDERED: NEBIVOLOL 10 MG TABLET (FP) PO SCH (10:00)
[2022-08-05] MEDS ORDERED: QUINAPRIL HCL 10 MG TABLET PO SCH (10:00)
[2022-08-05] MEDS ORDERED: PANTOPRAZOLE 20 MG TABLET PO SCH (10:00)
[2022-08-05 14:19] VITALS: BP 138/79; PULSE 66; RESP 16; TEMP 97.6
[2022-08-05] MEDS ORDERED: APIXABAN 5 MG TABLET PO ONE (15:52)
[2022-08-05] MEDS ORDERED: RIVAROXABAN 20 MG TABLET PO SCH (18:00)
[2022-08-05] MEDS ORDERED: NEBIVOLOL 5 MG TABLET (FP) PO SCH (22:00)
[2022-08-05] MEDS ORDERED: ATORVASTATIN CA 40 MG TABLET (FP) PO SCH (22:00)
== END 2022-08-05 17:42 | disposition home or self-care (01) ==
LOC: JER 21:15 → JERBED 23:04 → J4W 08-05 03:54
PROVIDERS: ADMIT Internal Medicine; ATTEND Internal Medicine
PROC: 3E023GC Introduction of Other Therapeutic Substance into Muscle, Percutaneous Approach (ICD-10-PCS; principal; 2022-08-04)
PROC: 3E0337Z Introduction of Electrolytic and Water Balance Substance into Peripheral Vein, Percutaneous Approach (ICD-10-PCS; 2022-08-04)
DX: I48.91 Unspecified atrial fibrillation (principal); Z88.0 Allergy status to penicillin; Z87.891 Personal history of nicotine dependence; F41.9 Anxiety disorder, unspecified; Z95.5 Presence of coronary angioplasty implant and graft; N20.0 Calculus of kidney; I10 Essential (primary) hypertension; I25.2 Old myocardial infarction; E78.00 Pure hypercholesterolemia, unspecified; Z86.16 Personal history of COVID-19; N17.9 Acute kidney failure, unspecified; E66.8 Other obesity; Z68.31 Body mass index [BMI] 31.0-31.9, adult
CPT/HCPCS: 36415; 71045-TC-FY; 80053; 81003; 82962; 83735; 83880; 84100; 84439; 84443; 84484; 85025; 85610; 85730; 93005; 93010; 93306-TC; 96372; 99285-25; C9803-CS; G0378; U0003; U0005

== ENCOUNTER 2023-04-16 13:44 | Emergency (ER) | payer OTHER ==
[2023-04-16 13:48] VITALS: BP 169/91; PULSE 84; RESP 18; TEMP 97.9; BMI 31.7
[2023-04-16 15:58] LABS: BASO % 0.7 % (0-2.0); EOS % 1.7 % (0-4.5); HEMATOCRIT 44.8 % (35.4-49); HEMOGLOBIN 15.7 GM/dL (11.7-16.9); LYMPH % 8.6 % (8-40); MCH 32.9 pg (25.7-33.7); MCHC 35.1 g/dl (32.0-35.9); MEAN CELL VOLUME 93.8 fl (80-96); MONO % 7.7 % (3.8-10.2); NEUT % 81.3 % (42.8-82.8); PLATELET COUNT 199 10^3/uL (134-434); RBC 4.78 M/mm3 (4.00-5.60); RDW 13.2 % (11.9-15.9); WHITE BLOOD COUNT 8.2 K/mm3 (4.0-10.0)
[2023-04-16 16:10] LABS: INR 1.32 (0.83-1.09); PROTHROMBIN TIME (PATIENT) 15.3 SEC (9.7-13.0)
[2023-04-16 16:13] LABS: ACTIVATED PTT 33.2 SECONDS (25.2-36.5)
[2023-04-16 16:19] LABS: POTASSIUM 4.7 mmol/L (3.5-5.1)
[2023-04-16 16:21] LABS: CALCIUM 9.3 mg/dL (8.5-10.1)
[2023-04-16 16:22] LABS: ALBUMIN 3.9 g/dl (3.4-5.0); BLOOD UREA NITROGEN 11.2 mg/dL (7-18)
[2023-04-16 16:25] LABS: CREATININE 1.1 mg/dL (0.55-1.3)
== END 2023-04-16 17:29 | disposition home or self-care (01) ==
LOC: JER 13:44
DX: I10 Essential (primary) hypertension (principal)
CPT/HCPCS: 36415; 80053; 84484; 85025; 85610; 85730; 93005; 93010; 99284-25

== ENCOUNTER 2023-07-08 02:00 | Emergency (ER) | payer OTHER ==
[2023-07-08 02:08] VITALS: BP 171/93; PULSE 68; RESP 20; TEMP 98.7; BMI 32.5
[2023-07-08] MEDS ORDERED: COLCHICINE 0.6 MG CAP PO ONE (03:21)
[2023-07-08] MEDS ORDERED: DEXAMETHASONE SOD PHOSPHATE 10 MG/1 ML VIAL IM ONE (03:21)
[2023-07-08] MEDS ORDERED: DEXAMETHASONE SOD PHOSPHATE 10 MG/1 ML VIAL ONE (03:23)
[2023-07-08] MEDS ORDERED: COLCHICINE 0.6 MG TAB ONE (03:23)
== END 2023-07-08 04:30 | disposition home or self-care (01) ==
LOC: JER 02:00
PROC: 3E023GC Introduction of Other Therapeutic Substance into Muscle, Percutaneous Approach (ICD-10-PCS; principal; 2023-07-08)
DX: M79.674 Pain in right toe(s) (principal); M10.9 Gout, unspecified; R22.31 Localized swelling, mass and lump, right upper limb
CPT/HCPCS: 99284-25; J1100

== ENCOUNTER 2023-09-28 06:23 | Emergency (ER) | payer OTHER ==
[2023-09-28 06:36] VITALS: TEMP 98.2; BMI 30.7
[2023-09-28] MEDS ORDERED: MAG HYDROX/AL HYDROX/SIMETH 30 ML UNIT-DOSE CUP ONE (07:53)
[2023-09-28] MEDS: MAG HYDROX/AL HYDROX/SIMETH 30 ML UNIT-DOSE CUP PO ONE (07:58)
[2023-09-28 08:41] LABS: POTASSIUM 4.2 mmol/L (3.5-5.1)
[2023-09-28] MEDS ORDERED: ACETAMINOPHEN INJECTION 100 ML IVPB ONE (08:41)
[2023-09-28 08:43] LABS: ALBUMIN 4.2 g/dl (3.4-5.0); BLOOD UREA NITROGEN 19.2 mg/dL (7-18); CALCIUM 9.8 mg/dL (8.5-10.1)
[2023-09-28] MEDS: ACETAMINOPHEN 1000 MG/100 ML BAG IVPB ONE (08:45)
[2023-09-28 08:46] LABS: CREATININE 1.2 mg/dL (0.55-1.3)
[2023-09-28 08:48] LABS: BILIRUBIN,TOTAL 0.8 mg/dL (0.2-1); TOT PROT 7.4 g/dl (6.4-8.2)
[2023-09-28 08:51] LABS: N-TERMINAL BNP 68.7 pg/ml (5-450)
[2023-09-28 08:56] LABS: BASO % 0.7 % (0-2.0); EOS % 1.3 % (0-4.5); HEMATOCRIT 49.9 % (35.4-49); HEMOGLOBIN 17.2 GM/dL (11.7-16.9); LYMPH % 11.5 % (8-40); MCH 32.5 pg (25.7-33.7); MCHC 34.5 g/dl (32.0-35.9); MEAN CELL VOLUME 94.1 fl (80-96); MEAN PLT VOLUME 9.5 fl (7.5-11.1); MONO % 9.2 % (3.8-10.2); NEUT % 77.3 % (42.8-82.8); PLATELET COUNT 201 10^3/uL (134-434); RBC 5.31 M/mm3 (4.00-5.60); RDW 13.7 % (11.9-15.9); WHITE BLOOD COUNT 8.5 K/mm3 (4.0-10.0)
[2023-09-28] MEDS ORDERED: APIXABAN 5 MG TABLET ONE (10:14)
[2023-09-28] MEDS ORDERED: LEVOTHYROXINE NA 100 MCG TABLET (FP) ONE (10:15)
[2023-09-28] MEDS ORDERED: LISINOPRIL 10 MG TABLET ONE (10:15)
[2023-09-28] MEDS: APIXABAN 5 MG TABLET PO ONE (10:20)
[2023-09-28] MEDS: LEVOTHYROXINE NA 100 MCG TABLET (FP) PO ONE (10:20)
[2023-09-28] MEDS: LISINOPRIL 10 MG TABLET PO ONE (10:20)
[2023-09-28] MEDS: NEBIVOLOL 10 MG TABLET (FP) PO ONE (10:27)
[2023-09-28] MEDS: SODIUM CHLORIDE 1,000 ML IV ONE (10:28)
[2023-09-28 10:30] VITALS: RESP 18
[2023-09-28 11:19] VITALS: BP 118/75; PULSE 63
== END 2023-09-28 12:30 | disposition home or self-care (01) ==
LOC: JER 06:23
PROC: 3E033NZ Introduction of Analgesics, Hypnotics, Sedatives into Peripheral Vein, Percutaneous Approach (ICD-10-PCS; principal; 2023-09-28)
PROC: 3E0337Z Introduction of Electrolytic and Water Balance Substance into Peripheral Vein, Percutaneous Approach (ICD-10-PCS; 2023-09-28)
DX: R00.2 Palpitations (principal); R00.0 Tachycardia, unspecified
CPT/HCPCS: 36415; 71045-TC-FY; 80053; 83880; 84439; 84443; 84484; 85025; 93005; 93010; 99285-25; J0131

== ENCOUNTER 2023-12-26 09:20 | Emergency (ER) | payer OTHER ==
[2023-12-26 09:27] VITALS: BMI 30.7
[2023-12-26] MEDS ORDERED: MAG HYDROX/AL HYDROX/SIMETH 30 ML UNIT-DOSE CUP ONE (10:21)
[2023-12-26] MEDS ORDERED: FAMOTIDINE 20 MG/50 ML IVPB 20 MG/50 ML MG IVPB ONE (10:22)
[2023-12-26] MEDS: FAMOTIDINE 20 MG/50 ML IVPB 20 MG/50 ML MG IVPB ONE (10:33)
[2023-12-26] MEDS: MAG HYDROX/AL HYDROX/SIMETH 30 ML UNIT-DOSE CUP PO ONE (10:33)
[2023-12-26 10:38] LABS: BASO % 0.2 % (0-2.0); EOS % 2.2 % (0-4.5); HEMATOCRIT 46.2 % (35.4-49); LYMPH % 13.8 % (8-40); MCH 32.5 pg (25.7-33.7); MCHC 34.5 g/dl (32.0-35.9); MEAN CELL VOLUME 94.2 fl (80-96); MEAN PLT VOLUME 8.7 fl (7.5-11.1); MONO % 10.1 % (3.8-10.2); NEUT % 73.7 % (42.8-82.8); PLATELET COUNT 157 10^3/uL (134-434); RDW 13.3 % (11.9-15.9); WHITE BLOOD COUNT 5.5 K/mm3 (4.0-10.0)
[2023-12-26 11:06] LABS: POTASSIUM 4.3 mmol/L (3.5-5.1)
[2023-12-26 11:08] LABS: ALBUMIN 3.8 g/dl (3.4-5.0); BLOOD UREA NITROGEN 18.3 mg/dL (7-18)
[2023-12-26 11:11] LABS: CREATININE 1.2 mg/dL (0.55-1.3)
[2023-12-26 11:13] LABS: BILIRUBIN,TOTAL 1.1 mg/dL (0.2-1); TOT PROT 6.9 g/dl (6.4-8.2)
[2023-12-26 11:53] VITALS: BP 129/67; PULSE 62; RESP 15; TEMP 98.3
== END 2023-12-26 13:04 | disposition home or self-care (01) ==
LOC: JER 09:20
PROC: 3E033GC Introduction of Other Therapeutic Substance into Peripheral Vein, Percutaneous Approach (ICD-10-PCS; principal; 2023-12-26)
DX: R07.2 Precordial pain (principal); R20.0 Anesthesia of skin
CPT/HCPCS: 36415; 71045-TC-FY; 80053; 84443; 84484; 85025; 93005; 93010; 99285-25